=== PATIENT | female | born 1970 | race Caucasian/White ===

== ENCOUNTER → 2016-11-22 | Outpatient (CLI) | payer BC ==
--- NOTE | 2016-11-22 20:26 | US ---
EXAMINATION TYPE: US pelvic complete DATE OF EXAM: 11/22/2016 4:31 PM COMPARISON: NONE CLINICAL HISTORY: 46-year-old female Pelvic Mass R19.00. Partial hysterectomy 2008, pelvic mass seen on recent MRI in [place] Date of LMP: unknown TECHNIQUE: Transvaginal (TV) and Transabdominal (TA) FINDINGS: Uterus: Surgically absent. The vaginal cuff appears uniform and smooth at 1.6 cm thick. Right Ovary: unable to visualize common obscured by overlying bowel gas. Left Ovary: 4.7 x 2.2 x 2.3 cm with 2 cystic areas measuring 2.4 cm and 1.8 cm. These appear to be r elatively simple cysts. Small amount of free fluid in the left adnexa. IMPRESSION: 1. Status post hysterectomy. 2. Right ovary could not be visualized. 3. Left ovary contains 2 simple appearing cysts. These can be reassessed in 6-8 weeks. Subsequent fol low-up can then be determined. 4. Small amount of free fluid in the left adnexa.
== END ==
LOC: RADUSWWP 15:54
PROVIDERS: ATTEND Family Medicine
DX: N83.202 Unspecified ovarian cyst, left side (principal); Z90.710 Acquired absence of both cervix and uterus
CPT/HCPCS: 76830; 76856

== ENCOUNTER → 2017-01-05 | Outpatient (CLI) | payer BC ==
--- NOTE | 2017-01-05 09:33 | US ---
EXAMINATION TYPE: US transvaginal DATE OF EXAM: 01/05/2017 9:19 AM COMPARISON: See PACS CLINICAL HISTORY: N83.201 Ovarian Cyst lt side. TECHNIQUE: Transvaginal (TV) Date of LMP: history of hysterectomy EXAM MEASUREMENTS: Uterus: Surgically absent cm Endometrial Stripe: Surgically absent cm Right Ovary: obscured by overlying bowel gas cm Left Ovary: 3.0 x 1.7 x 1.7cm cm FINDINGS: 1. Uterus: surgically absent 2. Endometrium: Surgically absent 3. Right Ovary: Obscured by overlying bowel gas 4. Left Ovary: 2 cysts noted one irregular shaped with probable septation measuring 1.9 x 1.8 x 1.5c m, exophytic cyst vs ff measuring 0.9 x 0.5 x 0.6cm 5. Bilateral adnexa: wnl 6. Posterior cul-de-sac: wnl IMPRESSION: 1. Uterus is surgically absent. Right ovary is not seen and there are 2 cystic structures involving t he left ovary measuring 1.9 and 0.9 cm. Predominantly simple. Follow-up in 6-8 weeks could be obtained for resolution.
== END | disposition home or self-care (01) ==
LOC: RADUSWWP 08:55
PROVIDERS: ATTEND Family Medicine
DX: N83.201 Unspecified ovarian cyst, right side (principal); Z90.710 Acquired absence of both cervix and uterus
CPT/HCPCS: 76830

== ENCOUNTER → 2017-03-07 | Outpatient (CLI) | payer BC ==
[2017-03-07 13:25] LABS: Appearance,Urine Clear (Clear); Bilirubin,Urine Negative (Negative); Glucose,Urine (UA) Negative (Negative); Ketones,Urine Negative (Negative); Leukocyte Esterase,Urine Negative (Negative); Nitrite,Urine Negative (Negative); Protein,Urine Negative (Negative); Specific Gravity,Urine 1.018 (1.001-1.035); UA Billing (MACRO vs. MICRO) CHEM; Urobilinogen,Urine <2.0 mg/dL (<2.0)
[2017-03-07 13:27] LABS: Basophils # (A) 0.1 k/uL (0-0.2); Basophils % (A) 1 %; CH 30.8; Eosinophils # (A) 0.3 k/uL (0-0.7); Eosinophils % (A) 4 %; HCT 43.9 % (34.0-46.0); HDW 2.41; HGB 14.3 gm/dL (11.4-16.0); Luc # (Auto) 0.17; Luc % (Auto) 3; Lymphocytes # (A) 2.2 k/uL (1.0-4.8); Lymphocytes % (A) 37 %; MCH 30.5 pg (25.0-35.0); MCHC 32.5 g/dL (31.0-37.0); MCV 93.8 fL (80.0-100.0); Mean Platelet Volume 6.9; Monocytes # (A) 0.3 k/uL (0-1.0); Monocytes % (A) 5 %; Neutrophils # (A) 3.1 k/uL (1.3-7.7); Neutrophils % (A) 51 %; RBC 4.68 m/uL (3.80-5.40); RDW 12.5 % (11.5-15.5); WBC 6.1 k/uL (3.8-10.6); WBC (Perox) 6.17
[2017-03-07 13:47] LABS: Anion Gap 10 mmol/L; Blood Urea Nitrogen 12 mg/dL (7-17); Carbon Dioxide 25 mmol/L (22-30); Chloride 106 mmol/L (98-107); Non-African American GFR(MDRD) >60 (>60 ml/min/1.73 sqM); Potassium 4.7 mmol/L (3.5-5.1); Sodium 141 mmol/L (137-145)
[2017-03-07 13:53] LABS: INR 1.1 (<1.1); Partial Thromboplastin Time 24.7 sec (22.0-30.0); Prothrombin Time 10.7 sec (9.0-12.0)
[2017-03-10 07:51] LABS: Anabasine Urine <2.0 ng/mL (<2.0)
== END | disposition home or self-care (01) ==
LOC: LABWHC1 12:41
PROVIDERS: ATTEND Specialist
DX: Z01.812 Encounter for preprocedural laboratory examination (principal)
CPT/HCPCS: 36415; 80051; 80323; 81003; 82565; 84520; 85025; 85610; 85730; 87070; 87086

== ENCOUNTER 2017-03-28 13:10 | Emergency (ER) | payer BC ==
[2017-03-28 13:23] VITALS: RESP 18
--- NOTE | 2017-03-28 15:07 | ED ---
Lower Extremity Injury HPI - General Chief Complaint: Extremity Injury, Lower Stated Complaint: left leg swelling Time Seen by Provider: 03/28/17 13:44 Source: patient, family, RN notes reviewed Mode of arrival: wheelchair Limitations: no limitations - History of Present Illness Initial Comments: Patient is a 47-year-old female presents to the emergency room for evaluation of left leg pain. Patient states she had spinal surgery by Dr. Collier at [facility] on Tuesday. Patient states when she was sent home she was advised to walk around as much as she could and was given exercises do with her feet and legs. Patient states night she began developing pain in her left ankle. Patient states she's noticed swelling in her foot and her left leg is having increasing pain radiating up into her upper leg. Patient states today she is now experiencing swelling in her right foot but denies pain yet. Patient denies history of DVTs or PEs. Patient denies taking any blood thinners. Patient denies any specific trauma or injury to her left leg. - Related Data Home Medications Medication Instructions Recorded Confirmed Albuterol Inhaler [Ventolin Hfa 1 puff INHALATION RT-BID PRN 02/26/14 03/28/17 Inhaler] DULoxetine HCL [Cymbalta] 60 mg PO DAILY 01/18/15 03/28/17 Vitamin B Complex 1 tab PO DAILY 01/18/15 03/28/17 Multivitamins, Thera [Theragran] 1 tab PO DAILY 04/02/15 03/28/17 Diclofenac Sodium [Voltaren] 75 mg PO BID 06/04/16 03/28/17 Gabapentin [Neurontin] 300 mg PO TID 06/04/16 03/28/17 Verapamil HCl [Verapamil ER] 120 mg PO DAILY 06/04/16 03/28/17 metFORMIN HCL [Glucophage] 500 mg PO AC-BRKFST 06/04/16 03/28/17 diphenhydrAMINE [Benadryl] 25 mg PO DAILY PRN 06/18/16 03/28/17 Diazepam [Valium] 10 mg PO HS PRN 03/28/17 03/28/17 HYDROcodone/APAP 7.5-325MG [Leighton 1 tab PO Q4H PRN 03/28/17 03/28/17 7.5-325] Methocarbamol [Robaxin] 750 mg PO Q12H 03/28/17 03/28/17 Allergies Allergy/AdvReac Type Severity Reaction Status Date / Time apple [Apple] Allergy Rash/Hives Verified 03/28/17 15:11 aspirin Allergy Rash/Hives Verified 03/28/17 15:11 Beef Containing Products Allergy Rash/Hives Verified 03/28/17 15:11 cinnamon [Cinnamon] Allergy Rash/Hives Verified 03/28/17 15:11 cocoa [[place]] Allergy Rash/Hives Verified 03/28/17 15:11 dill oil Allergy Rash/Hives Verified 03/28/17 15:11 egg Allergy Rash/Hives Verified 03/28/17 15:11 frovatriptan succinate Allergy Nausea & Verified 03/28/17 15:11 [From Frova] Vomiting plus throat swelling grapefruit [Grapefruit] Allergy Rash/Hives Verified 03/28/17 15:11 peas Allergy Rash/Hives Verified 03/28/17 15:11 Poultry [[place]] Allergy Rash/Hives Verified 03/28/17 15:11 soy Allergy Rash/Hives Verified 03/28/17 15:11 spinach Allergy Rash/Hives Verified 03/28/17 15:11 yeast, dried [yeast] Allergy Rash/Hives Verified 03/28/17 15:11 orange AdvReac Rash/Hives Verified 03/28/17 15:11 salmon Allergy Rash/Hives Uncoded 03/28/17 13:23 solumedrol IV only Allergy Rash/Hives Uncoded 03/28/17 13:23 Sinus medication AdvReac Nausea & Uncoded 03/28/17 13:23 Vomiting Review of Systems ROS Statement: Those systems with pertinent positive or pertinent negative responses have been documented in the HPI. ROS Other: All systems not noted in ROS Statement are negative. Past Medical History Past Medical History: Diabetes Mellitus, Eye Disorder, Hyperlipidemia, Musculoskeletal Disorder, Neurologic Disorder Additional Past Medical History / Comment(s): LT Glaucoma. Irregular heart beat. Raynauds. STOMACH Ulcers. 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 History of Any Multi-Drug Resistant Organisms: None Reported Past Surgical History: Ablation, Appendectomy, Back Surgery, Section, Cholecystectomy, Hysterectomy, Orthopedic Surgery Additional Past Surgical History / Comment(s): right/left knee, rfa to C2-5, laparoscopies to drain ovarian sx, bilat feet sx, rt trigger thumb sx, colonoscopy. RT KNEE SCOPE 06/09/16. Past Anesthesia/Blood Transfusion Reactions: Motion Sickness Past Psychological History: Anxiety Smoking Status: Former smoker Past Alcohol Use History: None Reported Additional Past Alcohol Use History / Comment(s): smokes 1/2 ppd, off and on since age 13 Past Drug Use History: None Reported - Past Family History Mother Family Medical History: Deep Vein Thrombosis (DVT) Father Family Medical History: Cancer General Exam - General Exam Comments Initial Comments: Laying on exam bed, no distress. Limitations: no limitations General appearance: alert, in no apparent distress Head exam: Present: atraumatic, normocephalic, normal inspection Eye exam: Present: normal appearance ENT exam: Present: normal exam Neck exam: Present: normal inspection Respiratory exam: Present: normal lung sounds bilaterally. Absent: respiratory distress Cardiovascular Exam: Present: regular rate, normal rhythm, normal heart sounds Left Lower Leg exam: Present: tenderness (Palpating over calf area) Ankle exam: Present: tenderness, swelling Foot/Toe exam: Present: tenderness, swelling Neurovascular tendon exam: Present: no vascular compromise. Absent: pulse deficit (2+ dorsal pedal and posterior tibial pulses), abnormal cap refill ( Capillary refill less than 2 second) Right Lower Leg exam: Present: normal inspection Ankle exam: Present: normal inspection Foot/Toe exam: Present: swelling. Absent: tenderness Neurovascular tendon exam: Present: no vascular compromise. Absent: pulse deficit (2+ dorsal pedal and posterior tibial pulses), abnormal cap refill ( Capillary refill less than 2 seconds) Back exam: Present: normal inspection Neurological exam: Present: alert, oriented X3, CN II-XII intact Psychiatric exam: Present: normal affect, normal mood Skin exam: Present: warm, dry, intact, normal color. Absent: rash Course Vital Signs 03/28/17 03/28/17 13:18 16:39 Temperature 98.4 F 98 F Pulse Rate 79 72 Respiratory 18 18 Rate Blood Pressure 117/60 107/68 O2 Sat by Pulse 99 95 Oximetry Medical Decision Making - Medical Decision Making Patient is a 47-year-old female presents to the emergency room for evaluation of left leg pain and bilateral leg swelling. Bilateral venous Doppler ultrasound negative for DVT's. Advised patient to continue elevating above heart follow-up with either primary care provider surgeon within the next 24-48 hours. Advised patient to return for any worsening symptoms. Patient states she understands everything that was discussed with her. Case discussed with Dr. Marshall. - Radiology Data Radiology results: report reviewed, image reviewed Disposition Clinical Impression: Bilateral leg edema Disposition: HOME SELF-CARE Condition: Good Instructions: Leg Edema (ED) Additional Instructions: Keep legs elevated. Continue taking pain medications as needed. Please follow up with primary care provider or surgeon in 24-48 hours. If any new symptom arises or symptoms worsen, return to ER as soon as possible. Referrals: Ezekiel Reina MD [Primary Care Provider] - 1-2 days Time of Disposition: 16:31
--- NOTE | 2017-03-28 16:21 | US ---
EXAMINATION TYPE: US venous doppler duplex LE DATE OF EXAM: 03/28/2017 3:53 PM COMPARISON: NONE CLINICAL HISTORY: Pain. SIDE PERFORMED: Bilateral TECHNIQUE: The lower extremity deep venous system is examined utilizing real time linear array sonog gisselle with graded compression, doppler sonography and color-flow sonography. VESSELS IMAGED: External Iliac Vein (EIV) Common Femoral Vein Deep Femoral Vein Greater Saphenous Vein * Femoral Vein Popliteal Vein Small Saphenous Vein * Proximal Calf Veins (* superficial vessels) Leg pain post op 6 days. Right Leg: Negative for DVT Left Leg: Negative for DVT No popliteal fossa lesion is seen. IMPRESSION: THIS EXAMINATION IS NEGATIVE FOR DVT IN BOTH LEGS.
[2017-03-28 16:40] VITALS: BP 107/68; PULSE 72; TEMP 98
== END 2017-03-28 16:40 | disposition home or self-care (01) ==
LOC: EC 13:10
DX: R60.0 Localized edema (principal); E11.9 Type 2 diabetes mellitus without complications; F41.9 Anxiety disorder, unspecified; Z87.891 Personal history of nicotine dependence; Z79.84 Long term (current) use of oral hypoglycemic drugs; Z79.899 Other long term (current) drug therapy; Z91.018 Allergy to other foods; Z88.6 Allergy status to analgesic agent; Z91.012 Allergy to eggs; Z88.8 Allergy status to other drugs, medicaments and biological substances
CPT/HCPCS: 93970; 99283

== ENCOUNTER → 2017-04-18 | Outpatient (CLI) | payer BC ==
--- NOTE | 2017-04-18 10:22 | US ---
EXAMINATION TYPE: US abdomen complete DATE OF EXAM: 04/18/2017 COMPARISON: 04/18/2012 CLINICAL HISTORY: LE Swelling SP RACHEL, M54.17. EXAM MEASUREMENTS: Liver Length: 14.1 cm CBD: 0.41 cm Spleen: 10 cm Right Kidney: 9.3 X 4.0 X 4.9 cm Left Kidney: 9.9 X 4.7 X 5.1 cm Pancreas: Tail obscured by overlying bowel gas Liver: HYPERECHOIC AREA VISUALIZED MEASURING 1.6 X 2.1 X 1.5 CM Gallbladder: Surgically absent: CBD: wnl Spleen: wnl Right Kidney: No hydronephrosis or masses seen Left Kidney: No hydronephrosis or masses seen Upper IVC: wnl Abd Aorta: wnl The liver demonstrates stable hyperechoic focus. The intrahepatic portion of the IVC and proximal abd ominal aorta are within normal limits. The gallbladder surgically absent. Common bile duct is unremar kable. The visualized portions of the pancreas are homogenous. The spleen is unremarkable. Kidneys are symmetric and free of hydronephrosis. No renal lesions are seen. IMPRESSION: 1. Stable hyperechoic lesion of the liver which may reflect a hemangioma
== END | disposition home or self-care (01) ==
LOC: RADUSWWP 09:01
PROVIDERS: ATTEND Specialist
DX: K76.89 Other specified diseases of liver (principal); Z98.1 Arthrodesis status; Z88.6 Allergy status to analgesic agent; Z88.8 Allergy status to other drugs, medicaments and biological substances; Z91.018 Allergy to other foods; Z91.010 Allergy to peanuts; Z91.02 Food additives allergy status
CPT/HCPCS: 76700

== ENCOUNTER → 2017-09-19 | Outpatient (CLI) | payer BC ==
[2017-09-19 15:27] LABS: Blood Urea Nitrogen 13 mg/dL (7-17); Non-African American GFR(MDRD) >60 (>60 ml/min/1.73 sqM)
--- NOTE | 2017-09-19 17:41 | CT ---
EXAMINATION TYPE: CT abdomen pelvis w con DATE OF EXAM: 09/19/2017 COMPARISON: 12/20/2016 INDICATION: Bowel obstruction. DLP: 1560 mGycm, Automated exposure control for dose reduction was used. CONTRAST: 100 mL of Omnipaque 300. Study performed with Oral Contrast TECHNIQUE: Axial images were obtained from above the diaphragm to the pubic rami in the axial plane a t 5 mm thick sections. Reconstructed images are reviewed on the computer in the coronal plane. FINDINGS: Limited CT sections are obtained the lung bases. The lung bases are clear. CT ABDOMEN: Liver: Normal Spleen: Normal Pancreas: Normal Adrenal glands: The adrenal glands are normal. Gallbladder: Surgically absent Kidneys: No masses are evident. No hydronephrosis is present. No cysts are present. Delayed images were obtained through the kidneys, which remain unremarkable. Aorta: Vascular calcification is within the aorta. Inferior vena cava: Normal. CT PELVIS: Loops of bowel within the abdomen and pelvis are normal. There are loops of bowel which are incom pletely distended or lack oral contrast limiting their evaluation. Oral contrast extends to the stoma ch proximal small bowel loops to the distal ileum. Dilated loops to suggest obstruction or not identi fied. Significant fluid-filled loops of bowel are not evident to suggest ileus. Rule ileum appears un remarkable with fluid Appendix: Not visualized Urinary bladder: Normal. Genitourinary structures: Uterus is absent. Adnexal regions are clear. Osseous structures: No suspicious lytic or sclerotic lesions. Fixation disc spaces are within the lum bar spine. IMPRESSIONS: 1. No obstruction identified although contrast does not extend into the colon during the time allott ed for this examination. No suspicious dilated loops of bowel are fluid-filled loops of bowel are edelmira dent.
== END | disposition home or self-care (01) ==
LOC: RADCTMAIN 13:46
PROVIDERS: ATTEND Surgery Plastic and Reconstructive Surgery
DX: K56.609 Unspecified intestinal obstruction, unspecified as to partial versus complete obstruction (principal)
CPT/HCPCS: 82565; 84520; 74177; Q9967

== ENCOUNTER 2017-11-14 11:42 | Inpatient (IN) | payer BC ==
[2017-11-09 12:43] VITALS: BMI 35.9
--- NOTE | 2017-11-13 13:38 | HP ---
HISTORY AND PHYSICAL Surgery 11/14/2017. Radha Triana is a 47-year-old patient seen with symptomatic right knee osteoarthritis. Treatment options discussed. She elected to proceed right total knee arthroplasty. Consent was obtained. Medical clearance provider by Dr. Reina. PAST MEDICAL HISTORY: Asthma, hyf-kauzira-mdeemkmud diabetes, hypertension, gastroesophageal reflux disease. PAST SURGICAL HISTORY: Bilateral knee arthroscopy, cholecystectomy, cardiac catheterization, hand surgery. DAILY MEDICATIONS: Albuterol, Benadryl, Cymbalta, Glucophage, Verapamil, gabapentin. ALLERGIES: ASPIRIN, SOLU-MEDROL, SINUS MEDICATIONS. SOCIAL HISTORY: The patient smokes 3/4 pack cigarettes daily. PHYSICAL EXAMINATION: Evaluation of the right knee: Range of motion is -3 to 110 degrees. Tenderness along the medial joint line. Mild intra-articular effusion. Crepitus along the medial and patellofemoral compartments with range of motion. Ligaments stable. Hip rotation without pain. Distal neurovascular exam intact. RADIOGRAPHS: Radiographs of the right knee revealed moderate medial and moderate to severe patellofemoral compartment osteoarthritis. IMPRESSION: 1. Right knee osteoarthritis. 2. Asthma. 3. Hsi-dcxwvyi-siwlxdmdp diabetes. 4. Hypertension. 5. Gastroesophageal reflux disease. 6. Tobacco use. PLAN: Right total knee arthroplasty. MMODL / IJN: [id number] /
[~2017-11-14 11:42] MED LIST: DEXAMETHASONE SOD PHOSPHATE 10 MG/ML 1 ML VIAL IV ONE; LACTATED RINGERS 1,000 ML IV SCH; MELOXICAM 7.5 MG TAB PO ONE; MIDAZOLAM 2 MG/2 ML VIAL IV PRN; MORPHINE SULFATE 4 MG/ML SYRINGE IV PRN; ONDANSETRON 4 MG/2 ML VIAL IVP ONE; SCOPOLAMINE 1.5MG/72HR PATCH TRANSDERM ONE; TRANEXAMIC ACID 1,000 MG in SODIUM CHLORIDE 0.9% 50 ML IVPB ONE; ceFAZolin IN SWFI 2 GM/20 ML SYRINGE IVP ONE
[2017-11-14 14:55] LABS: Glucose,Whole Blood 94 mg/dL (75-99)
[2017-11-14] MEDS ORDERED: LACTATED RINGERS 1,000 ML IV ONE ×4 (14:55→18:14)
[2017-11-14] MEDS ORDERED: LIDOCAINE 1% 20 ML VIAL (10MG/ML) FOR IV START INTRADERMA ONE (14:55)
[2017-11-14] MEDS: fentaNYL (PF) 50 MCG/ML 2 ML AMP IVP ONE ×2 (15:28→15:34)
[2017-11-14] MEDS ORDERED: ROPIVACAINE 1,100 MG, SODIUM CHLORIDE 0.9% 330 ML MISCELLANE PRN ×2 (15:43)
[2017-11-14] MEDS ORDERED: NALOXONE 0.4 MG/ML 1 ML VIAL IV PRN ×2 (15:43→18:05)
[2017-11-14] MEDS ORDERED: ROPIVACAINE 246.25 MG, EPINEPHrine 0.5 MG, KETOROLAC 30 MG, cloNIDine HCL/PF 80 MCG, WA... MISCELLANE ONE ×5 (15:45)
--- NOTE | 2017-11-14 15:45 | P.ONQ ---
Anesthesiology Proc Note - PNB - Peripheral Nerve Block Performed Right Adductor Canal Infusion Procedure Start Time: 15:25 Procedure Stop Time: 15:35 Indication: Requested by physician Specifically requested for management of pain by DrJanette: David Ojeda Sedation Type: Sedate with meaningful contact maintained Preparation: Sterile Dressing Position: Supine Catheter: Indwelling Needle Types: On-Q Needle Size: 100mm (4") Needle Gauge: 20 Technique: Ultrasound Injectate: 0.5% Ropivacaine (see comment for volume)
[2017-11-14] MEDS ORDERED: fentaNYL (PF) 50 MCG/ML 2 ML AMP ONE (16:03)
[2017-11-14] MEDS ORDERED: MIDAZOLAM 2 MG/2 ML VIAL ONE (16:03)
[2017-11-14] MEDS ORDERED: PROPOFOL 10 MG/ML 20 ML VIAL IV ONE (16:03)
[2017-11-14] MEDS ORDERED: SODIUM CHLORIDE 0.9% 100 ML BAG ONE (16:03)
[2017-11-14] MEDS ORDERED: ePHEDrine 50 MG/ML 1 ML AMP ONE (16:03)
[2017-11-14] MEDS ORDERED: TRANEXAMIC ACID 1,000 MG/10 ML VIAL ONE (16:03)
[2017-11-14] MEDS ORDERED: ceFAZolin 3,000 MG in SODIUM CHLORIDE 0.9% IRRIGATIO 3,000 ML IRRIGATION ONE (17:29)
--- NOTE | 2017-11-14 18:04 | P.OP ---
Date of Procedure: 11/14/17 Preoperative Diagnosis: Right knee osteoarthritis Postoperative Diagnosis: Right knee osteoarthritis Procedure(s) Performed: Right total knee arthroplasty Implants: 1. Marli persona size 7 cruciate retaining narrow cemented femur 2. Marli persona size D cemented tibia 3. Marli persona 10 mm medial congruent polyethylene tibial insert 4. Marli persona 32 mm all polyethylene cemented patella Anesthesia: regional (Adductor canal catheter), local, spinal Surgeon: David Ojeda Banana Expert #1: Akshat Avitia Estimated Blood Loss (ml): 50 Pathology: other (bone) Condition: stable Disposition: PACU Indications for Procedure: 47-year-old patient seen with symptomatic right knee osteoarthritis. After having treatment options discussed, she elected to proceed with total knee arthroplasty. Operative Findings: see description of procedure Description of Procedure: Patient was taken to the operative suite after having an adductor canal catheter placed by the department of anesthesia. Patient underwent a spinal anesthetic by the department of anesthesia. Patient was given preoperative IV intake antibiotics and TXA. A well-padded tourniquet was placed about the right lower extremity. The lower extremity was then prepped and draped in the normal sterile orthopedic fashion. The extremity was elevated, a tourniquet was insufflated to 350. A standard anterior incision was made sharply through skin. Dissection was taken down through the subcutaneous soft tissues down to the extensor mechanism. A medial arthrotomy was performed, patella was everted and knee was flexed. There was advanced osteoarthritis noted. A proximal tibial cutting guide was positioned. Proximal tibial cut was made. A distal intramedullary femoral cutting guide was positioned, distal femoral cut made. We placed the appropriate sizing guide and selected the appropriate size. A distal 4-in-1 femoral cutting block was positioned, distal femoral cuts were made. We now placed a trial femoral component into position, along with an appropriate size tibial tray and insert. We now took the knee through range of motion and had full extension good flexion and good overall soft tissue balance noted. The patella was everted and a flush cut made with patellar quad tendon. We templated the patella, appropriate drill holes were made. An appropriate trial patella was positioned, knee was taken through full range of motion with the patella tracking very nicely. The trial patella was removed. Drill holes were made through the femoral component. All trial components were removed after marking off the appropriate rotation of the tibia. Retractors were now positioned along the proximal tibia. An appropriate keel punch was made with the appropriate size tibial guide. At this point appropriate size implants were chosen and opened. The joint was irrigated copiously with pulse lavage mechanical irrigation. The posterior capsule was infiltrated analgesic. We mixed antibiotic methylmethacrylate. Once the methyl methacrylate was ready, the tibial component was cemented into place removing any excess methylmethacrylate. The femoral component was cemented into place removing the removing any excess methylmethacrylate. We then inserted the appropriate size polyethylene tibial insert. We made sure that it was locked into position. We took the knee into full extension, and then back in a flexion making sure we had removed any excess methylmethacrylate. The patellar component was then cemented down and secured with clamp. Excess methylmethacrylate removed. We kept the knee in full extension, patellar clamp in position until methylmethacrylate had hardened. Once it had hardened the patellar clamp was removed. The knee was taken through full range of motion. The patella tracked nicely. There was good soft tissue balancing. The tourniquet was now released. Additional hemostasis was achieved via electrocautery. The second gram of TXA was given. The wound was irrigated with pulse lavage mechanical irrigation. The extensor mechanism was repaired with Vicryl. We checked the repair with range of motion and it was stable. The subcutaneous soft tissues were repaired with Vicryl in layers. The skin was approximated with pernio/ Dermabond. Sterile dressings were applied followed by loose web roll and Merlin bandage. The patient was transferred to a bed, and taken to recovery in stable and satisfactory condition. Eliu CALDERON assisted with the procedure.
[2017-11-14] MEDS ORDERED: hydrOXYzine PAMOATE 25 MG CAP PO PRN (18:05)
[2017-11-14] MEDS ORDERED: HYDROcodone/APAP 7.5-325MG 1 EACH TAB PO PRN (18:05)
[2017-11-14] MEDS ORDERED: HYDROmorphone 0.5 MG/0.5 ML SYRINGE IVP PRN ×3 (18:05)
[2017-11-14] MEDS ORDERED: ONDANSETRON 4 MG/2 ML VIAL IVP PRN (18:05)
[2017-11-14 18:52] LABS: Glucose,Whole Blood 112 mg/dL (75-99)
--- NOTE | 2017-11-14 19:50 | XR ---
PROCEDURE: XR knee limited RT - 2V DATE AND TIME: 11/14/2017 6:29 PM REFERRING PHYSICIAN: David Ojeda DO CLINICAL INDICATION: PHH, Evaluation for Postop abnormality and alignment TECHNIQUE: AP and crosstable lateral views were obtained. FINDINGS: The patient is status post TKR, with the components and skeletal structures appearing to be in anatomic position and alignment. Postprocedural soft tissue changes are noted. No unexpected radi opaque foreign bodies. IMPRESSION: Postoperative examination.
[2017-11-14] MEDS ORDERED: ALBUTEROL NEBULIZED 2.5 MG/3 ML INHALATION PRN (20:03)
[2017-11-14] MEDS ORDERED: SENNOSIDES-DOCUSATE SODIUM 1 EACH TAB PO SCH (21:00)
[2017-11-14 21:06] LABS: Glucose,Whole Blood 248 mg/dL (75-99)
[2017-11-14] MEDS: FAMOTIDINE 20 MG TAB PO SCH (21:22)
[2017-11-14] MEDS: GABAPENTIN 300 MG CAP PO SCH (21:23)
[2017-11-14] MEDS: traMADol 50 MG TAB PO SCH (21:23)
[2017-11-14] MEDS: INSULIN ASPART 100 UNIT/ML 1 ML 10 ML VIAL SQ SCH (21:23)
[2017-11-14] MEDS ORDERED: diphenhydrAMINE 25 MG CAP PO PRN (22:46)
[2017-11-14] MEDS: HYDROcodone/APAP 7.5-325MG 1 EACH TAB PO PRN (23:56)
[2017-11-14] MEDS: ceFAZolin IN SWFI 2 GM/20 ML SYRINGE IVP SCH (23:57)
[2017-11-15] MEDS: LACTATED RINGERS 1,000 ML IV SCH ×3 (03:50→12:32)
[2017-11-15] MEDS: HYDROcodone/APAP 7.5-325MG 1 EACH TAB PO PRN ×2 (06:06→12:31)
--- NOTE | 2017-11-15 06:25 | P.PN ---
Progress Note - Text Progress Note Date: 11/15/17 . Postoperative day # 1 status post total knee arthroplasty, under spinal anesthesia, and adductor canal catheter placed for postoperative analgesia, currently at ropivacaine 0.2% 8 mL per hour and continuous infusion, catheter site local. There is no erythema, and there is no tenderness, visual analogue scale is 1-4 /10, patient using oral pain medication for breakthrough pain. Assessment and plan= Acute postoperative pain, adductor canal catheter for pain control, pain is well controlled we'll continue the same management.
[2017-11-15 07:25] LABS: Basophils % (A) 0 %; Eosinophils % (A) 0 %; HCT 35.4 % (34.0-46.0); HGB 11.8 gm/dL (11.4-16.0); Lymphocytes # (A) 1.6 k/uL (1.0-4.8); Lymphocytes % (A) 10 %; MCH 30.7 pg (25.0-35.0); MCHC 33.2 g/dL (31.0-37.0); MCV 92.5 fL (80.0-100.0); Monocytes # (A) 0.9 k/uL (0-1.0); Monocytes % (A) 6 %; Neutrophils # (A) 12.8 k/uL (1.3-7.7); Neutrophils % (A) 83 %; Platelet Count 275 k/uL (150-450); RBC 3.83 m/uL (3.80-5.40); RDW 12.2 % (11.5-15.5); WBC 15.4 k/uL (3.8-10.6)
[2017-11-15] MEDS ORDERED: metFORMIN 500 MG TAB PO SCH (07:30)
[2017-11-15 07:49] LABS: Anion Gap 6 mmol/L; Blood Urea Nitrogen 14 mg/dL (7-17); Calcium 8.8 mg/dL (8.4-10.2); Carbon Dioxide 25 mmol/L (22-30); Chloride 107 mmol/L (98-107); Glucose 115 mg/dL (74-99); Potassium 4.7 mmol/L (3.5-5.1); Sodium 138 mmol/L (137-145)
[2017-11-15] MEDS: GABAPENTIN 300 MG CAP PO SCH (08:33)
[2017-11-15] MEDS: traMADol 50 MG TAB PO SCH ×2 (08:33→12:32)
[2017-11-15] MEDS: FAMOTIDINE 20 MG TAB PO SCH (08:33)
[2017-11-15] MEDS: INSULIN ASPART 100 UNIT/ML 1 ML 10 ML VIAL SQ SCH ×2 (08:34→12:29)
[2017-11-15] MEDS ORDERED: DULoxetine HCL 60 MG CAPSULE.DR PO SCH (09:00)
[2017-11-15] MEDS ORDERED: ENOXAPARIN 30 MG/0.3 ML SYRINGE SQ SCH (09:00)
[2017-11-15] MEDS ORDERED: MELOXICAM 7.5 MG TAB PO SCH (09:00)
[2017-11-15] MEDS ORDERED: VERAPAMIL SR 120 MG TABLET.ER PO SCH (09:00)
[2017-11-15] MEDS ORDERED: FAMOTIDINE 20 MG TAB PO SCH (09:00)
[2017-11-15] MEDS ORDERED: MULTIVITAMINS, THERA 1 EACH TAB PO SCH (09:00)
[2017-11-15] MEDS: ceFAZolin IN SWFI 2 GM/20 ML SYRINGE IVP SCH (09:21)
--- NOTE | 2017-11-15 10:07 | CONS ---
CONSULTATION REASON FOR CONSULTATION: Advice regarding diabetes mellitus, hypertension, hyperlipidemia, and other medical issues requested by Orthopedic surgery. HISTORY OF PRESENT ILLNESS: This 47-year-old woman with a past medical history of diabetes, hyperlipidemia, DJD, history of left eye glaucoma, history of ablation, being followed by Dr. Reina in the outpatient setting underwent right total knee arthroplasty by Dr. Ojeda. There is no history of fever, rigors. No history of headache, loss of consciousness of seizures. No chest pain, palpitation at this time. Blood sugars found to be 112, 248. PAST MEDICAL HISTORY: History of diabetes, hypertension, hyperlipidemia, DJD, history of left eye glaucoma, history of ablation, appendectomy. MEDICATIONS: Prior to admission include home medications are: 1. Glucophage 500 mg p.o. b.i.d. 2. Benadryl 25 mg daily p.r.n. 3. Vitamin B1 complex. 4. Verapamil ER 120 mg q.a.m. 5. Multivitamins 1 p.o. daily. 6. Neurontin 300 mg t.i.d. 7. Famotidine 20 mg p.o. b.i.d. 8. Voltaren 70 mg b.i.d. 9. Cymbalta 60 mg p.r.n. 10.Vitamin C 500 mg. 11.Ventolin HFA 1 to 2 puffs b.i.d. p.r.n. ALLERGIES: ARE MULTIPLE ALLERGIES APPLE, ASPIRIN, BEEF, CINNAMON, COCOA, EGGS, PEAS, POULTRY, SPINACH, YEASTS, ORANGE AND SALMON, SOLU-MEDROL IV AND SINUS MEDICATION. FAMILY HISTORY: History of DVT, bladder problems in the family. SOCIAL HISTORY: History of smoking, no history of alcohol. REVIEW OF SYSTEMS: ENT: No diminished vision. No diminished hearing. CARDIOVASCULAR: No angina or palpitations. RESPIRATORY: As mentioned. GI no nausea or vomiting. no dysuria or retention. Central nervous system: No numbness, weakness. Allergy/Immunology: No asthma or hayfever. Musculoskeletal as mentioned earlier. HEMATOLOGY/ONCOLOGY: No history of anemia. Endocrine: Diabetes. Constitutional: As mentioned earlier. Dermatology: Negative. Rheumatology: Negative. Psychiatric : As mentioned earlier. PHYSICAL EXAM: The patient is alert and oriented times three. Pulse is 86, blood pressure 109/ 53, respiration 16, temperature 97.8, pulse ox 97% on room air. HEENT: Conjunctivae normal. Neck: No jugular venous distention. Cardiovascular: S1, S2 muffled. Respiratory: Breath sounds diminished in the bases. No rhonchi and no crackles. ABDOMEN: Soft, nontender. No mass palpable. Legs no edema and no swelling. NERVOUS SYSTEM: Higher functions as mentioned earlier. Moves all four limbs. No focal deficits. Lymphatics: No lymph nodes palpable in the neck, axillae or groin. Skin no ulcers, rashes or bleeding. LAB STUDIES: At this time shows: Accu-Cheks 112, 248. ASSESSMENT: 1. Status post right total knee arthroplasty. 2. Diabetes type 2. 3. Hyperlipidemia. 4. Degenerative joint disease. 5. Left glaucoma. 6. Appendectomy. 7. Back surgery. 8. History of anxiety. 9. History of nicotine dependence. RECOMMENDATIONS AND DISCUSSION: In this 47-year-old woman who presented with multiple complex medical issues, we will monitor the patient closely, continue the current medications, management and symptomatic treatment. Otherwise at this time, I recommend continue with Accu- Cheks a.c. and q.h.s., consistent carb diet and we will closely follow. Incentive spirometry and I would also recommend repeat labs. Also DVT prophylaxis. We will follow the patient closely. Thank you Dr. Ojeda, for letting us participate in the care of this patient. The patient will be asked to follow with Dr. Reina closely after discharge. MMODL / IJN: [id number] / [id number]
[2017-11-15] MEDS ORDERED: ASPIRIN 325 MG TAB PO SCH (11:00)
[2017-11-15 12:23] LABS: Glucose,Whole Blood 93 mg/dL (75-99)
--- NOTE | 2017-11-15 13:13 | P.DS ---
Providers Date of admission: 11/14/17 14:22 Expected date of discharge: 11/15/17 Attending physician: David Ojeda Consults: 11/14/17 18:05 Consult Physician Routine Consulting Provider: Ezekiel Reina Consult Reason/Comments: Medical management Do you want consulting provider notified?: Yes 11/14/17 18:45 Consult Physician Routine Consulting Provider: Arnulfo Rudd Consult Reason/Comments: medical management Do you want consulting provider notified?: Yes Primary care physician: Ezekiel Reina Hospital Course: Date of admission: 11/14/2017 Date of discharge: 11/15/2017 Admission diagnosis: Status post right total knee arthroplasty Discharge diagnosis: Same Attending physician: Dr. Ojeda Surgical procedures: Right total knee arthroplasty Brief history: Patient is a 47-year-old female with a history of progressive primary right knee osteoarthritis. At this point patient has failed conservative treatment measures and has opted to proceed with a elective right total knee arthroplasty Hospital course: Details of patient's surgery can be found in operative report. Patient tolerated the procedure well and was subsequently transported to orthopedic floor. Patient's orthopeidc and medical care was provided daily. Patient had daily laboratory tests performed for evaluation of overall blood counts. Patient had daily physical therapy to include strengthening range of motion as well as education with walker ambulation. Patient had daily CPM usage as part of their physical therapy program. Patient was treated with Lovenox for their postoperative DVT prophylaxis during their inpatient stay. Patient was noted to have a relatively uneventful postoperative course. Patient reported satisfactory pain control with oral pain medications by postoperative day. Patient showed satisfactory progress with physical therapy. Patient moved steadily through the program and had no difficulty meeting the goals by postoperative day 1. Given patient's otherwise satisfactory course and having met physical therapy goals, plan is to discharge patient home on postoperative day 1. Discharge condition/disposition: Patient will be discharged home in stable condition. Discharge medications: Instructions are given on resumption of patient's normal daily medications per primary care recommendation, in addition patient will be prescribed [place] 7.5 mg/325 mg, Colace 100 mg, aspirin 325 mg. Discharge instructions: 1. Wound care and infection precautions, keep incision dry and covered while showering, no lotions, creams, moisturizers. No soaking, tubs, pools, hottubs. Do not scrub over the incision. 2. Weight-bear as tolerated with walker / cane until follow-up. 3. Ice and elevate when necessary. Do not exceed 20 minutes per hour with ice pack. 4. Utilize compression sleeve until seen at first follow up appointment. 5. Visiting nursing care. 6. Home physical therapy including home CPM. 7. Pain meds and anticoagulants per prescription. 8. Pain medication has potential to cause constipation. Increase oral fluid and fiber intake. Contact primary care provider if you have not had a bowel movement within 48 hours after discharge 9. No anti-inflammatory medication until discussed at first post operative visit, this including Motrin, Aleve, Mobic, Diclofenac. 10. Follow up in office at 2 weeks postop with Eliu Avitia PA-C 11. Follow up with your primary care doctor 7-10 days after discharge. 12. Contact [facility] with any questions, . Procedures: Right total knee arthroplasty Patient Condition at Discharge: Good Plan - Discharge Summary Discharge Rx Participant: Yes New Discharge Prescriptions: New Aspirin 325 mg PO BID #60 tab Docusate [Colace] 100 mg PO DAILY #30 capsule HYDROcodone/APAP 7.5-325MG [[place] 7.5] 1 - 2 each PO Q6HR PRN #60 tab PRN Reason: Pain No Action Albuterol Inhaler [Ventolin Hfa Inhaler] 1 puff INHALATION RT-BID PRN PRN Reason: Shortness Of Breath DULoxetine HCL [Cymbalta] 60 mg PO QAM Vitamin B Complex 1 tab PO DAILY Multivitamins, Thera [Multivitamin (formulary)] 1 tab PO DAILY Gabapentin [Neurontin] 300 mg PO TID Diclofenac Sodium [Voltaren] 75 mg PO BID metFORMIN HCL [Glucophage] 500 mg PO BID Verapamil HCl [Verapamil ER] 120 mg PO QAM diphenhydrAMINE [Benadryl] 25 mg PO DAILY PRN PRN Reason: Allergy Symptoms Famotidine 20 mg PO BID Ascorbic Acid [Vitamin C] 500 mg PO DAILY Discharge Medication List Albuterol Inhaler [Ventolin Hfa Inhaler] 1 puff INHALATION RT-BID PRN 02/26/14 [ History] DULoxetine HCL [Cymbalta] 60 mg PO QAM 01/18/15 [History] Vitamin B Complex 1 tab PO DAILY 01/18/15 [History] Multivitamins, Thera [Multivitamin (formulary)] 1 tab PO DAILY 04/02/15 [History ] Diclofenac Sodium [Voltaren] 75 mg PO BID 06/04/16 [History] Gabapentin [Neurontin] 300 mg PO TID 06/04/16 [History] Verapamil HCl [Verapamil ER] 120 mg PO QAM 06/04/16 [History] metFORMIN HCL [Glucophage] 500 mg PO BID 06/04/16 [History] diphenhydrAMINE [Benadryl] 25 mg PO DAILY PRN 06/18/16 [History] Ascorbic Acid [Vitamin C] 500 mg PO DAILY 09/21/17 [History] Famotidine 20 mg PO BID 09/21/17 [History] Aspirin 325 mg PO BID #60 tab 11/15/17 [Rx] Docusate [Colace] 100 mg PO DAILY #30 capsule 11/15/17 [Rx] HYDROcodone/APAP 7.5-325MG [[place] 7.5] 1 - 2 each PO Q6HR PRN #60 tab 11/15/17 [ Rx] Follow up Appointment(s)/Referral(s): [facility], [NON-STAFF] - Akshat Avitia PAC [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 Wound care and infection precautions, keep incision dry and covered while showering, no lotions, creams, moisturizers. No soaking, pools, hot tubs. Do not scrub over incision. 2. Weight-bear as tolerated with walker / cane until follow-up. 3. Ice and elevate when necessary. Do not exceed 20 minutes per hour with ice pack. 4. Utilize compression sleeve until seen at first follow up appointment. 5. Visiting nursing care. 6. Home physical therapy including home CPM. 7. Pain meds and anticoagulants per prescription. 8. Pain medication has potential to cause constipation. Increase oral fluid and fiber intake. Contact primary care provider if you have not had a bowel movement within 48 hours after discharge. 9. No anti-inflammatory medication until discussed at first post operative visit, this including Motrin, Aleve, Mobic, Diclofenac,. 10. Follow up in office at 2 weeks postop with Eliu Avitia PA-C 11. Follow up with your primary care doctor 7-10 days after discharge. 12. Contact [facility] with any questions, . Discharge Disposition: HOME WITH HOME HEALTH SERVICES
--- NOTE | 2017-11-15 13:16 | P.PN ---
Subjective Progress Note Date: 11/15/17 Principal diagnosis: status post right total knee arthroplasty patient seen today resting in her hospital bed, she appears comfortable. Her pain is well-controlled at this time. She's ambulated well with physical therapy. She denies any headaches, lightheadedness, chest pain or shortness of breath. Objective - Vital Signs Vital signs: Vital Signs Temp 98.3 F 11/15/17 07:00 Pulse 64 11/15/17 07:00 Resp 14 11/15/17 07:00 BP 91/50 11/15/17 07:00 Pulse Ox 93 L 11/15/17 07:00 Intake & Output 11/14/17 11/15/17 11/15/17 18:59 06:59 18:59 Intake Total 2000 1800 Output Total 50 600 Balance 1950 1200 Intake: IV 2000 100 Intake, IV Titration 1200 Amount Lactated Ringers 1,000 ml 1200 @ 100 mls/hr IV .Q10H SANDI Rx#:[id number] Oral 500 Output: Urine 600 Estimated Blood Loss 50 Other: # Voids 1 1 - Exam right lower extremity: Incision is clean, dry, and intact. The prineo tape is in good condition. There is minimal soft tissue swelling and ecchymosis surrounding the medial and lateral aspects of the incision. Calf is soft, no tenderness with palpation. Plantar flexion, dorsiflexion, EHL, FHL are intact. Sensory exam to light touch throughout the extremity is intact, dorsal pedis pulses 2+. - Labs CBC & Chem 7: 11/15/17 06:47 11/15/17 06:47 Labs: Abnormal Lab Results - Last 24 Hours (Table) 11/14/17 11/14/17 11/15/17 Range/Units 18:49 21:04 06:47 WBC 15.4 H (3.8-10.6) k/uL Neutrophils # 12.8 H (1.3-7.7) k/uL Glucose (74-99) mg/dL POC Glucose (mg/dL) 112 H 248 H (75-99) mg/dL 11/15/17 Range/Units 06:47 WBC (3.8-10.6) k/uL Neutrophils # (1.3-7.7) k/uL Glucose 115 H (74-99) mg/dL POC Glucose (mg/dL) (75-99) mg/dL Assessment and Plan Plan: assessment: Postoperative day #1 status post right total knee arthroplasty Plan: Pain control, we'll discharge home on oral medication Aspirin 325 mg twice a day for DVT prophylaxis Home therapy and nursing after discharge Wound care was discussed Medical recommendations Plan for discharge home today Time with Patient: Less than 30
[2017-11-15 14:51] VITALS: BP 109/57; PULSE 69; RESP 16; TEMP 98.4
--- NOTE | 2017-11-15 16:58 | PN ---
PROGRESS NOTE DATE OF SERVICE: 11/15/2017 This 41-year-old woman who was admitted after right total knee arthroplasty is improving significantly. No chest pain. No palpitations. No fever. EXAM: Alert and oriented times three. Pulse 69, blood pressure 109/50, respiration 16, temperature 98.4, pulse ox 94% on room air. HEENT: Conjunctivae normal. Neck: No jugular venous distention. Cardiovascular: S1, S2. Respiratory: Breath sounds diminished in the bases. No rhonchi and no crackles. Abdomen is soft, nontender. Legs status post arthroplasty. Nervous system: No focal deficits. LABS: WBC 15.4. ASSESSMENT: 1. Status post right total knee arthroplasty. 2. Increased WBC possibly reactive. 3. Diabetes type 2. 4. Hyperlipidemia. 5. Degenerative joint disease. 6. History of left glaucoma. 7. Appendectomy. 8. History of back surgery. RECOMMENDATIONS AND DISCUSSION: I recommend to continue current medications, management and symptomatic treatment. I recommend UA with micro and continue to monitor. Further recommendations to follow. Otherwise resume the home medications. MMODL / IJN: [id number] /
[2017-11-15 17:44] LABS: Hemoglobin A1C 5.4 % (4.0-6.0)
== END 2017-11-15 15:35 | disposition home health service (06) | DRG 470 ==
LOC: 2ORMAIN 14:22 → 3SUR 18:18
PROVIDERS: ADMIT Orthopaedic Surgery; ATTEND Orthopaedic Surgery
PROC: 0SRC0J9 Replacement of Right Knee Joint with Synthetic Substitute, Cemented, Open Approach (ICD-10-PCS; principal; 2017-11-14 16:05)
DX: M17.11 Unilateral primary osteoarthritis, right knee (principal); E11.9 Type 2 diabetes mellitus without complications; E78.5 Hyperlipidemia, unspecified; I10 Essential (primary) hypertension; J45.909 Unspecified asthma, uncomplicated; K21.9 Gastro-esophageal reflux disease without esophagitis; F41.9 Anxiety disorder, unspecified; G89.18 Other acute postprocedural pain; F17.210 Nicotine dependence, cigarettes, uncomplicated; H40.9 Unspecified glaucoma; Z90.89 Acquired absence of other organs; Z88.8 Allergy status to other drugs, medicaments and biological substances; Z79.84 Long term (current) use of oral hypoglycemic drugs; Z79.899 Other long term (current) drug therapy; Z90.49 Acquired absence of other specified parts of digestive tract; Z91.030 Bee allergy status; Z91.012 Allergy to eggs; Z91.013 Allergy to seafood; Z91.018 Allergy to other foods; Z83.2 Family history of diseases of the blood and blood-forming organs and certain disorders involving the immune mechanism
CPT/HCPCS: 80048; 83036; 85025; 88300

== ENCOUNTER → 2018-01-05 | Outpatient (CLI) | payer BC ==
--- NOTE | 2018-01-05 20:56 | US ---
EXAMINATION TYPE: US venous doppler duplex LE RT DATE OF EXAM: 01/05/2018 6:49 PM COMPARISON: NONE CLINICAL HISTORY: R79.1 ABN COAGULATION PROFILE. Elevated D dimer and right leg swelling. SIDE PERFORMED: Right TECHNIQUE: The lower extremity deep venous system is examined utilizing real time linear array sonog gisselle with graded compression, doppler sonography and color-flow sonography. VESSELS IMAGED: External Iliac Vein (EIV) Common Femoral Vein Deep Femoral Vein Greater Saphenous Vein * Femoral Vein Popliteal Vein Small Saphenous Vein * Proximal Calf Veins (* superficial vessels) Right Leg: Negative for DVT No evidence of DVT right leg. IMPRESSION: Negative exam. No evidence of deep venous thrombosis in the right leg.
== END | disposition home or self-care (01) ==
LOC: RADUSMAIN 18:45
PROVIDERS: ATTEND Family Medicine
DX: R79.1 Abnormal coagulation profile (principal)

== ENCOUNTER 2018-01-19 10:34 | Emergency (ER) | payer BC ==
[2018-01-19 10:56] VITALS: RESP 18
[2018-01-19] MEDS ORDERED: SODIUM CHLORIDE 0.9% 1,000 ML IV ONE (12:26)
[2018-01-19] MEDS ORDERED: SODIUM CHLORIDE 0.9% 1,000 ML IV SCH ×2 (12:30)
[2018-01-19 12:54] LABS: Basophils % (A) 0 %; Eosinophils # (A) 0.2 k/uL (0-0.7); Eosinophils % (A) 2 %; HCT 42.9 % (34.0-46.0); HGB 14.3 gm/dL (11.4-16.0); Lymphocytes # (A) 2.1 k/uL (1.0-4.8); Lymphocytes % (A) 22 %; MCH 29.8 pg (25.0-35.0); MCHC 33.3 g/dL (31.0-37.0); MCV 89.3 fL (80.0-100.0); Mean Platelet Volume 7.1; Monocytes # (A) 0.6 k/uL (0-1.0); Monocytes % (A) 6 %; Neutrophils # (A) 6.6 k/uL (1.3-7.7); Neutrophils % (A) 69 %; Platelet Count 341 k/uL (150-450); RDW 13.5 % (11.5-15.5); WBC 9.6 k/uL (3.8-10.6)
[2018-01-19 13:11] LABS: ALT 13 U/L (9-52); AST 18 U/L (14-36); Albumin 4.1 g/dL (3.5-5.0); Alkaline Phosphatase 73 U/L (38-126); Anion Gap 12 mmol/L; Blood Urea Nitrogen 12 mg/dL (7-17); C Reactive Protein 6.9 mg/L (<10.0); Calcium 9.6 mg/dL (8.4-10.2); Carbon Dioxide 27 mmol/L (22-30); Chloride 104 mmol/L (98-107); Glucose 92 mg/dL (74-99); Potassium 4.6 mmol/L (3.5-5.1); Sodium 143 mmol/L (137-145); Total Bilirubin 0.3 mg/dL (0.2-1.3); Total Protein 6.9 g/dL (6.3-8.2)
--- NOTE | 2018-01-19 13:51 | US ---
EXAMINATION TYPE: US venous doppler duplex LE RT DATE OF EXAM: 01/19/2018 1:34 PM COMPARISON: Ultrasound from 2 weeks ago. CLINICAL HISTORY: Pain. SIDE PERFORMED: right TECHNIQUE: The lower extremity deep venous system is examined utilizing real time linear array sonog gisselle with graded compression, doppler sonography and color-flow sonography. VESSELS IMAGED: External Iliac Vein (EIV) Common Femoral Vein Deep Femoral Vein Greater Saphenous Vein * Femoral Vein Popliteal Vein Small Saphenous Vein * Proximal Calf Veins (* superficial vessels) Right Leg: Negative for DVT Grayscale, color doppler, spectral doppler imaging performed of the deep veins of the right lower ext remity. There is normal flow, compressibility, vascular waveforms. IMPRESSION: No ultrasound evidence for acute DVT in the right lower extremity.
--- NOTE | 2018-01-19 14:17 | ED ---
General Adult HPI - General Chief complaint: Extremity Problem,Nontraumatic Stated complaint: Swelling in right leg Time Seen by Provider: 01/19/18 12:16 Source: patient, RN notes reviewed, old records reviewed Mode of arrival: ambulatory Limitations: no limitations - History of Present Illness Initial comments: 39-year-old female presents emergency Department with right leg swelling. She had a surgery done total knee replacement by Dr. Carlita Srinivasan on . Patient states that she has normal range of motion. She reports no numbness or tingling feelings. She states that the pain is now extending from the lower leg all the way up to the hip. Patient also complains of feeling cold over the lateral aspect of her foot. 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 - Related Data Home Medications Medication Instructions Recorded Confirmed Albuterol Inhaler [Ventolin Hfa 1 puff INHALATION RT-BID PRN 02/26/14 01/19/18 Inhaler] Vitamin B Complex 1 tab PO DAILY 01/18/15 01/19/18 Multivitamins, Thera [Multivitamin 1 tab PO DAILY 04/02/15 01/19/18 (formulary)] Diclofenac Sodium [Voltaren] 75 mg PO BID 06/04/16 01/19/18 Gabapentin [Neurontin] 300 mg PO TID 06/04/16 01/19/18 Verapamil HCl [Verapamil ER] 120 mg PO QAM 06/04/16 01/19/18 metFORMIN HCL [Glucophage] 500 mg PO BID 06/04/16 01/19/18 diphenhydrAMINE [Benadryl] 25 mg PO DAILY PRN 06/18/16 01/19/18 Ascorbic Acid [Vitamin C] 500 mg PO DAILY 09/21/17 01/19/18 Famotidine 20 mg PO BID 09/21/17 01/19/18 DULoxetine HCL [Cymbalta] 90 mg PO DAILY 01/19/18 01/19/18 Allergies Allergy/AdvReac Type Severity Reaction Status Date / Time apple [Apple] Allergy Rash/Hives Verified 01/19/18 11:43 aspirin Allergy Rash/Hives Verified 01/19/18 11:43 Beef Containing Products Allergy Rash/Hives Verified 01/19/18 11:43 cinnamon [Cinnamon] Allergy Rash/Hives Verified 01/19/18 11:43 cocoa [Chelsea] Allergy Rash/Hives Verified 01/19/18 11:43 dill oil Allergy Rash/Hives Verified 01/19/18 11:43 egg Allergy Rash/Hives Verified 01/19/18 11:43 frovatriptan succinate Allergy Nausea & Verified 01/19/18 11:43 [From Frova] Vomiting plus throat swelling grapefruit [Grapefruit] Allergy Rash/Hives Verified 01/19/18 11:43 peas Allergy Rash/Hives Verified 01/19/18 11:43 Poultry [Summit] Allergy Rash/Hives Verified 01/19/18 11:43 soy Allergy Rash/Hives Verified 01/19/18 11:43 spinach Allergy Rash/Hives Verified 01/19/18 11:43 yeast, dried [yeast] Allergy Rash/Hives Verified 01/19/18 11:43 orange AdvReac Rash/Hives Verified 01/19/18 11:43 salmon Allergy Rash/Hives Uncoded 01/19/18 10:56 solumedrol IV only Allergy Rash/Hives Uncoded 01/19/18 10:56 Sinus medication AdvReac Nausea & Uncoded 01/19/18 10:56 Vomiting Review of Systems ROS Statement: Those systems with pertinent positive or pertinent negative responses have been documented in the HPI. ROS Other: All systems not noted in ROS Statement are negative. Past Medical History Past Medical History: Diabetes Mellitus, Eye Disorder, Hyperlipidemia, Musculoskeletal Disorder, Neurologic Disorder, Osteoarthritis (OA) Additional Past Medical History / Comment(s): LT Glaucoma. Irregular heart beat. Raynauds. STOMACH Ulcers. 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 History of Any Multi-Drug Resistant Organisms: None Reported Past Surgical History: Ablation, Appendectomy, Back Surgery, Section, Cholecystectomy, Hysterectomy, Orthopedic Surgery Additional Past Surgical History / Comment(s): right/left knee, rfa to C2-5, laparoscopies to drain ovarian sx, bilat feet sx, rt trigger thumb sx, colonoscopy. RT KNEE SCOPE 06/09/16., LAPAROSCOPY 09/23/17 Past Anesthesia/Blood Transfusion Reactions: Motion Sickness Past Psychological History: Anxiety Smoking Status: Current every day smoker Past Alcohol Use History: None Reported Past Drug Use History: None Reported - Past Family History Mother Family Medical History: Deep Vein Thrombosis (DVT) Father Family Medical History: Cancer Additional Family Medical History / Comment(s): Bladder General Exam - General Exam Comments Initial Comments: Well-appearing 39-year-old female. No distress. Limitations: no limitations General appearance: alert, in no apparent distress Head exam: Present: atraumatic, normocephalic, normal inspection Eye exam: Present: normal appearance, PERRL, EOMI. Absent: scleral icterus, conjunctival injection, periorbital swelling ENT exam: Present: normal exam, mucous membranes moist Neck exam: Present: normal inspection. Absent: tenderness, meningismus, lymphadenopathy Respiratory exam: Present: normal lung sounds bilaterally. Absent: respiratory distress, wheezes, rales, rhonchi, stridor Cardiovascular Exam: Present: regular rate, normal rhythm, normal heart sounds. Absent: systolic murmur, diastolic murmur, rubs, gallop, clicks GI/Abdominal exam: Present: soft, normal bowel sounds. Absent: distended, tenderness, guarding, rebound, rigid Extremities exam: Present: normal inspection, full ROM, normal capillary refill. Absent: tenderness, pedal edema, joint swelling, calf tenderness Right Hip exam: Present: swelling ( is diffuse swelling over the entire leg radiating up towards the hip.) Upper Leg exam: Present: normal inspection, full ROM Knee exam: Present: full ROM, swelling (Patient has some swelling over the medial aspect of the knee.). Absent: normal inspection (Well-appearing incision site over the right knee.) Foot/Toe exam: Present: normal inspection, full ROM Neurovascular tendon exam: Present: extremity cold to touch (over lateral toes 3 -5 ). Absent: no vascular compromise Gait: observed and normal Back exam: Present: normal inspection Neurological exam: Present: alert, oriented X3, CN II-XII intact Psychiatric exam: Present: normal affect, normal mood Skin exam: Present: warm, dry, intact, normal color. Absent: rash Course Vital Signs 01/19/18 01/19/18 01/19/18 10:50 12:48 14:32 Temperature 98.4 F Pulse Rate 79 75 61 Respiratory 18 18 18 Rate Blood Pressure 126/62 98/57 103/53 O2 Sat by Pulse 99 97 97 Oximetry 01/19/18 17:05 Temperature 97.6 F Pulse Rate 72 Respiratory 18 Rate Blood Pressure 111/59 O2 Sat by Pulse 97 Oximetry Medical Decision Making - Medical Decision Making This patient is 39-year-old female presents emergency Department with worsening swelling and pain in the right leg. She has a total knee replacement on 2017. She states that since then she's noticed progressive swelling. Severed been to the point where it swelling only up to her hip. Patient underwent ultrasound today which was negative for DVT. No signs of infection with her blood work. Normal CRP.. Normal white blood cell count. Patient does have some coldness noted to the lateral aspect of her foot. She has normal dorsalis pedis pulse and normal posterior tibial pulse. She reports this is chronic annoys related Raynauds. Discussed with Dr. Jackson, whom also examined the patient. Suggested CT angio abdomen and pelvis with run off. On the right metal hardware artifact limits visualization of portion of the popliteal artery. Peroneal artery comes to a diminutive at the ankle. Otherwise two vessel runoff loaded into the foot. There's three vessel runoff noted and to the left foot. This can relate the the coldness of the toes in this foot. She does have normal capillary refill. AT this time disucssed I do not have a specific reason for the swelling and could be related to poor lymphatic since the surgery. Discussed she should follow up with vascular surgery related to her toes being cool, as well as lymphatic abnormalites. Discussed follow up with surgeon and return parameters discussed. - Lab Data Result diagrams: 01/19/18 12:37 01/19/18 12:37 Lab Results 01/19/18 01/19/18 01/19/18 Range/Units 12:37 12:37 12:37 WBC 9.6 (3.8-10.6) k/uL RBC 4.80 (3.80-5.40) m/uL Hgb 14.3 (11.4-16.0) gm/dL Hct 42.9 (34.0-46.0) % MCV 89.3 (80.0-100.0) fL MCH 29.8 (25.0-35.0) pg MCHC 33.3 (31.0-37.0) g/dL RDW 13.5 (11.5-15.5) % Plt Count 341 (150-450) k/uL Neutrophils % 69 % Lymphocytes % 22 % Monocytes % 6 % Eosinophils % 2 % Basophils % 0 % Neutrophils # 6.6 (1.3-7.7) k/uL Lymphocytes # 2.1 (1.0-4.8) k/uL Monocytes # 0.6 (0-1.0) k/uL Eosinophils # 0.2 (0-0.7) k/uL Basophils # 0.0 (0-0.2) k/uL Sodium 143 (137-145) mmol/L Potassium 4.6 (3.5-5.1) mmol/L Chloride 104 (98-107) mmol/L Carbon Dioxide 27 (22-30) mmol/L Anion Gap 12 mmol/L BUN 12 (7-17) mg/dL Creatinine 0.60 (0.52-1.04) mg/dL Est GFR (CKD-EPI)AfAm >90 (>60 ml/min/1.73 sqM) Est GFR (CKD-EPI)NonAf >90 (>60 ml/min/1.73 sqM) Glucose 92 (74-99) mg/dL Plasma Lactic Acid Alberto 1.3 (0.7-2.0) mmol/L Calcium 9.6 (8.4-10.2) mg/dL Total Bilirubin 0.3 (0.2-1.3) mg/dL AST 18 (14-36) U/L ALT 13 (9-52) U/L Alkaline Phosphatase 73 (38-126) U/L C-Reactive Protein 6.9 (<10.0) mg/L Total Protein 6.9 (6.3-8.2) g/dL Albumin 4.1 (3.5-5.0) g/dL - Radiology Data Radiology results: report reviewed US of right leg is negative for DVT. On the right metal hardware artifact limits visualization of portion of the popliteal artery. Turn your artery comes to a diminutive at the ankle. Otherwise two vessel runoff loaded into the foot. There's three vessel runoff noted and to the left foot. Circumferential wall sickening at the splenic flexure of the colon and likely relates to underdistention in the absence of any clinical symptoms of colitis. Disposition Clinical Impression: Right leg swelling, Abnormal computed tomography of lower extremity Disposition: HOME SELF-CARE Condition: Good Instructions: Leg Edema (ED) Additional Instructions: So wear Merlin wraps and compression stockings elbow swelling. Keep the leg elevated. Follow-up with her surgeon and primary care provider. Also recommended follow-up with vascular specialist regards the abnormal CT runoff finding. Return to the emergency department if any alarming signs or symptoms occur. Referrals: Ezekiel Reina MD [Primary Care Provider] - 1-2 days Time of Disposition: 16:51
[2018-01-19] MEDS ORDERED: DIAZEPAM 5 MG TAB PO STA (14:18)
[2018-01-19] MEDS ORDERED: HYDROcodone/APAP 10-325MG 1 EACH TAB PO ONE (14:18)
[2018-01-19] MEDS ORDERED: RX INFO: IV CONTRAST WAS GIVEN 1 EACH MISC MISCELLANE PRN (14:57)
--- NOTE | 2018-01-19 16:02 | CT ---
EXAMINATION TYPE: CT angio abd aorta wo/w con DATE OF EXAM: 01/19/2018 COMPARISON: 09/19/2017 HISTORY: 47-year-old female Swelling to right leg. Right knee replacement in October. TECHNIQUE: Contiguous axial scanning of the abdomen and pelvis with bilateral lower extremity runoff performed without and with IV Contrast, patient injected with 125 mL of Omnipaque 350. Coronal/sagitt al MIP reconstructions performed. 3-D reconstructions generated on a dedicated independent workstatio n. CT DLP: 1728.8 mGycm Automated exposure control for dose reduction was used. FINDINGS: Heart is normal size without pericardial effusion. Mild dependent atelectasis. No pleural effusion. Arterial phase imaging of the liver, adrenal glands, right kidney, spleen, pancreas show no gross abn ormality. Tiny subcentimeter hypodense density along the medial upper pole cortex of the left kidney too small for accurate CT characterization, was present back in 09/19/2017 suggestive of a tiny cyst. There are some surgical changes along the infraumbilical anterior midline. No dilated small bowel, free fluid, or free air. Mild circumferential wall thickening along the splenic flexure probably relates to underdistention in the absence of clinical symptoms of colitis. No mesenteric or retroperitoneal lymphadenopathy. Both ovaries are visualized. There is a 2.5 cm dominant follicle or functional cyst involving the rig ht ovary. Uterus surgically absent. Bladder is urine distended. No abnormal fluid collection in the p chuy or pelvic lymphadenopathy seen. Bones: L4-S1 interbody fusion changes. Right total knee arthroplasty shows no evident complication. N o osseous destructive process. Vasculature: Celiac axis shows conventional branching anatomy. SMA and castro renal arteries as well as the CHARAN are patent and no evidence for aneurysm. The iliac arteries are patent. Minimal eccentric plaque within the right common femoral artery. Super ficial femoral artery is patent. Some limitation in assessment of portions of the popliteal artery. T he visualized portions are patent and normal caliber. On both sides, the tibial peroneal trunks and anterior tibial arteries are patent. On the right, the peroneal artery becomes diminutive at the level of the ankle. Two-vessel runoff int o the foot. On the left, there is three-vessel runoff into the foot. IMPRESSION: 1. ON THE RIGHT, METAL HARDWARE ARTIFACT LIMITS VISUALIZATION OF A PORTION OF THE POPLITEAL ARTERY. T HE PERONEAL ARTERY BECOMES DIMINUTIVE AT THE ANKLE. OTHERWISE, TWO-VESSEL RUNOFF INTO THE FOOT. 2. THREE-VESSEL RUNOFF ON THE LEFT. 3. MILD CIRCUMFERENTIAL WALL THICKENING AT THE SPLENIC FLEXURE OF THE COLON LIKELY RELATES TO UNDERDI STENTION IN THE ABSENCE OF ANY CLINICAL SYMPTOMS OF COLITIS.
[2018-01-19 17:06] VITALS: BP 111/59; PULSE 72; TEMP 97.6
== END 2018-01-19 17:07 | disposition home or self-care (01) ==
LOC: EC 10:34
DX: M79.89 Other specified soft tissue disorders (principal); R93.7 Abnormal findings on diagnostic imaging of other parts of musculoskeletal system; M79.604 Pain in right leg; E11.9 Type 2 diabetes mellitus without complications; M19.90 Unspecified osteoarthritis, unspecified site; F41.9 Anxiety disorder, unspecified; F17.200 Nicotine dependence, unspecified, uncomplicated; Z96.651 Presence of right artificial knee joint; Z79.1 Long term (current) use of non-steroidal anti-inflammatories (NSAID); Z79.84 Long term (current) use of oral hypoglycemic drugs; Z79.899 Other long term (current) drug therapy; Z91.018 Allergy to other foods; Z88.6 Allergy status to analgesic agent; Z88.8 Allergy status to other drugs, medicaments and biological substances; Z91.012 Allergy to eggs
CPT/HCPCS: 36415; 75635; 80053; 83605; 85025; 86140; 87040; 96360; 99284

== ENCOUNTER 2018-03-23 11:06 | Emergency (ER) | payer BC ==
--- NOTE | 2018-03-23 11:35 | ED ---
General Adult HPI - General Chief complaint: Chest Pain Stated complaint: CHEST PAIN Time Seen by Provider: 03/23/18 11:18 Source: patient, RN notes reviewed, old records reviewed Mode of arrival: wheelchair Limitations: no limitations - History of Present Illness Initial comments: 48-year-old female history of hypertension, diabetes and an irregular heartbeat presenting for evaluation of chest pain. Patient states she's had some dyspnea associated with her pain. Her pain began at approximately 4 AM. It has been constant since that time. She describes it as substernal pressure. She does have a pressure sensation in her mid back as well. Denies stabbing or tearing pain. She has some associated nausea and lightheadedness associated with this. She has had 2 mild heart attacks according to the patient. She is a current smoker. - Related Data Home Medications Medication Instructions Recorded Confirmed Albuterol Inhaler [Ventolin Hfa 1 puff INHALATION RT-BID PRN 02/26/14 03/23/18 Inhaler] Multivitamins, Thera [Multivitamin 1 tab PO DAILY 04/02/15 03/23/18 (formulary)] Diclofenac Sodium [Voltaren] 75 mg PO DAILY 06/04/16 03/23/18 Gabapentin [Neurontin] 300 mg PO TID 06/04/16 03/23/18 Verapamil HCl [Verapamil ER] 120 mg PO QAM 06/04/16 03/23/18 metFORMIN HCL [Glucophage] 500 mg PO BID 06/04/16 03/23/18 diphenhydrAMINE [Benadryl] 25 mg PO DAILY PRN 06/18/16 03/23/18 Ascorbic Acid [Vitamin C] 500 mg PO DAILY 09/21/17 03/23/18 Famotidine 20 mg PO BID 09/21/17 03/23/18 DULoxetine HCL [Cymbalta] 90 mg PO DAILY 01/19/18 03/23/18 Allergies Allergy/AdvReac Type Severity Reaction Status Date / Time apple [Apple] Allergy Rash/Hives Verified 03/23/18 11:57 aspirin Allergy Rash/Hives Verified 03/23/18 11:57 Beef Containing Products Allergy Rash/Hives Verified 03/23/18 11:57 cinnamon [Cinnamon] Allergy Rash/Hives Verified 03/23/18 11:57 cocoa [[place]] Allergy Rash/Hives Verified 03/23/18 11:57 dill oil Allergy Rash/Hives Verified 03/23/18 11:57 egg Allergy Rash/Hives Verified 03/23/18 11:57 frovatriptan succinate Allergy Nausea & Verified 03/23/18 11:57 [From Frova] Vomiting plus throat swelling grapefruit [Grapefruit] Allergy Rash/Hives Verified 03/23/18 11:57 peas Allergy Rash/Hives Verified 03/23/18 11:57 Poultry [[place]] Allergy Rash/Hives Verified 03/23/18 11:57 soy Allergy Rash/Hives Verified 03/23/18 11:57 spinach Allergy Rash/Hives Verified 03/23/18 11:57 yeast, dried [yeast] Allergy Rash/Hives Verified 03/23/18 11:57 orange AdvReac Rash/Hives Verified 03/23/18 11:57 salmon Allergy Rash/Hives Uncoded 03/23/18 11:14 solumedrol IV only Allergy Rash/Hives Uncoded 03/23/18 11:14 Sinus medication AdvReac Nausea & Uncoded 03/23/18 11:14 Vomiting Review of Systems ROS Statement: Those systems with pertinent positive or pertinent negative responses have been documented in the HPI. ROS Other: All systems not noted in ROS Statement are negative. Past Medical History Past Medical History: Diabetes Mellitus, Eye Disorder, Hyperlipidemia, Musculoskeletal Disorder, Neurologic Disorder, Osteoarthritis (OA) Additional Past Medical History / Comment(s): LT Glaucoma. Irregular heart beat. Raynauds. STOMACH Ulcers. 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 History of Any Multi-Drug Resistant Organisms: None Reported Past Surgical History: Ablation, Appendectomy, Back Surgery, Section, Cholecystectomy, Hysterectomy, Orthopedic Surgery Additional Past Surgical History / Comment(s): right/left knee, rfa to C2-5, laparoscopies to drain ovarian sx, bilat feet sx, rt trigger thumb sx, colonoscopy. RT KNEE SCOPE 06/09/16., LAPAROSCOPY 09/23/17 Past Anesthesia/Blood Transfusion Reactions: Motion Sickness Past Psychological History: Anxiety Smoking Status: Current every day smoker Past Alcohol Use History: None Reported Past Drug Use History: None Reported - Past Family History Mother Family Medical History: Deep Vein Thrombosis (DVT) Father Family Medical History: Cancer Additional Family Medical History / Comment(s): Bladder General Exam Limitations: no limitations General appearance: alert, in no apparent distress Head exam: Present: atraumatic, normocephalic Eye exam: Present: normal appearance, PERRL ENT exam: Present: normal exam Neck exam: Present: normal inspection. Absent: tenderness, meningismus Respiratory exam: Present: normal lung sounds bilaterally. Absent: respiratory distress, wheezes, rales Cardiovascular Exam: Present: regular rate, normal rhythm, systolic murmur GI/Abdominal exam: Present: soft. Absent: distended, tenderness Extremities exam: Present: full ROM, pedal edema, other (Bilateral radial pulses 2+) Back exam: Present: normal inspection, full ROM Neurological exam: Present: alert, oriented X3, CN II-XII intact. Absent: motor sensory deficit Psychiatric exam: Present: normal affect, normal mood Skin exam: Present: warm, dry, intact. Absent: cyanosis, diaphoretic Course Vital Signs 03/23/18 11:13 Temperature 98.3 F Pulse Rate 89 Respiratory 18 Rate Blood Pressure 146/77 O2 Sat by Pulse 97 Oximetry EKG Findings - EKG Comments: EKG Findings:: EKG: Sinus rhythm and occasional PVC, rate 87, TX interval 152, castration 80, QTc [address] segment elevation or depression. T waves are upright. Medical Decision Making - Medical Decision Making 48-year-old female presenting for evaluation of chest pain and palpitations. EKG shows sinus rhythm, CBC unremarkable, CMP is within normal limits per troponin is negative. D-dimer is positive at 1.57. CT angiography is obtained is negative for PE or acute vascular pathology. Chest x-ray is negative for focal pneumonia or pneumothorax. On reevaluation, patient is feeling better. Her symptoms have been present for 8 hours prior to arrival. This does make her troponin more reliable. However I would like to observe the patient for serial cardiac enzymes. She declines and would prefer to return with worsening or changing symptoms. 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 - Lab Data Result diagrams: 03/23/18 11:25 03/23/18 11:25 Lab Results 03/23/18 03/23/18 03/23/18 Range/Units 11:25 11:25 11:25 WBC 6.0 (3.8-10.6) k/uL RBC 4.81 (3.80-5.40) m/uL Hgb 14.7 (11.4-16.0) gm/dL Hct 43.1 (34.0-46.0) % MCV 89.7 (80.0-100.0) fL MCH 30.5 (25.0-35.0) pg MCHC 34.1 (31.0-37.0) g/dL RDW 14.0 (11.5-15.5) % Plt Count 297 (150-450) k/uL Neutrophils % 56 % Lymphocytes % 35 % Monocytes % 5 % Eosinophils % 2 % Basophils % 1 % Neutrophils # 3.3 (1.3-7.7) k/uL Lymphocytes # 2.1 (1.0-4.8) k/uL Monocytes # 0.3 (0-1.0) k/uL Eosinophils # 0.1 (0-0.7) k/uL Basophils # 0.0 (0-0.2) k/uL PT (9.0-12.0) sec INR (<1.2) APTT (22.0-30.0) sec D-Dimer (<0.60) mg/L FEU Sodium 140 (137-145) mmol/L Potassium 4.5 (3.5-5.1) mmol/L Chloride 104 (98-107) mmol/L Carbon Dioxide 24 (22-30) mmol/L Anion Gap 12 mmol/L BUN 10 (7-17) mg/dL Creatinine 0.61 (0.52-1.04) mg/dL Est GFR (CKD-EPI)AfAm >90 (>60 ml/min/1.73 sqM) Est GFR (CKD-EPI)NonAf >90 (>60 ml/min/1.73 sqM) Glucose 97 (74-99) mg/dL Calcium 9.3 (8.4-10.2) mg/dL Magnesium 1.7 (1.6-2.3) mg/dL Total Bilirubin 0.3 (0.2-1.3) mg/dL AST 24 (14-36) U/L ALT 22 (9-52) U/L Alkaline Phosphatase 69 (38-126) U/L Total Creatine Kinase 71 (30-135) U/L CK-MB (CK-2) 1.1 (0.0-2.4) ng/mL CK-MB (CK-2) Rel Index 1.5 Troponin I <0.012 (0.000-0.034) ng/mL NT-Pro-B Natriuret Pep pg/mL Total Protein 6.4 (6.3-8.2) g/dL Albumin 4.1 (3.5-5.0) g/dL 03/23/18 03/23/18 Range/Units 11:25 11:25 WBC (3.8-10.6) k/uL RBC (3.80-5.40) m/uL Hgb (11.4-16.0) gm/dL Hct (34.0-46.0) % MCV (80.0-100.0) fL MCH (25.0-35.0) pg MCHC (31.0-37.0) g/dL RDW (11.5-15.5) % Plt Count (150-450) k/uL Neutrophils % % Lymphocytes % % Monocytes % % Eosinophils % % Basophils % % Neutrophils # (1.3-7.7) k/uL Lymphocytes # (1.0-4.8) k/uL Monocytes # (0-1.0) k/uL Eosinophils # (0-0.7) k/uL Basophils # (0-0.2) k/uL PT 9.8 (9.0-12.0) sec INR 1.0 (<1.2) APTT 24.1 (22.0-30.0) sec D-Dimer 1.57 H (<0.60) mg/L FEU Sodium (137-145) mmol/L Potassium (3.5-5.1) mmol/L Chloride (98-107) mmol/L Carbon Dioxide (22-30) mmol/L Anion Gap mmol/L BUN (7-17) mg/dL Creatinine (0.52-1.04) mg/dL Est GFR (CKD-EPI)AfAm (>60 ml/min/1.73 sqM) Est GFR (CKD-EPI)NonAf (>60 ml/min/1.73 sqM) Glucose (74-99) mg/dL Calcium (8.4-10.2) mg/dL Magnesium (1.6-2.3) mg/dL Total Bilirubin (0.2-1.3) mg/dL AST (14-36) U/L ALT (9-52) U/L Alkaline Phosphatase (38-126) U/L Total Creatine Kinase (30-135) U/L CK-MB (CK-2) (0.0-2.4) ng/mL CK-MB (CK-2) Rel Index Troponin I (0.000-0.034) ng/mL NT-Pro-B Natriuret Pep 24 pg/mL Total Protein (6.3-8.2) g/dL Albumin (3.5-5.0) g/dL Disposition Clinical Impression: Chest pain Disposition: HOME SELF-CARE Condition: Fair Instructions: Chest Pain (ED) Is patient prescribed a controlled substance at d/c from ED?: No Referrals: Ezekiel Reina MD [Primary Care Provider] - 1-2 days Time of Disposition: 13:58
[2018-03-23 11:50] LABS: Basophils % (A) 1 %; Eosinophils # (A) 0.1 k/uL (0-0.7); Eosinophils % (A) 2 %; HCT 43.1 % (34.0-46.0); HGB 14.7 gm/dL (11.4-16.0); Lymphocytes # (A) 2.1 k/uL (1.0-4.8); Lymphocytes % (A) 35 %; MCH 30.5 pg (25.0-35.0); MCHC 34.1 g/dL (31.0-37.0); MCV 89.7 fL (80.0-100.0); Mean Platelet Volume 6.4; Monocytes # (A) 0.3 k/uL (0-1.0); Monocytes % (A) 5 %; Neutrophils # (A) 3.3 k/uL (1.3-7.7); Neutrophils % (A) 56 %; Platelet Count 297 k/uL (150-450); RBC 4.81 m/uL (3.80-5.40)
--- NOTE | 2018-03-23 11:52 | XR ---
EXAMINATION TYPE: XR chest 2V DATE OF EXAM: 03/23/2018 COMPARISON: 04/02/2015 INDICATION: Chest pain TECHNIQUE: Frontal and lateral views of the chest are obtained. FINDINGS: The heart size is normal. The pulmonary vasculature is normal. The lungs are clear. IMPRESSION: 1. No acute pulmonary process.
[2018-03-23 11:59] LABS: ALT 22 U/L (9-52); AST 24 U/L (14-36); Albumin 4.1 g/dL (3.5-5.0); Alkaline Phosphatase 69 U/L (38-126); Anion Gap 12 mmol/L; Blood Urea Nitrogen 10 mg/dL (7-17); Calcium 9.3 mg/dL (8.4-10.2); Carbon Dioxide 24 mmol/L (22-30); Chloride 104 mmol/L (98-107); Glucose 97 mg/dL (74-99); Magnesium 1.7 mg/dL (1.6-2.3); Potassium 4.5 mmol/L (3.5-5.1); Sodium 140 mmol/L (137-145); Total Bilirubin 0.3 mg/dL (0.2-1.3); Total Protein 6.4 g/dL (6.3-8.2)
[2018-03-23 12:09] LABS: Creatine Kinase 71 U/L (30-135)
[2018-03-23 12:22] LABS: Creatine Kinase MB 1.1 ng/mL (0.0-2.4); Troponin I <0.012 ng/mL (0.000-0.034)
[2018-03-23 12:23] LABS: Partial Thromboplastin Time 24.1 sec (22.0-30.0); Prothrombin Time 9.8 sec (9.0-12.0)
[2018-03-23 12:39] LABS: D-Dimer 1.57 mg/L FEU (<0.60)
[2018-03-23] MEDS ORDERED: RX INFO: IV CONTRAST WAS GIVEN 1 EACH MISC MISCELLANE PRN (12:40)
--- NOTE | 2018-03-23 13:26 | CT ---
CT CHEST FOR PULMONARY EMBOLISM. EXAMINATION TYPE: CT angio chest DATE OF EXAM: 03/23/2018 INDICATION: Right sided chest pain with shortness of breath. Post op knee replacement 2-[address] DLP: 471.5 mGycm, Automated exposure control for dose reduction was used. CONTRAST: Patient injected with 100 mL of Isovue 370. COMPARISON: NONE TECHNIQUE: CT of the chest is performed on a spiral scan at 2 mm thick sections. Study is performed with intravenous contrast timed for evaluation for pulmonary embolism. This will limit additional po rtions of the evaluation. 3-D MIP images reconstructed by the technologist are reviewed on the compu ter in the coronal and sagittal planes. FINDINGS: No persistent filling defects are evident to suggest an acute pulmonary embolism. No mediastinal or hilar adenopathy enlarged by CT criteria is evident. The ascending aorta diameter at the level of the main pulmonary artery is 3.5 cm. The main pulmonary artery diameter at the bifur cation is 2.4 cm. Lung windows are clear. Limited CT section through the upper abdomen are unremarkable. IMPRESSIONS: 1. No acute pulmonary embolism.
[2018-03-23 14:22] VITALS: BP 109/67; PULSE 67; RESP 16; TEMP 97.9
== END 2018-03-23 14:25 | disposition home or self-care (01) ==
LOC: EC 11:06
DX: R07.2 Precordial pain (principal); R11.0 Nausea; R42 Dizziness and giddiness; I10 Essential (primary) hypertension; E11.40 Type 2 diabetes mellitus with diabetic neuropathy, unspecified; E78.5 Hyperlipidemia, unspecified; M19.90 Unspecified osteoarthritis, unspecified site; F41.9 Anxiety disorder, unspecified; F17.200 Nicotine dependence, unspecified, uncomplicated; Z79.1 Long term (current) use of non-steroidal anti-inflammatories (NSAID); Z79.84 Long term (current) use of oral hypoglycemic drugs; Z79.899 Other long term (current) drug therapy; Z91.018 Allergy to other foods; Z88.6 Allergy status to analgesic agent; Z91.012 Allergy to eggs; Z88.8 Allergy status to other drugs, medicaments and biological substances; Z91.048 Other nonmedicinal substance allergy status; Z53.29 Procedure and treatment not carried out because of patient's decision for other reasons
CPT/HCPCS: 36415; 71046; 71275; 80053; 82550; 82553; 83735; 83880; 84484; 85025; 85379; 85610; 85730; 93005; 99285

== ENCOUNTER 2018-07-30 07:40 | Inpatient (IN) | payer BC ==
[2018-07-30] MEDS ORDERED: ONDANSETRON 4 MG/2 ML VIAL IVP STA (08:06)
[2018-07-30] MEDS ORDERED: MORPHINE SULFATE 4 MG/ML SYRINGE IV STA (08:06)
[2018-07-30] MEDS ORDERED: SODIUM CHLORIDE 0.9% 1,000 ML IV STA (08:06)
[2018-07-30 08:30] LABS: Basophils # (A) 0.1 k/uL (0-0.2); Basophils % (A) 0 %; Eosinophils # (A) 0.1 k/uL (0-0.7); Eosinophils % (A) 1 %; HCT 40.6 % (34.0-46.0); HGB 13.8 gm/dL (11.4-16.0); Lymphocytes # (A) 3.5 k/uL (1.0-4.8); Lymphocytes % (A) 31 %; MCH 30.8 pg (25.0-35.0); MCV 90.8 fL (80.0-100.0); Mean Platelet Volume 6.6; Monocytes # (A) 0.7 k/uL (0-1.0); Monocytes % (A) 6 %; Neutrophils # (A) 6.7 k/uL (1.3-7.7); Neutrophils % (A) 60 %; Platelet Count 350 k/uL (150-450); RBC 4.47 m/uL (3.80-5.40); RDW 13.1 % (11.5-15.5); WBC 11.1 k/uL (3.8-10.6)
[2018-07-30 08:35] LABS: Appearance,Urine Clear (Clear); Bilirubin,Urine Negative (Negative); Blood,Urine Negative (Negative); Color,Urine Light Yellow; Glucose,Urine (UA) Negative (Negative); Ketones,Urine Negative (Negative); Leukocyte Esterase,Urine Negative (Negative); Nitrite,Urine Negative (Negative); PH, Urine 6.5 (5.0-8.0); Protein,Urine Negative (Negative); Specific Gravity,Urine 1.004 (1.001-1.035); Urobilinogen,Urine <2.0 mg/dL (<2.0)
[2018-07-30 08:47] LABS: ALT 17 U/L (9-52); AST 18 U/L (14-36); Albumin 4.1 g/dL (3.5-5.0); Alkaline Phosphatase 72 U/L (38-126); Amylase 43 U/L (30-110); Anion Gap 7 mmol/L; Blood Urea Nitrogen 16 mg/dL (7-17); Calcium 9.6 mg/dL (8.4-10.2); Carbon Dioxide 29 mmol/L (22-30); Chloride 104 mmol/L (98-107); Glucose 85 mg/dL (74-99); Lipase 70 U/L (23-300); Potassium 4.4 mmol/L (3.5-5.1); Sodium 140 mmol/L (137-145); Total Bilirubin 0.4 mg/dL (0.2-1.3); Total Protein 7.1 g/dL (6.3-8.2)
--- NOTE | 2018-07-30 08:49 | ED ---
General Adult HPI - General Source: patient, RN notes reviewed Mode of arrival: ambulatory Limitations: no limitations <Marino Perdomo - Last Filed: 07/30/18 10:11> <Nick Jesus - Last Filed: 07/30/18 10:43> - General Chief complaint: Abdominal Pain Stated complaint: Abd.pain Time Seen by Provider: 07/30/18 07:58 - History of Present Illness Initial comments: Patient's a 48-year-old female who presents emergency room today with a chief complaint of increased right-sided abdominal pain. Patient states that she has a history of adhesions. She states that she has been following up with her surgeon. She states she is supposed to have surgery next month to remove scar tissue and adhesions. She states she's been steadily having increased pain on the right side of the abdomen over the last few months. She states it's been getting worse last few weeks. She states she's having a difficult time with passing gas and bowel movements. She states she did have small bowel movement earlier today. She denies any other complaints or symptoms. Patient denies any recent fever, chills, shortness of breath, chest pain, back pain, numbness or tingling, dysuria or hematuria, headaches or visual changes, or any other complaints. (Marino Perdomo) - Related Data Home Medications Medication Instructions Recorded Confirmed Albuterol Inhaler [Ventolin Hfa 1 puff INHALATION RT-BID PRN 02/26/14 07/30/18 Inhaler] Multivitamins, Thera [Multivitamin 1 tab PO DAILY 04/02/15 07/30/18 (formulary)] Diclofenac Sodium [Voltaren] 75 mg PO DAILY 06/04/16 07/30/18 Gabapentin [Neurontin] 900 mg PO TID 06/04/16 07/30/18 Verapamil HCl [Verapamil ER] 120 mg PO QAM 06/04/16 07/30/18 metFORMIN HCL [Glucophage] 500 mg PO BID 06/04/16 07/30/18 diphenhydrAMINE [Benadryl] 25 mg PO DAILY PRN 06/18/16 07/30/18 Ascorbic Acid [Vitamin C] 500 mg PO DAILY 09/21/17 07/30/18 Famotidine 20 mg PO BID 09/21/17 07/30/18 DULoxetine HCL [Cymbalta] 60 mg PO DAILY 01/19/18 07/30/18 Vitamin B Complex 1 cap PO Q42H 07/30/18 07/30/18 predniSONE See Taper PO DAILY 07/30/18 07/30/18 Allergies Allergy/AdvReac Type Severity Reaction Status Date / Time apple [Apple] Allergy Rash/Hives Verified 07/30/18 10:34 aspirin Allergy Rash/Hives Verified 07/30/18 10:34 Beef Containing Products Allergy Rash/Hives Verified 07/30/18 10:34 cinnamon [Cinnamon] Allergy Rash/Hives Verified 07/30/18 10:34 cocoa [[place]] Allergy Rash/Hives Verified 07/30/18 10:34 dill oil Allergy Rash/Hives Verified 07/30/18 10:34 egg Allergy Rash/Hives Verified 07/30/18 10:34 frovatriptan succinate Allergy Nausea & Verified 07/30/18 10:34 [From Frova] Vomiting plus throat swelling grapefruit [Grapefruit] Allergy Rash/Hives Verified 07/30/18 10:34 peas Allergy Rash/Hives Verified 07/30/18 10:34 Poultry [[place]] Allergy Rash/Hives Verified 07/30/18 10:34 soy Allergy Rash/Hives Verified 07/30/18 10:34 spinach Allergy Rash/Hives Verified 07/30/18 10:34 yeast, dried [yeast] Allergy Rash/Hives Verified 07/30/18 10:34 orange AdvReac Rash/Hives Verified 07/30/18 10:34 salmon Allergy Rash/Hives Uncoded 03/23/18 11:14 solumedrol IV only Allergy Rash/Hives Uncoded 03/23/18 11:14 Sinus medication AdvReac Nausea & Uncoded 03/23/18 11:14 Vomiting Review of Systems ROS Other: All systems not noted in ROS Statement are negative. <Marino Perdomo - Last Filed: 07/30/18 10:11> ROS Other: All systems not noted in ROS Statement are negative. <Nick Jesus - Last Filed: 07/30/18 10:43> ROS Statement: Those systems with pertinent positive or pertinent negative responses have been documented in the HPI. Past Medical History Past Medical History: Diabetes Mellitus, Eye Disorder, Hyperlipidemia, Musculoskeletal Disorder, Neurologic Disorder, Osteoarthritis (OA) Additional Past Medical History / Comment(s): LT Glaucoma. Irregular heart beat. Raynauds. STOMACH Ulcers. 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 History of Any Multi-Drug Resistant Organisms: None Reported Past Surgical History: Ablation, Appendectomy, Back Surgery, Section, Cholecystectomy, Hysterectomy, Orthopedic Surgery Additional Past Surgical History / Comment(s): right/left knee, rfa to C2-5, laparoscopies to drain ovarian sx, bilat feet sx, rt trigger thumb sx, colonoscopy. RT KNEE SCOPE 06/09/16., LAPAROSCOPY 09/23/17 Past Anesthesia/Blood Transfusion Reactions: Motion Sickness Past Psychological History: Anxiety Smoking Status: Current every day smoker Past Alcohol Use History: None Reported Past Drug Use History: None Reported - Past Family History Mother Family Medical History: Deep Vein Thrombosis (DVT) Father Family Medical History: Cancer Additional Family Medical History / Comment(s): Bladder <Marino Perdomo - Last Filed: 07/30/18 10:11> General Exam Limitations: no limitations <Marino Perdomo - Last Filed: 07/30/18 10:11> <Nick Jesus - Last Filed: 07/30/18 10:43> - General Exam Comments Initial Comments: General: The patient is awake and alert, in no distress, and does not appear acutely ill. Eye: Extra-ocular movements are intact. No nystagmus. There is normal conjunctiva bilaterally. No signs of icterus. Ears, nose, mouth and throat: There are moist mucous membranes and no oral lesions. Neck: The neck is supple, there is no tenderness or JVD. Cardiovascular: There is a regular rate and rhythm. No murmur, rub or gallop is appreciated. Respiratory: Lungs are clear to auscultation, respirations are non-labored, breath sounds are equal. No wheezes, stridor, rales, or rhonchi. Gastrointestinal: Abdomen soft on palpation. Patient does have tenderness right lower quadrant. No rebound, guarding or CVA tenderness. Musculoskeletal: Normal ROM, no tenderness. Sensation intact. Strength 5/5. Pulses equal bilaterally 2+. Neurological: A&O x 3. CN II-XII intact, There are no obvious motor or sensory deficits. Coordination appears grossly intact. Speech is normal. Skin: Skin is warm and dry and no rashes or lesions are noted. Psychiatric: Cooperative, appropriate mood & affect, normal judgment. (Marino Perdomo) Course <Marino Perdomo - Last Filed: 07/30/18 10:11> <Nick Jesus - Last Filed: 07/30/18 10:43> Vital Signs 07/30/18 07/30/18 07:46 09:47 Temperature 97.7 F 97.1 F L Pulse Rate 69 55 L Respiratory 18 16 Rate Blood Pressure 127/83 118/62 O2 Sat by Pulse 100 100 Oximetry - Reevaluation(s) Reevaluation #1: 07/30/18 10:42 PA supervision I personally saw and examined the patient. I have reviewed and agree with the PA findings including all diagnostic interpretations and treatment plans is written less otherwise stated. I did discuss the case with Dr. Tolbert. (Nick Jesus) Medical Decision Making - Lab Data Result diagrams: 07/30/18 08:15 07/30/18 08:15 <Marino Perdomo - Last Filed: 07/30/18 10:11> - Lab Data Result diagrams: 07/30/18 08:15 07/30/18 08:15 <Nick Jesus - Last Filed: 07/30/18 10:43> - Medical Decision Making Patient reexamined at this time and is resting complaint. She does admit to some improvement after pain medication given here in the emergency room. States still expresses some discomfort to the right side of the abdomen. Patient has a history of adhesions. Was scheduled for surgery in August for removal. Patient states symptoms seem to be increasing. Patient's CT the abdomen and pelvis does show evidence for ileus. Patient does admit that showed difficult time with any bowel movements or passing gas today. Patient labs been reviewed and showed 11,000 white count. Patient will be admitted to the hospital with consult to surgery. (Marino Perdomo) - Lab Data Lab Results 07/30/18 07/30/18 07/30/18 Range/Units 08:15 08:15 08:15 WBC 11.1 H (3.8-10.6) k/uL RBC 4.47 (3.80-5.40) m/uL Hgb 13.8 (11.4-16.0) gm/dL Hct 40.6 (34.0-46.0) % MCV 90.8 (80.0-100.0) fL MCH 30.8 (25.0-35.0) pg MCHC 34.0 (31.0-37.0) g/dL RDW 13.1 (11.5-15.5) % Plt Count 350 (150-450) k/uL Neutrophils % 60 % Lymphocytes % 31 % Monocytes % 6 % Eosinophils % 1 % Basophils % 0 % Neutrophils # 6.7 (1.3-7.7) k/uL Lymphocytes # 3.5 (1.0-4.8) k/uL Monocytes # 0.7 (0-1.0) k/uL Eosinophils # 0.1 (0-0.7) k/uL Basophils # 0.1 (0-0.2) k/uL Sodium 140 (137-145) mmol/L Potassium 4.4 (3.5-5.1) mmol/L Chloride 104 (98-107) mmol/L Carbon Dioxide 29 (22-30) mmol/L Anion Gap 7 mmol/L BUN 16 (7-17) mg/dL Creatinine 0.63 (0.52-1.04) mg/dL Est GFR (CKD-EPI)AfAm >90 (>60 ml/min/1.73 sqM) Est GFR (CKD-EPI)NonAf >90 (>60 ml/min/1.73 sqM) Glucose 85 (74-99) mg/dL Calcium 9.6 (8.4-10.2) mg/dL Total Bilirubin 0.4 (0.2-1.3) mg/dL AST 18 (14-36) U/L ALT 17 (9-52) U/L Alkaline Phosphatase 72 (38-126) U/L Total Protein 7.1 (6.3-8.2) g/dL Albumin 4.1 (3.5-5.0) g/dL Amylase 43 (30-110) U/L Lipase 70 (23-300) U/L Urine Color Urine Appearance (Clear) Urine pH (5.0-8.0) Ur Specific [place] (1.001-1.035) Urine Protein (Negative) Urine Glucose (UA) (Negative) Urine Ketones (Negative) Urine Blood (Negative) Urine Nitrite (Negative) Urine Bilirubin (Negative) Urine Urobilinogen (<2.0) mg/dL Ur Leukocyte Esterase (Negative) Urine HCG, Qual Not Detected (Not Detectd) 07/30/18 Range/Units 08:15 WBC (3.8-10.6) k/uL RBC (3.80-5.40) m/uL Hgb (11.4-16.0) gm/dL Hct (34.0-46.0) % MCV (80.0-100.0) fL MCH (25.0-35.0) pg MCHC (31.0-37.0) g/dL RDW (11.5-15.5) % Plt Count (150-450) k/uL Neutrophils % % Lymphocytes % % Monocytes % % Eosinophils % % Basophils % % Neutrophils # (1.3-7.7) k/uL Lymphocytes # (1.0-4.8) k/uL Monocytes # (0-1.0) k/uL Eosinophils # (0-0.7) k/uL Basophils # (0-0.2) k/uL Sodium (137-145) mmol/L Potassium (3.5-5.1) mmol/L Chloride (98-107) mmol/L Carbon Dioxide (22-30) mmol/L Anion Gap mmol/L BUN (7-17) mg/dL Creatinine (0.52-1.04) mg/dL Est GFR (CKD-EPI)AfAm (>60 ml/min/1.73 sqM) Est GFR (CKD-EPI)NonAf (>60 ml/min/1.73 sqM) Glucose (74-99) mg/dL Calcium (8.4-10.2) mg/dL Total Bilirubin (0.2-1.3) mg/dL AST (14-36) U/L ALT (9-52) U/L Alkaline Phosphatase (38-126) U/L Total Protein (6.3-8.2) g/dL Albumin (3.5-5.0) g/dL Amylase (30-110) U/L Lipase (23-300) U/L Urine Color Light Yellow Urine Appearance Clear (Clear) Urine pH 6.5 (5.0-8.0) Ur Specific [place] 1.004 (1.001-1.035) Urine Protein Negative (Negative) Urine Glucose (UA) Negative (Negative) Urine Ketones Negative (Negative) Urine Blood Negative (Negative) Urine Nitrite Negative (Negative) Urine Bilirubin Negative (Negative) Urine Urobilinogen <2.0 (<2.0) mg/dL Ur Leukocyte Esterase Negative (Negative) Urine HCG, Qual (Not Detectd) Disposition Is patient prescribed a controlled substance at d/c from ED?: No Time of Disposition: 10:16 <Marino Perdomo - Last Filed: 07/30/18 10:11> <Nick Jesus - Last Filed: 07/30/18 10:43> Clinical Impression: [place] Disposition: ADMITTED IP TO THIS HOSP Condition: Stable
--- NOTE | 2018-07-30 09:47 | CT ---
EXAMINATION TYPE: CT abdomen pelvis w con DATE OF EXAM: 07/30/2018 REFERENCE: Previous study dated 01/19/2018. HISTORY: Pain HISTORY: low pelvic pain REFERENCE: NONE CT DLP: 1675.7 mGy Automated exposure control for dose reduction was used. TECHNIQUE: Helical acquisition through the abdomen and pelvis was obtained following the oral ingesti on of without Oral Contrast and following intravenous administration of 100 mL of Isovue 300. The roberta a was reformatted in axial, coronal and sagittal projections. FINDINGS: Visualized portions of the lungs are clear. There is no pleural or pericardial fluid. The heart is not enlarged. Within the abdomen, the liver is prominent measuring 20 cm. The gallbladder is been removed. The sple en is unremarkable. There is a tiny sliding hiatal hernia. Both adrenal glands appear normal. There is no evidence of nephrolithiasis or hydronephrosis. The kidneys appear morphologically normal. The pancreas is unremarkable. There is no significant retroperitoneal, iliac or inguinal adenopathy. The bladder appears normal. The uterus and ovaries are not visualized. There is no significant diverticular change. I do not see evidence of diverticulitis. The appendix is not visualized. There is a minimally prominent fluid-filled loops of small bowel in the left lower quadrant. There is no evidence of bowel obstruction. There is no evidence of free air or free fluid. There is been an anterior fusion at L4-5 and L5-S1 with spacing material placement. No bony destructi ve lesion is seen. IMPRESSION: 1. HEPATOMEGALY. 2. SMALL HIATAL HERNIA. 3. MILDLY DILATED LOOPS OF SMALL BOWEL IN THE REGION OF THE DISTAL JEJUNUM IN THE LEFT LOWER QUADRANT MAY REFLECT LOCALIZED ILEUS OR ENTERITIS. PLEASE CORRELATE CLINICALLY. 4. POSTSURGICAL CHANGE.
[2018-07-30] MEDS ORDERED: NALOXONE 0.4 MG/ML 1 ML VIAL IV PRN (10:09)
[2018-07-30] MEDS ORDERED: SODIUM CHLORIDE 0.9% 1,000 ML IV ONE (10:09)
[2018-07-30] MEDS: MORPHINE SULFATE 4 MG/ML SYRINGE IV PRN (10:46)
[2018-07-30 11:10] VITALS: BMI 36.1
[2018-07-30 12:04] LABS: Glucose,Whole Blood 79 mg/dL (75-99)
--- NOTE | 2018-07-30 13:53 | P.GSCN ---
History of Present Illness Consult date: 07/30/18 History of present illness: CHIEF COMPLAINT: Abdominal pain HISTORY OF PRESENT ILLNESS: The patient is a 48-year-old female with known history of chronic abdominal pain. She has history of multiple abdominal peritoneal adhesions. Last lysis of adhesions was performed 1 year ago. She reports difficulty in passing flatus and having a bowel movement is painful. She is passing flatus however. Secondary to the severity of her abdominal pain , she presented to the emergency room for further evaluation and management. CT of the abdomen and pelvis has been negative for bowel obstruction. As a result of her acute on chronic pain, she was admitted. PAST MEDICAL HISTORY: See list. PAST SURGICAL HISTORY: See list. MEDICATIONS: See list. ALLERGIES: See list. SOCIAL HISTORY: No illicit drug use FAMILY HISTORY: No reports of Crohn's disease or inflammatory bowel disease REVIEW OF ORGAN SYSTEMS: CONSTITUTIONAL: No fevers or chills HEENT: No troubles with vision or hearing. No reports of dysphagia. ENDOCRINE: No reports of thyroid disorders. Has diabetes. CARDIOVASCULAR: No heart attack. No chest pain. Has hypertensive heart disease RESPIRATORY: No shortness of breath or pneumonia. GASTROINTESTINAL: No reports of recent blood in stools. Past history of scar tissue in the abdomen. NEURO: No reports of stroke or seizure disorders. PSYCH: Has depression. No suicidal ideation. Has history of chronic pain. HEMATOLOGIC: No easy bruising or bleeding LYMPHATIC: The patient denies any lumps and bumps around the neck. GENITOURINARY: Denies any blood in urine or increased urinary frequency. MUSCULOSKELETAL: Has back pain, stiffness or joint arthritis. SKIN: No skin cancer or rash. PHYSICAL EXAM: VITAL SIGNS: GENERAL: Well-developed in no acute distress. HEENT: No sclera icterus. Extraocular movements grossly intact. Moist buccal mucosa. Head is atraumatic, normocephalic. Hears conversational speech. No nasal drainage. NECK: Supple without lymphadenopathy. CHEST: Non-labored respirations and equal bilateral excursions. CARDIOVASCULAR: Regular rate with regular rhythm. Palpable 2+ radial pulses. ABDOMEN: Soft. No peritonitis. Minimal diffuse tenderness MUSCULOSKELETAL: No clubbing, cyanosis or edema. NEUROLOGIC: No focal or lateralizing signs. Cranial nerves II through XII grossly intact. PSYCH: Appropriate affect. Alert and oriented to person, place and time. SKIN: Well perfused. Good skin turgor. LABS: Reviewed ASSESSMENT: 1. Acute on chronic abdominal pain 2. Personal history of peritoneal lesion PLAN: 1. No surgical intervention at this time as no acute bowel obstruction identified on computed tomography scan. 2. Antiemetics for nausea 3. May start liquid diet Thank you for this kind consultation. Past Medical History Past Medical History: Diabetes Mellitus, Eye Disorder, Hyperlipidemia, Musculoskeletal Disorder, Neurologic Disorder, Osteoarthritis (OA) Additional Past Medical History / Comment(s): LT Glaucoma. Irregular heart beat. Raynauds. STOMACH Ulcers. 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 History of Any Multi-Drug Resistant Organisms: None Reported Past Surgical History: Ablation, Appendectomy, Back Surgery, Section, Cholecystectomy, Hysterectomy, Orthopedic Surgery Additional Past Surgical History / Comment(s): right/left knee, rfa to C2-5, laparoscopies to drain ovarian sx, bilat feet sx, rt trigger thumb sx, colonoscopy. RT KNEE SCOPE 06/09/16., LAPAROSCOPY 09/23/17 Past Anesthesia/Blood Transfusion Reactions: Motion Sickness Past Psychological History: Anxiety Smoking Status: Current some day smoker Past Alcohol Use History: None Reported Additional Past Alcohol Use History / Comment(s): smokes 1/2 ppd, off and on since age 13 Past Drug Use History: None Reported - Past Family History Mother Family Medical History: Deep Vein Thrombosis (DVT) Father Family Medical History: Cancer Additional Family Medical History / Comment(s): Bladder Medications and Allergies Home Medications Medication Instructions Recorded Confirmed Type Albuterol Inhaler [Ventolin Hfa 1 puff INHALATION RT-BID PRN 02/26/14 07/30/18 History Inhaler] Multivitamins, Thera [Multivitamin 1 tab PO DAILY 04/02/15 07/30/18 History (formulary)] Diclofenac Sodium [Voltaren] 75 mg PO DAILY 06/04/16 07/30/18 History Gabapentin [Neurontin] 900 mg PO TID 06/04/16 07/30/18 History Verapamil HCl [Verapamil ER] 120 mg PO QAM 06/04/16 07/30/18 History metFORMIN HCL [Glucophage] 500 mg PO BID 06/04/16 07/30/18 History diphenhydrAMINE [Benadryl] 25 mg PO DAILY PRN 06/18/16 07/30/18 History Ascorbic Acid [Vitamin C] 500 mg PO DAILY 09/21/17 07/30/18 History Famotidine 20 mg PO BID 09/21/17 07/30/18 History DULoxetine HCL [Cymbalta] 60 mg PO DAILY 01/19/18 07/30/18 History Vitamin B Complex 1 cap PO Q42H 07/30/18 07/30/18 History predniSONE See Taper PO DAILY 07/30/18 07/30/18 History Allergies Allergy/AdvReac Type Severity Reaction Status Date / Time apple [Apple] Allergy Rash/Hives Verified 07/30/18 10:34 aspirin Allergy Rash/Hives Verified 07/30/18 10:34 Beef Containing Products Allergy Rash/Hives Verified 07/30/18 10:34 cinnamon [Cinnamon] Allergy Rash/Hives Verified 07/30/18 10:34 cocoa [[place]] Allergy Rash/Hives Verified 07/30/18 10:34 dill oil Allergy Rash/Hives Verified 07/30/18 10:34 egg Allergy Rash/Hives Verified 07/30/18 10:34 frovatriptan succinate Allergy Nausea & Verified 07/30/18 10:34 [From Frova] Vomiting plus throat swelling grapefruit [Grapefruit] Allergy Rash/Hives Verified 07/30/18 10:34 peas Allergy Rash/Hives Verified 07/30/18 10:34 Poultry [[place]] Allergy Rash/Hives Verified 07/30/18 10:34 soy Allergy Rash/Hives Verified 07/30/18 10:34 spinach Allergy Rash/Hives Verified 07/30/18 10:34 yeast, dried [yeast] Allergy Rash/Hives Verified 07/30/18 10:34 orange AdvReac Rash/Hives Verified 07/30/18 10:34 salmon Allergy Rash/Hives Uncoded 03/23/18 11:14 solumedrol IV only Allergy Rash/Hives Uncoded 03/23/18 11:14 Sinus medication AdvReac Nausea & Uncoded 03/23/18 11:14 Vomiting Surgical - Exam Vital Signs Temp Pulse Resp BP Pulse Ox 97.7 F 69 18 127/83 100 07/30/18 07:46 07/30/18 07:46 07/30/18 07:46 07/30/18 07:46 07/30/18 07:46 Results - Labs 07/30/18 08:15 07/30/18 08:15 Abnormal Lab Results - Last 24 Hours (Table) 07/30/18 Range/Units 08:15 WBC 11.1 H (3.8-10.6) k/uL Diabetes panel 07/30/18 Range/Units 08:15 Sodium 140 (137-145) mmol/L Potassium 4.4 (3.5-5.1) mmol/L Chloride 104 (98-107) mmol/L Carbon Dioxide 29 (22-30) mmol/L BUN 16 (7-17) mg/dL Creatinine 0.63 (0.52-1.04) mg/dL Glucose 85 (74-99) mg/dL Calcium 9.6 (8.4-10.2) mg/dL AST 18 (14-36) U/L ALT 17 (9-52) U/L Alkaline Phosphatase 72 (38-126) U/L Total Protein 7.1 (6.3-8.2) g/dL Albumin 4.1 (3.5-5.0) g/dL Calcium panel 07/30/18 Range/Units 08:15 Calcium 9.6 (8.4-10.2) mg/dL Albumin 4.1 (3.5-5.0) g/dL Pituitary panel 07/30/18 Range/Units 08:15 Sodium 140 (137-145) mmol/L Potassium 4.4 (3.5-5.1) mmol/L Chloride 104 (98-107) mmol/L Carbon Dioxide 29 (22-30) mmol/L BUN 16 (7-17) mg/dL Creatinine 0.63 (0.52-1.04) mg/dL Glucose 85 (74-99) mg/dL Calcium 9.6 (8.4-10.2) mg/dL Adrenal panel 07/30/18 Range/Units 08:15 Sodium 140 (137-145) mmol/L Potassium 4.4 (3.5-5.1) mmol/L Chloride 104 (98-107) mmol/L Carbon Dioxide 29 (22-30) mmol/L BUN 16 (7-17) mg/dL Creatinine 0.63 (0.52-1.04) mg/dL Glucose 85 (74-99) mg/dL Calcium 9.6 (8.4-10.2) mg/dL Total Bilirubin 0.4 (0.2-1.3) mg/dL AST 18 (14-36) U/L ALT 17 (9-52) U/L Alkaline Phosphatase 72 (38-126) U/L Total Protein 7.1 (6.3-8.2) g/dL Albumin 4.1 (3.5-5.0) g/dL - Imaging CT scan - abdomen: report reviewed, image reviewed CT scan - pelvis: report reviewed, image reviewed (No evidence of bowel obstruction identified.) Assessment and Plan (1) Chronic abdominal pain Current Visit: Yes Status: Acute Code(s): R10.9 - UNSPECIFIED ABDOMINAL PAIN ; G89.29 - OTHER CHRONIC PAIN SNOMED Code(s): 541257440 (2) Abdominal pain, chronic, generalized Current Visit: Yes Status: Acute Code(s): R10.84 - GENERALIZED ABDOMINAL PAIN; G89.29 - OTHER CHRONIC PAIN SNOMED Code(s): 592076185 (3) Peritoneal adhesions without obstruction Current Visit: Yes Status: Acute Code(s): K66.0 - PERITONEAL ADHESIONS ( POSTPROCEDURAL) (POSTINFECTION) SNOMED Code(s): 89662453 (4) Morbid obesity due to excess calories Current Visit: Yes Status: Acute Code(s): E66.01 - MORBID (SEVERE) OBESITY DUE TO EXCESS CALORIES SNOMED Code(s): 315170269 (5) Depressive disorder Current Visit: Yes Status: Acute Code(s): F32.9 - MAJOR DEPRESSIVE DISORDER , SINGLE EPISODE, UNSPECIFIED SNOMED Code(s): 59704510 (6) Diabetes type 2, controlled Current Visit: Yes Status: Acute Code(s): E11.9 - TYPE 2 DIABETES MELLITUS WITHOUT COMPLICATIONS SNOMED Code(s): 67187560
[2018-07-30] MEDS ORDERED: ALBUTEROL NEBULIZED 2.5 MG/3 ML INHALATION PRN (14:11)
[2018-07-30] MEDS ORDERED: diphenhydrAMINE 25 MG CAP PO PRN (14:11)
[2018-07-30] MEDS ORDERED: NON-FORMULARY DRUG (Vitamin B Complex [Vitamin B Complex] 1 CAP) PO SCH (14:15)
[2018-07-30] MEDS: DULoxetine HCL 60 MG CAPSULE.DR PO SCH (14:36)
[2018-07-30] MEDS: ASCORBIC ACID 500 MG TAB PO SCH (14:36)
[2018-07-30] MEDS: GABAPENTIN 300 MG CAP PO SCH ×2 (15:07→20:57)
[2018-07-30] MEDS: ETODOLAC 400 MG TAB PO SCH (15:07)
[2018-07-30] MEDS: VERAPAMIL SR 120 MG TABLET.ER PO SCH (15:09)
[2018-07-30] MEDS: predniSONE 10 MG TAB PO SCH (15:09)
[2018-07-30 16:57] LABS: Glucose,Whole Blood 106 mg/dL (75-99)
[2018-07-30] MEDS: FAMOTIDINE 20 MG TAB PO SCH (20:57)
[2018-07-30] MEDS: metFORMIN 500 MG TAB PO SCH (20:57)
--- NOTE | 2018-07-31 00:22 | HP ---
HISTORY AND PHYSICAL DATE OF SERVICE: 07/30/2018. PRESENTING: Abdominal pain. HISTORY OF PRESENTING COMPLAINT: This is a very pleasant 48-year-old patient of Dr. Reina, being followed by Dr. Guerra from General surgery. The patient, about 1-1/2 years ago, underwent lysis of adhesions but all could not be removed. There were some wraps on the colon. Over a period of time the patient has been having more and more lower abdominal pain. Sometimes for days she does not have a bowel movement. She was told to come in if symptoms got worse, for possible surgical intervention. At this time again the patient is having more and more lower abdominal pain. Nausea. No fever or chills. CT scan done in the ER did not show any obstruction. Admitted for the same. PAST MEDICAL HISTORY: Patient's chronic stable medical conditions include diabetes, hyperlipidemia, osteoarthritis, Raynaud, peripheral neuropathy, varicose veins. No fever and no chills. REVIEW OF SYSTEMS: CONSTITUTIONAL: None. HEENT: None. RESPIRATORY: None. GASTROINTESTINAL: As above. GENITOURINARY: None. MUSCULOSKELETAL: Arthritic pain in joints. DERMATOLOGICAL, HEMATOLOGIC, LYMPHATIC: None. PSYCHIATRY: None. NEUROLOGIC: None. PAST MEDICAL HISTORY: Diabetes, hyperlipidemia, osteoarthritis, Raynaud, peptic ulcer disease in the remote past, varicose veins, peripheral neuropathy. PAST SURGICAL HISTORY: Ablation, appendectomy, back surgery, , cholecystectomy, hysterectomy, RFA C2- C5, laparoscopic surgery to drain ovarian cyst, bilateral feet surgery, right trigger thumb, right knee scope. PSYCH HISTORY: Anxiety. SOCIAL HISTORY: Smokes about half a pack a day for 36 years. . The patient takes care of her niece who is emotionally disturbed. FAMILY HISTORY: DVT, bladder cancer. HOME MEDICATIONS: 1. Prednisone taper. 2. Glucophage 500 mg p.o. b.i.d. 3. Benadryl 25 mg daily p.r.n. 4. Vitamin B complex 1 capsule p.o. every 42 hours. 5. Verapamil ER 120 mg a day. 6. Multivitamin 1 tablet p.o. daily. 7. Neurontin 900 mg p.o. t.i.d. 8. Pepcid 20 mg b.i.d. 9. Voltaren 75 mg p.o. daily. 10.Cymbalta 60 mg p.o. daily. 11.Vitamin C 500 mg p.o. daily. 12.Ventolin HFA 1 puff b.i.d. p.r.n. ALLERGIES: Long list including APPLE, ASPIRIN, BEEF-CONTAINING PRODUCTS, CINNAMON, COCOA, , EGG, GRAPEFRUIT, PEAS, TURKEY, SOY, SPINACH, YEAST, ORANGE, SALMON, IV IV SOLU-MEDROL. PHYSICAL EXAMINATION: Vital signs on presentation, temperature 97.7, pulse 69, respiratory rate 18, blood pressure 127/83, pulse ox 100 percent on room air. GENERAL APPEARANCE: Well built. BMI 36.1. Sitting up, somewhat uncomfortable. EYES: Pupils equal. Conjunctivae normal. HEENT: External nose and ears normal. Oral cavity normal. NECK: JVD not raised. Mass not palpable. Respiratory effort normal. LUNGS: Clear. CARDIOVASCULAR: 1st and 2nd heart sounds normal. No edema. ABDOMEN: Right lower abdomen tenderness. No guarding, rigidity. Liver and spleen not palpable. LYMPHATICS: No lymph node palpable. PSYCHIATRY: Alert and oriented x3. Mood and affect slightly anxious-appearing. NEUROLOGICAL: Pupils equal. Cranial nerves grossly intact. Power and sensation grossly intact. INVESTIGATIONS: White count 7.1, hemoglobin 13.8, potassium 4.4. BUN and creatinine normal. UA negative. CT scan of the abdomen and pelvis show a prominent liver, mildly dilated loops of small bowel. ASSESSMENT: 1. Acute on chronic abdominal pain in the patient who has had previous diagnosis of adhesions. Surgery about 1-1/2 years with worsening symptoms with bowel movements, rather variable duration. The patient does state when she has a bowel movement she has pain in the lower abdomen. No obstruction at this present time. 2. Diabetes mellitus type 2, on oral hypoglycemic. 3. Hyperlipidemia. 4. Primary osteoarthritis. 5. Peripheral neuropathy. 6. Obesity; BMI 36.1. 7. Chronic nicotine dependence. Patient is a cigarette smoker. PLAN: Dr. Guerra was consulted who saw the patient. No obstructive obstruction. Patient has been started on a liquid diet. Home medications resumed. Accu-Cheks will be followed. The patient was advised against smoking. Will be given a nicotine patch. Care was discussed the patient at bedside. Further plans as per Dr. Guerra. MMODL / IJN: [id number] /
[2018-07-31 06:58] LABS: Glucose,Whole Blood 82 mg/dL (75-99)
[2018-07-31] MEDS: ONDANSETRON 4 MG/2 ML VIAL IVP PRN (08:19)
[2018-07-31 08:56] LABS: Basophils % (A) 1 %; Eosinophils # (A) 0.2 k/uL (0-0.7); Eosinophils % (A) 2 %; HCT 39.3 % (34.0-46.0); HGB 12.8 gm/dL (11.4-16.0); Lymphocytes # (A) 3.7 k/uL (1.0-4.8); Lymphocytes % (A) 46 %; MCH 29.8 pg (25.0-35.0); MCHC 32.5 g/dL (31.0-37.0); MCV 91.6 fL (80.0-100.0); Mean Platelet Volume 6.7; Monocytes # (A) 0.5 k/uL (0-1.0); Monocytes % (A) 6 %; Neutrophils # (A) 3.6 k/uL (1.3-7.7); Neutrophils % (A) 44 %; Platelet Count 313 k/uL (150-450); RBC 4.29 m/uL (3.80-5.40); RDW 13.3 % (11.5-15.5); WBC 8.1 k/uL (3.8-10.6)
[2018-07-31 09:11] LABS: ALT 19 U/L (9-52); AST 17 U/L (14-36); Albumin 3.6 g/dL (3.5-5.0); Alkaline Phosphatase 61 U/L (38-126); Anion Gap 8 mmol/L; Blood Urea Nitrogen 11 mg/dL (7-17); Carbon Dioxide 30 mmol/L (22-30); Chloride 104 mmol/L (98-107); Glucose 80 mg/dL (74-99); Potassium 4.4 mmol/L (3.5-5.1); Sodium 142 mmol/L (137-145); Total Bilirubin 0.4 mg/dL (0.2-1.3); Total Protein 6.1 g/dL (6.3-8.2)
[2018-07-31] MEDS: NICOTINE 14MG/24HR PATCH TRANSDERM SCH (09:15)
[2018-07-31] MEDS: metFORMIN 500 MG TAB PO SCH ×2 (09:16→19:24)
[2018-07-31] MEDS: DULoxetine HCL 60 MG CAPSULE.DR PO SCH (09:16)
[2018-07-31] MEDS: GABAPENTIN 300 MG CAP PO SCH ×3 (09:16→19:24)
[2018-07-31] MEDS: ASCORBIC ACID 500 MG TAB PO SCH (09:16)
[2018-07-31] MEDS: predniSONE 10 MG TAB PO SCH (09:17)
[2018-07-31] MEDS: VERAPAMIL SR 120 MG TABLET.ER PO SCH (09:17)
[2018-07-31] MEDS: ETODOLAC 400 MG TAB PO SCH (09:17)
[2018-07-31] MEDS: MULTIVITAMINS, THERA 1 EACH TAB PO SCH (09:17)
[2018-07-31] MEDS: FAMOTIDINE 20 MG TAB PO SCH ×2 (09:17→19:24)
[2018-07-31] MEDS: MORPHINE SULFATE 4 MG/ML SYRINGE IV PRN ×3 (10:33→19:26)
--- NOTE | 2018-07-31 11:16 | P.PN ---
Subjective Progress Note Date: 07/31/18 48-year-old female seen this morning at the bedside. Patient states continues to have intolerable pain left lower abdomen. No bowel movement. Patient states is passing gas. Patient states the pain is getting worse not better patient has a history of chronic abdominal pain. Has had multiple abdominal perineal adhesions peritoneal adhesions last surgery to address lysis was 1 year prior patient states she is scheduled to follow-up in September this year for the abdominal pain. CAT scan of the abdomen pelvis report indicates no evidence of a bowel obstruction. Patient has used a heating pad ambulated in the [place] there's been no relief to the left lower abdominal pain when questioning White count 8.4 this morning electrolytes within normal limits AST and ALT not elevated Objective - Vital Signs Vital signs: Vital Signs Temp 98.5 F 07/31/18 08:25 Pulse 54 L 07/31/18 08:25 Resp 16 07/31/18 08:25 BP 112/72 07/31/18 08:25 Pulse Ox 96 07/31/18 08:25 Intake & Output 07/30/18 07/31/18 07/31/18 18:59 06:59 18:59 Intake Total 1600 625 Balance 1600 625 Weight 92.533 kg Intake: Intake, IV Titration 1600 Amount Sodium Chloride 0.9% 1, 1600 000 ml @ 100 mls/hr IV . Q10H ONE Rx#:[id number] Oral 625 Other: Voiding Method Indwelling Catheter # Voids 1 3 - Exam Physical exam 48-year-old female resting in bed continues to report having left lower quadrant pain radiates across Lungs clear adequate air movement Heart S1-S2 audible regular Abdomen soft reports diffuse tenderness across the abdominal wall. Patient states passing gas with increased pain to the left lower abdomen no bowel movement no nausea no vomiting no appetite Extremity no edema - Labs CBC & Chem 7: 07/31/18 07:49 07/31/18 07:49 Labs: Abnormal Lab Results - Last 24 Hours (Table) 07/30/18 07/31/18 Range/Units 16:52 07:49 POC Glucose (mg/dL) 106 H (75-99) mg/dL Total Protein 6.1 L (6.3-8.2) g/dL Assessment and Plan Assessment: Impression Present on admission mild tenderness abdominal pain History of a lysis of adhesions Acute on chronic abdominal pain CAT scan abdomen and pelvis obtained on this admission negative for evidence of a bowel obstruction Abdominal pain chronic generalized Peritoneal adhesions without obstruction Morbid obesity due to excess calories BMI 36 Depressive disorder Type 2 diabetes Plan No evidence of an acute surgical abdomen at this time Pain control Encourage ambulation DVT and GI prophylaxis will follow with you The above impression and plan of care have been discussed and directed by signing physician. Arlen Fay nurse practitioner acting as scribe for signing physician.
[2018-07-31 12:15] LABS: Glucose,Whole Blood 97 mg/dL (75-99)
[2018-07-31 17:30] LABS: Glucose,Whole Blood 94 mg/dL (75-99)
[2018-07-31 20:08] LABS: Glucose,Whole Blood 109 mg/dL (75-99)
--- NOTE | 2018-07-31 21:17 | PN ---
PROGRESS NOTE DATE OF SERVICE: 07/31/18 PRESENTING COMPLAINT: Abdominal pain. INTERVAL HISTORY: This patient admitted following abdominal pain, known to have adhesions for which she has had surgery by Dr. Guerra. The patient has been on a full liquid diet. Passed some flatus has been up in the hallway. No nausea, vomiting. Still having lower abdominal pain, pending further decision by Dr. Guerra. REVIEW OF SYSTEMS: Done for constitutional, cardiovascular, GI, pulmonary; relevant findings as above. CURRENT MEDICATIONS: Reviewed. EXAMINATION: Afebrile, pulse 62, respiration 16, blood pressure 112/72, pulse ox 96% on room air. GENERAL APPEARANCE: Lying in bed, awake. EYES: Pupils equal. Conjunctivae normal. HEENT: External appearance of nose and ears normal. Oral cavity normal. NECK: JVD not raised. Mass not palpable. RESPIRATORY: Effort normal. Lungs are clear. CARDIOVASCULAR: First and second sounds, no edema. ABDOMEN: Lower abdominal tenderness. No guarding or rigidity. Liver and spleen not palpable. PSYCHIATRY: Alert and oriented x3. Mood and affect slightly anxious. INVESTIGATIONS: White count normal. BUN and creatinine are normal. ASSESSMENT: 1. Acute on chronic abdominal pain in a patient with prior diagnosis of adhesions with some worsening of the symptoms. No obstruction on the CT scan. Awaiting further input from Dr. Guerra. 2. Diabetes mellitus type 2 on oral hypoglycemic. 3. Hyperlipidemia. 4. Primary osteoarthritis. 5. Peripheral neuropathy. 6. Obesity; BMI 36.1. 7. Chronic nicotine dependence. Patient is a cigarette smoker. PLAN: At this point, we will add some Bentyl and see if that helps with any spasms and go from there. MMODL / IJN: [id number] /
[2018-08-01] MEDS: DICYCLOMINE 20 MG TAB PO SCH ×5 (01:12→20:27)
[2018-08-01] MEDS: MORPHINE SULFATE 4 MG/ML SYRINGE IV PRN ×5 (03:19→21:15)
[2018-08-01 06:59] LABS: Glucose,Whole Blood 86 mg/dL (75-99)
[2018-08-01] MEDS: NICOTINE 14MG/24HR PATCH TRANSDERM SCH (07:41)
[2018-08-01] MEDS: ONDANSETRON 4 MG/2 ML VIAL IVP PRN (08:17)
[2018-08-01] MEDS: ASCORBIC ACID 500 MG TAB PO SCH (08:19)
[2018-08-01] MEDS: DULoxetine HCL 60 MG CAPSULE.DR PO SCH (08:19)
[2018-08-01] MEDS: ETODOLAC 400 MG TAB PO SCH (08:19)
[2018-08-01] MEDS: metFORMIN 500 MG TAB PO SCH ×2 (08:20→20:27)
[2018-08-01] MEDS: GABAPENTIN 300 MG CAP PO SCH ×3 (08:20→20:27)
[2018-08-01] MEDS: FAMOTIDINE 20 MG TAB PO SCH ×2 (08:20→20:27)
[2018-08-01] MEDS: VERAPAMIL SR 120 MG TABLET.ER PO SCH (08:21)
[2018-08-01] MEDS: MULTIVITAMINS, THERA 1 EACH TAB PO SCH (08:21)
[2018-08-01] MEDS: predniSONE 10 MG TAB PO SCH (08:21)
[2018-08-01 11:58] LABS: Glucose,Whole Blood 94 mg/dL (75-99)
--- NOTE | 2018-08-01 13:18 | P.PN ---
Subjective Progress Note Date: 08/01/18 48-year-old female seen this morning on rounds. Continues to report having right lower quadrant abdominal pain. Patient states is belching but is not passing gas rectally and has not had a bowel movement reports a nausea sensation with no emesis. Currently no labs pending CAT scan of the abdomen pelvis report indicated no evidence of a bowel obstruction. Patient has had multiple abdominal peritoneal adhesions. Last surgery to address the adhesions was a year ago. Patient states she scheduled for surgery in September this year for the adhesions states she doesn't know if she can tolerate the pain she is experiencing the right lower quadrant abdomen is soft nondistended with bowel tones present Objective - Vital Signs Vital signs: Vital Signs Temp 98.0 F 08/01/18 07:37 Pulse 54 L 08/01/18 07:37 Resp 14 08/01/18 07:37 BP 102/67 08/01/18 07:37 Pulse Ox 97 08/01/18 07:37 Intake & Output 07/31/18 08/01/18 08/01/18 18:59 06:59 18:59 Intake Total 2061 222 Balance 2061 222 Intake: Intake, IV Titration 525 Amount Sodium Chloride 0.9% 1, 525 000 ml @ 100 mls/hr IV . Q10H ONE Rx#:[id number] Oral 1537 222 Other: Voiding Method Toilet Toilet # Voids 1 2 - Exam Physical exam 48-year-old female resting in bed continues to report having right lower quadrant pain radiates across Lungs clear adequate air movement Heart S1-S2 audible regular Abdomen soft reports right lower quadrant pain diffuse tenderness across the abdominal wall. Patient states passing gas with increased pain to the right lower abdomen no bowel movement no nausea no vomiting no appetite Extremity no edema - Labs CBC & Chem 7: 07/31/18 07:49 07/31/18 07:49 Labs: Abnormal Lab Results - Last 24 Hours (Table) 07/31/18 Range/Units 20:04 POC Glucose (mg/dL) 109 H (75-99) mg/dL Assessment and Plan Assessment: Impression Present on admission mild tenderness abdominal pain History of a lysis of adhesions Acute on chronic abdominal pain CAT scan abdomen and pelvis obtained on this admission negative for evidence of a bowel obstruction Abdominal pain chronic generalized Peritoneal adhesions without obstruction Morbid obesity due to excess calories BMI 36 Depressive disorder Type 2 diabetes Plan Scheduled for an upper GI with small bowel follow-through follow up on results No evidence of an acute surgical abdomen at this time Pain control Encourage ambulation DVT and GI prophylaxis will follow with you Full liquid diet The above impression and plan of care have been discussed and directed by signing physician. Arlen Fay nurse practitioner acting as scribe for signing physician.
[2018-08-01 17:17] LABS: Glucose,Whole Blood 114 mg/dL (75-99)
--- NOTE | 2018-08-01 23:50 | PN ---
PROGRESS NOTE DATE OF SERVICE: 08/01/2018. PRESENT COMPLAINT: Abdominal pain. INTERVAL HISTORY: This patient presented with lower abdominal pain noted to have adhesions for which Dr. Guerra is following the patient. The patient remains on a liquid diet. Dr. Guerra decided to do an EGD tomorrow. The patient's lower abdominal pain persists and has passed some more flatus. Up and about. REVIEW OF SYSTEMS: Done for constitutional, cardiovascular, GI, pulmonary, relevant findings as above. CURRENT MEDICATIONS: Reviewed that include Bentyl. PHYSICAL EXAMINATION: VITAL SIGNS: Temperature 97.9, pulse 57, respirations 18, blood pressure 116/73, pulse ox 95% on room air. GENERAL APPEARANCE: Lying in bed, more comfortable. EYES: Pupils are equal. Conjunctivae normal. HEENT: External appearance of nose and ears normal. Oral cavity normal. NECK: JVD not raised. Mass not palpable. RESPIRATORY: Effort, lungs are clear. CARDIOVASCULAR: 1st and 2nd sounds normal. No edema. ABDOMEN: Soft. Lower abdominal tenderness. No guarding or rigidity. Liver and spleen not palpable. PSYCHIATRY: Alert and oriented x3. Mood and affect normal. INVESTIGATIONS: Accu-Cheks are noted. ASSESSMENT: 1. Acute on chronic abdominal pain in a patient who has prior of adhesions with some worsening of symptoms. No obstructive features on the CT scan. The patient possibly has an element of irritable bowel syndrome. 2. Possible irritable bowel syndrome. The patient has some response to Bentyl. 3. Diabetes mellitus type 2 on oral hypoglycemics. 4. Hyperlipidemia. 5. Primary osteoarthritis. 6. Peripheral neuropathy. 7. Obesity; BMI 36.1. 8. Chronic nicotine dependence, patient is a cigarette smoker. PLAN: Dr. Guerra is going to proceed with an EGD. In the meantime, continue with current medication and treatment plan. The patient's pain well could be functional example from IBS. MMODL / IJN: [id number] /
[2018-08-02] MEDS: MORPHINE SULFATE 4 MG/ML SYRINGE IV PRN ×5 (01:48→20:26)
[2018-08-02] MEDS: NICOTINE 14MG/24HR PATCH TRANSDERM SCH (07:30)
--- NOTE | 2018-08-02 10:49 | P.PN ---
Progress Note - Text Progress Note Date: 08/01/18 Patient was seen and evaluated. She complains primarily of right groin to right lower quadrant abdominal pain different in character and nature from her previous chronic abdominal pain. She reports moderate constipation. Recommend proceeding with an upper GI to elucidate history of bowel obstruction. Additionally, we'll proceed with laxatives including enemas after upper GI completed. Surgical intervention on hold.
[2018-08-02] MEDS: ASCORBIC ACID 500 MG TAB PO SCH ×2 (10:55→11:13)
[2018-08-02] MEDS: ETODOLAC 400 MG TAB PO SCH (11:14)
[2018-08-02] MEDS: DICYCLOMINE 20 MG TAB PO SCH ×3 (11:14→20:16)
[2018-08-02] MEDS: GABAPENTIN 300 MG CAP PO SCH ×3 (11:14→21:06)
[2018-08-02] MEDS: DULoxetine HCL 60 MG CAPSULE.DR PO SCH (11:14)
[2018-08-02] MEDS: FAMOTIDINE 20 MG TAB PO SCH ×2 (11:14→20:22)
[2018-08-02] MEDS: metFORMIN 500 MG TAB PO SCH ×2 (11:15→20:22)
[2018-08-02] MEDS: predniSONE 10 MG TAB PO SCH (11:15)
[2018-08-02] MEDS: VERAPAMIL SR 120 MG TABLET.ER PO SCH (11:15)
[2018-08-02 11:34] LABS: Glucose,Whole Blood 74 mg/dL (75-99)
[2018-08-02] MEDS: MULTIVITAMINS, THERA 1 EACH TAB PO SCH (13:05)
--- NOTE | 2018-08-02 15:18 | FL ---
EXAMINATION TYPE: FL UGI air w small bowel DATE OF EXAM: 08/02/2018 COMPARISON: Abdomen CT abdomen pelvis 07/30/2018 HISTORY: Left lower quadrant pain, constipation TECHNIQUE: A double contrast UGI study is performed with small bowel follow through. FINDINGS: Top Ironer image of the abdomen shows no gross abnormality. The esophagus shows normal motility and emptying into the stomach. No evidence of hiatal hernia or s tricture noted. The stomach shows normal distensibility, peristalsis, and mucosal folds. No evidence of any mass or ulcer disease. No significant esophageal reflux was seen during real time performance of this study. The duodenal bulb and sweep are unremarkable. The small bowel study shows delayed transit to the colon. Large amount of retained fecal debris prese nt within the colon. There is normal mucosal fold pattern throughout the small bowel. Some flocculat ion of the contrast column was noted. There is no evidence of any stricture or filling defect noted. The terminal ileum is not well seen. IMPRESSION: No evident bowel obstruction. There is delayed transit, retained fecal debris compatible with fecal stasis. Unremarkable upper GI.
[2018-08-02] MEDS: ONDANSETRON 4 MG/2 ML VIAL IVP PRN (15:42)
[2018-08-02 17:10] LABS: Glucose,Whole Blood 170 mg/dL (75-99)
[2018-08-02 19:59] LABS: Glucose,Whole Blood 121 mg/dL (75-99)
--- NOTE | 2018-08-02 21:06 | P.PN ---
Progress Note - Text Progress Note Date: 08/02/18 The patient reevaluated this evening. Results of upper GI with small bowel follow-through reviewed with the patient demonstrating no obstruction with the exception of slow fecal transit. The patient reports not having any bowel movement. She reports primarily right suprapubic discomfort. Since admission, her abdominal pain has moderately improved. In fact, she is tolerating regular diet. Recommend enemas and the patient is agreeable. Treatment for irritable bowels syndrome also described. Likely discharge tomorrow. Outpatient follow-up in the office advised.
[2018-08-02] MEDS: MAGNESIUM HYDROXIDE 2,400 MG/10 ML CUP PO SCH (21:14)
[2018-08-02] MEDS: LACTULOSE 20 GM/30 ML CUP PO SCH (21:15)
--- NOTE | 2018-08-02 22:07 | PN ---
PROGRESS NOTE DATE OF SERVICE: 08/02/2018 PRESENTING COMPLAINT: Abdominal pain. INTERVAL HISTORY: This patient presented with lower abdominal pain; known to have adhesions, for which she had surgery over a year ago. Remains on a liquid diet. The patient did have an upper GI and small-bowel follow-through. It was unremarkable. It showed fecal stasis. The patient has been passing some flatus. Up and about. Awaiting further input from Dr. Guerra. REVIEW OF SYSTEMS: Done for constitutional, cardiovascular, GI, pulmonary; relevant findings as above. CURRENT MEDICATIONS: Reviewed. PHYSICAL EXAMINATION: Temperature 97.8, pulse 61, respiration 14, blood pressure 109/65, pulse ox 95% on room air. GENERAL APPEARANCE: Lying in bed. Awake. EYES: Pupils equal. Conjunctivae normal. HEENT: External appearance of nose and ears normal. Oral cavity normal. NECK: JVD not raised. Mass not palpable. RESPIRATORY: Effort normal. Lungs are clear. CARDIOVASCULAR: First and second sounds normal. No edema. ABDOMEN: Soft. Some lower abdominal tenderness. No guarding or rigidity. PSYCHIATRY: Alert and oriented x3. Mood and affect normal. INVESTIGATIONS: Accu-Cheks are noted. ASSESSMENT: 1. Acute on chronic abdominal pain with prior history of adhesiolysis. No obstructive features on the CT scan except for fecal stasis. 2. Possible irritable bowel syndrome component. 3. Diabetes mellitus, type 2, on oral hypoglycemic. 4. Hyperlipidemia. 5. Primary osteoarthritis. 6. Peripheral neuropathy. 7. Obesity; body mass index 36.1. 8. Chronic nicotine dependence. Patient is a cigarette smoker. PLAN: At this point will hold off the Bentyl until further evaluation by Dr. Guerra. She was contemplating surgery for this patient. We will let her decide with the patient further plan. I did talk to the patient and her . MMODL / IJN: [id number] /
[2018-08-03] MEDS: MORPHINE SULFATE 4 MG/ML SYRINGE IV PRN ×2 (01:02→08:46)
[2018-08-03 06:59] LABS: Glucose,Whole Blood 102 mg/dL (75-99)
[2018-08-03 08:12] VITALS: BP 94/55; PULSE 65; RESP 14; TEMP 98.2
[2018-08-03] MEDS: ETODOLAC 400 MG TAB PO SCH (08:45)
[2018-08-03] MEDS: ASCORBIC ACID 500 MG TAB PO SCH (08:45)
[2018-08-03] MEDS: DULoxetine HCL 60 MG CAPSULE.DR PO SCH (08:45)
[2018-08-03] MEDS: FAMOTIDINE 20 MG TAB PO SCH (08:46)
[2018-08-03] MEDS: predniSONE 10 MG TAB PO SCH (08:46)
[2018-08-03] MEDS: metFORMIN 500 MG TAB PO SCH (08:46)
[2018-08-03] MEDS: GABAPENTIN 300 MG CAP PO SCH ×2 (08:46→15:28)
[2018-08-03] MEDS: VERAPAMIL SR 120 MG TABLET.ER PO SCH (08:46)
[2018-08-03] MEDS: LACTULOSE 20 GM/30 ML CUP PO SCH (08:47)
[2018-08-03] MEDS: MAGNESIUM HYDROXIDE 2,400 MG/10 ML CUP PO SCH (08:47)
[2018-08-03] MEDS: NICOTINE 14MG/24HR PATCH TRANSDERM SCH (08:51)
[2018-08-03] MEDS ORDERED: ACETAMINOPHEN TAB 325 MG TAB PO PRN (11:10)
[2018-08-03] MEDS ORDERED: DOCUSATE 100 MG CAP PO SCH (11:15)
[2018-08-03] MEDS: MULTIVITAMINS, THERA 1 EACH TAB PO SCH (11:38)
[2018-08-03 11:49] LABS: Glucose,Whole Blood 115 mg/dL (75-99)
--- NOTE | 2018-08-03 13:40 | P.PN ---
<Arlen Fay - Last Filed: 08/03/18 13:35> Subjective Progress Note Date: 08/03/18 48-year-old female seen this morning at the bedside states abdominal pain has improved "is feeling better. Patient points to the right inguinal area as to reference point states had several bowel movements last night Objective - Vital Signs Vital signs: Vital Signs Temp 98.2 F 08/03/18 07:55 Pulse 65 08/03/18 07:55 Resp 14 08/03/18 07:55 BP 94/55 08/03/18 07:55 Pulse Ox 97 08/03/18 07:55 Intake & Output 08/02/18 08/03/18 08/03/18 18:59 06:59 18:59 Intake Total 1000 480 400 Balance 1000 480 400 Intake: Oral 1000 480 400 Other: Voiding Method Toilet Toilet # Voids 1 # Bowel Movements 5 - Exam Physical exam 48-year-old female resting in bed states that several bowel movements last night feeling better there is a improvement in the abdominal pain on the right side Lungs clear adequate air movement Heart S1-S2 audible regular Abdomen soft reports right lower quadrant abdominal pain improved pain points to the lower abdominal quadrant no nausea no vomiting tolerating diet Extremity no edema - Labs CBC & Chem 7: 07/31/18 07:49 07/31/18 07:49 Labs: Abnormal Lab Results - Last 24 Hours (Table) 08/02/18 08/02/18 08/03/18 Range/Units 17:06 19:57 06:58 POC Glucose (mg/dL) 170 H 121 H 102 H (75-99) mg/dL 08/03/18 Range/Units 11:47 POC Glucose (mg/dL) 115 H (75-99) mg/dL Assessment and Plan Assessment: Impression Present on admission mild tenderness abdominal pain History of a lysis of adhesions Acute on chronic abdominal pain CAT scan abdomen and pelvis obtained on this admission negative for evidence of a bowel obstruction Abdominal pain chronic generalized Peritoneal adhesions without obstruction Morbid obesity due to excess calories BMI 36 Depressive disorder Type 2 diabetes Irritable bowel syndrome Plan From a surgical perspective patient is felt to be appropriate to be discharged home outpatient follow-up in the office advised her to the timing to the attending No evidence of an acute surgical abdomen at this time DVT and GI prophylaxis The above impression and plan of care have been discussed and directed by signing physician. Arlen Fay nurse practitioner acting as scribe for signing physician. <Hailey Guerra N - Last Filed: 08/03/18 15:34> Objective - Vital Signs Vital signs: Vital Signs Temp 98.2 F 08/03/18 07:55 Pulse 65 08/03/18 07:55 Resp 14 08/03/18 07:55 BP 94/55 08/03/18 07:55 Pulse Ox 97 08/03/18 07:55 Intake & Output 08/02/18 08/03/18 08/03/18 18:59 06:59 18:59 Intake Total 1000 480 700 Balance 1000 480 700 Intake: Oral 1000 480 700 Other: Voiding Method Toilet Toilet # Voids 1 2 # Bowel Movements 5 - Labs CBC & Chem 7: 07/31/18 07:49 07/31/18 07:49 Labs: Abnormal Lab Results - Last 24 Hours (Table) 08/02/18 08/02/18 08/03/18 Range/Units 17:06 19:57 06:58 POC Glucose (mg/dL) 170 H 121 H 102 H (75-99) mg/dL 08/03/18 Range/Units 11:47 POC Glucose (mg/dL) 115 H (75-99) mg/dL Assessment and Plan (1) Chronic abdominal pain Current Visit: Yes Status: Acute Code(s): R10.9 - UNSPECIFIED ABDOMINAL PAIN ; G89.29 - OTHER CHRONIC PAIN SNOMED Code(s): 412351465 (2) Abdominal pain, chronic, generalized Current Visit: Yes Status: Acute Code(s): R10.84 - GENERALIZED ABDOMINAL PAIN; G89.29 - OTHER CHRONIC PAIN SNOMED Code(s): 303361366 (3) Peritoneal adhesions without obstruction Current Visit: Yes Status: Acute Code(s): K66.0 - PERITONEAL ADHESIONS ( POSTPROCEDURAL) (POSTINFECTION) SNOMED Code(s): 58921850 (4) Morbid obesity due to excess calories Current Visit: Yes Status: Acute Code(s): E66.01 - MORBID (SEVERE) OBESITY DUE TO EXCESS CALORIES SNOMED Code(s): 184601871 (5) Depressive disorder Current Visit: Yes Status: Acute Code(s): F32.9 - MAJOR DEPRESSIVE DISORDER , SINGLE EPISODE, UNSPECIFIED SNOMED Code(s): 42379113 (6) Diabetes type 2, controlled Current Visit: Yes Status: Acute Code(s): E11.9 - TYPE 2 DIABETES MELLITUS WITHOUT COMPLICATIONS SNOMED Code(s): 77082381
== END 2018-08-03 15:57 | disposition home or self-care (01) | DRG 394 ==
LOC: EC 07:40 → 3SUR 10:10
PROVIDERS: ADMIT Hospitalist; ATTEND Hospitalist
DX: K66.0 Peritoneal adhesions (postprocedural) (postinfection) (principal); K56.7 Ileus, unspecified; R10.9 Unspecified abdominal pain; E11.42 Type 2 diabetes mellitus with diabetic polyneuropathy; E66.01 Morbid (severe) obesity due to excess calories; E78.5 Hyperlipidemia, unspecified; Z71.6 Tobacco abuse counseling; F17.210 Nicotine dependence, cigarettes, uncomplicated; F32.9 Major depressive disorder, single episode, unspecified; G89.29 Other chronic pain; H40.9 Unspecified glaucoma; I73.00 Raynaud's syndrome without gangrene; K58.9 Irritable bowel syndrome, unspecified; M19.91 Primary osteoarthritis, unspecified site; Z68.36 Body mass index [BMI] 36.0-36.9, adult; Z79.84 Long term (current) use of oral hypoglycemic drugs; Z79.899 Other long term (current) drug therapy; Z80.52 Family history of malignant neoplasm of bladder; Z87.11 Personal history of peptic ulcer disease; Z90.710 Acquired absence of both cervix and uterus; Z88.6 Allergy status to analgesic agent; Z91.012 Allergy to eggs; Z88.8 Allergy status to other drugs, medicaments and biological substances; Z91.018 Allergy to other foods; F41.9 Anxiety disorder, unspecified; I83.90 Asymptomatic varicose veins of unspecified lower extremity; M19.90 Unspecified osteoarthritis, unspecified site
CPT/HCPCS: 36415; 74177; 74249; 80053; 81003; 81025; 82150; 83690; 85025; 96361; 96374; 96375; 96376; 99285

== ENCOUNTER 2018-08-13 10:07 | Emergency (ER) | payer BC ==
[2018-08-13] MEDS ORDERED: MORPHINE SULFATE 2 MG/ML SYRINGE IVP STA (10:23)
[2018-08-13] MEDS ORDERED: SODIUM CHLORIDE 0.9% 1,000 ML IV STA (10:23)
[2018-08-13] MEDS ORDERED: METOCLOPRAMIDE 5 MG/ML 2 ML VIAL IVP STA (10:23)
[2018-08-13] MEDS ORDERED: diphenhydrAMINE 50 MG/ML 1 ML VIAL IVP STA (10:23)
[2018-08-13] MEDS ORDERED: FAMOTIDINE 20 MG/2 ML VIAL IV STA (10:25)
--- NOTE | 2018-08-13 10:27 | ED ---
Abdominal Pain HPI - General Chief Complaint: Abdominal Pain Stated Complaint: Abd Pain Time Seen by Provider: 08/13/18 10:16 Source: patient, RN notes reviewed Mode of arrival: ambulatory Limitations: no limitations - History of Present Illness Initial Comments: This is a pleasant 48-year-old female who presents emergency department complaining of abdominal pain which has been going on for several weeks. Patient was seen here 2 weeks ago admitted to the hospital. Patient states that she has scar tissue in her abdomen and is scheduled to have surgery. Patient states that Dr. Arshad will do the surgery in September. However she states the pain is worsening. She is getting cramping, sharp, and bloating type pains. Patient is status post cholecystectomy and appendectomy. Patient' s also had C-sections and previous surgery for adhesions. Patient states her stool has been dark. Patient's also had nausea. No known fever. No shortness of breath or chest pain. No problems with urination or bowel movements. Patient states that she feels a bubbling sensation down toward her vagina. No vaginal discharge. Patient denies any skin rashes or lesions. Patient saw her regular physician since being discharged from the hospital was put on Flagyl and ciprofloxacin. She was also started on Levsin. She has been on those antibiotics for 5 days. It seems as if he is treating her for diverticulitis. She did have a computed tomography scan at her previous visit. Patient denies chest pain or shortness breath. No fever or chills. No vomiting. No back pain. No skin rashes or lesions. No changes in vision or hearing. No headache. MD Complaint: abdominal pain - Related Data Home Medications Medication Instructions Recorded Confirmed Albuterol Inhaler [Ventolin Hfa 1 puff INHALATION RT-BID PRN 02/26/14 08/13/18 Inhaler] Multivitamins, Thera [Multivitamin 1 tab PO DAILY 04/02/15 08/13/18 (formulary)] Diclofenac Sodium [Voltaren] 75 mg PO DAILY 06/04/16 08/13/18 Gabapentin [Neurontin] 900 mg PO TID 06/04/16 08/13/18 Verapamil HCl [Verapamil ER] 120 mg PO QAM 06/04/16 08/13/18 metFORMIN HCL [Glucophage] 500 mg PO BID 06/04/16 08/13/18 Ascorbic Acid [Vitamin C] 500 mg PO DAILY 09/21/17 08/13/18 Famotidine 20 mg PO BID 09/21/17 08/13/18 DULoxetine HCL [Cymbalta] 90 mg PO DAILY 01/19/18 08/13/18 Previous Rx's Medication Instructions Recorded Dicyclomine [Bentyl] 10 mg PO TID #60 capsule 08/03/18 Psyllium Husk [Metamucil] 0.4 gm PO BID #60 capsule 08/03/18 Metoclopramide [Reglan] 10 mg PO Q6HR PRN #24 tab 08/13/18 Allergies Allergy/AdvReac Type Severity Reaction Status Date / Time apple [Apple] Allergy Rash/Hives Verified 08/13/18 10:14 aspirin Allergy Rash/Hives Verified 08/13/18 10:14 Beef Containing Products Allergy Rash/Hives Verified 08/13/18 10:14 cinnamon [Cinnamon] Allergy Rash/Hives Verified 08/13/18 10:14 cocoa [[place]] Allergy Rash/Hives Verified 08/13/18 10:14 dill oil Allergy Rash/Hives Verified 08/13/18 10:14 egg Allergy Rash/Hives Verified 08/13/18 10:14 frovatriptan succinate Allergy Nausea & Verified 08/13/18 10:14 [From Frova] Vomiting plus throat swelling grapefruit [Grapefruit] Allergy Rash/Hives Verified 08/13/18 10:14 peas Allergy Rash/Hives Verified 08/13/18 10:14 Poultry [[place]] Allergy Rash/Hives Verified 08/13/18 10:14 soy Allergy Rash/Hives Verified 08/13/18 10:14 spinach Allergy Rash/Hives Verified 08/13/18 10:14 yeast, dried [yeast] Allergy Rash/Hives Verified 08/13/18 10:14 orange AdvReac Rash/Hives Verified 08/13/18 10:14 salmon Allergy Rash/Hives Uncoded 08/13/18 10:14 solumedrol IV only Allergy Rash/Hives Uncoded 08/13/18 10:14 Sinus medication AdvReac Nausea & Uncoded 08/13/18 10:14 Vomiting Review of Systems ROS Statement: Those systems with pertinent positive or pertinent negative responses have been documented in the HPI. ROS Other: All systems not noted in ROS Statement are negative. Past Medical History Past Medical History: Diabetes Mellitus, Eye Disorder, Hyperlipidemia, Musculoskeletal Disorder, Neurologic Disorder, Osteoarthritis (OA) Additional Past Medical History / Comment(s): LT Glaucoma. Irregular heart beat. Raynauds. STOMACH Ulcers. 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 History of Any Multi-Drug Resistant Organisms: None Reported Past Surgical History: Ablation, Appendectomy, Back Surgery, Section, Cholecystectomy, Hysterectomy, Orthopedic Surgery Additional Past Surgical History / Comment(s): right/left knee, rfa to C2-5, laparoscopies to drain ovarian sx, bilat feet sx, rt trigger thumb sx, colonoscopy. RT KNEE SCOPE 06/09/16., LAPAROSCOPY 09/23/17 Past Anesthesia/Blood Transfusion Reactions: Motion Sickness Past Psychological History: Anxiety Smoking Status: Current every day smoker Past Alcohol Use History: None Reported Past Drug Use History: None Reported - Past Family History Mother Family Medical History: Deep Vein Thrombosis (DVT) Father Family Medical History: Cancer Additional Family Medical History / Comment(s): Bladder General Exam - General Exam Comments Initial Comments: This is a well-developed, well-nourished 48-year-old female in minimal distress secondary to abdominal pain. Patient appears to be adequately hydrated. Capillary refill less than 2 seconds. Peripheral perfusion is adequate. Limitations: no limitations General appearance: alert, in no apparent distress Head exam: Present: atraumatic, normocephalic, normal inspection Eye exam: Present: normal appearance, EOMI. Absent: scleral icterus, conjunctival injection, periorbital swelling ENT exam: Present: normal exam, normal oropharynx, mucous membranes moist, normal external ear exam Neck exam: Present: normal inspection. Absent: tenderness, meningismus, lymphadenopathy Respiratory exam: Present: normal lung sounds bilaterally. Absent: respiratory distress, wheezes, rales, rhonchi, stridor Cardiovascular Exam: Present: regular rate, normal rhythm, normal heart sounds. Absent: systolic murmur, diastolic murmur, rubs, gallop, clicks GI/Abdominal exam: Present: soft, tenderness (Patient has generalized tenderness to palpation. There are no focal areas. No hepatosplenomegaly. No distention.), hyperactive bowel sounds, other (Postsurgical scarring noted.). Absent: distended, guarding, rebound, rigid Extremities exam: Present: normal inspection, full ROM, normal capillary refill. Absent: tenderness, pedal edema, joint swelling, calf tenderness Back exam: Present: normal inspection Neurological exam: Present: alert, oriented X3, CN II-XII intact Psychiatric exam: Present: normal affect, normal mood Skin exam: Present: warm, dry, intact, normal color. Absent: rash Course Vital Signs 08/13/18 08/13/18 08/13/18 10:11 10:35 11:00 Temperature 97.3 F L Pulse Rate 90 Respiratory 18 Rate Blood Pressure 114/74 104/65 O2 Sat by Pulse 99 98 Oximetry 08/13/18 08/13/18 08/13/18 11:30 12:00 13:12 Temperature 98.5 F Pulse Rate 63 Respiratory 20 Rate Blood Pressure 99/59 97/58 100/42 O2 Sat by Pulse 99 Oximetry Medical Decision Making - Medical Decision Making Laboratory data was reviewed. Patient's white count was 10,700. Patient's complete abdominal x-ray to include one view chest reveals no acute pathology as read by radiology. I did review the films myself. Case was reviewed with Dr. Jesus. Patient was much improved after medication. Repeat abdominal examination was essentially benign. Return and follow-up parameters discussed. Treatment plan discussed with the patient. She can continue her current medications. - Lab Data Result diagrams: 08/13/18 10:31 08/13/18 10:31 Lab Results 08/13/18 08/13/18 08/13/18 Range/Units 10:31 10:31 10:31 WBC 10.7 H (3.8-10.6) k/uL RBC 4.58 (3.80-5.40) m/uL Hgb 13.9 (11.4-16.0) gm/dL Hct 43.0 (34.0-46.0) % MCV 94.0 (80.0-100.0) fL MCH 30.3 (25.0-35.0) pg MCHC 32.2 (31.0-37.0) g/dL RDW 13.3 (11.5-15.5) % Plt Count 289 (150-450) k/uL Neutrophils % 64 % Lymphocytes % 27 % Monocytes % 6 % Eosinophils % 2 % Basophils % 0 % Neutrophils # 6.8 (1.3-7.7) k/uL Lymphocytes # 2.9 (1.0-4.8) k/uL Monocytes # 0.6 (0-1.0) k/uL Eosinophils # 0.2 (0-0.7) k/uL Basophils # 0.0 (0-0.2) k/uL Sodium 139 (137-145) mmol/L Potassium 3.9 (3.5-5.1) mmol/L Chloride 109 H (98-107) mmol/L Carbon Dioxide 23 (22-30) mmol/L Anion Gap 7 mmol/L BUN 16 (7-17) mg/dL Creatinine 0.64 (0.52-1.04) mg/dL Est GFR (CKD-EPI)AfAm >90 (>60 ml/min/1.73 sqM) Est GFR (CKD-EPI)NonAf >90 (>60 ml/min/1.73 sqM) Glucose 110 H (74-99) mg/dL Plasma Lactic Acid Alberto 1.3 (0.7-2.0) mmol/L Calcium 9.5 (8.4-10.2) mg/dL Total Bilirubin 0.4 (0.2-1.3) mg/dL AST 16 (14-36) U/L ALT 16 (9-52) U/L Alkaline Phosphatase 53 (38-126) U/L Total Protein 6.5 (6.3-8.2) g/dL Albumin 3.8 (3.5-5.0) g/dL Lipase 120 (23-300) U/L Urine Color Urine Appearance (Clear) Urine pH (5.0-8.0) Ur Specific [place] (1.001-1.035) Urine Protein (Negative) Urine Glucose (UA) (Negative) Urine Ketones (Negative) Urine Blood (Negative) Urine Nitrite (Negative) Urine Bilirubin (Negative) Urine Urobilinogen (<2.0) mg/dL Ur Leukocyte Esterase (Negative) Stool Occult Blood (Negative) 08/13/18 08/13/18 Range/Units 11:30 13:09 WBC (3.8-10.6) k/uL RBC (3.80-5.40) m/uL Hgb (11.4-16.0) gm/dL Hct (34.0-46.0) % MCV (80.0-100.0) fL MCH (25.0-35.0) pg MCHC (31.0-37.0) g/dL RDW (11.5-15.5) % Plt Count (150-450) k/uL Neutrophils % % Lymphocytes % % Monocytes % % Eosinophils % % Basophils % % Neutrophils # (1.3-7.7) k/uL Lymphocytes # (1.0-4.8) k/uL Monocytes # (0-1.0) k/uL Eosinophils # (0-0.7) k/uL Basophils # (0-0.2) k/uL Sodium (137-145) mmol/L Potassium (3.5-5.1) mmol/L Chloride (98-107) mmol/L Carbon Dioxide (22-30) mmol/L Anion Gap mmol/L BUN (7-17) mg/dL Creatinine (0.52-1.04) mg/dL Est GFR (CKD-EPI)AfAm (>60 ml/min/1.73 sqM) Est GFR (CKD-EPI)NonAf (>60 ml/min/1.73 sqM) Glucose (74-99) mg/dL Plasma Lactic Acid Alberto (0.7-2.0) mmol/L Calcium (8.4-10.2) mg/dL Total Bilirubin (0.2-1.3) mg/dL AST (14-36) U/L ALT (9-52) U/L Alkaline Phosphatase (38-126) U/L Total Protein (6.3-8.2) g/dL Albumin (3.5-5.0) g/dL Lipase (23-300) U/L Urine Color Yellow Urine Appearance Clear (Clear) Urine pH 5.5 (5.0-8.0) Ur Specific [place] 1.009 (1.001-1.035) Urine Protein Negative (Negative) Urine Glucose (UA) Negative (Negative) Urine Ketones Negative (Negative) Urine Blood Negative (Negative) Urine Nitrite Negative (Negative) Urine Bilirubin Negative (Negative) Urine Urobilinogen <2.0 (<2.0) mg/dL Ur Leukocyte Esterase Negative (Negative) Stool Occult Blood Negative (Negative) Disposition Clinical Impression: Abdominal pain, Chronic abdominal pain Disposition: HOME SELF-CARE Condition: Stable Instructions: Abdominal Pain (ED), How to Stop Smoking (ED) Additional Instructions: Follow-up with Dr. Guerra as planned. Return to the ER immediately if any problems or difficulties arise. Continue your current medications at home. Take [id number] Benadryl with the Reglan every 6 hours. Use 25 mg. Clear liquid diet for the next 24 hours. Return to the ER immediately if any problems or difficulties arise. Or if the symptoms worsen. Prescriptions: Metoclopramide [Reglan] 10 mg PO Q6HR PRN #24 tab PRN Reason: Nausea Is patient prescribed a controlled substance at d/c from ED?: No Referrals: Ezekiel Reina MD [Primary Care Provider] - 1-2 days
[2018-08-13 10:45] LABS: Basophils % (A) 0 %; Eosinophils # (A) 0.2 k/uL (0-0.7); Eosinophils % (A) 2 %; HGB 13.9 gm/dL (11.4-16.0); Lymphocytes # (A) 2.9 k/uL (1.0-4.8); Lymphocytes % (A) 27 %; MCH 30.3 pg (25.0-35.0); MCHC 32.2 g/dL (31.0-37.0); Mean Platelet Volume 6.8; Monocytes # (A) 0.6 k/uL (0-1.0); Monocytes % (A) 6 %; Neutrophils # (A) 6.8 k/uL (1.3-7.7); Neutrophils % (A) 64 %; Platelet Count 289 k/uL (150-450); RBC 4.58 m/uL (3.80-5.40); RDW 13.3 % (11.5-15.5); WBC 10.7 k/uL (3.8-10.6)
[2018-08-13 11:01] LABS: ALT 16 U/L (9-52); AST 16 U/L (14-36); Albumin 3.8 g/dL (3.5-5.0); Alkaline Phosphatase 53 U/L (38-126); Anion Gap 7 mmol/L; Blood Urea Nitrogen 16 mg/dL (7-17); Calcium 9.5 mg/dL (8.4-10.2); Carbon Dioxide 23 mmol/L (22-30); Chloride 109 mmol/L (98-107); Glucose 110 mg/dL (74-99); Lipase 120 U/L (23-300); Potassium 3.9 mmol/L (3.5-5.1); Sodium 139 mmol/L (137-145); Total Bilirubin 0.4 mg/dL (0.2-1.3); Total Protein 6.5 g/dL (6.3-8.2)
[2018-08-13 11:56] LABS: Appearance,Urine Clear (Clear); Bilirubin,Urine Negative (Negative); Blood,Urine Negative (Negative); Color,Urine Yellow; Glucose,Urine (UA) Negative (Negative); Ketones,Urine Negative (Negative); Leukocyte Esterase,Urine Negative (Negative); Nitrite,Urine Negative (Negative); PH, Urine 5.5 (5.0-8.0); Protein,Urine Negative (Negative); Specific Gravity,Urine 1.009 (1.001-1.035); Urobilinogen,Urine <2.0 mg/dL (<2.0)
--- NOTE | 2018-08-13 12:30 | XR ---
EXAMINATION TYPE: XR abdomen acute w cxr , 4 VIEWS DATE OF EXAM ORDERED: 08/13/2018 HISTORY: abdominal pain. COMPARISON: None. FINDINGS: Lungs are clear. Pleural spaces are clear. The heart is not enlarged. Within the abdomen, the gallbladder is been removed. The abdominal gas pattern is within normal limit s. There is no evidence of obstruction or free air. There are vascular clips in overlying the sacrum. IMPRESSION: NO ACUTE THORACIC OR ABDOMINAL ABNORMALITY.
[2018-08-13 14:14] VITALS: BP 98/58; PULSE 66; RESP 16; TEMP 98.7
== END 2018-08-13 14:13 | disposition home or self-care (01) ==
LOC: EC 10:07
DX: G89.29 Other chronic pain (principal); R10.9 Unspecified abdominal pain; E11.9 Type 2 diabetes mellitus without complications; F41.9 Anxiety disorder, unspecified; F17.200 Nicotine dependence, unspecified, uncomplicated; Z79.84 Long term (current) use of oral hypoglycemic drugs; Z79.899 Other long term (current) drug therapy; Z88.6 Allergy status to analgesic agent; Z91.010 Allergy to peanuts; Z91.012 Allergy to eggs; Z91.018 Allergy to other foods; M19.90 Unspecified osteoarthritis, unspecified site; Z90.49 Acquired absence of other specified parts of digestive tract; Z90.89 Acquired absence of other organs; Z91.013 Allergy to seafood; Z88.8 Allergy status to other drugs, medicaments and biological substances; Z90.710 Acquired absence of both cervix and uterus
CPT/HCPCS: 36415; 80053; 83605; 83690; 85025; 82272; 81003; 74022; 99284; 96374; 96375 ×3; 96361; J1200; J2765; J2270

== ENCOUNTER 2018-10-06 08:08 | Day surgery (SDC) | payer BC ==
[2018-10-04 12:46] VITALS: BMI 36.1
--- NOTE | 2018-10-05 19:32 | P.GSHP ---
History of Present Illness H&P Date: 10/06/18 CHIEF COMPLAINT: History of intra-abdominal adhesions HISTORY OF PRESENT ILLNESS: The patient is a 48-year-old female who presents with history of intra-abdominal adhesions from multiple prior surgeries including increasing abdominal pain. She now presents for diagnostic laparoscopy including lysis of adhesions. PAST MEDICAL HISTORY: Please see list. PAST SURGICAL HISTORY: Please see list. MEDICATIONS: Please see list. ALLERGIES: Please see list. SOCIAL HISTORY: No illicit drug use FAMILY HISTORY: No reports of Crohn disease or ulcerative colitis. REVIEW OF ORGAN SYSTEMS: CONSTITUTIONAL: No reports of fevers or chills. GI: Denies any blood in stools or constipation. PHYSICAL EXAM: VITAL SIGNS: Stable GENERAL: Well-developed pleasant and in no acute distress. HEENT: No scleral icterus. Extraocular movements grossly intact. Moist buccal mucosa. NECK: Supple without lymphadenopathy. CHEST: Unlabored respirations. Equal bilateral excursions. CARDIOVASCULAR: Regular rate and rhythm. Distal 2+ pulses. ABDOMEN: Soft, diffuse abdominal tenderness. No peritonitis. MUSCULOSKELETAL: No clubbing, cyanosis, or edema. ASSESSMENT: 1. Diffuse abdominal pain. 2. History of multiple abdominal surgeries. 3. Intra-abdominal adhesions. PLAN: 1. Robotic lysis of adhesions were described in detail including risk of injury to the intestine, need for further surgery, and open technique. 2. DVT prophylaxis. 3. Antibiotic prophylaxis. Past Medical History Past Medical History: Diabetes Mellitus, Eye Disorder, Musculoskeletal Disorder , Neurologic Disorder, Osteoarthritis (OA) Additional Past Medical History / Comment(s): NATHALIA Glaucoma. Irregular heart beat. Raynauds. STOMACH Ulcers. IBS. VARICOSE VEINS, EDEMA NATHALIA LEGS W/ PAIN, NEUROPATHY IN FEET History of Any Multi-Drug Resistant Organisms: None Reported Past Surgical History: Appendectomy, Back Surgery, Section, Cholecystectomy, Heart Catheterization, Hysterectomy, Joint Replacement, Orthopedic Surgery Additional Past Surgical History / Comment(s): RADIO FREQUENCY ABLATION to C3-5 , laparoscopies to drain ovarian cyst, bilat feet sx, rt trigger thumb sx, colonoscopy. RT KNEE SCOPE 06/09/16, LAPAROSCOPY 09/23/17 LYSIS OF ADHESIONS, rt knee replacement 10/2016, fusion L4-5 S-1 Past Anesthesia/Blood Transfusion Reactions: Motion Sickness, Postoperative Nausea & Vomiting (PONV) Smoking Status: Current every day smoker - Past Family History Mother Family Medical History: Deep Vein Thrombosis (DVT) Father Family Medical History: Cancer Additional Family Medical History / Comment(s): Bladder Medications and Allergies Home Medications Medication Instructions Recorded Confirmed Type Albuterol Inhaler [Ventolin Hfa 1 puff INHALATION RT-BID PRN 02/26/14 10/04/18 History Inhaler] Multivitamins, Thera [Multivitamin 1 tab PO DAILY 04/02/15 10/04/18 History (formulary)] Diclofenac Sodium [Voltaren] 75 mg PO BID 06/04/16 10/04/18 History Gabapentin [Neurontin] 900 mg PO TID 06/04/16 10/04/18 History Verapamil HCl [Verapamil ER] 120 mg PO QAM 06/04/16 10/04/18 History metFORMIN HCL [Glucophage] 500 mg PO BID 06/04/16 10/04/18 History Ascorbic Acid [Vitamin C] 500 mg PO DAILY 09/21/17 10/04/18 History Famotidine 20 mg PO BID 09/21/17 10/04/18 History DULoxetine HCL [Cymbalta] 90 mg PO DAILY 01/19/18 10/04/18 History Amitriptyline HCl 10 mg PO HS 10/04/18 10/04/18 History Ascorbic Acid [Vitamin C] 500 mg PO DAILY 10/04/18 10/04/18 History Hyoscyamine Sulfate [Levsin] 0.125 mg PO DAILY PRN 10/04/18 10/04/18 History Multivitamins, Thera [Multivitamin 1 tab PO DAILY 10/04/18 10/04/18 History (formulary)] diphenhydrAMINE [Benadryl] 25 mg PO TID PRN 10/04/18 10/04/18 History Allergies Allergy/AdvReac Type Severity Reaction Status Date / Time apple [Apple] Allergy Rash/Hives Verified 10/04/18 12:35 aspirin Allergy Rash/Hives Verified 10/04/18 12:35 Beef Containing Products Allergy Rash/Hives Verified 10/04/18 12:35 cinnamon [Cinnamon] Allergy Rash/Hives Verified 10/04/18 12:35 cocoa [[place]] Allergy Rash/Hives Verified 10/04/18 12:35 dill oil Allergy Rash/Hives Verified 10/04/18 12:35 egg Allergy Rash/Hives Verified 10/04/18 12:35 frovatriptan succinate Allergy Nausea & Verified 10/04/18 12:35 [From Frova] Vomiting plus throat swelling grapefruit [Grapefruit] Allergy Rash/Hives Verified 10/04/18 12:35 peas Allergy Rash/Hives Verified 10/04/18 12:35 Poultry [[place]] Allergy Rash/Hives Verified 10/04/18 12:35 soy Allergy Rash/Hives Verified 10/04/18 12:35 spinach Allergy Rash/Hives Verified 10/04/18 12:35 yeast, dried [yeast] Allergy Rash/Hives Verified 10/04/18 12:35 orange AdvReac Rash/Hives Verified 10/04/18 12:35 salmon Allergy Rash/Hives Uncoded 10/04/18 12:35 solumedrol IV only Allergy Rash/Hives Uncoded 10/04/18 12:35 Sinus medication AdvReac Nausea & Uncoded 10/04/18 12:35 Vomiting
[~2018-10-06 08:08] MED LIST changes: +ACETAMINOPHEN IV (For NPO) 1,000 MG in EMPTY BAG 1 BAG IVPB ONE; +HEPARIN SODIUM,PORCINE 5,000 UNIT/ML 1 ML VIAL SQ ONE; +LIDOCAINE 1% 20 ML VIAL (10MG/ML) FOR IV START INTRADERMA PRN; -MELOXICAM 7.5 MG TAB PO ONE; -MORPHINE SULFATE 4 MG/ML SYRINGE IV PRN; +Pre Op ABX Message 1 EACH MISC MISCELLANE ONE; -SCOPOLAMINE 1.5MG/72HR PATCH TRANSDERM ONE; -TRANEXAMIC ACID 1,000 MG in SODIUM CHLORIDE 0.9% 50 ML IVPB ONE; +fentaNYL (PF) 50 MCG/ML 2 ML AMP IV PRN
[2018-10-06 08:27] VITALS: RESP 16
[2018-10-06] MEDS ORDERED: SCOPOLAMINE 1.5MG/72HR PATCH TRANSDERM ONE (08:58)
[2018-10-06 09:03] LABS: Glucose,Whole Blood 88 mg/dL (75-99)
[2018-10-06] MEDS ORDERED: NEOSTIGMINE 1 MG/ML 10 ML VIAL ONE (09:44)
[2018-10-06] MEDS ORDERED: fentaNYL (PF) 50 MCG/ML 2 ML AMP ONE (09:44)
[2018-10-06] MEDS ORDERED: PROPOFOL 10 MG/ML 20 ML VIAL IV ONE (09:44)
[2018-10-06] MEDS ORDERED: ROCURONIUM BROMIDE 10 MG/ML 10 ML VIAL IV ONE (09:44)
[2018-10-06] MEDS ORDERED: MIDAZOLAM 2 MG/2 ML VIAL ONE (09:44)
[2018-10-06] MEDS ORDERED: GLYCOPYRROLATE 0.2 MG/ML 2 ML VIAL ONE (09:44)
[2018-10-06] MEDS ORDERED: LIDOCAINE 1% INJ 10MG/ML (20 ML MDV) ONE (09:44)
[2018-10-06] MEDS ORDERED: SUCCINYLCHOLINE CHLORIDE VIAL 200 MG/10 ML VIAL IV ONE (09:44)
[2018-10-06] MEDS ORDERED: BUPIVACAIN-EPI 0.25%-1:200,000 30 ML VIAL SQ ONE (10:00)
[2018-10-06] MEDS ORDERED: LACTATED RINGERS 1,000 ML IV ONE (10:55)
--- NOTE | 2018-10-06 11:54 | P.OP ---
Date of Procedure: 10/06/18 Description of Procedure: SURGEON: HAILEY GUERRA MD PREOPERATIVE DIAGNOSES: 1. History of multiple previous abdominal surgeries 2. Chronic abdominal pain 3. Peritoneal adhesions 4. Previous history of endometriosis 5. Raynaud's phenomenon 6. Lower extremity neuropathy 7. Diabetes type 2, [id number] 8. Generalized anxiety disorder POSTOPERATIVE DIAGNOSES: 1. History of multiple previous abdominal surgeries 2. Chronic abdominal pain 3. Peritoneal adhesions 4. Previous history of endometriosis 5. Raynaud's phenomenon 6. Lower extremity neuropathy 7. Diabetes type 2, [id number] 8. Generalized anxiety disorder 9. Recurrent incisional incarcerated ventral hernia, lower midline 3 cm OPERATION: 1. Robotic-assisted da Daren Xi laparoscopic extensive lysis of adhesions over 60 minutes, 2. Robotic-assisted da Daren Xi laparoscopic repair of recurrent incarcerated incisional hernia 3 cm lower midline without mesh COMPLICATIONS: None. Anesthesia: GETA, local Estimated Blood Loss (ml): 5 Pathology: none sent Condition: stable Operative Findings: 1. Severe peritoneal adhesions greater omentum to anterior abdominal wall including small intestine extending from xiphoid to lower midline and pubis. 2. Incarcerated recurrent incisional hernia lower midline 3 cm recurrent now repaired 3. Severe peritoneal lesion secondary to intra-abdominal mesh identified. 4. Console time 74 minutes INDICATIONS: The patient is a 48-year-old female who presents with chronic lower abdominal pain and personal history of severe intra-abdominal peritoneal adhesions. Surgical intervention with lysis of adhesions was described given her history of severe adhesions. Informed consent was obtained. Robotic assisted laparoscopic approach was described. Benefits and risks of the procedure including but not limited to bleeding, infection, injury to the small bowel was described. Informed consent was obtained. DESCRIPTION OF PROCEDURE: Patient was brought to the operating room, placed in supine position. After general induction, the abdomen had been prepped and draped in standard sterile fashion. The robotic da Daren XI system was primed. After a timeout protocol was performed, the patient had been prepped and draped in standard sterile fashion. The robot was docked along the left lateral abdomen. The patient was repositioned in reverse Trendelenburg position of 6-degrees elevation of the left side. A 5 mm 0 degrees laparoscopic trocar entry was performed along the left upper quadrant. The abdomen was insufflated to 15 mmHg pressure which she tolerated well. Diagnostic laparoscopy demonstrated severe intra-abdominal adhesions limiting view along the abdomen. Severe adhesions involved the greater omentum to the anterior abdominal wall from the pelvis to the midline, epigastrium and bilateral lower quadrants. The small bowel was unremarkable without evidence of dilation or suggestion of obstruction. No injury to the bowel, viscera or mesentery was identified. Interloop adhesions were identified with adhesions. Next, three 8 mm robotic ports were placed along the left lateral abdomen after exchanging the fibrillar port at the left upper quadrant. Please note that the ports were placed at least 8 cm away from the target anatomy. Instruments were interchanged using only 3 ports for a grasper, vessel sealer, and scissors with cautery. Instruments were interchanged by the medical records assistant including Bovie cautery scissors. I had sat at the console. Extensive lysis of adhesions over 60 minutes was performed to remove the omental adhesions including interloop adhesions. Carefully the adhesions were taken down without injury to the small bowel. Severe adhesions along the lower abdomen was confirmed as also the patient's location of her pain. Careful inspection of the abdominal wall confirmed a recurrent lower midline hernia, 3- cm, with incarceration of omentum including severe adhesions to intra-abdominal mesh. To complete extensive lysis of adhesions, additional two 8-mm robo ports were placed along the epigastrium in a transverse plane. The robot was then re- docked for attention to the lower pelvis. Adhesions were cleared off the lower pelvis including clearing of the bladder. Again no enterotomies occurred. Extensive lysis of adhesion occurred using vessel sealer including minimal electro-Bovie cautery with scissors. To address the recurrent incarcerated incisional hernia 3 cm, #1 Stratafix was used to oversew the defect using a fascial imbrication 3. Mesh repair was avoided secondary to her severe adhesive reaction to foreign body. The robot was undocked. All pneumoperitoneum and instruments were evacuated from the abdominal cavity. The incisions were reapproximated using 4-0 Monocryl in an interrupted subcuticular fashion. Please note along the trocar sites, local anesthetic was placed as a field block prior to insertion of all instruments. Liquid glue was applied to the skin. At the end of the procedure needle, sponge, and instrument count had been verified correct by the surgical corsetier. The patient was transferred to postanesthesia care unit in stable condition. Intraoperative images including findings were described to the patients family. Plan - Discharge Summary New Discharge Prescriptions: New HYDROcodone/APAP 7.5-325MG [[place] 7.5-325] 1 tab PO Q4H PRN 3 Days #18 tab PRN Reason: Pain No Action Albuterol Inhaler [Ventolin Hfa Inhaler] 1 puff INHALATION RT-BID PRN PRN Reason: Shortness Of Breath Multivitamins, Thera [Multivitamin (formulary)] 1 tab PO DAILY Gabapentin [Neurontin] 900 mg PO TID Diclofenac Sodium [Voltaren] 75 mg PO BID metFORMIN HCL [Glucophage] 500 mg PO BID Verapamil HCl [Verapamil ER] 120 mg PO QAM Famotidine 20 mg PO BID Ascorbic Acid [Vitamin C] 500 mg PO DAILY DULoxetine HCL [Cymbalta] 90 mg PO DAILY diphenhydrAMINE [Benadryl] 25 mg PO TID PRN PRN Reason: ALLERGIES Multivitamins, Thera [Multivitamin (formulary)] 1 tab PO DAILY Ascorbic Acid [Vitamin C] 500 mg PO DAILY Amitriptyline HCl 10 mg PO HS Hyoscyamine Sulfate [Levsin] 0.125 mg PO DAILY PRN PRN Reason: STOMACH SPASMS Discharge Medication List Albuterol Inhaler [Ventolin Hfa Inhaler] 1 puff INHALATION RT-BID PRN 02/26/14 [ History] Multivitamins, Thera [Multivitamin (formulary)] 1 tab PO DAILY 04/02/15 [History ] Diclofenac Sodium [Voltaren] 75 mg PO BID 06/04/16 [History] Gabapentin [Neurontin] 900 mg PO TID 06/04/16 [History] Verapamil HCl [Verapamil ER] 120 mg PO QAM 06/04/16 [History] metFORMIN HCL [Glucophage] 500 mg PO BID 06/04/16 [History] Ascorbic Acid [Vitamin C] 500 mg PO DAILY 09/21/17 [History] Famotidine 20 mg PO BID 09/21/17 [History] DULoxetine HCL [Cymbalta] 90 mg PO DAILY 01/19/18 [History] Amitriptyline HCl 10 mg PO HS 10/04/18 [History] Ascorbic Acid [Vitamin C] 500 mg PO DAILY 10/04/18 [History] Hyoscyamine Sulfate [Levsin] 0.125 mg PO DAILY PRN 10/04/18 [History] Multivitamins, Thera [Multivitamin (formulary)] 1 tab PO DAILY 10/04/18 [History ] diphenhydrAMINE [Benadryl] 25 mg PO TID PRN 10/04/18 [History] HYDROcodone/APAP 7.5-325MG [[place] 7.5-325] 1 tab PO Q4H PRN 3 Days #18 tab 10/06 [Rx] Follow up Appointment(s)/Referral(s): Hailey Guerra MD [STAFF PHYSICIAN] - 10/10/18 Patient Instructions/Handouts: Lysis of Abdominal Adhesions (IP), Abdominal Binder (DC), Full Liquid Diet (DC) Activity/Diet/Wound Care/Special Instructions: No lifting over 5 pounds one week. May shower. No bath tub soaks. Wear abdominal binder for comfort. Discharge Disposition: HOME SELF-CARE
[2018-10-06 12:17] VITALS: TEMP 96.9
[2018-10-06] MEDS: HYDROmorphone 1 MG/ML 1 ML SYRINGE IVP PRN ×3 (12:30→13:00)
[2018-10-06] MEDS ORDERED: HYDROmorphone 1 MG/ML 1 ML SYRINGE IVP ONE (12:39)
--- NOTE | 2018-10-06 13:26 | P.ONQ ---
Anesthesiology Proc Note - PNB - Peripheral Nerve Block Performed Bilateral Rectus Abdominis Single Time Out Performed: Yes Procedure Start Time: 13:16 Procedure Stop Time: 13:20 Indication: Acute Post-Operative Pain, Analgesia, Dx/Pain Location Sedation Type: Awake Preparation: Sterile Prep Position: Supine Needle Types: Other (see comment) Needle Size: 100mm (4") ([place]) Needle Gauge: 21 Technique: Ultrasound Injectate: 0.5% Ropivacaine (see comment for volume) (30 ml plus lidocain 1% with epi 1/200 k 10 ml) Adjunct: Epinephrine (see comment for dilution ratio) (1/200 k) Blood Aspirated: No Pain Paresthesia on Injection Noted: No Resistance on Injection: Normal Events: Uneventful and Well Tolerated
[2018-10-06 14:01] VITALS: BP 124/74; PULSE 95
== END 2018-10-06 14:21 | disposition home or self-care (01) ==
LOC: OR 08:08 → EDSTATUS 15:45
PROVIDERS: ATTEND Surgery Plastic and Reconstructive Surgery
DX: K66.0 Peritoneal adhesions (postprocedural) (postinfection) (principal); K43.0 Incisional hernia with obstruction, without gangrene; G89.29 Other chronic pain; I73.00 Raynaud's syndrome without gangrene; E11.40 Type 2 diabetes mellitus with diabetic neuropathy, unspecified; F41.1 Generalized anxiety disorder; M19.90 Unspecified osteoarthritis, unspecified site; H40.9 Unspecified glaucoma; K58.9 Irritable bowel syndrome, unspecified; I83.90 Asymptomatic varicose veins of unspecified lower extremity; R60.9 Edema, unspecified; I49.9 Cardiac arrhythmia, unspecified; F17.200 Nicotine dependence, unspecified, uncomplicated; Z79.84 Long term (current) use of oral hypoglycemic drugs; Z79.899 Other long term (current) drug therapy; Z88.6 Allergy status to analgesic agent; Z88.2 Allergy status to sulfonamides; Z88.8 Allergy status to other drugs, medicaments and biological substances; Z91.012 Allergy to eggs; Z91.013 Allergy to seafood; Z91.018 Allergy to other foods; Z96.651 Presence of right artificial knee joint; Z98.1 Arthrodesis status; Z90.49 Acquired absence of other specified parts of digestive tract; Z90.710 Acquired absence of both cervix and uterus; Z87.898 Personal history of other specified conditions; Z87.11 Personal history of peptic ulcer disease; Z86.718 Personal history of other venous thrombosis and embolism
CPT/HCPCS: 49657; 64488; J2250; J0330; J1644; J1100; J2710; J2405; J2001; J3010; J1170; J0131; J2704; J0690; 64450

== ENCOUNTER → 2018-10-18 | Outpatient (CLI) | payer BC ==
--- NOTE | 2018-10-19 14:45 | MM ---
Reason for exam: screening (asymptomatic). Last mammogram was performed 6 years and 6 months ago. Physical Findings: A clinical breast exam by your physician is recommended on an annual basis and results should be correlated with mammographic findings. MG 3D Screening Mammo W/Cad Bilateral CC and MLO view(s) were taken. Prior study comparison: April 03, 2012, bilateral digital screening mammo w/CAD. The breast tissue is heterogeneously dense. This may lower the sensitivity of mammography. There is no discrete abnormality. No significant changes when compared with prior studies. ASSESSMENT: Negative, BI-RAD 1 RECOMMENDATION: Routine screening mammogram of both breasts in 1 year.
== END | disposition home or self-care (01) ==
LOC: RADMAMWWP 12:27
PROVIDERS: ATTEND Family Medicine
DX: Z12.31 Encounter for screening mammogram for malignant neoplasm of breast (principal)
CPT/HCPCS: 77063; 77067

== ENCOUNTER 2018-12-24 10:37 | Observation (INO) | payer BC ==
[2018-12-24] MEDS ORDERED: NITROGLYCERIN OINT 1 INCH/GM PACKET TOPICAL STA (10:59)
--- NOTE | 2018-12-24 11:05 | ED ---
General Adult HPI - General Chief complaint: Chest Pain Stated complaint: CHEST CONGESTION, COUGHING Time Seen by Provider: 12/24/18 10:40 Source: patient, RN notes reviewed Mode of arrival: ambulatory Limitations: no limitations - History of Present Illness Initial comments: This is a 48-year-old female who presents emergency Department complaining of being diagnosed with pneumonia 2 weeks ago. Patient states her symptoms continued to get worse per patient states she's had right-sided chest pain ever since she started having symptoms of pneumonia 2 weeks ago. Patient states this morning she woke up with some central chest pain that was not associated with movement cough or deep breathing. Patient states this is a new symptom for her. Patient states she only recently started coughing. Patient states she is on antibiotics and steroids at this time. Patient states she has not coughed up any sputum. Patient states her primary medical care doctor did not do an x-ray. Patient denies any radiation of the chest.. Patient denies any fever. Patient denies abdominal pain patient has nausea vomiting diarrhea. Patient denies any palpitations. Patient denies headache patient denies numbness weakness. Patient denies any lightheadedness dizziness or near syncopal episode. - Related Data Home Medications Medication Instructions Recorded Confirmed Albuterol Inhaler [Ventolin Hfa 1 puff INHALATION RT-BID PRN 02/26/14 12/24/18 Inhaler] Diclofenac Sodium [Voltaren] 75 mg PO BID 06/04/16 12/24/18 Gabapentin [Neurontin] 900 mg PO TID 06/04/16 12/24/18 Verapamil HCl [Verapamil ER] 120 mg PO QAM 06/04/16 12/24/18 metFORMIN HCL [Glucophage] 500 mg PO BID 06/04/16 12/24/18 Ascorbic Acid [Vitamin C] 500 mg PO DAILY 09/21/17 12/24/18 Famotidine 20 mg PO BID 09/21/17 12/24/18 DULoxetine HCL [Cymbalta] 90 mg PO DAILY 01/19/18 12/24/18 Amitriptyline HCl 10 mg PO HS 10/04/18 12/24/18 Hyoscyamine Sulfate [Levsin] 0.125 mg PO DAILY PRN 10/04/18 12/24/18 Multivitamins, Thera [Multivitamin 1 tab PO DAILY 10/04/18 12/24/18 (formulary)] diphenhydrAMINE [Benadryl] 25 mg PO TID PRN 10/04/18 12/24/18 Acetaminophen Tab [Tylenol] 500 mg PO Q8H 12/24/18 12/24/18 Furosemide [Lasix] 20 mg PO DAILY 12/24/18 12/24/18 Levofloxacin [Levaquin] 500 mg PO DAILY 12/24/18 12/24/18 Potassium Chloride ER [K-Dur 10] 10 meq PO DAILY 12/24/18 12/24/18 Testosterone Cypionate 25 mg PO Q14D 12/24/18 12/24/18 [Depo-Testosterone] methylPREDNISolone Dose Pack See Taper PO DIRECTED 12/24/18 12/24/18 [Medrol Dose Pack] Allergies Allergy/AdvReac Type Severity Reaction Status Date / Time apple [Apple] Allergy Rash/Hives Verified 12/24/18 11:54 aspirin Allergy Rash/Hives Verified 12/24/18 11:54 Beef Containing Products Allergy Rash/Hives Verified 12/24/18 11:54 cinnamon [Cinnamon] Allergy Rash/Hives Verified 12/24/18 11:54 cocoa [[place]] Allergy Rash/Hives Verified 12/24/18 11:54 dill oil Allergy Rash/Hives Verified 12/24/18 11:54 egg Allergy Rash/Hives Verified 12/24/18 11:54 frovatriptan succinate Allergy Nausea & Verified 12/24/18 11:54 [From Frova] Vomiting plus throat swelling grapefruit [Grapefruit] Allergy Rash/Hives Verified 12/24/18 11:54 peas Allergy Rash/Hives Verified 12/24/18 11:54 Poultry [[place]] Allergy Rash/Hives Verified 12/24/18 11:54 soy Allergy Rash/Hives Verified 12/24/18 11:54 spinach Allergy Rash/Hives Verified 12/24/18 11:54 yeast, dried [yeast] Allergy Rash/Hives Verified 12/24/18 11:54 orange AdvReac Rash/Hives Verified 12/24/18 11:54 DECONGESTANTS Allergy Rash/Hives Uncoded 10/06/18 08:38 salmon Allergy Rash/Hives Uncoded 10/06/18 08:37 solumedrol IV only Allergy Rash/Hives Uncoded 10/06/18 08:37 Review of Systems ROS Statement: Those systems with pertinent positive or pertinent negative responses have been documented in the HPI. ROS Other: All systems not noted in ROS Statement are negative. Past Medical History Past Medical History: Diabetes Mellitus, Eye Disorder, Musculoskeletal Disorder , Neurologic Disorder, Osteoarthritis (OA), Pneumonia Additional Past Medical History / Comment(s): NATHALIA Glaucoma. Irregular heart beat. Raynauds. STOMACH Ulcers. IBS. VARICOSE VEINS, EDEMA NATHALIA LEGS W/ PAIN, NEUROPATHY IN FEET History of Any Multi-Drug Resistant Organisms: None Reported Past Surgical History: Appendectomy, Back Surgery, Section, Cholecystectomy, Heart Catheterization, Hysterectomy, Joint Replacement, Orthopedic Surgery Additional Past Surgical History / Comment(s): RADIO FREQUENCY ABLATION to C3-5 , laparoscopies to drain ovarian cyst, bilat feet sx, rt trigger thumb sx, colonoscopy. RT KNEE SCOPE 06/09/16, LAPAROSCOPY 09/23/17 LYSIS OF ADHESIONS, rt knee replacement 10/2016, fusion L4-5 S-1 Past Anesthesia/Blood Transfusion Reactions: Motion Sickness, Postoperative Nausea & Vomiting (PONV) Past Psychological History: Anxiety Smoking Status: Current every day smoker Past Alcohol Use History: None Reported Past Drug Use History: None Reported - Past Family History Mother Family Medical History: Deep Vein Thrombosis (DVT) Father Family Medical History: Cancer Additional Family Medical History / Comment(s): Bladder General Exam - General Exam Comments Initial Comments: GENERAL: Patient is well-developed and well-nourished. Patient is nontoxic and well- hydrated and is in mild distress. ENT: Neck is soft and supple. No significant lymphadenopathy is noted. Oropharynx is clear. Moist mucous membranes. Neck has full range of motion without eliciting any pain. EYES: The sclera were anicteric and conjunctiva were pink and moist. Extraocular movements were intact and pupils were equal round and reactive to light. Eyelids were unremarkable. PULMONARY: Unlabored respirations. Good breath sounds bilaterally. No audible rales rhonchi or wheezing was noted. CARDIOVASCULAR: There is a regular rate and rhythm without any murmurs gallops or rubs. ABDOMEN: Soft and nontender with normal bowel sounds. No palpable organomegaly was noted. There is no palpable pulsatile mass. SKIN: Skin is clear with no lesions or rashes and otherwise unremarkable. NEUROLOGIC: Patient is alert and oriented x3. Cranial nerves II through XII are grossly intact. Motor and sensory are also intact. Normal speech, volume and content. Symmetrical smile. MUSCULOSKELETAL: Normal extremities with adequate strength and full range of motion. No lower extremity swelling or edema. No calf tenderness. LYMPHATICS: No significant lymphadenopathy is noted PSYCHIATRIC: Normal psychiatric evaluation. Limitations: no limitations Course Vital Signs 12/24/18 10:41 Temperature 98.1 F Pulse Rate 90 Respiratory 18 Rate Blood Pressure 122/80 O2 Sat by Pulse 97 Oximetry Medical Decision Making - Medical Decision Making EKG shows normal sinus rhythm at 77 bpm MS interval is on a 48 QRSs 80 QT interval 368 QTC is 416. Patient's EKG shows no ST segment elevation or depression. Chest x-ray shows no acute normalities. Patient's pain was improved after the nitro and aspirin however it had not gone away. Spoke with Dr. potter she agreed to admit the patient admitted the patient I started the patient on heparin and wrote admitting orders. I consulted cardiology I continued heparin and aspirin and Nitropaste on the floor - Lab Data Result diagrams: 12/24/18 11:42 12/24/18 11:42 Lab Results 12/24/18 12/24/18 12/24/18 Range/Units 11:42 11:42 11:42 WBC 15.4 H (3.8-10.6) k/uL RBC 5.15 (3.80-5.40) m/uL Hgb 15.1 (11.4-16.0) gm/dL Hct 47.0 H (34.0-46.0) % MCV 91.1 (80.0-100.0) fL MCH 29.2 (25.0-35.0) pg MCHC 32.1 (31.0-37.0) g/dL RDW 13.8 (11.5-15.5) % Plt Count 364 (150-450) k/uL Neutrophils % 75 % Lymphocytes % 17 % Monocytes % 6 % Eosinophils % 0 % Basophils % 0 % Neutrophils # 11.5 H (1.3-7.7) k/uL Lymphocytes # 2.7 (1.0-4.8) k/uL Monocytes # 1.0 (0-1.0) k/uL Eosinophils # 0.1 (0-0.7) k/uL Basophils # 0.0 (0-0.2) k/uL PT 10.4 (9.0-12.0) sec INR 1.0 (<1.2) APTT 24.1 (22.0-30.0) sec D-Dimer 0.41 (<0.60) mg/L FEU Sodium 139 (137-145) mmol/L Potassium 4.3 (3.5-5.1) mmol/L Chloride 102 (98-107) mmol/L Carbon Dioxide 28 (22-30) mmol/L Anion Gap 9 mmol/L BUN 18 H (7-17) mg/dL Creatinine 0.59 (0.52-1.04) mg/dL Est GFR (CKD-EPI)AfAm >90 (>60 ml/min/1.73 sqM) Est GFR (CKD-EPI)NonAf >90 (>60 ml/min/1.73 sqM) Glucose 105 H (74-99) mg/dL Plasma Lactic Acid Alberto (0.7-2.0) mmol/L Calcium 9.6 (8.4-10.2) mg/dL Magnesium 1.9 (1.6-2.3) mg/dL Total Bilirubin 0.4 (0.2-1.3) mg/dL AST 18 (14-36) U/L ALT 24 (9-52) U/L Alkaline Phosphatase 83 (38-126) U/L Troponin I (0.000-0.034) ng/mL NT-Pro-B Natriuret Pep pg/mL Total Protein 7.2 (6.3-8.2) g/dL Albumin 4.3 (3.5-5.0) g/dL 12/24/18 12/24/18 12/24/18 Range/Units 11:42 11:42 11:42 WBC (3.8-10.6) k/uL RBC (3.80-5.40) m/uL Hgb (11.4-16.0) gm/dL Hct (34.0-46.0) % MCV (80.0-100.0) fL MCH (25.0-35.0) pg MCHC (31.0-37.0) g/dL RDW (11.5-15.5) % Plt Count (150-450) k/uL Neutrophils % % Lymphocytes % % Monocytes % % Eosinophils % % Basophils % % Neutrophils # (1.3-7.7) k/uL Lymphocytes # (1.0-4.8) k/uL Monocytes # (0-1.0) k/uL Eosinophils # (0-0.7) k/uL Basophils # (0-0.2) k/uL PT (9.0-12.0) sec INR (<1.2) APTT (22.0-30.0) sec D-Dimer (<0.60) mg/L FEU Sodium (137-145) mmol/L Potassium (3.5-5.1) mmol/L Chloride (98-107) mmol/L Carbon Dioxide (22-30) mmol/L Anion Gap mmol/L BUN (7-17) mg/dL Creatinine (0.52-1.04) mg/dL Est GFR (CKD-EPI)AfAm (>60 ml/min/1.73 sqM) Est GFR (CKD-EPI)NonAf (>60 ml/min/1.73 sqM) Glucose (74-99) mg/dL Plasma Lactic Acid Alberto 1.4 (0.7-2.0) mmol/L Calcium (8.4-10.2) mg/dL Magnesium (1.6-2.3) mg/dL Total Bilirubin (0.2-1.3) mg/dL AST (14-36) U/L ALT (9-52) U/L Alkaline Phosphatase (38-126) U/L Troponin I <0.012 (0.000-0.034) ng/mL NT-Pro-B Natriuret Pep 27 pg/mL Total Protein (6.3-8.2) g/dL Albumin (3.5-5.0) g/dL Critical Care Time Critical Care Time: Yes Total Critical Care Time: 35 Disposition Clinical Impression: Unstable angina pectoris Disposition: ADMITTED IP TO THIS HOSP Referrals: Ezekiel Reina MD [Primary Care Provider] - 1-2 days Time of Disposition: 13:20
[2018-12-24 12:17] LABS: Basophils % (A) 0 %; Eosinophils # (A) 0.1 k/uL (0-0.7); Eosinophils % (A) 0 %; HGB 15.1 gm/dL (11.4-16.0); Lymphocytes # (A) 2.7 k/uL (1.0-4.8); Lymphocytes % (A) 17 %; MCH 29.2 pg (25.0-35.0); MCHC 32.1 g/dL (31.0-37.0); MCV 91.1 fL (80.0-100.0); Mean Platelet Volume 6.2; Monocytes % (A) 6 %; Neutrophils # (A) 11.5 k/uL (1.3-7.7); Neutrophils % (A) 75 %; Platelet Count 364 k/uL (150-450); RBC 5.15 m/uL (3.80-5.40); RDW 13.8 % (11.5-15.5); WBC 15.4 k/uL (3.8-10.6)
[2018-12-24 12:26] LABS: ALT 24 U/L (9-52); AST 18 U/L (14-36); Albumin 4.3 g/dL (3.5-5.0); Alkaline Phosphatase 83 U/L (38-126); Anion Gap 9 mmol/L; Blood Urea Nitrogen 18 mg/dL (7-17); Calcium 9.6 mg/dL (8.4-10.2); Carbon Dioxide 28 mmol/L (22-30); Chloride 102 mmol/L (98-107); Glucose 105 mg/dL (74-99); Magnesium 1.9 mg/dL (1.6-2.3); Potassium 4.3 mmol/L (3.5-5.1); Sodium 139 mmol/L (137-145); Total Bilirubin 0.4 mg/dL (0.2-1.3); Total Protein 7.2 g/dL (6.3-8.2)
[2018-12-24 12:34] LABS: D-Dimer 0.41 mg/L FEU (<0.60); Partial Thromboplastin Time 24.1 sec (22.0-30.0); Prothrombin Time 10.4 sec (9.0-12.0)
--- NOTE | 2018-12-24 12:46 | XR ---
EXAMINATION TYPE: XR chest 2V DATE OF EXAM: 12/24/2018 COMPARISON: 03/23/2018 HISTORY: 48-year-old female with chest pain TECHNIQUE: PA and lateral views FINDINGS: The cardiomediastinal silhouette, aorta, and pulmonary vasculature are within normal limits. Mild int erstitial prominence is unchanged. Otherwise, lungs and pleural spaces are clear. IMPRESSION: Chronic changes without acute cardiopulmonary process.
[2018-12-24] MEDS ORDERED: HEPARIN SODIUM,PORCINE 5,000 UNIT/ML 1 ML VIAL IV ONE (13:19)
[2018-12-24] MEDS ORDERED: NITROGLYCERIN SL TABS 0.4 MG TAB SUBLINGUAL PRN (13:21)
[2018-12-24] MEDS ORDERED: HEPARIN SOD,PORK IN 0.45% NACL 25,000 UNIT in 0.45% NACL 1 250ML.BAG IV SCH (13:30)
[2018-12-24] MEDS ORDERED: KETOROLAC 30 MG/ML 1 ML VIAL IVP STA (14:19)
[2018-12-24] MEDS ORDERED: ALBUTEROL NEBULIZED 2.5 MG/3 ML INHALATION PRN (15:33)
[2018-12-24] MEDS ORDERED: diphenhydrAMINE 25 MG CAP PO PRN (15:33)
[2018-12-24] MEDS ORDERED: HYOSCYAMINE SULFATE 0.125 MG TAB PO PRN (15:33)
[2018-12-24 16:38] LABS: Glucose,Whole Blood 189 mg/dL (75-99)
[2018-12-24] MEDS: ACETAMINOPHEN TAB 500 MG TAB PO SCH (16:46)
[2018-12-24] MEDS: metFORMIN 500 MG TAB PO SCH (16:49)
[2018-12-24] MEDS: GABAPENTIN 300 MG CAP PO SCH ×2 (16:49→21:23)
[2018-12-24] MEDS ORDERED: NITROGLYCERIN OINT 1 INCH/GM PACKET TOPICAL SCH (18:00)
[2018-12-24 20:45] LABS: Glucose,Whole Blood 132 mg/dL (75-99)
[2018-12-24] MEDS ORDERED: methylPREDNISolone SOD SUCCI 40 MG/ML 1 ML VIAL IV SCH (20:56)
[2018-12-24] MEDS: BUDESONIDE 1 MG/2 ML NEBU INHALATION SCH (21:03)
[2018-12-24] MEDS: IPRATROPIUM-ALBUTEROL 3 ML NEB INHALATION SCH (21:04)
[2018-12-24] MEDS: ETODOLAC 400 MG TAB PO SCH (21:23)
[2018-12-24] MEDS: AMITRIPTYLINE HCL 10 MG TAB PO SCH (21:23)
[2018-12-24] MEDS: FAMOTIDINE 20 MG TAB PO SCH (21:23)
[2018-12-24] MEDS: predniSONE 20 MG TAB PO SCH (21:34)
--- NOTE | 2018-12-24 21:52 | HP ---
HISTORY AND PHYSICAL DATE OF ADMISSION: December 24, 2018. DATE OF SERVICE: December 24, 2018. PRESENTING COMPLAINT: Fever, hand swelling. HISTORY OF PRESENTING COMPLAINT: This is a 48-year-old patient who follows with Dr. Reina. Chronic stable medical conditions include hypertension, diabetes, hyperlipidemia, osteoarthritis, diabetic peripheral neuropathy. The patient had gone to Dr. Reina's office. Had gone there with complaining of swelling in the hands and the feet and slight cough. She was treated for bronchitis with steroids and antibiotics. The symptoms did not improve. The patient continued to have a slight cough, low-grade fever. Denies any urine symptoms. The patient has had a slight headache, swelling in the feet. Appetite has been plus/minus. This has been going on for about 2 weeks, hence decided to come in. There is no photophobia. No neck stiffness. No insect bites. Joints mainly bothering out of the small joints of the hands and feet. REVIEW OF SYSTEMS: CONSTITUTIONAL: Tired. HEENT as above. RESPIRATORY as above. CARDIOVASCULAR: Some sharp chest pain. GASTROINTESTINAL: None. GENITOURINARY: None. MUSCULOSKELETAL: As above. DERMATOLOGICAL, HEMATOLOGIC, LYMPHATIC: None. PSYCHIATRY: None. NEUROLOGICAL: No focal symptoms. PAST MEDICAL HISTORY: Of diabetes, hypertension, hyperlipidemia, osteoarthritis, diabetic peripheral neuropathy. Past medical history of bilateral glaucoma, Raynaud's, stomach ulcers and irritable bowel syndrome. PAST SURGICAL HISTORY: Appendectomy, back surgery, , cholecystectomy, radiofrequency ablation to C3, C5. Laparoscopy to drain ovarian cyst, bilateral feet surgery, right knee replacement, fusion L4-L5, S1. PSYCH HISTORY: Anxiety. SOCIAL HISTORY: The patient is smoking a pack half a day, half a pack a day for close to 30 years. No alcohol. . FAMILY HISTORY: DVT, bladder cancer. HOME MEDICATIONS: 1. Medrol Dosepak. 2. Glucophage 500 mg b.i.d. 3. Benadryl 25 mg t.i.d. p.r.n. 4. Verapamil ER 120 mg p.o. daily. 5. Depo testosterone 25 mg p.o. every 14 days. 6. Potassium 10 mEq a day. 7. Multivitamin 1 tablet p.o. daily. 8. Levaquin 500 mg p.o. daily. 9. Levsin 0.125 mg p.o. daily p.r.n. 10.Neurontin 900 mg p.o. t.i.d. 11.Lasix 20 mg p.o. daily. 12.Pepcid 20 mg b.i.d. 13.Voltaren 75 mg b.i.d. 14.Cymbalta 90 mg p.o. daily. 15.Vitamin C 500 mg p.o. daily. 16.Amitriptyline 10 mg q.h.s. 17.Ventolin HFA 1 puff b.i.d. p.r.n. 18.Tylenol 500 mg q.8. ALLERGIES: INCLUDE APPLE, ASPIRIN, BEEF CONTAINING PRODUCTS, CINNAMON, COCOA, EGG, GRAPEFRUIT, PEAS, TURKEY, SOY, SPINACH, YEAST, ORANGE, DECONGESTANTS, SALMON. PHYSICAL EXAMINATION: VITAL SIGNS: Temperature 98.1, pulse 90, respiration 18, blood pressure 122/80, pulse ox 97% on room air. GENERAL APPEARANCE: Well built, BMI 36.7. Lying in bed, tired-appearing. EYES: Pupils equal. Conjunctivae normal. HEENT: External appearance of nose and ears normal. Oral cavity normal. NECK: JVD not raised. Mass not palpable. RESPIRATORY: Effort normal. LUNGS: Diminished breath sounds. Expiratory wheezing. CARDIOVASCULAR: 1st and 2nd sounds normal. No edema. ABDOMEN: Soft, nontender. Liver and spleen not palpable. LYMPHATIC: No lymph nodes palpable in the neck and axilla. PSYCHIATRY: Alert and oriented x3. Mood and affect is normal. NEUROLOGICAL: Pupils are equal. Cranial nerves grossly intact. Power and sensation grossly intact. MUSCULOSKELETAL: Some swelling of the joints, small joints of the hand including the PIP and DIP and the metacarpophalangeal joints with minimal tenderness. LYMPHATICS: No lymph nodes palpable in the neck and axilla. PSYCHIATRY: Alert and oriented times three. Mood and affect normal. NEUROLOGICAL: Pupils equal. Cranial nerves grossly intact. Power and sensation grossly intact. INVESTIGATIONS: White count 15.4, hemoglobin 15.1. Potassium 4.3. Accu-Cheks are noted. Troponin times two are negative. EKG tracing personally reviewed by me shows normal sinus rhythm. Chest x-ray film personally reviewed by me shows lung nunez to be clear. ASSESSMENT: 1. This is a patient who presents with a 2-week history of swelling of the hands and feet, some tenderness, bronchitis-like symptoms, low-grade fever. Slight cough, slight cephalgia. No meningeal symptoms, decreased appetite, tired, run down. The patient could be well be running a viral syndrome leading to oligo polyarthritis. The patient does not have a septic picture. 2. Diabetes mellitus type 2 on oral hypoglycemics. 3. Hyperlipidemia. 4. Primary osteoarthritis. 5. Chronic obstructive pulmonary disease in a current smoker. 6. Diabetic peripheral neuropathy. 7. Chronic nicotine dependence, patient is a cigarette smoker. 8. Obesity; BMI 36.7. PLAN: At this point, we will send off for the ESR, CRP. We will check a UA. We will also get a rheumatology consultation from Dr. Rowland. We will put the patient on oral steroids, add bronchodilator, inhaled steroids. Other home medications resumed. Care was discussed with the patient. Questions were answered. Smoking cessation counseling was done. More than 3 minutes was spent on this aspect of the case. We will give the patient a nicotine patch. Copy to Dr. Reina. JESICA / IDA: [id number] /
[2018-12-25] MEDS: ACETAMINOPHEN TAB 500 MG TAB PO SCH ×3 (01:31→16:05)
[2018-12-25] MEDS: NICOTINE 14MG/24HR PATCH TRANSDERM SCH ×2 (01:31→10:03)
[2018-12-25 06:37] LABS: Glucose,Whole Blood 114 mg/dL (75-99)
[2018-12-25 07:24] LABS: Cholesterol 250 mg/dL (<200); HDL Cholesterol 46 mg/dL (40-60); LDL Cholesterol,Calculated 151 mg/dL (0-99); Triglycerides 267 mg/dL (<150)
[2018-12-25 07:30] LABS: Appearance,Urine Clear (Clear); Bilirubin,Urine 1+ (Negative); Blood,Urine Negative (Negative); Color,Urine Yellow; Glucose,Urine (UA) Negative (Negative); Ketones,Urine Trace (Negative); Leukocyte Esterase,Urine Negative (Negative); Mucus,Urine Moderate /hpf; Nitrite,Urine Negative (Negative); PH, Urine 6.5 (5.0-8.0); Protein,Urine 1+ (Negative); RBC,Urine 3 /hpf (0-5); Specific Gravity,Urine 1.033 (1.001-1.035); Squamous Epithelial Cell,Urine 2 /hpf (0-4); WBC,Urine 1 /hpf (0-5)
[2018-12-25] MEDS: BUDESONIDE 1 MG/2 ML NEBU INHALATION SCH ×2 (07:52→19:46)
[2018-12-25] MEDS: IPRATROPIUM-ALBUTEROL 3 ML NEB INHALATION SCH ×4 (07:52→19:46)
[2018-12-25] MEDS ORDERED: ASPIRIN 325 MG TAB PO SCH (09:00)
[2018-12-25] MEDS ORDERED: FUROSEMIDE 20 MG TAB PO SCH (09:00)
[2018-12-25] MEDS: INSULIN ASPART (NovoLOG) 100 UNIT/ML VIAL SQ SCH ×4 (10:02→21:32)
[2018-12-25] MEDS: POTASSIUM CHLORIDE ER 10 MEQ TAB.ER.PRT PO SCH (10:04)
[2018-12-25] MEDS: predniSONE 20 MG TAB PO SCH (10:04)
[2018-12-25] MEDS: ENOXAPARIN 40 MG/0.4 ML SYRINGE SQ SCH (10:04)
[2018-12-25] MEDS: GABAPENTIN 300 MG CAP PO SCH ×3 (10:04→21:22)
[2018-12-25] MEDS: MULTIVITAMINS, THERA 1 EACH TAB PO SCH (10:05)
[2018-12-25] MEDS: LEVOFLOXACIN 500 MG TAB PO SCH (10:05)
[2018-12-25] MEDS: DULoxetine HCL 30 MG CAPSULE.DR PO SCH (10:06)
[2018-12-25] MEDS: metFORMIN 500 MG TAB PO SCH ×2 (10:06→17:31)
[2018-12-25] MEDS: ASCORBIC ACID 500 MG TAB PO SCH (10:06)
[2018-12-25] MEDS: VERAPAMIL SR 120 MG TABLET.ER PO SCH (10:06)
[2018-12-25] MEDS: FAMOTIDINE 20 MG TAB PO SCH ×2 (10:07→21:24)
[2018-12-25] MEDS: ETODOLAC 400 MG TAB PO SCH ×2 (10:07→21:22)
[2018-12-25 11:51] LABS: Glucose,Whole Blood 160 mg/dL (75-99)
--- NOTE | 2018-12-25 11:59 | P.CRDCN ---
History of Present Illness Consult date: 12/25/18 Chief complaint: Chest pain History of present illness: This is a 48-year-old female presents to emergency department with complaints of right sided chest pain and mid-sternal chest pain. Patient states she had a recent pneumonia diagnosis 2 weeks ago with right-sided chest pain at PCP office. Patient states she woke up this a.m. with mid-sternal chest pain not associated with cough or deep breathing. Denies radiation of chest pain. Pt states she has new productive cough as well. Patient is a current smoker - four cigarettes per day, trying to quit. Recent outpatient treatment with antibiotics and steroids at PCP. She states she has had some swelling in her upper and lower extremities which is resolving. Patient states she has been running a fever at home, has had severe fatigue, has not been eating or drinking much at home. Did not receive the flu shot this season. No outpatient chest x-ray. Denies abdominal pain nausea, vomiting, diarrhea. Denies dizziness or syncope. Patient has history of hypertension, diabetes, hyperlipidemia, neuropathy, osteoarthritis, current tobacco use - 4 cigarettes per day, trying to quit. Vital signs stable. 93% on room air. Currently a-febrile EKG shows sinus rhythm, rate of 70 beats per minute Troponins negative x 2. Chest x-ray showed WNL. Most recent echo dated 2015 indicates EF 60%, WNL LV size and function. Mild concentric LV hypertrophy. Cardiac catheterization 2011, WNL coronary arteries, WNL LV size and function. CBC - Elevated WBC at 15.1. Total cholesterol 250, LDL 151, HDL 46, triglycerides 267. BMP - BUN mildly elevated, 18. D-dimer negative. Plan: Repeat echocardiogram due to mild systolic ejection murmur. Continue all other medication/medical regime. Heart healthy diet ordered. Pending echo results pt is stable from a cardiology standpoint. Will follow-up on an outpatient basis in 2-3 weeks. Review of Systems At the time of my exam: CONSTITUTIONAL: [Complains of fever. Denies chills.] EYES: Denies blurred vision. [Denies vision changes. Denies eye pain.] EARS, NOSE, MOUTH & THROAT: [Denies headache. Denies sore throat. Denies ear pain.] CARDIOVASCULAR: [Complains of RIGHT sided chest pain, no current mid-sternal chest pain. Denies shortness of breath. Denies orthopnea. Denies PND. Denies palpitations.] RESPIRATORY: [Complains of cough.] GASTROINTESTINAL: [Denies abdominal pain. Denies diarrhea. Denies constipation. Denies nausea. Denies vomiting.] MUSCULOSKELETAL: [Complains myalgias/ache all over body.] INTEGUMENTARY: [Denies pruitis. Denies rash.] NEUROLOGIC: [Denies numbness. Denies tingling. Denies weakness.] PSYCHIATRIC: [Denies anxiety. Denies depression.] ENDOCRINE: [Complains of fatigue. Denies weight change. Denies polydipsia. Denies polyurina.] GENITOURINARY:[ Denies burning, hematuria or urgency with micturation.] HEMATOLOGIC: [Denies history of anemia. Denies bleeding.] Past Medical History Past Medical History: Diabetes Mellitus, Eye Disorder, Musculoskeletal Disorder , Neurologic Disorder, Osteoarthritis (OA), Pneumonia Additional Past Medical History / Comment(s): NATHALIA Glaucoma. Irregular heart beat. Raynauds. STOMACH Ulcers. IBS. VARICOSE VEINS, EDEMA NATHALIA LEGS W/ PAIN, NEUROPATHY IN FEET History of Any Multi-Drug Resistant Organisms: None Reported Past Surgical History: Appendectomy, Back Surgery, Section, Cholecystectomy, Heart Catheterization, Hysterectomy, Joint Replacement, Orthopedic Surgery Additional Past Surgical History / Comment(s): RADIO FREQUENCY ABLATION to C3-5 , laparoscopies to drain ovarian cyst, bilat feet sx, rt trigger thumb sx, colonoscopy. RT KNEE SCOPE 06/09/16, LAPAROSCOPY 09/23/17 LYSIS OF ADHESIONS, rt knee replacement 10/2016, fusion L4-5 S-1 Past Anesthesia/Blood Transfusion Reactions: Motion Sickness, Postoperative Nausea & Vomiting (PONV) Past Psychological History: Anxiety Smoking Status: Current every day smoker Past Alcohol Use History: None Reported Additional Past Alcohol Use History / Comment(s): smokes 1/2 ppd, off and on since age 13 Past Drug Use History: None Reported - Past Family History Mother Family Medical History: Deep Vein Thrombosis (DVT) Father Family Medical History: Cancer Additional Family Medical History / Comment(s): Bladder Medications and Allergies Home Medications Medication Instructions Recorded Confirmed Type Albuterol Inhaler [Ventolin Hfa 1 puff INHALATION RT-BID PRN 02/26/14 12/24/18 History Inhaler] Diclofenac Sodium [Voltaren] 75 mg PO BID 06/04/16 12/24/18 History Gabapentin [Neurontin] 900 mg PO TID 06/04/16 12/24/18 History Verapamil HCl [Verapamil ER] 120 mg PO QAM 06/04/16 12/24/18 History metFORMIN HCL [Glucophage] 500 mg PO BID 06/04/16 12/24/18 History Ascorbic Acid [Vitamin C] 500 mg PO DAILY 09/21/17 12/24/18 History Famotidine 20 mg PO BID 09/21/17 12/24/18 History DULoxetine HCL [Cymbalta] 90 mg PO DAILY 01/19/18 12/24/18 History Amitriptyline HCl 10 mg PO HS 10/04/18 12/24/18 History Hyoscyamine Sulfate [Levsin] 0.125 mg PO DAILY PRN 10/04/18 12/24/18 History Multivitamins, Thera [Multivitamin 1 tab PO DAILY 10/04/18 12/24/18 History (formulary)] diphenhydrAMINE [Benadryl] 25 mg PO TID PRN 10/04/18 12/24/18 History Acetaminophen Tab [Tylenol] 500 mg PO Q8H 12/24/18 12/24/18 History Furosemide [Lasix] 20 mg PO DAILY 12/24/18 12/24/18 History Levofloxacin [Levaquin] 500 mg PO DAILY 12/24/18 12/24/18 History Potassium Chloride ER [K-Dur 10] 10 meq PO DAILY 12/24/18 12/24/18 History Testosterone Cypionate 25 mg PO Q14D 12/24/18 12/24/18 History [Depo-Testosterone] methylPREDNISolone Dose Pack See Taper PO DIRECTED 12/24/18 12/24/18 History [Medrol Dose Pack] Allergies Allergy/AdvReac Type Severity Reaction Status Date / Time apple [Apple] Allergy Rash/Hives Verified 12/24/18 11:54 aspirin Allergy Rash/Hives Verified 12/24/18 11:54 Beef Containing Products Allergy Rash/Hives Verified 12/24/18 11:54 cinnamon [Cinnamon] Allergy Rash/Hives Verified 12/24/18 11:54 cocoa [[place]] Allergy Rash/Hives Verified 12/24/18 11:54 dill oil Allergy Rash/Hives Verified 12/24/18 11:54 egg Allergy Rash/Hives Verified 12/24/18 11:54 frovatriptan succinate Allergy Nausea & Verified 12/24/18 11:54 [From Frova] Vomiting plus throat swelling grapefruit [Grapefruit] Allergy Rash/Hives Verified 12/24/18 11:54 peas Allergy Rash/Hives Verified 12/24/18 11:54 Poultry [[place]] Allergy Rash/Hives Verified 12/24/18 11:54 soy Allergy Rash/Hives Verified 12/24/18 11:54 spinach Allergy Rash/Hives Verified 12/24/18 11:54 yeast, dried [yeast] Allergy Rash/Hives Verified 12/24/18 11:54 orange AdvReac Rash/Hives Verified 12/24/18 11:54 DECONGESTANTS Allergy Rash/Hives Uncoded 10/06/18 08:38 salmon Allergy Rash/Hives Uncoded 10/06/18 08:37 solumedrol IV only Allergy Rash/Hives Uncoded 10/06/18 08:37 Physical Exam Vitals: Vital Signs Temp Pulse Pulse Pulse Resp BP BP 12/25/18 08:10 68 12/25/18 08:00 62 18 12/25/18 07:53 68 12/25/18 07:15 98.2 F 62 18 108/96 12/25/18 03:51 64 18 12/25/18 03:14 98.1 F 64 18 107/55 12/25/18 00:00 97.7 F 61 18 94/56 12/24/18 21:10 82 16 12/24/18 21:04 88 16 12/24/18 20:00 81 16 12/24/18 19:50 97.8 F 81 18 97/58 12/24/18 17:48 12/24/18 14:57 98.3 F 60 16 107/67 12/24/18 14:55 98.1 F 75 18 101/61 12/24/18 14:52 75 18 101/61 12/24/18 14:46 67 18 12/24/18 13:49 61 18 109/70 12/24/18 10:41 98.1 F 90 18 122/80 Pulse Ox 12/25/18 08:10 12/25/18 08:00 12/25/18 07:53 96 12/25/18 07:15 96 12/25/18 03:51 12/25/18 03:14 98 12/25/18 00:00 95 12/24/18 21:10 12/24/18 21:04 12/24/18 20:00 12/24/18 19:50 95 12/24/18 17:48 96 12/24/18 14:57 97 12/24/18 14:55 97 12/24/18 14:52 97 12/24/18 14:46 12/24/18 13:49 98 12/24/18 10:41 97 Intake and Output 12/24/18 12/25/18 12/25/18 22:59 06:59 14:59 Other: Voiding Method Toilet Toilet Toilet # Voids 2 1 GENERAL: This is a [48]-year-old [female] in no apparent distress at the time of my examination. HEENT: Head is atraumatic, normocephalic. Pupils are equal, round. Sclerae anicteric. Conjunctivae are clear. Mucous membranes of the mouth are moist. Neck is supple. There is no jugular venous distention. No carotid bruit is heard. LUNGS: Diminished to auscultation, no wheezes, rales or rhonchi. No chest wall tenderness is noted on palpation or with deep breathing. HEART: Regular rate and rhythm without murmurs, rubs or gallops. S1 and S2 heard. ABDOMEN: Soft, nontender. Bowel sounds are heard. No organomegaly noted. EXTREMITIES: No evidence of peripheral edema and no calf tenderness noted. VASCULAR: Radial and dorsalis pedis pulses palpated, no evidence of clubbing. Systolic murmur I/ heard at the base. NEUROLOGIC: Patient is awake, alert and oriented x3. Results 12/24/18 11:42 12/24/18 11:42 Cardiac Enzymes 12/24/18 12/24/18 12/24/18 Range/Units 11:42 11:42 18:38 AST 18 (14-36) U/L Troponin I <0.012 <0.012 (0.000-0.034) ng/mL 12/24/18 Range/Units 23:55 AST (14-36) U/L Troponin I <0.012 (0.000-0.034) ng/mL Coagulation 12/24/18 12/24/18 Range/Units 11:42 18:50 PT 10.4 (9.0-12.0) sec APTT 24.1 37.5 H (22.0-30.0) sec Lipids 12/24/18 Range/Units 11:42 Triglycerides 267 H (<150) mg/dL Cholesterol 250 H (<200) mg/dL HDL Cholesterol 46 (40-60) mg/dL CBC 12/24/18 Range/Units 11:42 WBC 15.4 H (3.8-10.6) k/uL RBC 5.15 (3.80-5.40) m/uL Hgb 15.1 (11.4-16.0) gm/dL Hct 47.0 H (34.0-46.0) % Plt Count 364 (150-450) k/uL Comprehensive Metabolic Panel 12/24/18 Range/Units 11:42 Sodium 139 (137-145) mmol/L Potassium 4.3 (3.5-5.1) mmol/L Chloride 102 (98-107) mmol/L Carbon Dioxide 28 (22-30) mmol/L BUN 18 H (7-17) mg/dL Creatinine 0.59 (0.52-1.04) mg/dL Glucose 105 H (74-99) mg/dL Calcium 9.6 (8.4-10.2) mg/dL AST 18 (14-36) U/L ALT 24 (9-52) U/L Alkaline Phosphatase 83 (38-126) U/L Total Protein 7.2 (6.3-8.2) g/dL Albumin 4.3 (3.5-5.0) g/dL Current Medications Generic Name Dose Route Start Last Admin Trade Name Freq PRN Reason Stop Dose Admin Acetaminophen 500 mg 12/24/18 16:00 12/25/18 01:31 Tylenol Tab PO Not Given Q8H SANDI Albuterol Sulfate 2.5 mg 12/24/18 15:33 Ventolin Nebulized INHALATION RT-BID PRN Shortness Of Breath Albuterol/Ipratropium 3 ml 12/24/18 20:53 12/25/18 07:52 Duoneb 0.5 Mg-3 Mg/3 Ml Soln INHALATION 3 ml RT-QID SANDI Administration Amitriptyline HCl 10 mg 12/24/18 21:00 12/24/18 21:23 Elavil PO 10 mg HS [facility] Administration Ascorbic Acid 500 mg 12/25/18 09:00 Vitamin C PO DAILY [facility] Aspirin 325 mg 12/25/18 09:00 Aspirin PO DAILY [facility] Budesonide 1 mg 12/24/18 20:53 12/25/18 07:52 Pulmicort INHALATION 1 mg RT-BID [facility] Administration Diphenhydramine HCl 25 mg 12/24/18 15:33 Benadryl PO TID PRN ALLERGIES Duloxetine HCl 90 mg 12/25/18 09:00 Cymbalta PO DAILY [facility] Enoxaparin Sodium 40 mg 12/25/18 09:00 Lovenox SQ DAILY [facility] Etodolac 400 mg 12/24/18 21:00 12/24/18 21:23 Lodine PO 400 mg BID [facility] Administration Famotidine 20 mg 12/24/18 21:00 12/24/18 21:23 Pepcid PO 20 mg BID [facility] Administration Furosemide 20 mg 12/25/18 09:00 Lasix PO DAILY [facility] Gabapentin 900 mg 12/24/18 16:00 12/24/18 21:23 Neurontin PO 900 mg TID [facility] Administration Hyoscyamine 0.125 mg 12/24/18 15:33 Levsin PO DAILY PRN STOMACH SPASMS Insulin Aspart 0 unit 12/25/18 07:30 Novolog SQ ACHS [facility] Protocol Levofloxacin 500 mg 12/25/18 09:00 Levaquin PO DAILY [facility] Metformin HCl 500 mg 12/24/18 17:30 12/24/18 16:49 Glucophage PO 500 mg BID-W/MEALS [facility] Administration Multivitamins 1 each 12/25/18 12:00 Theragran PO DAILY@1200 [facility] Nicotine 1 patch 12/24/18 21:00 12/25/18 01:31 Habitrol 14mg/24hr Patch TRANSDERM Not Given DAILY [facility] Nitroglycerin 0.4 mg 12/24/18 13:21 Nitrostat SUBLINGUAL Q5M PRN Chest Pain Potassium Chloride 10 meq 12/25/18 09:00 K-Dur 10 PO DAILY [facility] Prednisone 60 mg 12/24/18 21:15 12/24/18 21:34 PO 60 mg DAILY [facility] Administration Verapamil HCl 120 mg 12/25/18 09:00 Isoptin Sr PO QAM SANDI Intake and Output 12/24/18 12/25/18 12/25/18 22:59 06:59 14:59 Other: Voiding Method Toilet Toilet Toilet # Voids 2 1 12/24/18 11:42 12/24/18 11:42 - EKG Interpretation EKG: sinus rhythm (, HR 60's.) Assessment and Plan (1) Chest pain Current Visit: Yes Status: Acute Code(s): R07.9 - CHEST PAIN, UNSPECIFIED SNOMED Code(s): 14724745 (2) Diabetes type 2, controlled Current Visit: No Status: Acute Code(s): E11.9 - TYPE 2 DIABETES MELLITUS WITHOUT COMPLICATIONS SNOMED Code(s): 49793826 (3) Systolic ejection murmur Current Visit: Yes Status: Acute Code(s): R01.1 - CARDIAC MURMUR, UNSPECIFIED SNOMED Code(s): 28878996 (4) Mixed hyperlipidemia Current Visit: Yes Status: Acute Code(s): E78.2 - MIXED HYPERLIPIDEMIA SNOMED Code(s): 717507695 Plan: Plan: Repeat echocardiography due to mild systolic ejection murmur. Continue all other medication/medical regime. Heart healthy diet. Pending echo results pt is stable from a cardiology standpoint. Will follow-up on an outpatient basis in 2-3 weeks.
--- NOTE | 2018-12-25 14:18 | ECHOF ---
Referral Reason:Systolic Ejection Murmur MEASUREMENTS -------- HEIGHT: 162.6 cm WEIGHT: 93.9 kg BP: 108/96 IVSd: 1.2 cm (0.6 - 1.1) LVIDd: 3.8 cm (3.9 - 5.3) LVPWd: 1.5 cm (0.6 - 1.1) IVSs: 1.4 cm LVIDs: 3.1 cm LVPWs: 1.7 cm LA Diam: 4.5 cm (2.7 - 3.8) LAESV Index (A-L): 34.14 ml/m Ao Diam: 2.8 cm (2.0 - 3.7) AV Cusp: 1.9 cm (1.5 - 2.6) LA Diam: 3.6 cm (2.7 - 3.8) MV EXCURSION: 15.965 mm (> 18.000) MV EF SLOPE: 121 mm/s (70 - 150) EPSS: 0.4 cm MV E Srinivas: 0.59 m/s MV DecT: 309 ms MV A Srinivas: 0.89 m/s MV E/A Ratio: 0.67 RAP: 5.00 mmHg RVSP: 14.83 mmHg FINDINGS -------- Sinus rhythm. This was a technically adequate study. The left ventricular size is normal. There is mild concentric left ventricular hypertrophy. Overa ll left ventricular systolic function is normal with, an EF between 55 - 60 %. The right ventricle is normal in size. The left atrial size is normal. The right atrial size is normal. There is mild aortic valve sclerosis. There is no evidence of aortic regurgitation. The mitral valve is normal. Mild mitral regurgitation is present. Mild tricuspid regurgitation present. There is no evidence of pulmonary hypertension. The right v entricular systolic pressure, as measured by Doppler, is 14.83mmHg. Trace/mild (physiologic) pulmonic regurgitation. The aortic root size is normal. There is no pericardial effusion. CONCLUSIONS -------- 1. Sinus rhythm. 2. This was a technically adequate study. 3. The left ventricular size is normal. 4. There is mild concentric left ventricular hypertrophy. 5. Overall left ventricular systolic function is normal with, an EF between 55 - 60 %. 6. The left atrial size is normal. 7. There is mild aortic valve sclerosis. 8. Mild mitral regurgitation is present. 9. Mild tricuspid regurgitation present. 10. There is no evidence of pulmonary hypertension. 11. Trace/mild (physiologic) pulmonic regurgitation. 12. The aortic root size is normal. 13. There is no pericardial effusion. ANALYTICAL DATA SCIENTIST: La Nena Simpson RDCS
[2018-12-25] MEDS ORDERED: NAPROXEN 250 MG TAB PO PRN (15:02)
--- NOTE | 2018-12-25 15:05 | P.CONS ---
History of Present Illness - Reason for Consult Consult date: 12/25/18 Fever of unknown origin - History of Present Illness This is a 48-year-old female gives history that about one month ago she started having swelling to her joints especially to her feet and hands but also involved her wrist, elbows shoulders and back. She states the swelling in her hands were so bad that she had to stop wearing her rings she was having trouble picking up things and was dropping items. She also had shortness of breath. She saw her primary care doctor and was put on prednisone and doxycycline for treatment of pneumonia. She thought her joints were feeling some improvement with this but she continued to have cough when she laid on her right side and she was having chest pain on the right lower lateral area as well as left of the sternal area. She went back to her doctor on and was then placed on Lasix again on a Medrol Dosepak and Levaquin 500 mg for 7 days. She states from night Tuesday and Tuesday all she did with sleep and felt exhausted all day she had decreased appetite along with nausea without vomiting and no diarrhea. She complains of headache and lightheadedness. She thought her urine was dark but denies any dysuria or increased frequency. She came into [facility] emergency center for evaluation and was found to be afebrile with white count of 15.4, creatinine 0.59. Troponins have been negative on 3 draws. [place] screen negative , C-reactive protein 10, d-dimer normal. Triglycerides cholesterol and LDL were all high. Urinalysis was clear, bilirubin 1+, mucus moderate. Nitrate and leukoesterase negative. Chest x-ray showed chronic changes without acute cardiopulmonary process. Echocardiogram reveals EF of 55-60% with mild concentric left ventricular hypertrophy, mild mitral regurgitation, mild tricuspid regurgitation, no mention of vegetation. The patient was seen by cardiology and plan was for echocardiogram to follow up on outpatient basis. Review of Systems All systems: negative Constitutional: Reports anorexia, Reports chills, Reports fatigue, Reports fever , Reports lethargy, Reports malaise, Reports poor appetite, Reports sweats, Reports weakness Eyes: denies blurred vision, denies pain Ears, nose, mouth and throat: Reports headache, Reports vertigo, Denies dysphagia, Denies nasal congestion, Denies nasal discharge, Denies sore throat Cardiovascular: Reports chest pain, Reports dyspnea on exertion, Reports edema, Reports leg edema, Denies shortness of breath Respiratory: Reports cough, Reports dyspnea, Reports respiratory infections, Denies cough with sputum, Denies excessive sputum, Denies hemoptysis, Denies home oxygen, Denies wheezing Gastrointestinal: Reports loss of appetite, Reports nausea, Denies abdominal pain, Denies diarrhea, Denies vomiting Genitourinary: Denies dysuria, Denies hematuria, Denies urgency, Denies urinary frequency Musculoskeletal: Reports limitation of motion, Reports muscle weakness, Denies myalgias Integumentary: Denies pruritus, Denies rash, Denies wounds Neurological: Denies aphasia, Denies change in mentation, Denies confusion, Denies gait dysfunction, Denies head injury, Denies numbness, Denies seizures, Denies weakness Psychiatric: Denies anxiety, Denies depression Endocrine: Denies fatigue, Denies weight change Past Medical History Past Medical History: Diabetes Mellitus, Eye Disorder, Musculoskeletal Disorder , Neurologic Disorder, Osteoarthritis (OA), Pneumonia Additional Past Medical History / Comment(s): NATHALIA Glaucoma. Irregular heart beat. Raynauds. STOMACH Ulcers. IBS. VARICOSE VEINS, EDEMA NATHALIA LEGS W/ PAIN, NEUROPATHY IN FEET History of Any Multi-Drug Resistant Organisms: None Reported Past Surgical History: Appendectomy, Back Surgery, Section, Cholecystectomy, Heart Catheterization, Hysterectomy, Joint Replacement, Orthopedic Surgery Additional Past Surgical History / Comment(s): RADIO FREQUENCY ABLATION to C3-5 , laparoscopies to drain ovarian cyst, bilat feet sx, rt trigger thumb sx, colonoscopy. RT KNEE SCOPE 06/09/16, LAPAROSCOPY 09/23/17 LYSIS OF ADHESIONS, rt knee replacement 10/2016, fusion L4-5 S-1 Past Anesthesia/Blood Transfusion Reactions: Motion Sickness, Postoperative Nausea & Vomiting (PONV) Past Psychological History: Anxiety Smoking Status: Current every day smoker Past Alcohol Use History: None Reported Additional Past Alcohol Use History / Comment(s): smokes 1/2 ppd, off and on since age 13. Patient denies any marijuana, street drug use or alcohol use. She denies any recent travel. 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 She does have birds, fish and a dog in the home. Past Drug Use History: None Reported - Past Family History Mother Family Medical History: Deep Vein Thrombosis (DVT) Father Family Medical History: Cancer Additional Family Medical History / Comment(s): Bladder Medications and Allergies Home Medications Medication Instructions Recorded Confirmed Type Albuterol Inhaler [Ventolin Hfa 1 puff INHALATION RT-BID PRN 02/26/14 12/24/18 History Inhaler] Diclofenac Sodium [Voltaren] 75 mg PO BID 06/04/16 12/24/18 History Gabapentin [Neurontin] 900 mg PO TID 06/04/16 12/24/18 History Verapamil HCl [Verapamil ER] 120 mg PO QAM 06/04/16 12/24/18 History metFORMIN HCL [Glucophage] 500 mg PO BID 06/04/16 12/24/18 History Ascorbic Acid [Vitamin C] 500 mg PO DAILY 09/21/17 12/24/18 History Famotidine 20 mg PO BID 09/21/17 12/24/18 History DULoxetine HCL [Cymbalta] 90 mg PO DAILY 01/19/18 12/24/18 History Amitriptyline HCl 10 mg PO HS 10/04/18 12/24/18 History Hyoscyamine Sulfate [Levsin] 0.125 mg PO DAILY PRN 10/04/18 12/24/18 History Multivitamins, Thera [Multivitamin 1 tab PO DAILY 10/04/18 12/24/18 History (formulary)] diphenhydrAMINE [Benadryl] 25 mg PO TID PRN 10/04/18 12/24/18 History Acetaminophen Tab [Tylenol] 500 mg PO Q8H 12/24/18 12/24/18 History Furosemide [Lasix] 20 mg PO DAILY 12/24/18 12/24/18 History Levofloxacin [Levaquin] 500 mg PO DAILY 12/24/18 12/24/18 History Potassium Chloride ER [K-Dur 10] 10 meq PO DAILY 12/24/18 12/24/18 History Testosterone Cypionate 25 mg PO Q14D 12/24/18 12/24/18 History [Depo-Testosterone] methylPREDNISolone Dose Pack See Taper PO DIRECTED 12/24/18 12/24/18 History [Medrol Dose Pack] Allergies Allergy/AdvReac Type Severity Reaction Status Date / Time apple [Apple] Allergy Rash/Hives Verified 12/24/18 11:54 aspirin Allergy Rash/Hives Verified 12/24/18 11:54 Beef Containing Products Allergy Rash/Hives Verified 12/24/18 11:54 cinnamon [Cinnamon] Allergy Rash/Hives Verified 12/24/18 11:54 cocoa [[place]] Allergy Rash/Hives Verified 12/24/18 11:54 dill oil Allergy Rash/Hives Verified 12/24/18 11:54 egg Allergy Rash/Hives Verified 12/24/18 11:54 frovatriptan succinate Allergy Nausea & Verified 12/24/18 11:54 [From Frova] Vomiting plus throat swelling grapefruit [Grapefruit] Allergy Rash/Hives Verified 12/24/18 11:54 peas Allergy Rash/Hives Verified 12/24/18 11:54 Poultry [[place]] Allergy Rash/Hives Verified 12/24/18 11:54 soy Allergy Rash/Hives Verified 12/24/18 11:54 spinach Allergy Rash/Hives Verified 12/24/18 11:54 yeast, dried [yeast] Allergy Rash/Hives Verified 12/24/18 11:54 orange AdvReac Rash/Hives Verified 12/24/18 11:54 DECONGESTANTS Allergy Rash/Hives Uncoded 10/06/18 08:38 salmon Allergy Rash/Hives Uncoded 10/06/18 08:37 solumedrol IV only Allergy Rash/Hives Uncoded 10/06/18 08:37 Physical Exam Vitals: Vital Signs Temp Pulse Pulse Pulse Resp BP BP 12/25/18 12:00 98.2 F 74 18 129/87 12/25/18 08:10 68 12/25/18 08:00 62 18 12/25/18 07:53 68 12/25/18 07:15 98.2 F 62 18 108/96 12/25/18 03:51 64 18 12/25/18 03:14 98.1 F 64 18 107/55 12/25/18 00:00 97.7 F 61 18 94/56 12/24/18 21:10 82 16 12/24/18 21:04 88 16 12/24/18 20:00 81 16 12/24/18 19:50 97.8 F 81 18 97/58 12/24/18 17:48 12/24/18 14:57 98.3 F 60 16 107/67 12/24/18 14:55 98.1 F 75 18 101/61 12/24/18 14:52 75 18 101/61 12/24/18 14:46 67 18 Pulse Ox 12/25/18 12:00 97 12/25/18 08:10 12/25/18 08:00 12/25/18 07:53 96 12/25/18 07:15 96 12/25/18 03:51 12/25/18 03:14 98 12/25/18 00:00 95 12/24/18 21:10 12/24/18 21:04 12/24/18 20:00 12/24/18 19:50 95 12/24/18 17:48 96 12/24/18 14:57 97 12/24/18 14:55 97 12/24/18 14:52 97 12/24/18 14:46 Intake and Output 12/24/18 12/25/18 12/25/18 22:59 06:59 14:59 Intake Total 436 Balance 436 Intake: Oral 436 Other: Voiding Method Toilet Toilet Toilet # Voids 2 1 3 Gen: This is an obese 48-year-old female. Patient is resting in bed and appears to be comfortable. No acute respiratory distress is noted. HEENT: Head is atraumatic, normocephalic. Pupils equal, round. Sclerae is anicteric. Conjunctiva pink. Mucous members of the mouth are moist. Patient has had extensive dental work. NECK: Supple. No JVD. No lymphadenopathy. No thyromegaly. LUNGS: Clear to auscultation. No wheezes or rhonchi. No intercostal retractions. HEART: Regular rate and rhythm. Systolic murmur. ABDOMEN: Soft. Bowel sounds are present. No masses. No tenderness. EXTREMITIES: Trace bilateral pedal edema. Dorsalis pedis +2 bilaterally. Edema to bilateral hands with tenderness over joints. No rashes noted. NEUROLOGICAL: Patient is awake, alert and oriented x3. Cranial nerves 2 through 12 are grossly intact. Results Results: Laboratory Results WBC 15.4 k/uL (3.8-10.6) H 12/24/18 11:42 RBC 5.15 m/uL (3.80-5.40) 12/24/18 11:42 Hgb 15.1 gm/dL (11.4-16.0) 12/24/18 11:42 Hct 47.0 % (34.0-46.0) H 12/24/18 11:42 MCV 91.1 fL (80.0-100.0) 12/24/18 11:42 MCH 29.2 pg (25.0-35.0) 12/24/18 11:42 MCHC 32.1 g/dL (31.0-37.0) 12/24/18 11:42 RDW 13.8 % (11.5-15.5) 12/24/18 11:42 Plt Count 364 k/uL (150-450) 12/24/18 11:42 Neutrophils % 75 % 12/24/18 11:42 Lymphocytes % 17 % 12/24/18 11:42 Monocytes % 6 % 12/24/18 11:42 Eosinophils % 0 % 12/24/18 11:42 Basophils % 0 % 12/24/18 11:42 Neutrophils # 11.5 k/uL (1.3-7.7) H 12/24/18 11:42 Lymphocytes # 2.7 k/uL (1.0-4.8) 12/24/18 11:42 Monocytes # 1.0 k/uL (0-1.0) 12/24/18 11:42 Eosinophils # 0.1 k/uL (0-0.7) 12/24/18 11:42 Basophils # 0.0 k/uL (0-0.2) 12/24/18 11:42 PT 10.4 sec (9.0-12.0) 12/24/18 11:42 INR 1.0 (<1.2) 12/24/18 11:42 APTT 37.5 sec (22.0-30.0) H 12/24/18 18:50 D-Dimer 0.41 mg/L FEU (<0.60) 12/24/18 11:42 Sodium 139 mmol/L (137-145) 12/24/18 11:42 Potassium 4.3 mmol/L (3.5-5.1) 12/24/18 11:42 Chloride 102 mmol/L (98-107) 12/24/18 11:42 Carbon Dioxide 28 mmol/L (22-30) 12/24/18 11:42 Anion Gap 9 mmol/L 12/24/18 11:42 BUN 18 mg/dL (7-17) H 12/24/18 11:42 Creatinine 0.59 mg/dL (0.52-1.04) 12/24/18 11:42 Est GFR (CKD-EPI)AfAm >90 (>60 ml/min/1.73 sqM) 12/24/18 11:42 Est GFR (CKD-EPI)NonAf >90 (>60 ml/min/1.73 sqM) 12/24/18 11:42 Glucose 105 mg/dL (74-99) H 12/24/18 11:42 POC Glucose (mg/dL) 160 mg/dL (75-99) H 12/25/18 11:48 POC Glu Nurses' Aide ID Guadalupe Rios 12/25/18 11:48 Plasma Lactic Acid Alberto 1.4 mmol/L (0.7-2.0) 12/24/18 11:42 Calcium 9.6 mg/dL (8.4-10.2) 12/24/18 11:42 Magnesium 1.9 mg/dL (1.6-2.3) 12/24/18 11:42 Total Bilirubin 0.4 mg/dL (0.2-1.3) 12/24/18 11:42 AST 18 U/L (14-36) 12/24/18 11:42 ALT 24 U/L (9-52) 12/24/18 11:42 Alkaline Phosphatase 83 U/L (38-126) 12/24/18 11:42 Troponin I <0.012 ng/mL (0.000-0.034) 12/24/18 23:55 C-Reactive Protein 10.0 mg/L (<10.0) H 12/24/18 11:42 NT-Pro-B Natriuret Pep 27 pg/mL 12/24/18 11:42 Total Protein 7.2 g/dL (6.3-8.2) 12/24/18 11:42 Albumin 4.3 g/dL (3.5-5.0) 12/24/18 11:42 Triglycerides 267 mg/dL (<150) H 12/24/18 11:42 Cholesterol 250 mg/dL (<200) H 12/24/18 11:42 LDL Cholesterol, Calc 151 mg/dL (0-99) H 12/24/18 11:42 HDL Cholesterol 46 mg/dL (40-60) 12/24/18 11:42 Urine Color Yellow 12/25/18 06:29 Urine Appearance Clear (Clear) 12/25/18 06:29 Urine pH 6.5 (5.0-8.0) 12/25/18 06:29 Ur Specific [place] 1.033 (1.001-1.035) 12/25/18 06:29 Urine Protein 1+ (Negative) H 12/25/18 06:29 Urine Glucose (UA) Negative (Negative) 12/25/18 06:29 Urine Ketones Trace (Negative) H 12/25/18 06:29 Urine Blood Negative (Negative) 12/25/18 06:29 Urine Nitrite Negative (Negative) 12/25/18 06:29 Urine Bilirubin 1+ (Negative) H 12/25/18 06:29 Urine Urobilinogen 3.0 mg/dL (<2.0) 12/25/18 06:29 Ur Leukocyte Esterase Negative (Negative) 12/25/18 06:29 Urine RBC 3 /hpf (0-5) 12/25/18 06:29 Urine WBC 1 /hpf (0-5) 12/25/18 06:29 Ur Squamous Epith Cells 2 /hpf (0-4) 12/25/18 06:29 Urine Mucus Moderate /hpf (None) H 12/25/18 06:29 [place] Screen NEGATIVE (NEGATIVE) 12/24/18 11:42 CBC & Chem 7: 12/24/18 11:42 12/24/18 11:42 Labs: Abnormal Lab Results - Last 24 Hours (Table) 12/24/18 12/24/18 12/24/18 Range/Units 11:42 11:42 16:37 APTT (22.0-30.0) sec POC Glucose (mg/dL) 189 H (75-99) mg/dL C-Reactive Protein 10.0 H (<10.0) mg/L Triglycerides 267 H (<150) mg/dL Cholesterol 250 H (<200) mg/dL LDL Cholesterol, Calc 151 H (0-99) mg/dL Urine Protein (Negative) Urine Ketones (Negative) Urine Bilirubin (Negative) Urine Mucus (None) /hpf 12/24/18 12/24/18 12/25/18 Range/Units 18:50 20:43 06:29 APTT 37.5 H (22.0-30.0) sec POC Glucose (mg/dL) 132 H (75-99) mg/dL C-Reactive Protein (<10.0) mg/L Triglycerides (<150) mg/dL Cholesterol (<200) mg/dL LDL Cholesterol, Calc (0-99) mg/dL Urine Protein 1+ H (Negative) Urine Ketones Trace H (Negative) Urine Bilirubin 1+ H (Negative) Urine Mucus Moderate H (None) /hpf 12/25/18 12/25/18 Range/Units 06:35 11:48 APTT (22.0-30.0) sec POC Glucose (mg/dL) 114 H 160 H (75-99) mg/dL C-Reactive Protein (<10.0) mg/L Triglycerides (<150) mg/dL Cholesterol (<200) mg/dL LDL Cholesterol, Calc (0-99) mg/dL Urine Protein (Negative) Urine Ketones (Negative) Urine Bilirubin (Negative) Urine Mucus (None) /hpf Microbiology - Last 24 Hours (Table) 12/24/18 11:42 Blood Culture - Preliminary Blood No Growth after 24 hours Assessment and Plan Plan: This is a 48-year-old female patient presents to the hospital with multiple complaints including chest pain seen by cardiology and cleared for discharge. Patient also has concerns for fever, nausea, lack of appetite, headache lightheadedness, joint pains and swelling. She is currently on her second course of Medrol Dosepak and antibiotics currently on Levaquin. CRP and [place] were normal. Acute hepatitis panel and sed rate ordered. Blood culture is showing no growth after 24 hours. Repeat blood culture was obtained today. She has been continued on oral Levaquin. Continue supportive care. Further recommendations as patient progresses. The above dictated assessment and findings were discussed with Dr. Fletcher. The impression and plan of care have been directed as dictated. Anastasia Schultz nurse practitioner acting as scribe for Dr. Fletcher.
[2018-12-25 15:35] LABS: C Reactive Protein 8.7 mg/L (<10.0); Uric Acid 4.1 mg/dL (3.7-7.4)
[2018-12-25 16:48] LABS: Glucose,Whole Blood 130 mg/dL (75-99)
--- NOTE | 2018-12-25 19:35 | P.CON ---
Consult Note - . Consult date: 12/25/18 Assessment/Plan:: This is a 48-year-old female gives history that about one month ago she started having swelling to her joints especially to her feet and hands but also involved her wrist, elbows shoulders and back. She states the swelling in her hands were so bad that she had to stop wearing her rings she was having trouble picking up things and was dropping items. She also had shortness of breath. She saw her primary care doctor and was put on prednisone and doxycycline for treatment of pneumonia. She thought her joints were feeling some improvement with this but she continued to have cough when she laid on her right side and she was having chest pain on the right lower lateral area as well as left of the sternal area. She went back to her doctor on and was then placed on Lasix again on a Medrol Dosepak and Levaquin 500 mg for 7 days. She states from night Tuesday and Tuesday all she did with sleep and felt exhausted all day she had decreased appetite along with nausea without vomiting and no diarrhea. She complains of headache and lightheadedness. She thought her urine was dark but denies any dysuria or increased frequency. She came into [facility] emergency center for evaluation and was found to be afebrile with white count of 15.4, creatinine 0.59. Troponins have been negative on 3 draws. [place] screen negative , C-reactive protein 10, d-dimer normal. Triglycerides cholesterol and LDL were all high. Urinalysis was clear, bilirubin 1+, mucus moderate. Nitrate and leukoesterase negative. Chest x-ray showed chronic changes without acute cardiopulmonary process. Echocardiogram reveals EF of 55-60% with mild concentric left ventricular hypertrophy, mild mitral regurgitation, mild tricuspid regurgitation, no mention of vegetation. The patient was seen by cardiology and plan was for echocardiogram to follow up on outpatient basis.Please see the counselors dictated by nurse practitioner Mrs. Anastasia Schultz. 48 year old woman with many medical troubles including severe arthritis with a right total knee arthroplasty and prior fusion of her spine because of the arthritis. As noted she complains that she feels like she's had fever but there are no documented fevers since presenting to the ER. As noted she complains of fatigue is a major part of her illness. She has severe joint pains but with the 2 courses of steroid therapy and symmetric microbials she definitely surgical better. Now feels worse severe joint aches in lower extremity edema that has responded to current steroid therapy. There is concern that she had pneumonia in the outpatient setting by current x-ray shows chronic changes without acute pneumonic infiltration. Concern for an underlying inflammatory condition causing her severe discomforts. The sed rate is requested to help further screen for underlying autoimmune disease as well as vasculitis. Given her age she should be checked for hepatitis C his potential for underlying infectious etiology of fatigue and joint complaints. Cultures are in process seems less likely that this underlying bacterial infectious etiology at this time. The chest pain admission has improved. She would follow with stain remover as an outpatient. I agree with evaluation, assessment and plan as dictated by nurse practitioner Mrs. Anastasia Schultz.
[2018-12-25] MEDS ORDERED: FORMOTEROL FUMARATE 20 MCG/2 ML NEBU INHALATION ONE (19:45)
[2018-12-25 19:50] LABS: Rheumatoid Factor 7 IU/mL (0-15)
[2018-12-25 20:32] LABS: Glucose,Whole Blood 171 mg/dL (75-99)
[2018-12-25 20:41] LABS: Hepatitis A Antibody IgM Non-Reactive (Non-Reactive); Hepatitis B Core IgM Non-Reactive (Non-Reactive)
[2018-12-25] MEDS: AMITRIPTYLINE HCL 10 MG TAB PO SCH (21:22)
[2018-12-25] MEDS: traMADol 50 MG TAB PO SCH (21:23)
--- NOTE | 2018-12-25 22:04 | XR ---
EXAMINATION TYPE: XR hand complete bilateral DATE OF EXAM: 12/25/2018 CLINICAL HISTORY: Bilateral hand pain and swelling left greater than right TECHNIQUE: Frontal, lateral and oblique images of the bilateral and are obtained. COMPARISON: Right hand x-ray January 18, 2015 FINDINGS: There is no acute fracture/dislocation evident in either hand. Mild degenerative change ab out the bilateral phalanges with narrowing involving PIP and DIP joints and mild spurring is present bilaterally. There is sparing of the MCP joints bilaterally noted The overlying soft tissue shows mi ld diffuse soft tissue swelling, left slightly greater than right particularly through the phalanges. IMPRESSION: As above.
[2018-12-25 22:14] LABS: Cyclic Citrullinated Pep IgG NEGATIVE (NEGATIVE)
--- NOTE | 2018-12-25 23:31 | PN ---
PROGRESS NOTE DATE OF SERVICE: 12/25/2018 PRESENTING COMPLAINT: Pain in both hands. INTERVAL HISTORY: This patient presents with pain in both the hands. Did complain of some low-grade fever at home; none documented here. Rheumatology was consulted. Patient was put on NSAIDs, has been on NSAIDs complaining of more hand pain. Patient's ESR and CRP both came back negative. No further fever. Hepatitis screen also has been negative. Patient is tolerating her meals. REVIEW OF SYSTEMS: Done for constitutional, cardiovascular, GI, pulmonary, musculoskeletal; relevant findings as above. CURRENT MEDICATIONS: Reviewed. They include Cymbalta, L[place]ine, Neurontin, prednisone. PHYSICAL EXAMINATION: VITAL SIGNS: Temperature 98.2, pulse 74, respiration 18, blood pressure 129/89, pulse ox 97% on room air. GENERAL APPEARANCE: Lying in bed, awake. EYES: Pupils equal. Conjunctivae normal. NECK: JVD not raised. Mass not palpable. RESPIRATORY: Effort normal. LUNGS: Slightly decreased breath sounds. Mild wheezing. CARDIOVASCULAR: First and second sounds normal. No edema. ABDOMEN: Soft, non-tender. Liver and spleen not palpable. PSYCHIATRY: Alert and oriented x3. Mood and affect tired-appearing. INVESTIGATIONS: Antinuclear antibody negative. Troponin negative. ESR 9. C-reactive protein 8.7. Hepatitis screen negative. Rheumatoid factor 7. ASSESSMENT: 1. Patient who presented with 2 weeks' history of swelling of the hands, some tenderness, bronchitis-like symptoms, low-grade fever; no fever documented here. Other inflammatory parameters including ESR, CRP, are pretty much negative. May be having oligo polyarthritis from a viral syndrome. 2. Diabetes mellitus, type 2, on oral hypoglycemic. 3. Hyperlipidemia. 4. Primary osteoarthritis. 5. Chronic obstructive pulmonary disease in a current smoker. 6. Diabetic peripheral neuropathy. 7. Chronic nicotine dependence. Patient is a cigarette smoker. 8. Obesity; body mass index 36.7. PLAN: Continue current medication and treatment plan. Await input from Rheumatology. Patient will be watched overnight. Consultations as per ID and Cardiology. Will check patient's thyroid status. Patient's 2D echo has come back unremarkable. MMODL / IJN: [id number] /
[2018-12-26] MEDS: traMADol 50 MG TAB PO SCH ×2 (01:03→08:22)
[2018-12-26] MEDS: ACETAMINOPHEN TAB 500 MG TAB PO SCH ×2 (03:02→08:24)
[2018-12-26 05:36] LABS: T4, Free (Free Thyroxine) 1.04 ng/dL (0.78-2.19)
[2018-12-26 06:33] LABS: Glucose,Whole Blood 96 mg/dL (75-99)
[2018-12-26 07:29] VITALS: BP 106/70; RESP 18; TEMP 98.3
[2018-12-26] MEDS: IPRATROPIUM-ALBUTEROL 3 ML NEB INHALATION SCH ×2 (07:37→11:46)
[2018-12-26] MEDS: BUDESONIDE 1 MG/2 ML NEBU INHALATION SCH (07:37)
[2018-12-26] MEDS: INSULIN ASPART (NovoLOG) 100 UNIT/ML VIAL SQ SCH ×2 (08:14→12:13)
[2018-12-26] MEDS: ENOXAPARIN 40 MG/0.4 ML SYRINGE SQ SCH (08:22)
[2018-12-26] MEDS: NICOTINE 14MG/24HR PATCH TRANSDERM SCH (08:22)
[2018-12-26] MEDS: GABAPENTIN 300 MG CAP PO SCH (08:22)
[2018-12-26] MEDS: predniSONE 20 MG TAB PO SCH (08:22)
[2018-12-26] MEDS: metFORMIN 500 MG TAB PO SCH (08:22)
[2018-12-26] MEDS: MULTIVITAMINS, THERA 1 EACH TAB PO SCH (08:22)
[2018-12-26] MEDS: POTASSIUM CHLORIDE ER 10 MEQ TAB.ER.PRT PO SCH (08:23)
[2018-12-26] MEDS: FAMOTIDINE 20 MG TAB PO SCH (08:23)
[2018-12-26] MEDS: ETODOLAC 400 MG TAB PO SCH (08:24)
[2018-12-26] MEDS: VERAPAMIL SR 120 MG TABLET.ER PO SCH (08:24)
[2018-12-26] MEDS: ASCORBIC ACID 500 MG TAB PO SCH (08:25)
[2018-12-26] MEDS: DULoxetine HCL 30 MG CAPSULE.DR PO SCH (08:25)
[2018-12-26] MEDS: LEVOFLOXACIN 500 MG TAB PO SCH (08:25)
--- NOTE | 2018-12-26 09:17 | P.CONS ---
History of Present Illness - Reason for Consult Consult date: 12/25/18 Hand pain and swelling Requesting physician: Hua Tolbert - Chief Complaint Hand pain and swelling - History of Present Illness Patient is seen today as an inpatient consult. Patient is a 48-year-old female. Patient's primary care doctor is Dr. Reina. Patient presented to the emergency room on Tuesday for weakness and worsening fatigue. Patient states that about 2 weeks ago she went to primary care office for pain and swelling in the hands and was also evaluated and treated for pneumonia, treated with doxycycline and prednisone at that time. Patient went back on as she felt worse and was treated with Medrol dosepak, lasix for swelling, and Levaquin. Patient states that this did help with her symptoms swelling in the hands however patient had worsening fatigue over the weekend and presented to the ER on Tuesday with fatigue and weakness. Patient also had films of angina on presentation the ER and has been evaluated for that through cardiology and has been deemed stable pending echocardiogram. Patient states that she's had hand swelling and pain for a few weeks now which is progressively gotten worse. Patient states that she's had episodes of swelling in her feet that were painful however this issue in her hands is new. Patient has found it difficult to wear her rings above the swelling is bristly worse did not respond to typical gywe-bea-yupzxce treatment. Patient also has tried heat and ice which have not helped either. Patient states that her feet and ankles do commonly swell possibly related to dependent edema as a do usually improve with elevation however she has not had this issue in her hands before at this severity. Patient states that she does have neuropathy in her feet for which she takes gabapentin. Patient is diabetic. Patient denies any tool checker stiffness or night pain. Patient was previously seen at our office in 2014 and was found to have +1433 serum protein however that was found to be nonspecific finding patient's symptoms were related radiculopathy at that time. Patient denies any history of psoriasis. Patient had a lumbar fusion about 1-1/[address] Collier in [place] after having a fall a few years back. Patient also had had a right knee replacement one year ago with Dr. Ojeda. Review of Systems Musculoskeletal: Reports as per HPI Musculoskeletal: bilateral: foot pain, foot swelling, hand pain, hand swelling Past Medical History Past Medical History: Diabetes Mellitus, Eye Disorder, Musculoskeletal Disorder , Neurologic Disorder, Osteoarthritis (OA), Pneumonia Additional Past Medical History / Comment(s): NATHALIA Glaucoma. Irregular heart beat. Raynauds. STOMACH Ulcers. IBS. VARICOSE VEINS, EDEMA NATHALIA LEGS W/ PAIN, NEUROPATHY IN FEET History of Any Multi-Drug Resistant Organisms: None Reported Past Surgical History: Appendectomy, Back Surgery, Section, Cholecystectomy, Heart Catheterization, Hysterectomy, Joint Replacement, Orthopedic Surgery Additional Past Surgical History / Comment(s): RADIO FREQUENCY ABLATION to C3-5 , laparoscopies to drain ovarian cyst, bilat feet sx, rt trigger thumb sx, colonoscopy. RT KNEE SCOPE 06/09/16, LAPAROSCOPY 09/23/17 LYSIS OF ADHESIONS, rt knee replacement 10/2016, fusion L4-5 S-1 Past Anesthesia/Blood Transfusion Reactions: Motion Sickness, Postoperative Nausea & Vomiting (PONV) Past Psychological History: Anxiety Smoking Status: Current every day smoker Past Alcohol Use History: None Reported Additional Past Alcohol Use History / Comment(s): smokes 1/2 ppd, off and on since age 13. Patient denies any marijuana, street drug use or alcohol use. She denies any recent travel. 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 She does have birds, fish and a dog in the home. Past Drug Use History: None Reported - Past Family History Mother Family Medical History: Deep Vein Thrombosis (DVT) Father Family Medical History: Cancer Additional Family Medical History / Comment(s): Bladder Medications and Allergies Home Medications Medication Instructions Recorded Confirmed Type Albuterol Inhaler [Ventolin Hfa 1 puff INHALATION RT-BID PRN 02/26/14 12/24/18 History Inhaler] Diclofenac Sodium [Voltaren] 75 mg PO BID 06/04/16 12/24/18 History Gabapentin [Neurontin] 900 mg PO TID 06/04/16 12/24/18 History Verapamil HCl [Verapamil ER] 120 mg PO QAM 06/04/16 12/24/18 History metFORMIN HCL [Glucophage] 500 mg PO BID 06/04/16 12/24/18 History Ascorbic Acid [Vitamin C] 500 mg PO DAILY 09/21/17 12/24/18 History Famotidine 20 mg PO BID 09/21/17 12/24/18 History DULoxetine HCL [Cymbalta] 90 mg PO DAILY 01/19/18 12/24/18 History Amitriptyline HCl 10 mg PO HS 10/04/18 12/24/18 History Hyoscyamine Sulfate [Levsin] 0.125 mg PO DAILY PRN 10/04/18 12/24/18 History Multivitamins, Thera [Multivitamin 1 tab PO DAILY 10/04/18 12/24/18 History (formulary)] diphenhydrAMINE [Benadryl] 25 mg PO TID PRN 10/04/18 12/24/18 History Acetaminophen Tab [Tylenol] 500 mg PO Q8H 12/24/18 12/24/18 History Furosemide [Lasix] 20 mg PO DAILY 12/24/18 12/24/18 History Levofloxacin [Levaquin] 500 mg PO DAILY 12/24/18 12/24/18 History Potassium Chloride ER [K-Dur 10] 10 meq PO DAILY 12/24/18 12/24/18 History Testosterone Cypionate 25 mg PO Q14D 12/24/18 12/24/18 History [Depo-Testosterone] methylPREDNISolone Dose Pack See Taper PO DIRECTED 12/24/18 12/24/18 History [Medrol Dose Pack] Allergies Allergy/AdvReac Type Severity Reaction Status Date / Time apple [Apple] Allergy Rash/Hives Verified 12/24/18 11:54 aspirin Allergy Rash/Hives Verified 12/24/18 11:54 Beef Containing Products Allergy Rash/Hives Verified 12/24/18 11:54 cinnamon [Cinnamon] Allergy Rash/Hives Verified 12/24/18 11:54 cocoa [[place]] Allergy Rash/Hives Verified 12/24/18 11:54 dill oil Allergy Rash/Hives Verified 12/24/18 11:54 egg Allergy Rash/Hives Verified 12/24/18 11:54 frovatriptan succinate Allergy Nausea & Verified 12/24/18 11:54 [From Frova] Vomiting plus throat swelling grapefruit [Grapefruit] Allergy Rash/Hives Verified 12/24/18 11:54 peas Allergy Rash/Hives Verified 12/24/18 11:54 Poultry [[place]] Allergy Rash/Hives Verified 12/24/18 11:54 soy Allergy Rash/Hives Verified 12/24/18 11:54 spinach Allergy Rash/Hives Verified 12/24/18 11:54 yeast, dried [yeast] Allergy Rash/Hives Verified 12/24/18 11:54 orange AdvReac Rash/Hives Verified 12/24/18 11:54 DECONGESTANTS Allergy Rash/Hives Uncoded 10/06/18 08:38 salmon Allergy Rash/Hives Uncoded 10/06/18 08:37 solumedrol IV only Allergy Rash/Hives Uncoded 10/06/18 08:37 Physical Exam Vitals: Vital Signs Temp Pulse Pulse Resp BP BP Pulse Ox 12/26/18 08:00 65 18 12/26/18 07:56 68 12/26/18 07:37 68 12/26/18 07:10 98.3 F 65 18 106/70 95 12/26/18 03:34 16 12/26/18 00:00 98.2 F 74 16 113/54 95 12/25/18 20:00 97.9 F 78 16 129/74 96 12/25/18 16:00 77 18 12/25/18 15:44 98.4 F 77 18 126/70 97 12/25/18 12:00 98.2 F 74 18 129/87 97 Intake and Output 12/25/18 12/26/18 12/26/18 22:59 06:59 14:59 Intake Total 240 Balance 240 Intake: Oral 240 Other: Voiding Method Toilet Toilet Toilet # Voids 2 2 On physical exam there is moderate swelling of bilateral hands and mild swelling of the wrists with good range of motion. On physical exam patient does exhibit bilateral moderate swelling of the hands and mild swelling of the wrists. Patient has good range of motion of joints. Cardiac exam revealed mild systolic ejection murmur. Lungs CTA. Abdomen, soft nontender. Paitent is eating a snack and in general feels better since receiving prednisone this morning in terms of joint pain. Results CBC & Chem 7: 12/24/18 11:42 12/24/18 11:42 Labs: Abnormal Lab Results - Last 24 Hours (Table) 12/25/18 12/25/18 12/25/18 Range/Units 11:48 14:57 14:57 POC Glucose (mg/dL) 160 H (75-99) mg/dL Creatine Kinase 24 L (30-135) U/L TSH 0.229 L (0.465-4.680) mIU/L 12/25/18 12/25/18 Range/Units 16:45 20:29 POC Glucose (mg/dL) 130 H 171 H (75-99) mg/dL Creatine Kinase (30-135) U/L TSH (0.465-4.680) mIU/L Microbiology - Last 24 Hours (Table) 12/24/18 11:42 Blood Culture - Preliminary Blood No Growth after 24 hours Assessment and Plan Assessment: Review of labs patient's white blood cell count is 15.4, hemoglobin 15.1, hematocrit 47.0. CMP revealed creatinine 0.59, elevated glucose 105, CRP mildly elevated 10, [place] negative. UA revealed 1+ proteinuria trace ketones. ESR 9, patient is on prednisone. Hepatitis panel normal. Rheumatoid factor negative, CCP negative. CXR revealed chronic changes with no evidence of acute cardiopulmonary process. Echocardiogram revealed mild left ventricular hypertrophy with normal ejection fraction between 55-60% mild aortic valve sclerosis, mild mitral regurgitation, mild tricuspid regurgitation Discussed with patient that she previously had 1433 serum protein positive which is fairly nonspecific however swelling may be related to undifferentiated inflammatory arthritis or cervical radiculopathy or carpal tunnel syndrome or combination thereof. Patient should be continued on prednisone 60 mg as she has noticed improvement of symptoms and may be discharged with taper of prednisone, however patient is diabetic. Patient may benefit from diagnostic ultrasound of the hands done as outpatient. If other serologies are positive or patient has any concerns patient may follow-up with us at our office as outpatient. (1) Hand pain Current Visit: Yes Status: Acute Priority: High Code(s): M79.643 - PAIN IN UNSPECIFIED HAND SNOMED Code(s): 09553936 (2) Bilateral hand swelling Current Visit: Yes Status: Acute Priority: High Code(s): M79.89 - OTHER SPECIFIED SOFT TISSUE DISORDERS SNOMED Code(s): 860204367 (3) Systolic ejection murmur Current Visit: Yes Status: Chronic Code(s): R01.1 - CARDIAC MURMUR, UNSPECIFIED SNOMED Code(s): 13701844 (4) Unstable angina pectoris Current Visit: Yes Status: Resolved Code(s): I20.0 - UNSTABLE ANGINA SNOMED Code(s): 4065260 (5) Diabetes type 2, controlled Current Visit: No Status: Chronic Code(s): E11.9 - TYPE 2 DIABETES MELLITUS WITHOUT COMPLICATIONS SNOMED Code(s): 31381330 Time with Patient: Greater than 30
[2018-12-26 10:40] LABS: HLA B27 NEGATIVE
[2018-12-26 11:58] LABS: Glucose,Whole Blood 96 mg/dL (75-99)
[2018-12-26 12:05] VITALS: PULSE 65
[2018-12-26 12:09] LABS: Angiotensin-1 Converting Enz. 28 U/L (8-52)
--- NOTE | 2018-12-26 15:54 | P.PN ---
Subjective Progress Note Date: 12/26/18 This is a 48-year-old female gives history that about one month ago she started having swelling to her joints especially to her feet and hands but also involved her wrist, elbows shoulders and back. She states the swelling in her hands were so bad that she had to stop wearing her rings she was having trouble picking up things and was dropping items. She also had shortness of breath. She saw her primary care doctor and was put on prednisone and doxycycline for treatment of pneumonia. She thought her joints were feeling some improvement with this but she continued to have cough when she laid on her right side and she was having chest pain on the right lower lateral area as well as left of the sternal area. She went back to her doctor on and was then placed on Lasix again on a Medrol Dosepak and Levaquin 500 mg for 7 days. She states from night Tuesday and Tuesday all she did with sleep and felt exhausted all day she had decreased appetite along with nausea without vomiting and no diarrhea. She complains of headache and lightheadedness. She thought her urine was dark but denies any dysuria or increased frequency. She came into [facility] emergency center for evaluation and was found to be afebrile with white count of 15.4, creatinine 0.59. Troponins have been negative on 3 draws. [place] screen negative , C-reactive protein 10, d-dimer normal. Triglycerides cholesterol and LDL were all high. Urinalysis was clear, bilirubin 1+, mucus moderate. Nitrate and leukoesterase negative. Chest x-ray showed chronic changes without acute cardiopulmonary process. Echocardiogram reveals EF of 55-60% with mild concentric left ventricular hypertrophy, mild mitral regurgitation, mild tricuspid regurgitation, no mention of vegetation. The patient was seen by cardiology and plan was for echocardiogram to follow up on outpatient basis. Patient has now been seen by rheumatology and will likely be going home soon on a burst of steroids with follow-up in the rheumatology clinic. Infection workup has been negative so far. Patient [place] still complains of the significant amount of pain and swelling to her hands. Objective - Vital Signs Vital signs: Vital Signs Temp 98.3 F 12/26/18 07:10 Pulse 65 12/26/18 12:00 Resp 18 12/26/18 12:00 BP 106/70 12/26/18 07:10 Pulse Ox 95 12/26/18 07:10 Intake & Output 12/25/18 12/26/18 12/26/18 18:59 06:59 18:59 Intake Total 436 840 Balance 436 840 Intake: Oral 436 840 Other: Voiding Method Toilet Toilet Toilet # Voids 3 2 3 - Exam Gen: This is an obese 48-year-old female. Patient is resting in bed and appears to be comfortable. No acute respiratory distress is noted. HEENT: Head is atraumatic, normocephalic. Pupils equal, round. Sclerae is anicteric. Conjunctiva pink. Mucous members of the mouth are moist. Patient has had extensive dental work. NECK: Supple. No JVD. No lymphadenopathy. No thyromegaly. LUNGS: Clear to auscultation. No wheezes or rhonchi. No intercostal retractions. HEART: Regular rate and rhythm. Systolic murmur. ABDOMEN: Soft. Bowel sounds are present. No masses. No tenderness. EXTREMITIES: Trace bilateral pedal edema. Dorsalis pedis +2 bilaterally. Edema to bilateral hands with tenderness over joints. No rashes noted. Distinct tenderness to the digits is noted over all the joints. NEUROLOGICAL: Patient is awake, alert and oriented x3. - Labs CBC & Chem 7: 12/24/18 11:42 12/24/18 11:42 Labs: Abnormal Lab Results - Last 24 Hours (Table) 12/25/18 12/25/18 12/25/18 Range/Units 14:57 16:45 20:29 POC Glucose (mg/dL) 130 H 171 H (75-99) mg/dL TSH 0.229 L (0.465-4.680) mIU/L Microbiology - Last 24 Hours (Table) 12/24/18 11:42 Blood Culture - Preliminary Blood No Growth after 48 hours Laboratory Results WBC 15.4 k/uL (3.8-10.6) H 12/24/18 11:42 RBC 5.15 m/uL (3.80-5.40) 12/24/18 11:42 Hgb 15.1 gm/dL (11.4-16.0) 12/24/18 11:42 Hct 47.0 % (34.0-46.0) H 12/24/18 11:42 MCV 91.1 fL (80.0-100.0) 12/24/18 11:42 MCH 29.2 pg (25.0-35.0) 12/24/18 11:42 MCHC 32.1 g/dL (31.0-37.0) 12/24/18 11:42 RDW 13.8 % (11.5-15.5) 12/24/18 11:42 Plt Count 364 k/uL (150-450) 12/24/18 11:42 Neutrophils % 75 % 12/24/18 11:42 Lymphocytes % 17 % 12/24/18 11:42 Monocytes % 6 % 12/24/18 11:42 Eosinophils % 0 % 12/24/18 11:42 Basophils % 0 % 12/24/18 11:42 Neutrophils # 11.5 k/uL (1.3-7.7) H 12/24/18 11:42 Lymphocytes # 2.7 k/uL (1.0-4.8) 12/24/18 11:42 Monocytes # 1.0 k/uL (0-1.0) 12/24/18 11:42 Eosinophils # 0.1 k/uL (0-0.7) 12/24/18 11:42 Basophils # 0.0 k/uL (0-0.2) 12/24/18 11:42 ESR 9 mm/hr (0-20) 12/25/18 14:54 PT 10.4 sec (9.0-12.0) 12/24/18 11:42 INR 1.0 (<1.2) 12/24/18 11:42 APTT 37.5 sec (22.0-30.0) H 12/24/18 18:50 D-Dimer 0.41 mg/L FEU (<0.60) 12/24/18 11:42 Sodium 139 mmol/L (137-145) 12/24/18 11:42 Potassium 4.3 mmol/L (3.5-5.1) 12/24/18 11:42 Chloride 102 mmol/L (98-107) 12/24/18 11:42 Carbon Dioxide 28 mmol/L (22-30) 12/24/18 11:42 Anion Gap 9 mmol/L 12/24/18 11:42 BUN 18 mg/dL (7-17) H 12/24/18 11:42 Creatinine 0.59 mg/dL (0.52-1.04) 12/24/18 11:42 Est GFR (CKD-EPI)AfAm >90 (>60 ml/min/1.73 sqM) 12/24/18 11:42 Est GFR (CKD-EPI)NonAf >90 (>60 ml/min/1.73 sqM) 12/24/18 11:42 Glucose 105 mg/dL (74-99) H 12/24/18 11:42 POC Glucose (mg/dL) 96 mg/dL (75-99) 12/26/18 11:56 POC Glu [employer] Sales Manager ID Guadalupe Rios 12/26/18 11:56 Plasma Lactic Acid Alberto 1.4 mmol/L (0.7-2.0) 12/24/18 11:42 Uric Acid 4.1 mg/dL (3.7-7.4) 12/25/18 14:57 Calcium 9.6 mg/dL (8.4-10.2) 12/24/18 11:42 Magnesium 1.9 mg/dL (1.6-2.3) 12/24/18 11:42 Total Bilirubin 0.4 mg/dL (0.2-1.3) 12/24/18 11:42 AST 18 U/L (14-36) 12/24/18 11:42 ALT 24 U/L (9-52) 12/24/18 11:42 Alkaline Phosphatase 83 U/L (38-126) 12/24/18 11:42 Creatine Kinase 24 U/L (30-135) L 12/25/18 14:57 Troponin I <0.012 ng/mL (0.000-0.034) 12/24/18 23:55 C-Reactive Protein 8.7 mg/L (<10.0) 12/25/18 14:57 NT-Pro-B Natriuret Pep 27 pg/mL 12/24/18 11:42 Total Protein 7.2 g/dL (6.3-8.2) 12/24/18 11:42 Albumin 4.3 g/dL (3.5-5.0) 12/24/18 11:42 Triglycerides 267 mg/dL (<150) H 12/24/18 11:42 Cholesterol 250 mg/dL (<200) H 12/24/18 11:42 LDL Cholesterol, Calc 151 mg/dL (0-99) H 12/24/18 11:42 HDL Cholesterol 46 mg/dL (40-60) 12/24/18 11:42 Angiotensin Convert Enz 28 U/L (8-52) 12/25/18 14:59 TSH 0.229 mIU/L (0.465-4.680) L 12/25/18 14:57 Free T4 1.04 ng/dL (0.78-2.19) 12/25/18 14:57 Urine Color Yellow 12/25/18 06:29 Urine Appearance Clear (Clear) 12/25/18 06:29 Urine pH 6.5 (5.0-8.0) 12/25/18 06:29 Ur Specific [place] 1.033 (1.001-1.035) 12/25/18 06:29 Urine Protein 1+ (Negative) H 12/25/18 06:29 Urine Glucose (UA) Negative (Negative) 12/25/18 06:29 Urine Ketones Trace (Negative) H 12/25/18 06:29 Urine Blood Negative (Negative) 12/25/18 06:29 Urine Nitrite Negative (Negative) 12/25/18 06:29 Urine Bilirubin 1+ (Negative) H 12/25/18 06:29 Urine Urobilinogen 3.0 mg/dL (<2.0) 12/25/18 06:29 Ur Leukocyte Esterase Negative (Negative) 12/25/18 06:29 Urine RBC 3 /hpf (0-5) 12/25/18 06:29 Urine WBC 1 /hpf (0-5) 12/25/18 06:29 Ur Squamous Epith Cells 2 /hpf (0-4) 12/25/18 06:29 Urine Mucus Moderate /hpf (None) H 12/25/18 06:29 Rheumatoid Factor 7 IU/mL (0-15) 12/25/18 14:57 Cycl Citrul Peptide IgG 0.7 U/mL 12/25/18 14:57 Cyclic Citrull Peptide NEGATIVE (NEGATIVE) 12/25/18 14:57 [place] Screen NEGATIVE (NEGATIVE) 12/24/18 11:42 HLA-B27 NEGATIVE 12/25/18 14:59 HLA-B27 Comment SEEBELOW 12/25/18 14:59 Hepatitis A IgM Ab Non-Reactive (Non-Reactive) 12/25/18 14:55 Hep Bs Antigen Non-Reactive (Non-Reactive) 12/25/18 14:55 Hep B Core IgM Ab Non-Reactive (Non-Reactive) 12/25/18 14:55 Hep C IgG Ab Non-Reactive (Non-Reactive) 12/25/18 14:55 Microbiology 12/24/18 11:42 Blood Blood Culture - Preliminary No Growth after 48 hours Assessment and Plan (1) Bilateral hand swelling Narrative/Plan: 48 year old woman with many medical troubles including severe arthritis with a right total knee arthroplasty and prior fusion of her spine because of the arthritis. As noted she complains that she feels like she's had fever but there are no documented fevers since presenting to the ER. As noted she complains of fatigue is a major part of her illness. She has severe joint pains but with the 2 courses of steroid therapy and symmetric microbials she definitely surgical better. Now feels worse severe joint aches in lower extremity edema that has responded to current steroid therapy. There is concern that she had pneumonia in the outpatient setting by current x-ray shows chronic changes without acute pneumonic infiltration. Concern for an underlying inflammatory condition causing her severe discomforts. The sed rate is requested to help further screen for underlying autoimmune disease as well as vasculitis. Given her age she should be checked for hepatitis C his potential for underlying infectious etiology of fatigue and joint complaints. Cultures are in process seems less likely that this underlying bacterial infectious etiology at this time. 12/25/2018 cultures are negative at this time. Not likely to be an acute bacterial process. Chest x-ray without pneumonia. Does have history of smoking and may have had some exacerbation of COPD that is now improved. She's been treated with several courses of outpatient antibiotic therapy including a quinolone which may have resulted in some of the tenderness to her joints and tendons. However she's been seen by rheumatology and I'm in agreement that an underlying autoimmune process is of great concern. Workup is in process. An infectious etiology for underlying autoimmune disease causing vasculitis is unlikely and her hepatitis C is negative. She'll follow-up with rheumatology in the outpatient setting. She has no need for antibiotic therapy at discharge. Status: Acute Priority: High Code(s): M79.89 - OTHER SPECIFIED SOFT TISSUE DISORDERS SNOMED Code(s): 422399110
--- NOTE | 2018-12-28 07:45 | DS ---
DISCHARGE SUMMARY DATE OF ADMISSION: 12/24/2018 DATE OF DISCHARGE: 12/26/2018 FINAL DIAGNOSES: 1. Acute oligo polyarthritis, probably from viral syndrome. 2. Diabetes mellitus type 2 on oral hypoglycemic. 3. Hyperlipidemia. 4. Primary osteoarthritis. 5. Chronic obstructive pulmonary disease in a current smoker. 6. Diabetic peripheral neuropathy. 7. Chronic nicotine dependence, patient is a cigarette smoker. 8. Obesity; body mass index 36.7. HOSPITAL COURSE: This patient presented with what she describes as low-grade fever at home. Pain and swelling om both the hands. The patient is put on steroids and NSAIDs. The patient's hepatitis screen was negative. Rheumatoid factor was negative. Cyclic citrull peptide IgG was unremarkable. Uric acid was 4.1. ESR was only 9. Troponin was negative. The patient did have some nonspecific chest pain. LDL did come back at 151. [place] screen was negative. The patient was also told to follow with Dr. Ojeda to check for carpal tunnel. CONSULTATIONS: Dr. Rowland from Rheumatology; Dr. Fletcher from Infectious Disease; Dr. Shanks from Cardiology. The patient's 2-D echocardiogram, EF of 55% to 60%. DISCHARGE MEDICATIONS: 1. Ventolin HFA 1 puff b.i.d. p.r.n. 2. Voltaren 75 mg b.i.d. 3. Neurontin 900 mg t.i.d. 4. Verapamil ER 120 mg p.o. daily. 5. Glucophage 5 mg p.o. b.i.d. 6. Vitamin C 500 mg p.o. daily. 7. Pepcid 20 mg b.i.d. 8. Cymbalta 90 mg p.o. daily. 9. Amitriptyline 10 mg q.h.s. 10.Levsin 0.125 mg p.o. daily p.r.n. 11.Multivitamin 1 tablet p.o. daily. 12.Tylenol 500 mg q.8. 13.Potassium 10 mEq p.o. daily. 14.Depo-Testosterone 25 mg q.14 days. 15.Atrovent HFA 2 puffs q.i.d. 16.Nicotine patch 14. 17.Prednisone taper. It was suggested to drop patient's Neurontin as an outpatient. Follow up with Dr. Rowland in 1 week. Follow up with Dr. Ojeda in 1 week. Follow up with Dr. Reina in 1 week. MMODL / IJN: [id number] /
== END 2018-12-26 14:40 | disposition home or self-care (01) ==
LOC: EC 10:37 → 1SOBS 13:21
PROVIDERS: ADMIT Hospitalist; ATTEND Hospitalist
DX: R07.9 Chest pain, unspecified (principal); M13.0 Polyarthritis, unspecified; I11.9 Hypertensive heart disease without heart failure; E78.2 Mixed hyperlipidemia; E11.42 Type 2 diabetes mellitus with diabetic polyneuropathy; K58.9 Irritable bowel syndrome, unspecified; I73.00 Raynaud's syndrome without gangrene; H40.9 Unspecified glaucoma; R51 Headache; F41.9 Anxiety disorder, unspecified; F17.210 Nicotine dependence, cigarettes, uncomplicated; Z68.36 Body mass index [BMI] 36.0-36.9, adult; E66.9 Obesity, unspecified; I49.9 Cardiac arrhythmia, unspecified; I83.90 Asymptomatic varicose veins of unspecified lower extremity; J44.9 Chronic obstructive pulmonary disease, unspecified; Z79.2 Long term (current) use of antibiotics; Z79.84 Long term (current) use of oral hypoglycemic drugs; Z79.1 Long term (current) use of non-steroidal anti-inflammatories (NSAID); Z79.899 Other long term (current) drug therapy; Z88.6 Allergy status to analgesic agent; Z91.012 Allergy to eggs; Z88.8 Allergy status to other drugs, medicaments and biological substances; Z91.018 Allergy to other foods; Z87.11 Personal history of peptic ulcer disease; Z87.01 Personal history of pneumonia (recurrent); Z90.49 Acquired absence of other specified parts of digestive tract; Z90.710 Acquired absence of both cervix and uterus; Z96.651 Presence of right artificial knee joint; Z98.1 Arthrodesis status; Z80.52 Family history of malignant neoplasm of bladder; Z83.2 Family history of diseases of the blood and blood-forming organs and certain disorders involving the immune mechanism
CPT/HCPCS: 96372 ×2; 96376; 96365; 96375; 99291; 36415; 94640 ×4; 93005; 93306; 85379; 86812; 84439; 83880; 80061; 80053; 80074; 85652; 84443; 82550; 82164; 83605; 83735; 84550; 84484; 85025; 85610; 85730; 86140 ×2; 86431; 81001; 87040 ×2; 86038; 86200; 73130; 71046; G0378 ×3; S4990 ×2; J1644 ×2; J1650 ×2; J1885; J7512 ×3

== ENCOUNTER 2018-12-31 11:22 | Observation (INO) | payer BC ==
[2018-12-31] MEDS ORDERED: NITROGLYCERIN OINT 1 INCH/GM PACKET TOPICAL STA (11:35)
[2018-12-31] MEDS ORDERED: ASPIRIN 81 MG PO STA (11:35)
--- NOTE | 2018-12-31 11:51 | ED ---
General Adult HPI - General Chief complaint: Chest Pain Stated complaint: chest pressure Time Seen by Provider: 12/31/18 11:25 Source: family, RN notes reviewed Mode of arrival: wheelchair Limitations: no limitations - History of Present Illness Initial comments: This is a 48-year-old female who presents emergency Department complaining of chest heaviness. Patient states it started yesterday morning well-hydrated and got continuously worse until today. Patient states her legs are very weak and complains of pain in her hands as well. Patient states she's also very lightheaded when she stands. Patient states she was diagnosed with pneumonia about 2-3 weeks ago she finished a course of antibiotics but she was here last week for similar symptoms of chest pain which subsided by the time she was discharged. Patient states she was told they thought it was some autoimmune disorder. Patient is a smoker and continues to smoke. Patient states this heaviness in her chest does not radiate anywhere she denies being short of breath. But she does state sitting up or standing up makes her dizzy. Patient denies any swelling to legs or calf tenderness. - Related Data Home Medications Medication Instructions Recorded Confirmed Albuterol Inhaler [Ventolin Hfa 1 puff INHALATION RT-BID PRN 02/26/14 12/31/18 Inhaler] Diclofenac Sodium [Voltaren] 75 mg PO DAILY 06/04/16 12/31/18 Gabapentin [Neurontin] 900 mg PO TID 06/04/16 12/31/18 Verapamil HCl [Verapamil ER] 120 mg PO QAM 06/04/16 12/31/18 metFORMIN HCL [Glucophage] 500 mg PO BID 06/04/16 12/31/18 Ascorbic Acid [Vitamin C] 500 mg PO DAILY 09/21/17 12/31/18 Famotidine 20 mg PO BID 09/21/17 12/31/18 DULoxetine HCL [Cymbalta] 90 mg PO DAILY 01/19/18 12/31/18 Amitriptyline HCl 10 mg PO HS 10/04/18 12/31/18 Hyoscyamine Sulfate [Levsin] 0.125 mg PO DAILY PRN 10/04/18 12/31/18 Multivitamins, Thera [Multivitamin 1 tab PO DAILY 10/04/18 12/31/18 (formulary)] diphenhydrAMINE [Benadryl] 25 mg PO DAILY PRN 12/31/18 12/31/18 predniSONE See Taper PO DAILY 12/31/18 12/31/18 Allergies Allergy/AdvReac Type Severity Reaction Status Date / Time apple [Apple] Allergy Rash/Hives Verified 12/31/18 11:26 aspirin Allergy Rash/Hives Verified 12/31/18 11:26 Beef Containing Products Allergy Rash/Hives Verified 12/31/18 11:26 cinnamon [Cinnamon] Allergy Rash/Hives Verified 12/31/18 11:26 cocoa [[place]] Allergy Rash/Hives Verified 12/31/18 11:26 dill oil Allergy Rash/Hives Verified 12/31/18 11:26 egg Allergy Rash/Hives Verified 12/31/18 11:26 frovatriptan succinate Allergy Nausea & Verified 12/31/18 11:26 [From Frova] Vomiting plus throat swelling grapefruit [Grapefruit] Allergy Rash/Hives Verified 12/31/18 11:26 peas Allergy Rash/Hives Verified 12/31/18 11:26 Poultry [[place]] Allergy Rash/Hives Verified 12/31/18 11:26 soy Allergy Rash/Hives Verified 12/31/18 11:26 spinach Allergy Rash/Hives Verified 12/31/18 11:26 yeast, dried [yeast] Allergy Rash/Hives Verified 12/31/18 11:26 orange AdvReac Rash/Hives Verified 12/31/18 11:26 DECONGESTANTS Allergy Rash/Hives Uncoded 12/31/18 11:26 salmon Allergy Rash/Hives Uncoded 12/31/18 11:26 solumedrol IV only Allergy Rash/Hives Uncoded 12/31/18 11:26 Review of Systems ROS Statement: Those systems with pertinent positive or pertinent negative responses have been documented in the HPI. ROS Other: All systems not noted in ROS Statement are negative. Past Medical History Past Medical History: Diabetes Mellitus, Eye Disorder, Musculoskeletal Disorder, Neurologic Disorder, Osteoarthritis (OA), Pneumonia Additional Past Medical History / Comment(s): NATHALIA Glaucoma. Irregular heart beat. Raynauds. STOMACH Ulcers. IBS. VARICOSE VEINS, EDEMA NATHALIA LEGS W/ PAIN, NEUROPATHY IN FEET History of Any Multi-Drug Resistant Organisms: None Reported Past Surgical History: Appendectomy, Back Surgery, Section, Cholecystectomy, Heart Catheterization, Hysterectomy, Joint Replacement, Orthop edic Surgery Additional Past Surgical History / Comment(s): RADIO FREQUENCY ABLATION to C3-5, laparoscopies to drain ovarian cyst, bilat feet sx, rt trigger thumb sx, colonoscopy. RT KNEE SCOPE 06/09/16, LAPAROSCOPY 09/23/17 LYSIS OF ADHESIONS, rt knee replacement 10/2016, fusion L4-5 S-1 Past Anesthesia/Blood Transfusion Reactions: Motion Sickness, Postoperative Nausea & Vomiting (PONV) Past Psychological History: Anxiety Smoking Status: Current every day smoker Past Alcohol Use History: None Reported Past Drug Use History: None Reported - Past Family History Mother Family Medical History: Deep Vein Thrombosis (DVT) Father Family Medical History: Cancer Additional Family Medical History / Comment(s): Bladder General Exam - General Exam Comments Initial Comments: GENERAL: Patient is well-developed and well-nourished. Patient is nontoxic and well- hydrated and is in mild distress. ENT: Neck is soft and supple. No significant lymphadenopathy is noted. Oropharynx is clear. Moist mucous membranes. Neck has full range of motion without eliciting any pain. EYES: The sclera were anicteric and conjunctiva were pink and moist. Extraocular movements were intact and pupils were equal round and reactive to light. Eyelids were unremarkable. PULMONARY: Unlabored respirations. Good breath sounds bilaterally. No audible rales rhonchi or wheezing was noted. CARDIOVASCULAR: There is a regular rate and rhythm without any murmurs gallops or rubs. ABDOMEN: Soft and nontender with normal bowel sounds. No palpable organomegaly was noted. There is no palpable pulsatile mass. SKIN: Skin is clear with no lesions or rashes and otherwise unremarkable. NEUROLOGIC: Patient is alert and oriented x3. Cranial nerves II through XII are grossly intact. Motor and sensory are also intact. Normal speech, volume and content. Symmetrical smile. MUSCULOSKELETAL: Normal extremities with adequate strength and full range of motion. No lower extremity swelling or edema. No calf tenderness. LYMPHATICS: No significant lymphadenopathy is noted PSYCHIATRIC: Normal psychiatric evaluation. Limitations: no limitations Course Vital Signs 12/31/18 11:24 Temperature 98.7 F Pulse Rate 93 Respiratory 20 Rate Blood Pressure 114/71 O2 Sat by Pulse 97 Oximetry Medical Decision Making - Medical Decision Making I discussed smoking cessation for greater than 3 minutes. The risks of smoking were discussed with the patient including but not limited to risks of cancer, stroke, coronary artery disease and COPD. Also discussed with the patient were multiple methods of quitting smoking. Lastly we discussed the financial costs of smoking. EKG shows normal sinus rhythm at 86 bpm AK interval 144 QRS is 76 QT interval 342 QTC is 49. Patient's EKG shows no ST segment elevation or depression or T wave abnormalities are noted. Patient's chest x-ray shows no acute abnormality. Patient was still complaining of hand pain bilaterally since she's had 2 of morphine. Patient also is having success earlier with steroids I gave her dose. I spoke with Dr. Tolbert and Dr. Tolbert agreed to admit the patient admitted the patient I consult cardiology. I started patient on heparin. I continue the heparin and Nitropaste on the floor. - Lab Data Result diagrams: 12/31/18 12:00 12/31/18 12:00 Lab Results 12/31/18 12/31/18 12/31/18 Range/Units 12:00 12:00 12:00 WBC (3.8-10.6) k/uL RBC (3.80-5.40) m/uL Hgb (11.4-16.0) gm/dL Hct (34.0-46.0) % MCV (80.0-100.0) fL MCH (25.0-35.0) pg MCHC (31.0-37.0) g/dL RDW (11.5-15.5) % Plt Count (150-450) k/uL Neutrophils % % Lymphocytes % % Monocytes % % Eosinophils % % Basophils % % Neutrophils # (1.3-7.7) k/uL Lymphocytes # (1.0-4.8) k/uL Monocytes # (0-1.0) k/uL Eosinophils # (0-0.7) k/uL Basophils # (0-0.2) k/uL PT 9.7 (9.0-12.0) sec INR 0.9 (<1.2) APTT 22.9 (22.0-30.0) sec Sodium 136 L (137-145) mmol/L Potassium 4.6 (3.5-5.1) mmol/L Chloride 104 (98-107) mmol/L Carbon Dioxide 24 (22-30) mmol/L Anion Gap 8 mmol/L BUN 20 H (7-17) mg/dL Creatinine 0.56 (0.52-1.04) mg/dL Est GFR (CKD-EPI)AfAm >90 (>60 ml/min/1.73 sqM) Est GFR (CKD-EPI)NonAf >90 (>60 ml/min/1.73 sqM) Glucose 129 H (74-99) mg/dL Calcium 9.0 (8.4-10.2) mg/dL Magnesium 1.8 (1.6-2.3) mg/dL Total Bilirubin 0.4 (0.2-1.3) mg/dL AST 18 (14-36) U/L ALT 21 (9-52) U/L Alkaline Phosphatase 72 (38-126) U/L Troponin I <0.012 (0.000-0.034) ng/mL Total Protein 6.4 (6.3-8.2) g/dL Albumin 3.7 (3.5-5.0) g/dL 12/31/18 Range/Units 12:00 WBC 11.7 H (3.8-10.6) k/uL RBC 4.76 (3.80-5.40) m/uL Hgb 13.8 (11.4-16.0) gm/dL Hct 44.2 (34.0-46.0) % MCV 92.9 (80.0-100.0) fL MCH 29.1 (25.0-35.0) pg MCHC 31.3 (31.0-37.0) g/dL RDW 14.1 (11.5-15.5) % Plt Count 280 (150-450) k/uL Neutrophils % 84 % Lymphocytes % 11 % Monocytes % 3 % Eosinophils % 1 % Basophils % 0 % Neutrophils # 9.9 H (1.3-7.7) k/uL Lymphocytes # 1.3 (1.0-4.8) k/uL Monocytes # 0.4 (0-1.0) k/uL Eosinophils # 0.1 (0-0.7) k/uL Basophils # 0.0 (0-0.2) k/uL PT (9.0-12.0) sec INR (<1.2) APTT (22.0-30.0) sec Sodium (137-145) mmol/L Potassium (3.5-5.1) mmol/L Chloride (98-107) mmol/L Carbon Dioxide (22-30) mmol/L Anion Gap mmol/L BUN (7-17) mg/dL Creatinine (0.52-1.04) mg/dL Est GFR (CKD-EPI)AfAm (>60 ml/min/1.73 sqM) Est GFR (CKD-EPI)NonAf (>60 ml/min/1.73 sqM) Glucose (74-99) mg/dL Calcium (8.4-10.2) mg/dL Magnesium (1.6-2.3) mg/dL Total Bilirubin (0.2-1.3) mg/dL AST (14-36) U/L ALT (9-52) U/L Alkaline Phosphatase (38-126) U/L Troponin I (0.000-0.034) ng/mL Total Protein (6.3-8.2) g/dL Albumin (3.5-5.0) g/dL Critical Care Time Critical Care Time: Yes Total Critical Care Time: 35 Disposition Clinical Impression: Unstable angina pectoris Disposition: ADMITTED IP TO THIS HOSP Referrals: Ezekiel Reina MD [Primary Care Provider] - 1-2 days Time of Disposition: 13:36
[2018-12-31 12:29] LABS: INR 0.9 (<1.2); Partial Thromboplastin Time 22.9 sec (22.0-30.0); Prothrombin Time 9.7 sec (9.0-12.0)
--- NOTE | 2018-12-31 12:31 | XR ---
EXAMINATION TYPE: XR chest 2V DATE OF EXAM: 12/31/2018 COMPARISON: Prior chest 12/24/2017 HISTORY: Chest pain TECHNIQUE: Frontal and lateral views of the chest are obtained. FINDINGS: There is no focal air space opacity, pleural effusion, or pneumothorax seen. The cardiac silhouette size is within normal limits. The osseous structures are intact. There are cardiac leads present. IMPRESSION: No acute cardiopulmonary process.
[2018-12-31 12:38] LABS: ALT 21 U/L (9-52); AST 18 U/L (14-36); Albumin 3.7 g/dL (3.5-5.0); Alkaline Phosphatase 72 U/L (38-126); Anion Gap 8 mmol/L; Blood Urea Nitrogen 20 mg/dL (7-17); Carbon Dioxide 24 mmol/L (22-30); Chloride 104 mmol/L (98-107); Glucose 129 mg/dL (74-99); Magnesium 1.8 mg/dL (1.6-2.3); Potassium 4.6 mmol/L (3.5-5.1); Sodium 136 mmol/L (137-145); Total Bilirubin 0.4 mg/dL (0.2-1.3); Total Protein 6.4 g/dL (6.3-8.2)
[2018-12-31 12:41] LABS: Basophils % (A) 0 %; Eosinophils # (A) 0.1 k/uL (0-0.7); Eosinophils % (A) 1 %; HCT 44.2 % (34.0-46.0); HGB 13.8 gm/dL (11.4-16.0); Lymphocytes # (A) 1.3 k/uL (1.0-4.8); Lymphocytes % (A) 11 %; MCH 29.1 pg (25.0-35.0); MCHC 31.3 g/dL (31.0-37.0); MCV 92.9 fL (80.0-100.0); Mean Platelet Volume 6.1; Monocytes # (A) 0.4 k/uL (0-1.0); Monocytes % (A) 3 %; Neutrophils # (A) 9.9 k/uL (1.3-7.7); Neutrophils % (A) 84 %; Platelet Count 280 k/uL (150-450); RBC 4.76 m/uL (3.80-5.40); RDW 14.1 % (11.5-15.5); WBC 11.7 k/uL (3.8-10.6)
[2018-12-31] MEDS ORDERED: methylPREDNISolone SOD SUCCI 125 MG/2 ML VIAL IV STA (13:20)
[2018-12-31] MEDS ORDERED: MORPHINE SULFATE 2 MG/ML SYRINGE IVP STA (13:21)
[2018-12-31] MEDS ORDERED: NITROGLYCERIN SL TABS 0.4 MG TAB SUBLINGUAL PRN (13:36)
[2018-12-31] MEDS ORDERED: HEPARIN SODIUM,PORCINE 5,000 UNIT/ML 1 ML VIAL IV ONE (13:39)
[2018-12-31] MEDS ORDERED: HEPARIN SOD,PORK IN 0.45% NACL 25,000 UNIT in 0.45% NACL 1 250ML.BAG IV SCH (13:45)
[2018-12-31] MEDS: NITROGLYCERIN OINT 1 INCH/GM PACKET TOPICAL SCH (16:40)
[2018-12-31 16:47] LABS: Glucose,Whole Blood 175 mg/dL (75-99)
[2018-12-31] MEDS ORDERED: ALBUTEROL NEBULIZED 2.5 MG/3 ML INHALATION PRN (17:14)
[2018-12-31] MEDS ORDERED: diphenhydrAMINE 25 MG CAP PO PRN (17:14)
[2018-12-31 20:32] LABS: Glucose,Whole Blood 160 mg/dL (75-99)
[2018-12-31] MEDS: INSULIN ASPART (NovoLOG) 100 UNIT/ML VIAL SQ SCH (20:33)
[2018-12-31] MEDS: GABAPENTIN 300 MG CAP PO SCH (20:33)
[2018-12-31] MEDS: FAMOTIDINE 20 MG TAB PO SCH (20:33)
[2018-12-31] MEDS ORDERED: AMITRIPTYLINE HCL 10 MG TAB PO SCH (21:00)
[2018-12-31 23:16] VITALS: RESP 16
[2019-01-01] MEDS: NITROGLYCERIN OINT 1 INCH/GM PACKET TOPICAL SCH (00:51)
[2019-01-01 04:00] LABS: Cholesterol 232 mg/dL (<200); HDL Cholesterol 64 mg/dL (40-60); LDL Cholesterol,Calculated 137 mg/dL (0-99); Triglycerides 154 mg/dL (<150)
[2019-01-01 06:44] LABS: Glucose,Whole Blood 100 mg/dL (75-99)
[2019-01-01] MEDS ORDERED: ATROPINE SULFATE 0.1 MG/ML 10ML SYRINGE ONE (07:16)
[2019-01-01] MEDS ORDERED: DOBUTamine DRIP for NUC MED 500 MG in DEXTROSE/WATER 1 250ML.BAG IV ONE (08:05)
[2019-01-01] MEDS ORDERED: predniSONE 20 MG TAB PO SCH (09:00)
--- NOTE | 2019-01-01 10:18 | P.CRDCN ---
History of Present Illness History of present illness: This is a pleasant 48-year-old female past medical history significant for diabetes mellitus, dyslipidemia and chronic nicotine dependence. She follows in the office with Dr. Shanks. We have been asked to see her in consultation for symptoms of chest discomfort. She was here for the same last week. She states the pain starts in her fingers as an achy sensation. Then it moves up her hand and arm and then into the chest. It feels like someone is squeezing her torso tightly and results in a pressure in the mid-sternal region. She denies shortness of breath, dizziness, palpitations, nausea or diaphoresis. The symptoms are intermittent with no specific aggravating or alleviating factors. They occur typically at rest. She has undergone a cardiac catheterization in 2011 which revealed normal coronary arteries. Echocardiogram obtained last week reveals preserved LV systolic function with EF 55-60%, mild aortic valve sclerosis, mild MR and mild TR. EKG reveals sinus mechanism with no acute ST or T wave abnormalities noted. Chest x-ray is negative for an acute cardiopulmonary process. Laboratory data reviewed, WBC 11.7, cardiac enzymes negative 3, LDL 137. Current cardiac medications include verapamil 120 mg daily. At the time of my exam: CONSTITUTIONAL: Denies fever. Denies chills. EYES: Denies blurred vision. Denies vision changes. Denies eye pain. EARS, NOSE, MOUTH & THROAT: Denies headache. Denies sore throat. Denies ear pain. CARDIOVASCULAR: Denies chest pain. Denies shortness of breath. Denies orthopnea. Denies PND. Denies palpitations. RESPIRATORY: Denies cough. GASTROINTESTINAL: Denies abdominal pain. Denies diarrhea. Denies constipation. Denies nausea. Denies vomiting. MUSCULOSKELETAL: Complains of generalized aches and joint swelling. INTEGUMENTARY: Denies pruitis. Denies rash. NEUROLOGIC: Denies numbness. Denies tingling. Denies weakness. PSYCHIATRIC: Denies anxiety. Denies depression. ENDOCRINE: Denies fatigue. Denies weight change. Denies polydipsia. Denies polyurina. GENITOURINARY: Denies burning, hematuria or urgency with micturation. HEMATOLOGIC: Denies history of anemia. Denies bleeding. Blood pressure 101/61 heart rate 68 afebrile maintaining oxygen saturation GENERAL: This is a 48-year-old female in no apparent distress at the time of my examination. HEENT: Head is atraumatic, normocephalic. Pupils are equal, round. Sclerae anicteric. Conjunctivae are clear. Mucous membranes of the mouth are moist. Neck is supple. There is no jugular venous distention. No carotid bruit is heard. LUNGS: Clear to auscultation no wheezes, rales or rhonchi. No chest wall tenderness is noted on palpation or with deep breathing. HEART: Regular rate and rhythm with faint systolic ejection murmur at the base, no rubs or gallops. S1 and S2 heard. ABDOMEN: Soft, nontender. Bowel sounds are heard. No organomegaly noted. EXTREMITIES: No evidence of peripheral edema and no calf tenderness noted. VASCULAR: Radial and dorsalis pedis pulses palpated, no evidence of clubbing. NEUROLOGIC: Patient is awake, alert and oriented x3. ASSESSMENT Chest pain, atypical. An acute coronary event has been ruled out. Diabetes mellitus Dyslipidemia Chronic nicotine dependence PLAN An acute coronary event has been ruled out. Recent echocardiogram obtained and is normal. Perform dobutamine stress echocardiogram to assess her stress induced cardiac ischemia. If stress test is normal she is stable from a cardiac perspective. Smoking cessation recommended. Thank you kindly for this consultation. Nurse Practitioner note has been reviewed, I agree with a documented findings and plan of care. Patient was seen and examined. Past Medical History Past Medical History: Diabetes Mellitus, Eye Disorder, Musculoskeletal Disorder, Neurologic Disorder, Osteoarthritis (OA), Pneumonia Additional Past Medical History / Comment(s): NATHALIA Glaucoma. Irregular heart beat. Raynauds. STOMACH Ulcers. IBS. VARICOSE VEINS, EDEMA NATHALIA LEGS W/ PAIN, NEUROPATHY IN FEET History of Any Multi-Drug Resistant Organisms: None Reported Past Surgical History: Appendectomy, Back Surgery, Section, Cholecystectomy, Heart Catheterization, Hysterectomy, Joint Replacement, Orthopedic Surgery Additional Past Surgical History / Comment(s): RADIO FREQUENCY ABLATION to C3-5, laparoscopies to drain ovarian cyst, bilat feet sx, rt trigger thumb sx, colonoscopy. RT KNEE SCOPE 06/09/16, LAPAROSCOPY 09/23/17 LYSIS OF ADHESIONS, rt knee replacement 10/2016, fusion L4-5 S-1 Past Anesthesia/Blood Transfusion Reactions: Motion Sickness, Postoperative Nausea & Vomiting (PONV) Past Psychological History: Anxiety Smoking Status: Current every day smoker Past Alcohol Use History: None Reported Additional Past Alcohol Use History / Comment(s): smokes 1/2 ppd, off and on since age 13. Patient denies any marijuana, street drug use or alcohol use. She denies any recent travel. 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 She does have birds, fish and a dog in the home. Past Drug Use History: None Reported - Past Family History Mother Family Medical History: Deep Vein Thrombosis (DVT) Father Family Medical History: Cancer Additional Family Medical History / Comment(s): Bladder Medications and Allergies Home Medications Medication Instructions Recorded Confirmed Type Albuterol Inhaler [Ventolin Hfa 1 puff INHALATION RT-BID PRN 02/26/14 12/31/18 History Inhaler] Diclofenac Sodium [Voltaren] 75 mg PO DAILY 06/04/16 12/31/18 History Gabapentin [Neurontin] 900 mg PO TID 06/04/16 12/31/18 History Verapamil HCl [Verapamil ER] 120 mg PO QAM 06/04/16 12/31/18 History metFORMIN HCL [Glucophage] 500 mg PO BID 06/04/16 12/31/18 History Ascorbic Acid [Vitamin C] 500 mg PO DAILY 09/21/17 12/31/18 History Famotidine 20 mg PO BID 09/21/17 12/31/18 History DULoxetine HCL [Cymbalta] 90 mg PO DAILY 01/19/18 12/31/18 History Amitriptyline HCl 10 mg PO HS 10/04/18 12/31/18 History Hyoscyamine Sulfate [Levsin] 0.125 mg PO DAILY PRN 10/04/18 12/31/18 History Multivitamins, Thera [Multivitamin 1 tab PO DAILY 10/04/18 12/31/18 History (formulary)] diphenhydrAMINE [Benadryl] 25 mg PO DAILY PRN 12/31/18 12/31/18 History predniSONE See Taper PO DAILY 12/31/18 12/31/18 History Allergies Allergy/AdvReac Type Severity Reaction Status Date / Time apple [Apple] Allergy Rash/Hives Verified 12/31/18 11:26 aspirin Allergy Rash/Hives Verified 12/31/18 11:26 Beef Containing Products Allergy Rash/Hives Verified 12/31/18 11:26 cinnamon [Cinnamon] Allergy Rash/Hives Verified 12/31/18 11:26 cocoa [[place]] Allergy Rash/Hives Verified 12/31/18 11:26 dill oil Allergy Rash/Hives Verified 12/31/18 11:26 egg Allergy Rash/Hives Verified 12/31/18 11:26 frovatriptan succinate Allergy Nausea & Verified 12/31/18 11:26 [From Frova] Vomiting plus throat swelling grapefruit [Grapefruit] Allergy Rash/Hives Verified 12/31/18 11:26 peas Allergy Rash/Hives Verified 12/31/18 11:26 Poultry [[place]] Allergy Rash/Hives Verified 12/31/18 11:26 soy Allergy Rash/Hives Verified 12/31/18 11:26 spinach Allergy Rash/Hives Verified 12/31/18 11:26 yeast, dried [yeast] Allergy Rash/Hives Verified 12/31/18 11:26 orange AdvReac Rash/Hives Verified 12/31/18 11:26 DECONGESTANTS Allergy Rash/Hives Uncoded 12/31/18 11:26 salmon Allergy Rash/Hives Uncoded 12/31/18 11:26 solumedrol IV only Allergy Rash/Hives Uncoded 12/31/18 11:26 Physical Exam Vitals: Vital Signs Temp Pulse Pulse Resp BP BP Pulse Ox 01/01/19 03:28 98.5 F 67 16 101/61 95 01/01/19 03:22 64 16 12/31/18 23:16 64 16 12/31/18 23:15 98.0 F 64 16 103/65 98 12/31/18 19:41 98.3 F 76 16 100/62 98 12/31/18 15:48 68 18 12/31/18 14:25 98.4 F 68 18 104/63 94 L 12/31/18 14:00 98.0 F 73 18 118/60 97 12/31/18 13:00 79 19 111/68 95 12/31/18 11:24 98.7 F 93 20 114/71 97 Intake and Output 12/31/18 01/01/19 01/01/19 22:59 06:59 14:59 Intake Total 73.667 89.05 Balance 73.667 89.05 Intake: Intake, IV Titration 73.667 89.05 Amount Heparin Sod,Pork in 0.45% 73.667 89.05 NaCl 25,000 unit In 0.45 % NaCl 1 250ml.bag @ 10. 65 UNITS/KG/HR 10 mls/hr IV .Q24H [facility] Rx#: [id number] Other: Voiding Method Toilet Toilet # Voids 1 1 Results 12/31/18 12:00 12/31/18 12:00 Cardiac Enzymes 12/31/18 12/31/18 12/31/18 Range/Units 12:00 12:00 18:30 AST 18 (14-36) U/L Troponin I <0.012 <0.012 (0.000-0.034) ng/mL 12/31/18 Range/Units 23:35 AST (14-36) U/L Troponin I <0.012 (0.000-0.034) ng/mL Coagulation 12/31/18 12/31/18 01/01/19 Range/Units 12:00 20:39 03:15 PT 9.7 (9.0-12.0) sec APTT 22.9 30.2 H 46.2 H (22.0-30.0) sec Lipids 01/01/19 Range/Units 03:15 Triglycerides 154 H (<150) mg/dL Cholesterol 232 H (<200) mg/dL HDL Cholesterol 64 H (40-60) mg/dL CBC 12/31/18 Range/Units 12:00 WBC 11.7 H (3.8-10.6) k/uL RBC 4.76 (3.80-5.40) m/uL Hgb 13.8 (11.4-16.0) gm/dL Hct 44.2 (34.0-46.0) % Plt Count 280 (150-450) k/uL Comprehensive Metabolic Panel 12/31/18 Range/Units 12:00 Sodium 136 L (137-145) mmol/L Potassium 4.6 (3.5-5.1) mmol/L Chloride 104 (98-107) mmol/L Carbon Dioxide 24 (22-30) mmol/L BUN 20 H (7-17) mg/dL Creatinine 0.56 (0.52-1.04) mg/dL Glucose 129 H (74-99) mg/dL Calcium 9.0 (8.4-10.2) mg/dL AST 18 (14-36) U/L ALT 21 (9-52) U/L Alkaline Phosphatase 72 (38-126) U/L Total Protein 6.4 (6.3-8.2) g/dL Albumin 3.7 (3.5-5.0) g/dL Current Medications Generic Name Dose Route Start Last Admin Trade Name Freq PRN Reason Stop Dose Admin Albuterol Sulfate 2.5 mg 12/31/18 17:14 Ventolin Nebulized INHALATION RT-BID PRN Shortness Of Breath Amitriptyline HCl 10 mg 12/31/18 21:00 12/31/18 20:33 Elavil PO 10 mg HS SANDI Administration Diphenhydramine HCl 25 mg 12/31/18 17:14 Benadryl PO DAILY PRN Allergic Reaction Famotidine 20 mg 12/31/18 21:00 12/31/18 20:33 Pepcid PO 20 mg BID SANDI Administration Gabapentin 900 mg 12/31/18 22:00 12/31/18 20:33 Neurontin PO 900 mg TID SANDI Administration Heparin Sodium/Sodium Chloride 250 mls @ 10 mls/hr 12/31/18 13:45 01/01/19 04:20 25,000 unit/ Sodium Chloride IV 15.98 units/kg/hr .Q24H SANDI 15 mls/hr Titration Protocol 10.65 UNITS/KG/HR Insulin Aspart 0 unit 12/31/18 21:00 12/31/18 20:33 Novolog SQ 3 unit ACHS SANDI Administration Protocol Nitroglycerin 1 inch 12/31/18 18:00 01/01/19 00:51 Nitro-Bid Oint TOPICAL Not Given Q6HR [facility] Nitroglycerin 0.4 mg 12/31/18 13:36 Nitrostat SUBLINGUAL Q5M PRN Chest Pain Prednisone 60 mg 01/01/19 09:00 PO DAILY SANDI Intake and Output 12/31/18 01/01/19 01/01/19 22:59 06:59 14:59 Intake Total 73.667 89.05 Balance 73.667 89.05 Intake: Intake, IV Titration 73.667 89.05 Amount Heparin Sod,Pork in 0.45% 73.667 89.05 NaCl 25,000 unit In 0.45 % NaCl 1 250ml.bag @ 10. 65 UNITS/KG/HR 10 mls/hr IV .Q24H [facility] Rx#: [id number] Other: Voiding Method Toilet Toilet # Voids 1 1 12/31/18 12:00 12/31/18 12:00
[2019-01-01] MEDS: INSULIN ASPART (NovoLOG) 100 UNIT/ML VIAL SQ SCH (11:53)
[2019-01-01] MEDS: FAMOTIDINE 20 MG TAB PO SCH (11:54)
[2019-01-01] MEDS: GABAPENTIN 300 MG CAP PO SCH (11:54)
[2019-01-01 12:00] LABS: Glucose,Whole Blood 109 mg/dL (75-99)
[2019-01-01] MEDS ORDERED: VERAPAMIL SR 120 MG TABLET.ER PO SCH (12:30)
--- NOTE | 2019-01-01 12:45 | ECHOS ---
STRESS ECHOCARDIOGRAM DATE OF SERVICE: 01/01/2019 INDICATIONS: Chest pain. MEDICATIONS: BASELINE HEART RATE: 72 BASELINE BLOOD PRESSURE: 109/64 MAXIMUM HEART RATE: 152 MAXIMUM BLOOD PRESSURE: 159/33 85% MPHR: 145 100% MPHR: 171 METS: MAXIMUM STAGE REACHED: TOTAL EXERCISE TIME: CLINICAL INFORMATION: Baseline rhythm sinus mechanism, rate 72, normal axis, intervals normal. Normal electrocardiogram. Baseline blood pressure 109/64 mmHg. Patient received infusion of dobutamine per protocol. Peak rate 152 beats per minute which is equal to 89% maximum predicted heart rate. After receiving atropine, peak blood pressure 159/33 mmHg. Electrocardiograph monitoring revealed no evidence of diagnostic ischemic ST deviation. Baseline echocardiogram revealed normal wall thickening and motion. At peak infusion, there was normal wall motion augmentation with no hypokinesis or dyskinesis. CONCLUSION: 1. Normal electrocardiographic response to dobutamine infusion. 2. Normal stress echocardiogram with no evidence of stress induced ischemia. MMODL / IJN: [id number] /
[2019-01-01 13:17] VITALS: BP 106/58; PULSE 71; TEMP 98
--- NOTE | 2019-01-01 15:40 | P.HPIM ---
History of Present Illness H&P Date: 01/01/19 Chief Complaint: Chest tightness Patient is a 48-year-old female with a known history of diabetes type 2 [id number], history of stomach ulcer and IBS, bilateral peripheral neuropathy and Raynauds disease and chronic nicotine dependence came to ER with complaints of swelling of fingers on both hands. Patient says that her pain goes up to the arms and felt pressure-like sensation in the chest. Patient otherwise denied any complaints of dizziness or lightheadedness. No complains of shortness of breath or palpitations. No diaphoresis. No nausea vomiting or diarrhea. No aggravating or relieving factors. Patient also says that she does have subjective fevers, low-grade at home. Patient was admitted to the hospital with similar complaints about a week ago. She was seen by ID and rheumatology at the time. Patient was suspected to have inflammatory arthritis possibly due to acute viral infection and also infectious etiology for vasculitis was ruled out. ESR and CRP is not elevated. Hepatitis C negative. [place] negative. Rheumatoid factor and CCP negative as well. The patient was given tapering dose of steroids and recommended to follow with rhe umatology as an outpatient in the clinic. Patient is supposed to follow with rheumatology at 2 PM today. Patient was seen by cardiology that this time and underwent stress echocardiogram. Currently patient does not have any fever or chills. Chest x-ray showed no acute cardiopulmonary process. EKG showed normal sinus rhythm. Echocardiogram obtained last week reveals preserved LV systolic function with EF 55-60%, mild aortic valve sclerosis, mild MR and mild TR. WBC 11.7. Troponin 3 negative and LDL 137 Review of Systems Constitutional: Patient denies any fever or chills . No generalized weakness or weight loss. Abdomen: Patient denied nausea vomiting and diarrhea and abdominal pain. Cardiovascular patient complains of chest tightness. No short of breath no palpitations. Respiratory: patient denied any cough is from production. No shortness of breath Neurologic: Patient denied any numbness or tingling headache. Musculoskeletal: Patient does complain of pain and swelling of fingers. Fatigue. Skin: Negative Psychiatric: Negative Endocrine: No heat or cold intolerance. No recent weight gain. Genitourinary: No dysuria or hematuria. All other 14 point ROS negative except the above Past Medical History Past Medical History: Diabetes Mellitus, Eye Disorder, Musculoskeletal Disorder, Neurologic Disorder, Osteoarthritis (OA), Pneumonia Additional Past Medical History / Comment(s): NATHALIA Glaucoma. Irregular heart beat. Raynauds. STOMACH Ulcers. IBS. VARICOSE VEINS, EDEMA NATHALIA LEGS W/ PAIN, NEUROPATHY IN FEET History of Any Multi-Drug Resistant Organisms: None Reported Past Surgical History: Appendectomy, Back Surgery, Section, Cholecystectomy, Heart Catheterization, Hysterectomy, Joint Replacement, Orthopedic Surgery Additional Past Surgical History / Comment(s): RADIO FREQUENCY ABLATION to C3-5, laparoscopies to drain ovarian cyst, bilat feet sx, rt trigger thumb sx, colonoscopy. RT KNEE SCOPE 06/09/16, LAPAROSCOPY 09/23/17 LYSIS OF ADHESIONS, rt knee replacement 10/2016, fusion L4-5 S-1 Past Anesthesia/Blood Transfusion Reactions: Motion Sickness, Postoperative Nausea & Vomiting (PONV) Past Psychological History: Anxiety Smoking Status: Current every day smoker Past Alcohol Use History: None Reported Additional Past Alcohol Use History / Comment(s): smokes 1/2 ppd, off and on since age 13. Patient denies any marijuana, street drug use or alcohol use. She denies any recent travel. 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 She does have birds, fish and a dog in the home. Past Drug Use History: None Reported - Past Family History Mother Family Medical History: Deep Vein Thrombosis (DVT) Father Family Medical History: Cancer Additional Family Medical History / Comment(s): Bladder Medications and Allergies Home Medications Medication Instructions Recorded Confirmed Type Albuterol Inhaler [Ventolin Hfa 1 puff INHALATION RT-BID PRN 02/26/14 12/31/18 History Inhaler] Diclofenac Sodium [Voltaren] 75 mg PO DAILY 06/04/16 12/31/18 History Gabapentin [Neurontin] 900 mg PO TID 06/04/16 12/31/18 History Verapamil HCl [Verapamil ER] 120 mg PO QAM 06/04/16 12/31/18 History metFORMIN HCL [Glucophage] 500 mg PO BID 06/04/16 12/31/18 History Ascorbic Acid [Vitamin C] 500 mg PO DAILY 09/21/17 12/31/18 History Famotidine 20 mg PO BID 09/21/17 12/31/18 History DULoxetine HCL [Cymbalta] 90 mg PO DAILY 01/19/18 12/31/18 History Amitriptyline HCl 10 mg PO HS 10/04/18 12/31/18 History Hyoscyamine Sulfate [Levsin] 0.125 mg PO DAILY PRN 10/04/18 12/31/18 History Multivitamins, Thera [Multivitamin 1 tab PO DAILY 10/04/18 12/31/18 History (formulary)] diphenhydrAMINE [Benadryl] 25 mg PO DAILY PRN 12/31/18 12/31/18 History predniSONE See Taper PO DAILY 12/31/18 12/31/18 History Allergies Allergy/AdvReac Type Severity Reaction Status Date / Time apple [Apple] Allergy Rash/Hives Verified 12/31/18 11:26 aspirin Allergy Rash/Hives Verified 12/31/18 11:26 Beef Containing Products Allergy Rash/Hives Verified 12/31/18 11:26 cinnamon [Cinnamon] Allergy Rash/Hives Verified 12/31/18 11:26 cocoa [[place]] Allergy Rash/Hives Verified 12/31/18 11:26 dill oil Allergy Rash/Hives Verified 12/31/18 11:26 egg Allergy Rash/Hives Verified 12/31/18 11:26 frovatriptan succinate Allergy Nausea & Verified 12/31/18 11:26 [From Frova] Vomiting plus throat swelling grapefruit [Grapefruit] Allergy Rash/Hives Verified 12/31/18 11:26 peas Allergy Rash/Hives Verified 12/31/18 11:26 Poultry [[place]] Allergy Rash/Hives Verified 12/31/18 11:26 soy Allergy Rash/Hives Verified 12/31/18 11:26 spinach Allergy Rash/Hives Verified 12/31/18 11:26 yeast, dried [yeast] Allergy Rash/Hives Verified 12/31/18 11:26 orange AdvReac Rash/Hives Verified 12/31/18 11:26 DECONGESTANTS Allergy Rash/Hives Uncoded 12/31/18 11:26 salmon Allergy Rash/Hives Uncoded 12/31/18 11:26 solumedrol IV only Allergy Rash/Hives Uncoded 12/31/18 11:26 Physical Exam Vitals: Vital Signs Temp Pulse Pulse Resp BP BP Pulse Ox 01/01/19 12:00 66 16 01/01/19 08:00 98.3 F 66 16 107/59 98 03/11/19 03:28 98.5 F 67 16 101/61 95 01/01/19 03:22 64 16 12/31/18 23:16 64 16 12/31/18 23:15 98.0 F 64 16 103/65 98 12/31/18 19:41 98.3 F 76 16 100/62 98 12/31/18 15:48 68 18 12/31/18 14:25 98.4 F 68 18 104/63 94 L 12/31/18 14:00 98.0 F 73 18 118/60 97 12/31/18 13:00 79 19 111/68 95 Intake and Output 12/31/18 01/01/19 01/01/19 22:59 06:59 14:59 Intake Total 73.667 89.05 Balance 73.667 89.05 Intake: Intake, IV Titration 73.667 89.05 Amount Heparin Sod,Pork in 0.45% 73.667 89.05 NaCl 25,000 unit In 0.45 % NaCl 1 250ml.bag @ 10. 65 UNITS/KG/HR 10 mls/hr IV .Q24H [facility] Rx#: [id number] Other: Voiding Method Toilet Toilet Toilet # Voids 1 1 PHYSICAL EXAMINATION: Patient is lying in the bed comfortably, no acute distress, awake alert and oriented.. HEENT: Normocephalic. Neck is supple. Pupils reactive. Nostrils clear. Oral cavity is moist. Ears reveal no drainage. Neck reveals no JVD, carotid bruits, or thyromegaly. CHEST EXAMINATION: Trachea is central. Symmetrical expansion. Lung nunez clear to auscultation and percussion. CARDIAC: Normal S1, S2 with no gallops. No murmurs ABDOMEN: Soft. Bowel sounds normal. No organomegaly. No abdominal bruits. Extremities: reveal no edema. No clubbing or cyanosis. Neurologically awake, alert, oriented x3 with well-coordinated movements. No focal deficits noted Skin: No rash or skin lesions. Psychiatric: Coperative. Nonsuicidal Musculoskeletal: Patient does have minimal tenderness over the interphalangeal joints both hands. No significant swelling. Mild tenderness.. Results CBC & Chem 7: 12/31/18 12:00 12/31/18 12:00 Labs: Abnormal Lab Results - Last 24 Hours (Table) 12/31/18 12/31/18 12/31/18 Range/Units 16:46 20:18 20:39 APTT 30.2 H (22.0-30.0) sec POC Glucose (mg/dL) 175 H 160 H (75-99) mg/dL Triglycerides (<150) mg/dL Cholesterol (<200) mg/dL LDL Cholesterol, Calc (0-99) mg/dL HDL Cholesterol (40-60) mg/dL 01/01/19 01/01/19 01/01/19 Range/Units 03:15 03:15 06:40 APTT 46.2 H (22.0-30.0) sec POC Glucose (mg/dL) 100 H (75-99) mg/dL Triglycerides 154 H (<150) mg/dL Cholesterol 232 H (<200) mg/dL LDL Cholesterol, Calc 137 H (0-99) mg/dL HDL Cholesterol 64 H (40-60) mg/dL 01/01/19 Range/Units 11:52 APTT (22.0-30.0) sec POC Glucose (mg/dL) 109 H (75-99) mg/dL Triglycerides (<150) mg/dL Cholesterol (<200) mg/dL LDL Cholesterol, Calc (0-99) mg/dL HDL Cholesterol (40-60) mg/dL Thrombosis Risk Factor Assmnt - DVT/VTE Prophylaxis DVT/VTE Prophylaxis: Pharmacologic Prophylaxis ordered - Choose All That Apply Any of the Below Risk Factors Present?: Yes Each Factor Represents 1 point: Age 41-60 years Thrombosis Risk Factor Assessment Total Risk Factor Score: 1 Thrombosis Risk Factor Assessment Level: Low Risk Assessment and Plan Assessment: Tenderness and mild swelling of bilateral interphalangeal joints possible inflammatory arthritis. Recent rheumatological workup is negative. Chest tightness/atypical chest pain. Ruled out ACS Diabetes type 2 [id number] Hyperlipidemia Nicotine addiction Morbid obesity BMI 36.7 History of IBS Bilateral peripheral neuropathy diabetic Primary osteoarthritis of multiple joints Bilateral glaucoma Bilateral varicose veins and edema of bilateral legs History of cardiac catheterization 2011 with normal coronaries Anxiety Nicotine addiction DVT prophylaxis Plan: Patient was started on prednisone 60 mg daily. Continue with home medications and pain management. Patient has been afebrile. Cardiology recommends dobutamine stress echocardiogram which she was done this morning. Further recommendations based on the clinical course. Time with Patient: Greater than 30
== END 2019-01-01 14:00 | disposition home or self-care (01) ==
LOC: EC 11:22 → 1SOBS 13:36
PROVIDERS: ADMIT Internal Medicine; ATTEND Internal Medicine
DX: R07.89 Other chest pain (principal); R22.33 Localized swelling, mass and lump, upper limb, bilateral; M25.542 Pain in joints of left hand; M25.541 Pain in joints of right hand; H40.9 Unspecified glaucoma; E11.42 Type 2 diabetes mellitus with diabetic polyneuropathy; R42 Dizziness and giddiness; I83.90 Asymptomatic varicose veins of unspecified lower extremity; M15.9 Polyosteoarthritis, unspecified; I49.9 Cardiac arrhythmia, unspecified; I73.00 Raynaud's syndrome without gangrene; I83.93 Asymptomatic varicose veins of bilateral lower extremities; K58.9 Irritable bowel syndrome, unspecified; F41.9 Anxiety disorder, unspecified; E78.5 Hyperlipidemia, unspecified; I08.3 Combined rheumatic disorders of mitral, aortic and tricuspid valves; F17.210 Nicotine dependence, cigarettes, uncomplicated; E66.01 Morbid (severe) obesity due to excess calories; Z68.36 Body mass index [BMI] 36.0-36.9, adult; Z79.84 Long term (current) use of oral hypoglycemic drugs; Z79.1 Long term (current) use of non-steroidal anti-inflammatories (NSAID); Z79.899 Other long term (current) drug therapy; Z88.6 Allergy status to analgesic agent; Z91.012 Allergy to eggs; Z88.8 Allergy status to other drugs, medicaments and biological substances; Z91.018 Allergy to other foods; Z87.11 Personal history of peptic ulcer disease; Z90.49 Acquired absence of other specified parts of digestive tract; Z90.710 Acquired absence of both cervix and uterus; Z96.651 Presence of right artificial knee joint; Z87.01 Personal history of pneumonia (recurrent); Z98.1 Arthrodesis status; Z83.2 Family history of diseases of the blood and blood-forming organs and certain disorders involving the immune mechanism; Z80.52 Family history of malignant neoplasm of bladder
CPT/HCPCS: 96366 ×2; 96376; 96365; 96375; 99291; 36415; 93005; 93351; 80061; 80053; 83735; 84484; 85025; 85610; 85730 ×2; 71046; G0378 ×2; J1250; J1644 ×2; J2930; J0461; J2270; J7512; Q9950

== ENCOUNTER 2019-01-05 12:02 | Emergency (ER) | payer BC ==
[2019-01-05] MEDS ORDERED: diphenhydrAMINE 50 MG/ML 1 ML VIAL IVP STA (12:58)
--- NOTE | 2019-01-05 13:13 | ED ---
General Adult HPI - General Chief complaint: Recheck/Abnormal Lab/Rx Stated complaint: Seizure Time Seen by Provider: 01/05/19 12:42 Source: patient, RN notes reviewed Mode of arrival: wheelchair Limitations: no limitations - History of Present Illness Initial comments: This a 48-year-old female presents emergency Department with multiple complaints. His complaints are ongoing and chronic in nature. She has had 2 hospitalizations for reported extremity swelling, pain, chest discomfort. Patient denies any current chest pain or shortness of breath. Patient states that she saw her primary care physician Dr. Reina yesterday in which they believe this is related to ALLERGIES. Patient denies any new medications. Patient states that she's been having shaking episodes in which they usually resolve on their own. Patient states this one has been going on for 1 hour. Patient denies any focal weakness. Denies any current headache or dizziness. - Related Data Home Medications Medication Instructions Recorded Confirmed Albuterol Inhaler [Ventolin Hfa 1 puff INHALATION RT-BID PRN 02/26/14 01/05/19 Inhaler] Diclofenac Sodium [Voltaren] 75 mg PO DAILY 06/04/16 01/05/19 Gabapentin [Neurontin] 900 mg PO TID 06/04/16 01/05/19 Verapamil HCl [Verapamil ER] 120 mg PO QAM 06/04/16 01/05/19 metFORMIN HCL [Glucophage] 500 mg PO BID 06/04/16 01/05/19 Ascorbic Acid [Vitamin C] 500 mg PO DAILY 09/21/17 01/05/19 Famotidine 20 mg PO BID 09/21/17 01/05/19 DULoxetine HCL [Cymbalta] 90 mg PO DAILY 01/19/18 01/05/19 Amitriptyline HCl 10 mg PO HS 10/04/18 01/05/19 Hyoscyamine Sulfate [Levsin] 0.125 mg PO QID 10/04/18 01/05/19 Multivitamins, Thera [Multivitamin 1 tab PO DAILY 10/04/18 01/05/19 (formulary)] diphenhydrAMINE [Benadryl] 25 mg PO DAILY PRN 12/31/18 01/05/19 Allergies Allergy/AdvReac Type Severity Reaction Status Date / Time apple [Apple] Allergy Rash/Hives Verified 01/05/19 12:30 aspirin Allergy Rash/Hives Verified 01/05/19 12:30 Beef Containing Products Allergy Rash/Hives Verified 01/05/19 12:30 cinnamon [Cinnamon] Allergy Rash/Hives Verified 01/05/19 12:30 cocoa [[place]] Allergy Rash/Hives Verified 01/05/19 12:30 dill oil Allergy Rash/Hives Verified 01/05/19 12:30 egg Allergy Rash/Hives Verified 01/05/19 12:30 frovatriptan succinate Allergy Nausea & Verified 01/05/19 12:30 [From Frova] Vomiting plus throat swelling grapefruit [Grapefruit] Allergy Rash/Hives Verified 01/05/19 12:30 peas Allergy Rash/Hives Verified 01/05/19 12:30 Poultry [[place]] Allergy Rash/Hives Verified 01/05/19 12:30 soy Allergy Rash/Hives Verified 01/05/19 12:30 spinach Allergy Rash/Hives Verified 01/05/19 12:30 yeast, dried [yeast] Allergy Rash/Hives Verified 01/05/19 12:30 orange AdvReac Rash/Hives Verified 01/05/19 12:30 DECONGESTANTS Allergy Rash/Hives Uncoded 01/05/19 12:06 salmon Allergy Rash/Hives Uncoded 01/05/19 12:06 solumedrol IV only Allergy Rash/Hives Uncoded 01/05/19 12:06 Review of Systems ROS Statement: Those systems with pertinent positive or pertinent negative responses have been documented in the HPI. ROS Other: All systems not noted in ROS Statement are negative. Past Medical History Past Medical History: Diabetes Mellitus, Eye Disorder, Musculoskeletal Disorder, Neurologic Disorder, Osteoarthritis (OA), Pneumonia Additional Past Medical History / Comment(s): NATHALIA Glaucoma. Irregular heart beat. Raynauds. STOMACH Ulcers. IBS. VARICOSE VEINS, EDEMA NATHALIA LEGS W/ PAIN, NEUROPATHY IN FEET History of Any Multi-Drug Resistant Organisms: None Reported Past Surgical History: Appendectomy, Back Surgery, Section, Cholecystectomy, Heart Catheterization, Hysterectomy, Joint Replacement, Orthopedic Surgery Additional Past Surgical History / Comment(s): RADIO FREQUENCY ABLATION to C3-5, laparoscopies to drain ovarian cyst, bilat feet sx, rt trigger thumb sx, colonoscopy. RT KNEE SCOPE 06/09/16, LAPAROSCOPY 09/23/17 LYSIS OF ADHESIONS, rt knee replacement 10/2016, fusion L4-5 S-1 Past Anesthesia/Blood Transfusion Reactions: Motion Sickness, Postoperative Nausea & Vomiting (PONV) Past Psychological History: Anxiety Smoking Status: Current every day smoker Past Alcohol Use History: None Reported Past Drug Use History: None Reported - Past Family History Mother Family Medical History: Deep Vein Thrombosis (DVT) Father Family Medical History: Cancer Additional Family Medical History / Comment(s): Bladder General Exam Limitations: no limitations General appearance: alert, in no apparent distress Head exam: Present: atraumatic, normocephalic, normal inspection Eye exam: Present: normal appearance, PERRL, EOMI. Absent: scleral icterus, conjunctival injection, periorbital swelling ENT exam: Present: normal exam, normal oropharynx, mucous membranes moist, TM's normal bilaterally, normal external ear exam Neck exam: Present: normal inspection, full ROM. Absent: tenderness, meningismus, lymphadenopathy Respiratory exam: Present: normal lung sounds bilaterally. Absent: respiratory distress, wheezes, rales, rhonchi, stridor Cardiovascular Exam: Present: regular rate, normal rhythm, normal heart sounds. Absent: systolic murmur, diastolic murmur, rubs, gallop, clicks Extremities exam: Present: other (No noted joint swelling, erythema, pulses are equal bilaterally) Neurological exam: Present: alert, oriented X3, CN II-XII intact, reflexes normal. Absent: motor sensory deficit Skin exam: Present: warm, dry, intact, normal color. Absent: rash Course Vital Signs 01/05/19 12:04 Temperature 98.0 F Pulse Rate 85 Respiratory 18 Rate Blood Pressure 127/80 O2 Sat by Pulse 99 Oximetry - Reevaluation(s) Reevaluation #1: 01/05/19 13:28 I did contact her PCP Dr. Reina who stated that this is been ongoing issues and they have referred to an salt refiner as her IgG has been elevated even while on steroids. He stated that she has had a very extensive lengthy workup with no acute findings. He did recommend basic labs and if within normal limits that the patient can follow-up on Tuesday. Medical Decision Making - Medical Decision Making 48-year-old female presented for ongoing issues with reported swelling with no obvious findings, shaking, not feeling well. I did discuss this with her PCP who stated this is found to be ALLERGIC. He does recommend basic labs and follow-up on Tuesday. Patient will be discharged after labs are essentially unremarkable. Patient is stable. Patient updated on plan of care. - Lab Data Result diagrams: 01/05/19 13:59 01/05/19 14:52 Lab Results 01/05/19 01/05/19 Range/Units 13:59 14:52 WBC 14.4 H (3.8-10.6) k/uL RBC 4.67 (3.80-5.40) m/uL Hgb 13.8 (11.4-16.0) gm/dL Hct 43.5 (34.0-46.0) % MCV 93.2 (80.0-100.0) fL MCH 29.6 (25.0-35.0) pg MCHC 31.8 (31.0-37.0) g/dL RDW 14.3 (11.5-15.5) % Plt Count 302 (150-450) k/uL Neutrophils % 79 % Lymphocytes % 15 % Monocytes % 4 % Eosinophils % 1 % Basophils % 0 % Neutrophils # 11.4 H (1.3-7.7) k/uL Lymphocytes # 2.1 (1.0-4.8) k/uL Monocytes # 0.5 (0-1.0) k/uL Eosinophils # 0.2 (0-0.7) k/uL Basophils # 0.0 (0-0.2) k/uL Sodium 138 (137-145) mmol/L Potassium 4.8 (3.5-5.1) mmol/L Chloride 107 (98-107) mmol/L Carbon Dioxide 25 (22-30) mmol/L Anion Gap 6 mmol/L BUN 18 H (7-17) mg/dL Creatinine 0.49 L (0.52-1.04) mg/dL Est GFR (CKD-EPI)AfAm >90 (>60 ml/min/1.73 sqM) Est GFR (CKD-EPI)NonAf >90 (>60 ml/min/1.73 sqM) Glucose 81 (74-99) mg/dL Calcium 9.1 (8.4-10.2) mg/dL Total Bilirubin 0.5 (0.2-1.3) mg/dL AST 18 (14-36) U/L ALT 24 (9-52) U/L Alkaline Phosphatase 58 (38-126) U/L Total Protein 6.3 (6.3-8.2) g/dL Albumin 3.7 (3.5-5.0) g/dL Disposition Clinical Impression: Tremor, Arthralgia Disposition: HOME SELF-CARE Condition: Stable Instructions (If sedation given, give patient instructions): Tremors (ED) Additional Instructions: Please return to the Emergency Department if symptoms worsen or any other concerns. Is patient prescribed a controlled substance at d/c from ED?: No Referrals: Ezekiel Reina MD [Primary Care Provider] - 1-2 days Time of Disposition: 15:16
[2019-01-05 14:22] LABS: Basophils % (A) 0 %; Eosinophils # (A) 0.2 k/uL (0-0.7); Eosinophils % (A) 1 %; HCT 43.5 % (34.0-46.0); HGB 13.8 gm/dL (11.4-16.0); Lymphocytes # (A) 2.1 k/uL (1.0-4.8); Lymphocytes % (A) 15 %; MCH 29.6 pg (25.0-35.0); MCHC 31.8 g/dL (31.0-37.0); MCV 93.2 fL (80.0-100.0); Mean Platelet Volume 6.5; Monocytes # (A) 0.5 k/uL (0-1.0); Monocytes % (A) 4 %; Neutrophils # (A) 11.4 k/uL (1.3-7.7); Neutrophils % (A) 79 %; Platelet Count 302 k/uL (150-450); RBC 4.67 m/uL (3.80-5.40); RDW 14.3 % (11.5-15.5); WBC 14.4 k/uL (3.8-10.6)
[2019-01-05 15:14] LABS: ALT 24 U/L (9-52); AST 18 U/L (14-36); Albumin 3.7 g/dL (3.5-5.0); Alkaline Phosphatase 58 U/L (38-126); Anion Gap 6 mmol/L; Blood Urea Nitrogen 18 mg/dL (7-17); Calcium 9.1 mg/dL (8.4-10.2); Carbon Dioxide 25 mmol/L (22-30); Chloride 107 mmol/L (98-107); Glucose 81 mg/dL (74-99); Potassium 4.8 mmol/L (3.5-5.1); Sodium 138 mmol/L (137-145); Total Bilirubin 0.5 mg/dL (0.2-1.3); Total Protein 6.3 g/dL (6.3-8.2)
[2019-01-05 16:03] VITALS: BP 132/68; PULSE 69; RESP 17; TEMP 98.1
== END 2019-01-05 16:03 | disposition home or self-care (01) ==
LOC: EC 12:02
DX: M25.50 Pain in unspecified joint (principal); R25.1 Tremor, unspecified; T78.40XA Allergy, unspecified, initial encounter; E11.42 Type 2 diabetes mellitus with diabetic polyneuropathy; K58.9 Irritable bowel syndrome, unspecified; M19.90 Unspecified osteoarthritis, unspecified site; F41.9 Anxiety disorder, unspecified; F17.200 Nicotine dependence, unspecified, uncomplicated; Z88.8 Allergy status to other drugs, medicaments and biological substances; Z91.013 Allergy to seafood; Z91.018 Allergy to other foods; Z91.02 Food additives allergy status; Z91.012 Allergy to eggs; Z88.6 Allergy status to analgesic agent; Z79.1 Long term (current) use of non-steroidal anti-inflammatories (NSAID); Z79.84 Long term (current) use of oral hypoglycemic drugs; Z79.899 Other long term (current) drug therapy; Z87.19 Personal history of other diseases of the digestive system; Z86.79 Personal history of other diseases of the circulatory system; Z95.818 Presence of other cardiac implants and grafts; Z96.651 Presence of right artificial knee joint
CPT/HCPCS: 36415; 80053; 85025; 99284; 96374; J1200

== ENCOUNTER → 2019-01-18 | Outpatient (CLI) | payer BC ==
[2019-01-18 17:00] LABS: Cyclic Citrullinated Pep IgG NEGATIVE (NEGATIVE); RNP <0.2 AI
[2019-01-18 17:11] LABS: Rheumatoid Factor 9 IU/mL (0-15)
== END | disposition home or self-care (01) ==
LOC: LABWHC1 09:56
PROVIDERS: ATTEND Internal Medicine
DX: M25.50 Pain in unspecified joint (principal)
CPT/HCPCS: 36415; 85652; 86038; 86140; 86200; 86235; 86431

== ENCOUNTER → 2019-02-23 | Outpatient (CLI) | payer BC ==
[2019-02-23 20:32] LABS: Gliadin AB IgA, Unit <0.2 U/mL
[2019-02-23 22:18] LABS: Egg White IgE <0.10 kU/L; Peanut IgE <0.10 kU/L
[2019-02-23 22:19] LABS: Soybean IgE <0.10 kU/L
[2019-02-26 01:48] LABS: Salmon IgE <0.35 kU/L (<0.35); Salmon IgE Class CLASS 0
[2019-02-26 02:17] LABS: White-Faced Hornet IgE <0.35 kU/L (<0.35); Yellow Jacket IgE Class CLASS 0
[2019-02-26 02:18] LABS: Paper Wasp IgE <0.35 kU/L (<0.35); Paper Wasp IgE Class CLASS 0; Yellow Hornet IgE <0.35 kU/L (<0.35)
[2019-02-26 11:57] LABS: Anti-Endomysial IgA Antibody <1:10 Titer (<1:10)
== END | disposition home or self-care (01) ==
LOC: LABWHC1 10:42
PROVIDERS: ATTEND Allergy & Immunology
DX: T78.3XXA Angioneurotic edema, initial encounter (principal); R10.9 Unspecified abdominal pain; R11.0 Nausea
CPT/HCPCS: 36415; 82784; 83516; 83520; 86003; 86160; 86255

== ENCOUNTER 2019-04-27 12:24 | Emergency (ER) | payer BC ==
[2019-04-27 12:36] VITALS: BP 127/89; PULSE 91; RESP 18; TEMP 98.1
[2019-04-27] MEDS ORDERED: MORPHINE SULFATE 4 MG/ML SYRINGE IVP STA (12:40)
--- NOTE | 2019-04-27 12:59 | ED ---
Fall HPI - General Chief Complaint: Fall Stated Complaint: Fall Time Seen by Provider: 04/27/19 12:37 Source: patient, EMS, RN notes reviewed Mode of arrival: EMS Limitations: physical limitation - History of Present Illness Initial Comments: 49-year-old female presents emergency Department via EMS chief complaint of fall. Patient states she walked on to her back porch/deck states that she fell through this onto her right side. Patient has complaints of head, neck, right shoulder pain, right hip pain, right knee pain right ankle pain. Patient had to be removed with the use of the fire department by cutting the deck. Patient is in c-collar. Patient states that her right shoulder is a worst pain. Patient was given 50 g a by EMS which mildly helped her pain. She denies any chest pain or shortness of breath. There is no loss conscious. - Related Data Home Medications Medication Instructions Recorded Confirmed Albuterol Inhaler [Ventolin Hfa 1 puff INHALATION RT-BID PRN 02/26/14 01/05/19 Inhaler] Diclofenac Sodium [Voltaren] 75 mg PO DAILY 06/04/16 01/05/19 Gabapentin [Neurontin] 900 mg PO TID 06/04/16 01/05/19 Verapamil HCl [Verapamil ER] 120 mg PO QAM 06/04/16 01/05/19 metFORMIN HCL [Glucophage] 500 mg PO BID 06/04/16 01/05/19 Ascorbic Acid [Vitamin C] 500 mg PO DAILY 09/21/17 01/05/19 Famotidine 20 mg PO BID 09/21/17 01/05/19 DULoxetine HCL [Cymbalta] 90 mg PO DAILY 01/19/18 01/05/19 Amitriptyline HCl 10 mg PO HS 10/04/18 01/05/19 Hyoscyamine Sulfate [Levsin] 0.125 mg PO QID 10/04/18 01/05/19 Multivitamins, Thera [Multivitamin 1 tab PO DAILY 10/04/18 01/05/19 (formulary)] diphenhydrAMINE [Benadryl] 25 mg PO DAILY PRN 12/31/18 01/05/19 Allergies Allergy/AdvReac Type Severity Reaction Status Date / Time apple [Apple] Allergy Rash/Hives Verified 01/05/19 12:30 aspirin Allergy Rash/Hives Verified 01/05/19 12:30 Beef Containing Products Allergy Rash/Hives Verified 01/05/19 12:30 cinnamon [Cinnamon] Allergy Rash/Hives Verified 01/05/19 12:30 cocoa [[place]] Allergy Rash/Hives Verified 01/05/19 12:30 dill oil Allergy Rash/Hives Verified 01/05/19 12:30 egg Allergy Rash/Hives Verified 01/05/19 12:30 frovatriptan succinate Allergy Nausea & Verified 01/05/19 12:30 [From Frova] Vomiting plus throat swelling grapefruit [Grapefruit] Allergy Rash/Hives Verified 01/05/19 12:30 peas Allergy Rash/Hives Verified 01/05/19 12:30 Poultry [Dix] Allergy Rash/Hives Verified 01/05/19 12:30 soy Allergy Rash/Hives Verified 01/05/19 12:30 spinach Allergy Rash/Hives Verified 01/05/19 12:30 yeast, dried [yeast] Allergy Rash/Hives Verified 01/05/19 12:30 orange AdvReac Rash/Hives Verified 01/05/19 12:30 DECONGESTANTS Allergy Rash/Hives Uncoded 01/05/19 12:06 salmon Allergy Rash/Hives Uncoded 01/05/19 12:06 solumedrol IV only Allergy Rash/Hives Uncoded 01/05/19 12:06 Review of Systems ROS Statement: Those systems with pertinent positive or pertinent negative responses have been documented in the HPI. ROS Other: All systems not noted in ROS Statement are negative. Past Medical History Past Medical History: Diabetes Mellitus, Eye Disorder, Musculoskeletal Disorder, Neurologic Disorder, Osteoarthritis (OA), Pneumonia Additional Past Medical History / Comment(s): NATHALIA Glaucoma. Irregular heart beat. Raynauds. STOMACH Ulcers. IBS. VARICOSE VEINS, EDEMA NATHALIA LEGS W/ PAIN, NEUROPATHY IN FEET History of Any Multi-Drug Resistant Organisms: None Reported Past Surgical History: Appendectomy, Back Surgery, Section, Cholecystectomy, Heart Catheterization, Hysterectomy, Joint Replacement, Orthopedic Surgery Additional Past Surgical History / Comment(s): RADIO FREQUENCY ABLATION to C3-5, laparoscopies to drain ovarian cyst, bilat feet sx, rt trigger thumb sx, colonoscopy. RT KNEE SCOPE 06/09/16, LAPAROSCOPY 09/23/17 LYSIS OF ADHESIONS, rt knee replacement 10/2016, fusion L4-5 S-1 Past Anesthesia/Blood Transfusion Reactions: Motion Sickness, Postoperative Nausea & Vomiting (PONV) Past Psychological History: Anxiety Smoking Status: Current every day smoker Past Alcohol Use History: None Reported Past Drug Use History: None Reported - Past Family History Mother Family Medical History: Deep Vein Thrombosis (DVT) Father Family Medical History: Cancer Additional Family Medical History / Comment(s): Bladder General Exam Limitations: no limitations General appearance: alert, in no apparent distress Head exam: Present: atraumatic, normocephalic, normal inspection Eye exam: Present: normal appearance, PERRL, EOMI. Absent: scleral icterus, conjunctival injection, periorbital swelling ENT exam: Present: normal exam, normal oropharynx, mucous membranes moist Neck exam: Present: normal inspection, tenderness. Absent: meningismus, full ROM (Patient in c-collar), lymphadenopathy Respiratory exam: Present: normal lung sounds bilaterally. Absent: respiratory distress, wheezes, rales, rhonchi, stridor, chest wall tenderness Cardiovascular Exam: Present: regular rate, normal rhythm, normal heart sounds. Absent: systolic murmur, diastolic murmur, rubs, gallop, clicks GI/Abdominal exam: Present: soft, normal bowel sounds. Absent: distended, tend erness, guarding, rebound, rigid Extremities exam: Present: other (Right knee there is old surgical scar noted, and with palpation to the lateral portion, mild discomfort with range of motion neurovascular intact right leg no obvious deformity or laceration, right ankle mildly tender to lateral portion, right hip tenderness with palpation no shortening or rotation right shoulder severe times with palpation mild swelling no ecchymosis no lacerations no obvious deformity remaining upper extremity within normal limits) Neurological exam: Present: alert, oriented X3, CN II-XII intact, reflexes normal. Absent: motor sensory deficit Skin exam: Present: warm, dry, intact, normal color. Absent: rash Course Vital Signs 04/27/19 12:32 Temperature 98.1 F Pulse Rate 91 Respiratory 18 Rate Blood Pressure 127/89 O2 Sat by Pulse 96 Oximetry Medical Decision Making - Medical Decision Making 49-year-old female presented for a fall. X-ray, CT is were obtained no acute fracture no intracranial hemorrhage. Patient has right shoulder strain, contusions. Patient will be discharged return parameters were discussed. Disposition Clinical Impression: Fall, Sprain of right shoulder, Head injury, Knee sprain, Ankle sprain Disposition: HOME SELF-CARE Condition: Stable Instructions (If sedation given, give patient instructions): Shoulder Sprain (ED) Additional Instructions: Please return to the Emergency Department if symptoms worsen or any other concerns. Is patient prescribed a controlled substance at d/c from ED?: No Referrals: Ezekiel Reina MD [Primary Care Provider] - 1-2 days Time of Disposition: 14:12
--- NOTE | 2019-04-27 13:27 | CT ---
EXAMINATION TYPE: CT brain simran coleman DATE OF EXAM: 04/27/2019 COMPARISON: 02/07/2014 HISTORY: Fall 4-5 foot through porch. Patient had to be extricated. CT DLP: 1858.[address] Brain: Unenhanced CT of the brain was performed. The ventricles, basal cisterns and sulci overlying the cerebral convexities demonstrate a normal appe arance. There is no evidence for intracranial hemorrhage or sulcal effacement. No mass effects are seen. If symptoms persist consider MRI. Osseous calvarium is intact. IMPRESSION: No acute intracranial process CT Cervical Spine: Unenhanced CT of the cervical spine was performed with bone and soft tissue window settings submitted . Coronal and sagittal reconstruction is obtained. There is normal alignment and prevertebral soft tissues. I do not see evidence for fracture or sublu xation. No significant degenerative changes are present. The lung apices are clear. IMPRESSION: No evidence for acute fracture or subluxation of the cervical spine.
--- NOTE | 2019-04-27 14:09 | XR ---
EXAMINATION TYPE: XR knee complete RT, XR shoulder complete RT, XR ankle complete RT, XR pelvis AP vi ew DATE OF EXAM: 04/27/2019 COMPARISON: NONE HISTORY: Pain TECHNIQUE: Frontal, lateral and oblique images of the right ankle are obtained. COMPARISON: None. FINDINGS: There is no acute fracture/dislocation evident. The joint spaces appear within normal rivas its. The overlying soft tissue appears unremarkable. IMPRESSION: There is no acute fracture or dislocation seen. EXAMINATION TYPE: XR knee complete RT, XR shoulder complete RT, XR ankle complete RT, XR pelvis AP vi ew DATE OF EXAM: 04/27/2019 CLINICAL HISTORY: pain TECHNIQUE: Three views of the right knee are obtained. COMPARISON: None. FINDINGS: There is no acute fracture/dislocation. Total knee arthroplasty changes are intact. The ov erlying soft tissue appears unremarkable. IMPRESSION: There is no acute fracture or dislocation.ICD 10 NO FRACTURE, INITIAL EVALUATION EXAMINATION TYPE: XR knee complete RT, XR shoulder complete RT, XR ankle complete RT, XR pelvis AP vi ew DATE OF EXAM: 04/27/2019 CLINICAL HISTORY: pain TECHNIQUE: Three views of the right shoulder are obtained. COMPARISON: None FINDINGS: There is no acute fracture/dislocation evident. The acromioclavicular and glenohumeral yancy int spaces appear narrowed. The visualized ribs are intact and unremarkable. IMPRESSION: 1. There is no acute fracture or dislocation. ICD 10 NO FRACTURE, INITIAL EVALUATION EXAMINATION TYPE: XR knee complete RT, XR shoulder complete RT, XR ankle complete RT, XR pelvis AP vi ew DATE OF EXAM: 04/27/2019 CLINICAL HISTORY: pain TECHNIQUE: Single view the pelvis is submitted. FINDINGS: No evidence for fracture, dislocation or bony lesion. Joint spaces are well-preserved. S I joints appear symmetric. IMPRESSION: 1. No acute fracture or dislocation seen. ICD 10 NO FRACTURE, INITIAL EVALUATION
[2019-04-27] MEDS ORDERED: ACET/COD 300 MG/30 MG STARTER PACK 6 TAB BTL PO STA (14:12)
== END 2019-04-27 15:26 | disposition home or self-care (01) ==
LOC: EC 12:24
DX: S43.401A Unspecified sprain of right shoulder joint, initial encounter (principal); S83.91XA Sprain of unspecified site of right knee, initial encounter; S93.401A Sprain of unspecified ligament of right ankle, initial encounter; S09.90XA Unspecified injury of head, initial encounter; L90.5 Scar conditions and fibrosis of skin; M25.551 Pain in right hip; M54.2 Cervicalgia; E11.42 Type 2 diabetes mellitus with diabetic polyneuropathy; M19.90 Unspecified osteoarthritis, unspecified site; F41.9 Anxiety disorder, unspecified; F17.200 Nicotine dependence, unspecified, uncomplicated; Z96.651 Presence of right artificial knee joint; Z98.1 Arthrodesis status; Z88.6 Allergy status to analgesic agent; Z88.8 Allergy status to other drugs, medicaments and biological substances; Z91.012 Allergy to eggs; Z91.018 Allergy to other foods; Z91.048 Other nonmedicinal substance allergy status; Z79.1 Long term (current) use of non-steroidal anti-inflammatories (NSAID); Z79.84 Long term (current) use of oral hypoglycemic drugs; Z79.899 Other long term (current) drug therapy; Z87.19 Personal history of other diseases of the digestive system; W22.03XA Walked into furniture, initial encounter
CPT/HCPCS: 72170; 73030; 73562; 73610; 72125; 70450; 99284; 96374; J2270

== ENCOUNTER → 2019-06-11 | Outpatient (CLI) | payer BC ==
--- NOTE | 2019-06-11 13:10 | MR ---
EXAMINATION TYPE: MR shoulder RT wo con DATE OF EXAM: 06/11/2019 COMPARISON: Plain film 05/29/2019 HISTORY: Right shoulder pain TECHNIQUE: Multiplanar, multisequence imaging of the right shoulder is performed without contrast. FINDINGS: Rotator Cuff: Abnormal thickening of the rotator cuff is present, there is associated increased signa l. At the anterior margin there is a partial full-thickness tear at the insertion of the supraspinatu s tendon Acromioclavicular Joint: Arthropathy is present causing mass effect on the musculotendinous junction of supraspinatus. There is a distal acromial spur. Fluid is present in the subacromial subdeltoid bur sa Glenohumeral Joint: Maintained Labrum: The labrum appears grossly intact given limitation of non-arthrogram study. Biceps Tendon: The long head of biceps is in normal location within bicipital groove. Bone marrow signal: Probable pseudocysts present in the humeral head. Other: No additional significant abnormality is appreciated. IMPRESSION: Partial rotator cuff tear as described, there is tendinosis, correlate for impingement. Additional fi ndings above.
== END | disposition home or self-care (01) ==
LOC: RADMRIMAIN 10:12
PROVIDERS: ATTEND Orthopaedic Surgery
DX: M75.110 Incomplete rotator cuff tear or rupture of unspecified shoulder, not specified as traumatic (principal); M19.011 Primary osteoarthritis, right shoulder

== ENCOUNTER 2019-07-19 05:53 | Day surgery (SDC) | payer BC ==
[2019-07-17 14:34] VITALS: BMI 36.8
--- NOTE | 2019-07-18 20:47 | HP ---
HISTORY AND PHYSICAL DATE OF SURGERY: 07/19/2019 Radha Triana is a 49-year-old patient seen with progressive right shoulder pain. We discussed treatment options with her. She elected to proceed with arthroscopy. Consent was obtained. PAST MEDICAL HISTORY: 1. Asthma. 2. Byy-ehotjkp-ujltilpai diabetes. 3. Gastroesophageal reflux disease. PAST SURGICAL HISTORY: 1. Cardiac catheterization. 2. Bilateral knee arthroscopy. 3. Cholecystectomy. 4. Hysterectomy. DAILY MEDICATIONS: 1. Albuterol. 2. Cymbalta. 3. Glucophage. 4. Verapamil. 5. Amitriptyline. 6. Meloxicam. 7. Methotrexate. ALLERGIES: 1. ASPIRIN. 2. SOLU-MEDROL. SOCIAL HISTORY: She smokes 3/4 pack of cigarettes daily. PHYSICAL EVALUATION OF THE RIGHT SHOULDER: Flexion 100 degrees, abduction 80 degrees. External rotation is 30 degrees with pain and weakness. There is tenderness along the anterolateral acromion and rotator cuff insertion site. Impingement sign is positive at 90 degrees. Drop-arm sign positive. Distal neurovascular exam intact. RADIOGRAPHS: Right shoulder radiographs revealed a type 2 anterior acromion, acromioclavicular joint osteoarthritis and cystic changes of the greater tuberosity. Right shoulder MRI revealed rotator cuff tear. IMPRESSION: 1. Right shoulder impingement with rotator cuff tear. 2. Asthma. 3. Ycd-waicxpy-ywyrjpurl diabetes. 4. Tobacco use. PLAN: Right shoulder arthroscopy with subacromial decompression, possible arthroscopic rotator cuff repair and debridement. MMODL / IJN: [id number] /
[~2019-07-19 05:53] MED LIST changes: -ACETAMINOPHEN IV (For NPO) 1,000 MG in EMPTY BAG 1 BAG IVPB ONE; -HEPARIN SODIUM,PORCINE 5,000 UNIT/ML 1 ML VIAL SQ ONE; +HYDROmorphone 0.5 MG/0.5 ML SYRINGE IVP PRN; -Pre Op ABX Message 1 EACH MISC MISCELLANE ONE; -ceFAZolin IN SWFI 2 GM/20 ML SYRINGE IVP ONE
[2019-07-19 06:28] LABS: Glucose,Whole Blood 97 mg/dL (75-99)
[2019-07-19] MEDS ORDERED: diphenhydrAMINE 50 MG/ML 1 ML VIAL IVP ONE (06:30)
[2019-07-19] MEDS ORDERED: fentaNYL (PF) 50 MCG/ML 2 ML AMP IV ONE (06:45)
[2019-07-19] MEDS ORDERED: SCOPOLAMINE 1.5MG/72HR PATCH TRANSDERM ONE (07:16)
[2019-07-19] MEDS ORDERED: DEXAMETHASONE SOD PHOSPHATE 4 MG/ML 1 ML VIAL ONE (07:25)
[2019-07-19] MEDS ORDERED: NEOSTIGMINE 1 MG/ML 10 ML VIAL ONE (07:25)
[2019-07-19] MEDS ORDERED: fentaNYL (PF) 50 MCG/ML 2 ML AMP ONE (07:25)
[2019-07-19] MEDS ORDERED: MIDAZOLAM 2 MG/2 ML VIAL ONE (07:25)
[2019-07-19] MEDS ORDERED: ROPIVACAINE 5 MG/ML 30 ML VIAL ONE (07:25)
[2019-07-19] MEDS ORDERED: LIDOCAINE 1% INJ 10MG/ML (20 ML MDV) ONE (07:25)
[2019-07-19] MEDS ORDERED: SUCCINYLCHOLINE CHLORIDE 100 MG/5 ML SYR IV ONE (07:25)
[2019-07-19] MEDS ORDERED: PROPOFOL 10 MG/ML 20 ML VIAL IV ONE (07:25)
[2019-07-19] MEDS ORDERED: GLYCOPYRROLATE 0.2 MG/ML 2 ML VIAL ONE (07:25)
[2019-07-19] MEDS ORDERED: ROCURONIUM BROMIDE 10 MG/ML 10 ML VIAL IV ONE (07:25)
[2019-07-19] MEDS ORDERED: LACTATED RINGERS 1,000 ML IV ONE (08:00)
--- NOTE | 2019-07-19 09:06 | P.OP ---
Date of Procedure: 07/19/19 Preoperative Diagnosis: Right shoulder impingement Postoperative Diagnosis: 1. Right shoulder rotator cuff tear 2. Right shoulder impingement 3. Right shoulder acromioclavicular joint osteoarthritis 4. Right shoulder partial long head biceps tendon tear Procedure(s) Performed: 1. Right shoulder arthroscopic rotator cuff repair 2. Right shoulder arthroscopic subacromial decompression 3. Right shoulder arthroscopic Antonieta procedure 4. Right shoulder arthroscopic biceps tenotomy Implants: 15.5 Arthrex swivel lock anchor Anesthesia: GETA, regional (Interscalene block) Surgeon: David Ojeda Shell Assembler #1: Akshat Avitia Estimated Blood Loss (ml): 8 Pathology: none sent Condition: stable Disposition: PACU Indications for Procedure: 49-year-old patient seen with progressive right shoulder pain. After treatment options were discussed, she elected to proceed with arthroscopy. Operative Findings: See description of procedure Description of Procedure: Patient underwent an interscalene block by department of anesthesia for postoperative pain management. The patient was then taken to the operative suite. The patient underwent a general anesthetic by the department of anesthesia. The patient was placed into a lateral position and secured. There was appropriate padding of the bony prominence. Right shoulder was then prepped and draped in normal sterile orthopedic fashion. We placed the extremity in 10 pounds of longitudinal traction. A posterior incision was now made for a posterior working portal site. The trocar and cannula were inserted into the glenohumeral joint. Arthroscopy was initiated. Spinal needle was now inserted anteriorly, to ascertain the anterior working portal site. An incision was now made in that area, a trocar was inserted followed by a probe. There was some superficial tearing and hyperemia of the long head biceps tendon. The labrum was probed and found to be stable. There was some mild grade 1 chondromalacia of the glenoid fossa. There was a rotator cuff tear I could visualize from the glenohumeral side. I performed an arthroscopic biceps tenotomy. I again probed the superior labrum and it was noted to be stable. Instruments were now removed from glenohumeral joint. Utilizing the posterior working portal site, the trocar and cannula were inserted into the subacromial space. Arthroscopy initiated. I made an incision 2 fingerbreadths lateral to the acromion. I introduced my trocar followed by my ArthroCare ablator. I now began ablating thick subacromial bursal tissue, which exposed the undersurface of the anterior acromion. There was diminished subacromial space. There was a very prominent anterior acromion. A motorized bur was introduced and a subacromial decompression was performed. I also excised some osteophytes off the inferior aspect of the distal clavicle. The AC joint was visualized and noted to be fairly arthritic. The motorized bur was introduced in the anterior portal site and a Antonieta procedure was performed without difficulty, decompressing the AC joint nicely. I turned my attention to the rotator cuff. There was a 1.5 cm rotator cuff tear. I debrided the margins getting down to stable tendon tissue. I introduced my motorized bur and abraded the footprint area, getting some petechial bleeding. I now with the assistance of Eliu CALDERON passed 3 everted mattress sutures through good bites of rotator cuff tendon which seemed to be in the entire tear nicely. I then punched the hole in the center of the footprint for insertion of an anchor. We passed all 6 limbs of suture through the eyelet of a 5.5 Arthrex swivel lock anchor. The eyelet was now placed into a pre-punch hole. I held the eyelet in position while Eliu CALDERON tension the sutures and then deployed the anchor with good compression and fixation noted. All residual suture limbs were now clipped. We had good compression of the tendon along the entire footprint. I injected 1 mL Renyte intra-articular. Instruments now removed from the portal sites. All portal sites were approximated with nylon suture. Sterile dressings were applied followed by a shoulder immobilizer. Akshat CALDERON assisted in this complex case. The patient was awakened, transferred to a bed, and taken to recovery in stable condition.
[2019-07-19 09:15] VITALS: TEMP 96.1
[2019-07-19 10:38] VITALS: BP 105/70; PULSE 73; RESP 16
--- NOTE | 2019-07-19 11:10 | P.ANPRN ---
Procedure Note - Anesthesia - Nerve Block Performed Right Interscalene Single Time Out Performed: Yes Date of Procedure: 07/19/19 Procedure Start Time: 06:44 Location of Patient Procedure: PreOp Indication: Acute Post-Operative Pain Specifically requested for management of pain by DrJanette: David Ojeda Sedation Type: Sedate with meaningful contact maintained Preparation: Sterile Prep Position: Supine Catheter: None Needle Types: Pajunk Needle Gauge: 21 Ultrasound used to visualize needle placement: Yes Ultrasound used to observe medication spread: Yes Injectate: 0.5% Ropivacaine (see comment for volume) (20cc) Blood Aspirated: No Pain Paresthesia on Injection Noted: No Resistance on Injection: Normal Image Stored and Saved: Yes Events: Uneventful and Well Tolerated
== END 2019-07-19 11:11 | disposition home or self-care (01) ==
LOC: OR 05:53
PROVIDERS: ATTEND Orthopaedic Surgery
DX: M75.101 Unspecified rotator cuff tear or rupture of right shoulder, not specified as traumatic (principal); M19.011 Primary osteoarthritis, right shoulder; M75.41 Impingement syndrome of right shoulder; M94.211 Chondromalacia, right shoulder; S46.111A Strain of muscle, fascia and tendon of long head of biceps, right arm, initial encounter; M25.711 Osteophyte, right shoulder; J45.909 Unspecified asthma, uncomplicated; F39 Unspecified mood [affective] disorder; E11.42 Type 2 diabetes mellitus with diabetic polyneuropathy; H40.9 Unspecified glaucoma; K21.9 Gastro-esophageal reflux disease without esophagitis; F17.210 Nicotine dependence, cigarettes, uncomplicated; Z79.84 Long term (current) use of oral hypoglycemic drugs; Z79.899 Other long term (current) drug therapy; Z90.710 Acquired absence of both cervix and uterus; Z88.6 Allergy status to analgesic agent; Z88.8 Allergy status to other drugs, medicaments and biological substances; Z90.49 Acquired absence of other specified parts of digestive tract; Z98.890 Other specified postprocedural states; X58.XXXA Exposure to other specified factors, initial encounter
CPT/HCPCS: 64415; 76942; 29824; 29826; 29827; C1713 ×2; C1765; J2250; J1200; J1100; J2710; J0690; J2405; J2001; J3010; J2795; J0330; J2704

== ENCOUNTER → 2020-04-09 | Outpatient (CLI) | payer BC ==
[2020-04-09 11:26] LABS: African American GFR (CKD) >90 (>60 ml/min/1.73 sqM); Blood Urea Nitrogen 12 mg/dL (7-17); Non-African American GFR(CKD) >90 (>60 ml/min/1.73 sqM)
--- NOTE | 2020-04-09 12:38 | CT ---
EXAMINATION TYPE: CT abdomen wo/w con DATE OF EXAM: 04/09/2020 HISTORY: left side renal mass, prior abnormal CT CT DLP: 1722mGycm Automated Exposure Control for Dose Reduction was Utilized. CONTRAST: CT scan of the abdomen is performed with oral and without and with IV Contrast, patient injected with 100 mL of Isovue 300. COMPARISON: CT abdomen and pelvis July 30, 2018 and older CTs through FINDINGS: LUNG BASES: No significant abnormality is appreciated. LIVER/GB: Cholecystectomy clips are redemonstrated. PANCREAS: No significant abnormality is seen. SPLEEN: No significant abnormality is seen. ADRENALS: No significant abnormality is seen. KIDNEYS: No renal calculi seen bilaterally. Postcontrast images show symmetric cortical medullary upt robin and excretion without hydronephrosis seen bilaterally. There is redemonstration of roughly 1.0 cm partially exophytic round lesion medially upper pole left kidney with suggestion of some heterogeneo us enhancement and washout in both coronal series 13 image 99 with some interval growth from 2018 CT where it was punctate in size at roughly 2 to 3 mm. No concerning solid or cystic mass in the right k idney. BOWEL: Oral contrast only reaches jejunal loops in the left abdomen. No suspicious small or large bow el dilatation. LYMPH NODES: No greater than 1cm abdominal lymph nodes are appreciated. OSSEOUS STRUCTURES: Postsurgical change with artificial disc material and anterior fusion device at L 4-L5 and L5-S1 levels redemonstrated. OTHER: No significant additional abnormality is seen. IMPRESSION: Suspicious round 1.0 cm heterogeneous partially exophytic enhancing mass medially upper p ole left kidney is worrisome for focal renal cell carcinoma. Patient may be candidate for ablation tr eatment. Referral advised.
== END | disposition home or self-care (01) ==
LOC: RADCTMAIN 10:37
PROVIDERS: ATTEND Urology
DX: C64.2 Malignant neoplasm of left kidney, except renal pelvis (principal); Z88.2 Allergy status to sulfonamides; Z88.8 Allergy status to other drugs, medicaments and biological substances; Z88.6 Allergy status to analgesic agent
CPT/HCPCS: 82565; 84520; 74170; 36415; Q9967

== ENCOUNTER → 2020-07-14 | Outpatient (CLI) | payer BC ==
--- NOTE | 2020-07-15 08:59 | MM ---
Reason for exam: clinical finding. Last mammogram was performed 1 year and 9 months ago. History: Family history of breast cancer in maternal cousin at age 53. Taking tamoxifen for 1 year. Indicated problem(s): lump or thickening in the left breast. Physical Findings: Nurse did not find any significant physical abnormalities on exam. MG 3D Diag Mammo W/Cad NATHALIA Bilateral CC and MLO view(s) were taken. Prior study comparison: October 18, 2018, bilateral MG 3d screening mammo w/cad. April 03, 2012, bilateral digital screening mammo w/CAD. There are scattered fibroglandular densities. There is chronic nodularity in the left breast. No significant new findings when compared with previous films. These results were verbally communicated with the patient and result sheet given to the patient on 07/14/20. ASSESSMENT: Incomplete: need additional imaging evaluation, BI-RAD 0 RECOMMENDATION: Ultrasound of the left breast. (for 12 o'clock palpable as ordered)
--- NOTE | 2020-07-15 09:01 | USB ---
Reason for exam: additional evaluation requested from abnormal screening. History: Family history of breast cancer in maternal cousin at age 53. Taking tamoxifen for 1 year. US Breast Limited LT Left limited breast ultrasound including focal area of concern, retroareolar and axilla demonstrates no cystic or solid lesion seen. 8mm benign lymph node at the axilla tail. No abnormality at the 12 o'clock palpable. Currently patient is unable to feel the area. Scanned 12-3 o'clock. These results were verbally communicated with the patient and result sheet given to the patient on 07/14/20. ASSESSMENT: Benign, BI-RAD 2 RECOMMENDATION: Routine screening mammogram of both breasts in 1 year. Manage on a clinical basis with regard to any suspicious palpable. If the palpable area recurs/persists the patient can be rescanned.
== END | disposition home or self-care (01) ==
LOC: RADMAMWWP 15:05
PROVIDERS: ATTEND Family Medicine
DX: N60.12 Diffuse cystic mastopathy of left breast (principal); R92.8 Other abnormal and inconclusive findings on diagnostic imaging of breast
CPT/HCPCS: 77062; 77066

== ENCOUNTER → 2020-07-16 | Outpatient (CLI) | payer BC ==
[2020-07-16 08:03] LABS: Basophils % (A) 1 %; Eosinophils # (A) 0.2 k/uL (0-0.7); Eosinophils % (A) 3 %; HGB 14.2 gm/dL (11.4-16.0); Lymphocytes # (A) 2.2 k/uL (1.0-4.8); Lymphocytes % (A) 41 %; MCH 29.5 pg (25.0-35.0); MCHC 31.7 g/dL (31.0-37.0); MCV 93.1 fL (80.0-100.0); Monocytes # (A) 0.4 k/uL (0-1.0); Monocytes % (A) 7 %; Neutrophils # (A) 2.4 k/uL (1.3-7.7); Neutrophils % (A) 44 %; Platelet Count 307 k/uL (150-450); RBC 4.83 m/uL (3.80-5.40); RDW 13.3 % (11.5-15.5); WBC 5.4 k/uL (3.8-10.6)
[2020-07-16 12:05] LABS: African American GFR (CKD) 116.3 (60.0-200.0); Albumin 4.6 g/dL (3.80-4.90); Albumin/Globulin Ratio 2.56 (1.60-3.17); Anion Gap 8.9 mmol/L (4.00-12.00); BUN/Creat Ratio 18.57 Ratio (12.00-20.00); Calcium 9.2 mg/dL (8.7-10.3); Carbon Dioxide 28.1 mmol/L (21.6-31.8); Chol/HDL Ratio 4.38; Globulin 1.8 g/dL (1.6-3.3); Non-African American GFR(CKD) 100.3 (60.0-200.0); Potassium 4.7 mmol/L (3.5-5.5); Total Bilirubin 0.5 mg/dL (0.3-1.2); Total Protein 6.4 g/dL (6.2-8.2)
[2020-07-16 12:12] LABS: T4, Free (Free Thyroxine) 1.2 ng/dL (0.80-1.80)
[2020-07-16 16:11] LABS: Hemoglobin A1C 5.7 % (4.0-6.0)
== END | disposition home or self-care (01) ==
LOC: LABWHC1 07:11
PROVIDERS: ATTEND Nurse Practitioner Adult Health
DX: L40.50 Arthropathic psoriasis, unspecified (principal); I10 Essential (primary) hypertension; E66.9 Obesity, unspecified; N95.1 Menopausal and female climacteric states; Z68.39 Body mass index [BMI] 39.0-39.9, adult; Z11.59 Encounter for screening for other viral diseases
CPT/HCPCS: 36415; 80053; 80061; 82626; 82672; 83036; 84402; 84403; 84439; 84443; 85025; 86803

== ENCOUNTER → 2020-09-03 | Outpatient (CLI) | payer BC ==
[2020-09-03 11:56] LABS: African American GFR (CKD) >90 (>60 ml/min/1.73 sqM); Blood Urea Nitrogen 12 mg/dL (7-17); Non-African American GFR(CKD) >90 (>60 ml/min/1.73 sqM)
[2020-09-03 12:13] LABS: Basophils % (A) 1 %; Eosinophils # (A) 0.1 k/uL (0-0.7); Eosinophils % (A) 2 %; HCT 43.3 % (34.0-46.0); HGB 14.3 gm/dL (11.4-16.0); Lymphocytes # (A) 2.2 k/uL (1.0-4.8); Lymphocytes % (A) 37 %; MCH 31.4 pg (25.0-35.0); MCHC 33.1 g/dL (31.0-37.0); MCV 94.8 fL (80.0-100.0); Mean Platelet Volume 7.1; Monocytes # (A) 0.5 k/uL (0-1.0); Monocytes % (A) 8 %; Neutrophils # (A) 2.9 k/uL (1.3-7.7); Neutrophils % (A) 49 %; Platelet Count 299 k/uL (150-450); RBC 4.57 m/uL (3.80-5.40); RDW 13.4 % (11.5-15.5); WBC 5.9 k/uL (3.8-10.6)
[2020-09-03 12:25] LABS: ALT 13 U/L (4-34); AST 31 U/L (14-36); African American GFR (CKD) >90 (>60 ml/min/1.73 sqM); Albumin 4.5 g/dL (3.5-5.0); Alkaline Phosphatase 83 U/L (38-126); Anion Gap 7 mmol/L; Blood Urea Nitrogen 12 mg/dL (7-17); Calcium 9.6 mg/dL (8.4-10.2); Carbon Dioxide 27 mmol/L (22-30); Chloride 104 mmol/L (98-107); Glucose 83 mg/dL (74-99); Non-African American GFR(CKD) >90 (>60 ml/min/1.73 sqM); Potassium 4.7 mmol/L (3.5-5.1); Sodium 138 mmol/L (137-145); Total Bilirubin 0.4 mg/dL (0.2-1.3); Total Protein 7.4 g/dL (6.3-8.2)
--- NOTE | 2020-09-03 13:05 | CT ---
EXAMINATION TYPE: CT abdomen wo/w con DATE OF EXAM: 09/03/2020 COMPARISON: 04/09/2020 HISTORY: Renal Mass CT DLP: 1862.3 mGycm CONTRAST: CT scan of the abdomen and pelvis is performed with Oral Contrast and without and with IV Contrast, p atient injected with 100 mL of Isovue 300. FINDINGS: LUNG BASES-: No visible nodule. No infiltrate. LIVER/GB: Cholecystectomy clips are in place. No space occupying hepatic lesion. Biliary tree is o f normal caliber. PANCREAS: No inflammation. No distinct mass. SPLEEN: No splenic enlargement. No lesion seen. ADRENALS: No nodule. No thickening. KIDNEYS/BLADDER: No hydronephrosis. No nephrolithiasis. There is a stable 1 cm partially exophytic lesion upper pole left kidney which appears to be solid in nature. Underlying neoplasm is not exclude d. No additional renal lesions are detected. Urinary bladder grossly unremarkable. BOWEL: Normal appendix. Normal bowel caliber. No inflammation. LYMPH NODES: No greater than 1cm abdominal or pelvic lymph nodes are appreciated. AORTA: No significant abnormality. OSSEOUS STRUCTURES: No significant abnormality is seen. OTHER: No significant additional abnormality is seen. IMPRESSION: 1. There is a stable 1 cm partially exophytic lesion upper pole left kidney which appears to be solid in nature. Underlying neoplasm is not excluded. No additional renal lesions are detected.
[2020-09-03 14:41] LABS: Erythrocyte Sedimentation Rate 9 mm/hr (0-20)
[2020-09-03 18:31] LABS: Protein, Total 6.8 g/dL (6.2-8.2)
[2020-09-03 20:23] LABS: Luteinizing Hormone 31.6 mIU/mL
[2020-09-04 13:52] LABS: Albumin 4.41 g/dL (3.80-4.90); Gamma Globulin 0.74 g/dL (0.70-1.50)
== END | disposition home or self-care (01) ==
LOC: RADCTMAIN 10:43
PROVIDERS: ATTEND Urology
DX: D41.02 Neoplasm of uncertain behavior of left kidney (principal); Z88.0 Allergy status to penicillin; Z88.2 Allergy status to sulfonamides; Z88.8 Allergy status to other drugs, medicaments and biological substances
CPT/HCPCS: 80053; 85652; 83001; 83002; 82565; 82672; 84520; 85025; 84402; 84403; 84165; 82306; 86038; 83970; 74170; 36415; Q9967

== ENCOUNTER → 2020-09-05 | Outpatient (CLI) | payer BC ==
--- NOTE | 2020-09-06 02:57 | MR ---
EXAMINATION TYPE: MR knee LT wo con DATE OF EXAM: 09/05/2020 COMPARISON: None HISTORY: Left knee pain Multiplanar multiecho imaging of the left knee was performed without contrast. There is knee joint effusion. The anterior and posterior cruciate ligaments are intact. There is incr eased signal at the base of the tibial spines. There is also small areas of increased signal in the s ubchondral patella. There is mild degenerative thinning of the medial and lateral menisci. There is small horizontal tear of the posterior horn of the medial meniscus extending to the inferior surface. The collateral ligam ents are intact. There is no evidence of a fracture. There are small areas of subchondral increased s ignal on the T2 images in the medial femoral condyle. The collateral ligaments are intact. IMPRESSION: There is small degenerative cyst formation in the patella and the medial femoral condyle and at the b ase of the tibial spines. no evidence of ligamentous tear. There is a small horizontal tear of the posterior horn of the medial meniscus. Knee joint effusion. No fracture seen. Hypertrophic osteoarthritis with spurring of the femoral and t ibial condyles and the patella.
== END | disposition home or self-care (01) ==
LOC: RADMRIMAIN 05:57
PROVIDERS: ATTEND Orthopaedic Surgery
DX: M17.12 Unilateral primary osteoarthritis, left knee (principal); S83.242A Other tear of medial meniscus, current injury, left knee, initial encounter

== ENCOUNTER → 2020-09-24 | Outpatient (CLI) | payer BC ==
[2020-09-24 10:59] LABS: ALT 12 U/L (4-34); AST 21 U/L (14-36); African American GFR (CKD) >90 (>60 ml/min/1.73 sqM); Alkaline Phosphatase 69 U/L (38-126); Anion Gap 5 mmol/L; Blood Urea Nitrogen 18 mg/dL (7-17); Calcium 9.2 mg/dL (8.4-10.2); Carbon Dioxide 32 mmol/L (22-30); Chloride 102 mmol/L (98-107); Glucose 67 mg/dL (74-99); Non-African American GFR(CKD) >90 (>60 ml/min/1.73 sqM); Potassium 4.9 mmol/L (3.5-5.1); Sodium 139 mmol/L (137-145); Total Bilirubin 0.5 mg/dL (0.2-1.3); Total Protein 6.7 g/dL (6.3-8.2)
--- NOTE | 2020-09-24 11:45 | CT ---
EXAMINATION TYPE: CT angio chest DATE OF EXAM: 09/24/2020 COMPARISON: 03/23/2018 HISTORY: 50-year-old female with shortness of breath, PE; COVID positive TECHNIQUE: Contiguous axial scanning of the chest performed with IV Contrast, patient injected with 1 00 ml mL of Isovue 370. Coronal/sagittal MIP reconstructions performed. CT DLP: 567 mGycm Automated exposure control for dose reduction was used. FINDINGS: Heart normal size without pericardial effusion. No flattening of the interventricular septum or reflu x of contrast into the hepatic veins. Aorta normal caliber with conventional arch vessel branching anatomy. No thoracic lymphadenopathy by CT size criteria. Suboptimal contrast bolus with a attenuation of the main pulmonary artery at 215 Hounsfield units. No large central lobar branch pulmonary embolus. No definite pulmonary embolus elsewhere within the jennifer gs. No consolidation or pleural effusion. No suspicious groundglass densities. Visualized upper abdomen shows mild fatty infiltration of the liver and cholecystectomy clips. Bones: Mild degenerative disc disease midthoracic spine. No osseous destructive process. IMPRESSION: 1. SOMEWHAT SUBOPTIMAL CONTRAST BOLUS. NO DEFINITE PULMONARY EMBOLUS. 2. NO ACUTE PULMONARY PROCESS. NO SUSPICIOUS GROUNDGLASS TO SUGGEST COVID PNEUMONIA.
== END | disposition home or self-care (01) ==
LOC: RADCTMAIN 10:23
PROVIDERS: ATTEND Family Medicine
DX: R06.00 Dyspnea, unspecified (principal)
CPT/HCPCS: 80053; 71275; 36415; Q9967

== ENCOUNTER → 2020-12-17 | Outpatient (CLI) | payer BC ==
[2020-12-17 12:25] LABS: Potassium 4.7 mmol/L (3.5-5.1)
[2020-12-17 14:37] LABS: Basophils % (A) 1 %; Eosinophils # (A) 0.2 k/uL (0-0.7); Eosinophils % (A) 3 %; HCT 43.9 % (34.0-46.0); HGB 14.7 gm/dL (11.4-16.0); Lymphocytes # (A) 2.2 k/uL (1.0-4.8); Lymphocytes % (A) 32 %; MCH 31.2 pg (25.0-35.0); MCHC 33.5 g/dL (31.0-37.0); MCV 93.3 fL (80.0-100.0); Mean Platelet Volume 7.3; Monocytes # (A) 0.6 k/uL (0-1.0); Monocytes % (A) 8 %; Neutrophils # (A) 3.8 k/uL (1.3-7.7); Neutrophils % (A) 55 %; Platelet Count 301 k/uL (150-450); RBC 4.71 m/uL (3.80-5.40); RDW 13.4 % (11.5-15.5)
== END | disposition home or self-care (01) ==
LOC: LABPAT 10:50
PROVIDERS: ATTEND Orthopaedic Surgery
DX: Z01.812 Encounter for preprocedural laboratory examination (principal); M23.92 Unspecified internal derangement of left knee
CPT/HCPCS: 36415; 80051; 85025; 93005

== ENCOUNTER 2020-12-31 11:13 | Day surgery (SDC) | payer BC ==
[2020-12-25 13:13] VITALS: BMI 38.9
--- NOTE | 2020-12-30 17:27 | HP ---
HISTORY AND PHYSICAL DATE OF SURGERY: 12/31/2020 Radha Triana is a 50-year-old patient seen with progressive left knee pain. We discussed options for treatment. She elected to proceed with arthroscopy. Consent was obtained. PAST MEDICAL HISTORY: Asthma, depression, gastroesophageal reflux disease. PAST SURGICAL HISTORY: Knee arthroscopy, spinal surgery, cardiac catheterization, cholecystectomy. DAILY MEDICATIONS: Albuterol, Cymbalta, Glucophage, hydrochlorothiazide, omeprazole, verapamil. ALLERGIES: ASPIRIN, SOLU-MEDROL. SOCIAL HISTORY: She smokes 3/4 pack of cigarettes a day. PHYSICAL EVALUATION OF THE LEFT KNEE: Range of motion is negative 3 to 115. Mild effusion. Tenderness, medial joint line. Positive medial Paige's. Ligaments are stable. Hip rotation is without pain. Distal neurovascular exam is intact. RADIOGRAPHS: Radiographs of the left knee revealed moderate osteoarthritic changes. MRI of the left knee revealed medial meniscal tear and intraarticular effusion. IMPRESSION: 1. Internal derangement of left knee with medial meniscal tear. 2. Asthma. 3. Hypertension. 4. Gastroesophageal reflux disease. PLAN: Left knee arthroscopy with partial meniscectomy, partial synovectomy and debridement. MMODL / IJN: [id number] /
[~2020-12-31 11:13] MED LIST changes: -DEXAMETHASONE SOD PHOSPHATE 10 MG/ML 1 ML VIAL IV ONE; -HYDROmorphone 0.5 MG/0.5 ML SYRINGE IVP PRN; +LIDOCAINE 1% (10MG/ML) FOR IV START INTRADERMA PRN; -LIDOCAINE 1% 20 ML VIAL (10MG/ML) FOR IV START INTRADERMA PRN; -MIDAZOLAM 2 MG/2 ML VIAL IV PRN; -ONDANSETRON 4 MG/2 ML VIAL IVP ONE; +ONDANSETRON 4 MG/2 ML VIAL IVP PRN; -fentaNYL (PF) 50 MCG/ML 2 ML AMP IV PRN
[2020-12-31 12:02] LABS: Glucose,Whole Blood 85 mg/dL (75-99)
[2020-12-31] MEDS ORDERED: SCOPOLAMINE 1.5MG/72HR PATCH TRANSDERM ONE (12:02)
[2020-12-31] MEDS ORDERED: DEXAMETHASONE SOD PHOSPHATE 4 MG/ML 1 ML VIAL IVP ONE (12:03)
[2020-12-31] MEDS ORDERED: MIDAZOLAM 2 MG/2 ML VIAL ONE (12:17)
[2020-12-31] MEDS ORDERED: SUCCINYLCHOLINE CHLORIDE 100 MG/5 ML SYR IV ONE (12:17)
[2020-12-31] MEDS ORDERED: DEXAMETHASONE SOD PHOSPHATE 10 MG/ML 1 ML VIAL ONE (12:17)
[2020-12-31] MEDS ORDERED: fentaNYL (PF) 50 MCG/ML 2 ML AMP ONE (12:17)
[2020-12-31] MEDS ORDERED: PROPOFOL 10 MG/ML 20 ML VIAL IV ONE (12:17)
[2020-12-31] MEDS ORDERED: LIDOCAINE 1% INJ 10MG/ML (20 ML MDV) ONE (12:17)
[2020-12-31] MEDS ORDERED: BUPIVACAINE (PF) 0.25% 30 ML VIAL SQ ONE ×2 (12:51→13:05)
--- NOTE | 2020-12-31 13:18 | P.OP ---
Date of Procedure: 12/31/20 Preoperative Diagnosis: Internal derangement left knee Postoperative Diagnosis: 1. Tear medial meniscus left knee 2. Grade 3 chondromalacia medial femoral condyle left knee 3. Grade 3 chondromalacia patella left knee 4. Reactive synovitis medial, lateral and suprapatellar compartments left knee Procedure(s) Performed: 1. Arthroscopic partial medial meniscectomy left knee 2. Arthroscopic chondroplasty medial femoral condyle left knee 3. Arthroscopic chondroplasty patella left knee 4. Arthroscopic partial synovectomy medial, lateral and suprapatellar compartments left knee Anesthesia: CYNTHIAA, local Surgeon: David Ojeda Estimated Blood Loss (ml): 7 Pathology: none sent Condition: stable Disposition: PACU Indications for Procedure: 50-year-old patient seen with progressive left knee pain. I discussed treatment options, she elected to proceed with arthroscopy. Operative Findings: See description of procedure Description of Procedure: Patient was taken to the operative suite. Patient underwent a general anesthetic by the department of anesthesia. Patient was given preoperative antibiotics. The left lower extremity was placed in a well-padded arthroscopic leg dyer. The left leg was prepped and draped in the normal sterile orthopedic fashion. A lateral parapatellar and suprapatellar incision was made. Trochars were inserted. Arthroscopy was initiated. Suprapatellar pouch revealed diffuse thick reactive synovitis. The patellofemoral joint appeared to articulate congruently. There 3 chondral malacia of the patella and grade 3/4 chondromalacia changes of the femoral sulcus. There were diffuse osteochondral tears of the patella present. The scope was guided into the medial gutter. No loose bodies or plica were identified. The scope was then guided into the medial compartment. A medial parapatellar incision was made. Trocar inserted followed by probe. There was a radial tear involving the posterior horn medial meniscus. There were grade 3 chondromalacia changes of the medial femoral condyle with diffuse osteochondral flap tears present. There was an area of grade 4 chondromalacia medial tibial plateau with an area of exposed bone. There was thick reactive synovitis anteriorly. I performed a partial medial meniscectomy getting down to stable meniscal tissue. I performed a chondroplasty of the medial femoral condyle getting down to stable osteochondral tissue. I performed a partial synovectomy decompressing the thick reactive synovitis. The shaver was removed. The residual meniscus was probed and found to be stable. The residual osteochondral surface of the medial femoral condyle was stable. There was good decompression of synovitis. Scope and probe were then guided into the intercondylar notch. Cruciates were identified, probed and found to be stable. The scope and probe were then guided into lateral compartment. The lateral meniscus was probed and found to be stable. There were grade 1 chondromalacia changes lateral compartment. There was thick reactive synovitis anteriorly. I introduced a motorized shaver and performed a partial synovectomy decompressing the thick reactive synovitis. The shaver was removed. There was good decompression of the synovitis. The scope was in guided back into the suprapatellar compartment. I introduced a motorized shaver into the suprapatellar compartment. I debrided some piecemeal fragments of meniscus I encountered. I performed a chondroplasty of the patella getting down to stable tissue. I performed a partial synovectomy compressing the thick reactive synovitis. Shaver was removed. The residual osteochondral surface of the patella was stable. There was good decompression of synovitis. Instruments were now removed from the joint. The joint was infiltrated with .25% Marcaine. Steri-Strips were applied to the portal sites. Sterile dressings were applied. The patient was placed into a EZEQUIEL hose. No tourniquet was utilized. The patient was awakened, transferred to a bed and taken to recovery stable satisfactory condition.
[2020-12-31] MEDS: HYDROmorphone 0.5 MG/0.5 ML SYRINGE IVP PRN ×2 (13:30→13:35)
[2020-12-31 13:32] VITALS: TEMP 97.2
[2020-12-31 13:40] LABS: Glucose,Whole Blood 93 mg/dL (75-99)
[2020-12-31] MEDS ORDERED: LACTATED RINGERS 1,000 ML IV ONE ×2 (13:50)
[2020-12-31 14:11] VITALS: RESP 18
[2020-12-31 14:50] VITALS: BP 146/83; PULSE 79
== END 2020-12-31 15:00 | disposition home or self-care (01) ==
LOC: OR 11:13
PROVIDERS: ATTEND Orthopaedic Surgery
DX: S83.242A Other tear of medial meniscus, current injury, left knee, initial encounter (principal); M22.42 Chondromalacia patellae, left knee; M65.862 Other synovitis and tenosynovitis, left lower leg; I10 Essential (primary) hypertension; F32.9 Major depressive disorder, single episode, unspecified; K21.9 Gastro-esophageal reflux disease without esophagitis; J45.909 Unspecified asthma, uncomplicated; Z79.84 Long term (current) use of oral hypoglycemic drugs; Z79.899 Other long term (current) drug therapy; Z88.6 Allergy status to analgesic agent; Z88.8 Allergy status to other drugs, medicaments and biological substances; X58.XXXA Exposure to other specified factors, initial encounter
CPT/HCPCS: 29881; 29876; J2250; J1100 ×2; J0690; J2405; J2001; J3010; J0330; J2704; J1170

== ENCOUNTER → 2021-03-05 | Outpatient (CLI) | payer BC ==
[2021-03-05 16:45] LABS: African American GFR (CKD) >90 (>60 ml/min/1.73 sqM); Blood Urea Nitrogen 15 mg/dL (7-17); Non-African American GFR(CKD) >90 (>60 ml/min/1.73 sqM)
--- NOTE | 2021-03-05 23:35 | CT ---
EXAMINATION TYPE: CT abdomen wo/w con DATE OF EXAM: 03/05/2021 COMPARISON: 09/03/2020 HISTORY: Renal mass F/U CT DLP: 1875.7 mGycm Automated exposure control for dose reduction was used. CONTRAST: Performed without and with IV Contrast, patient injected with 100 mL of Isovue 300. Images were obtained from the diaphragm to the iliac crests without and with IV contrast. There is or al contrast. The lung bases are clear. There is no pleural effusion. Heart size is normal. There is no pericardial effusion. Liver spleen stomach appear intact. There is no pancreatic mass. There are clips from cholecystectomy . There is no adrenal mass. Kidneys show normal size. There is 11 mm hypodense rounded area in the m edial upper pole left kidney. This has intermediate attenuation and it is not clear if this enhances. There is normal contrast opacification of the kidneys. There is no hydronephrosis. Delayed images sh ow normal renal excretion. There is no retroperitoneal adenopathy. There is no sign of mesenteric edema. There is no ascites or free air. There is no bowel obstruction. The lumbar vertebra have normal alignment. There is patent from anterior fusion surgery at L4-5 and L5-S1 with disc space narrowing. There is no compression fracture. The posterior elements are intact. IMPRESSION: Hypodense slightly exophytic left renal mass is not changed in size compared to old exam of 0. This is not a simple cyst and warrants some continued surveillance.
== END | disposition home or self-care (01) ==
LOC: RADCTMAIN 15:32
PROVIDERS: ATTEND Urology
DX: N28.89 Other specified disorders of kidney and ureter (principal)
CPT/HCPCS: 82565; 84520; 74170; 36415; Q9967

== ENCOUNTER → 2021-05-18 | Outpatient (CLI) | payer BC ==
[2021-05-18 08:14] LABS: Basophils % (A) 1 %; Eosinophils # (A) 0.2 k/uL (0-0.7); Eosinophils % (A) 3 %; HCT 43.7 % (34.0-46.0); HGB 14.6 gm/dL (11.4-16.0); Lymphocytes # (A) 2.2 k/uL (1.0-4.8); Lymphocytes % (A) 36 %; MCH 31.4 pg (25.0-35.0); MCHC 33.4 g/dL (31.0-37.0); MCV 93.9 fL (80.0-100.0); Mean Platelet Volume 7.7; Monocytes # (A) 0.5 k/uL (0-1.0); Monocytes % (A) 7 %; Neutrophils # (A) 3.1 k/uL (1.3-7.7); Neutrophils % (A) 51 %; Platelet Count 313 k/uL (150-450); RBC 4.66 m/uL (3.80-5.40); RDW 13.4 % (11.5-15.5); WBC 6.1 k/uL (3.8-10.6)
[2021-05-18 08:24] LABS: INR 0.9 (<1.2); Prothrombin Time 10.2 sec (9.0-12.0)
[2021-05-18 08:37] LABS: Potassium 4.3 mmol/L (3.5-5.1)
== END | disposition home or self-care (01) ==
LOC: LABPAT 07:42
PROVIDERS: ATTEND Orthopaedic Surgery
DX: Z01.812 Encounter for preprocedural laboratory examination (principal); M17.12 Unilateral primary osteoarthritis, left knee
CPT/HCPCS: 36415; 80051; 85025; 85610

== ENCOUNTER → 2021-05-21 | Outpatient (CLI) | payer BC | END | disposition home or self-care (01) | LOC: LABPAT 15:01 | PROVIDERS: ATTEND Orthopaedic Surgery | DX: Z01.812 Encounter for preprocedural laboratory examination (principal); Z22.322 Carrier or suspected carrier of Methicillin resistant Staphylococcus aureus; M17.12 Unilateral primary osteoarthritis, left knee | CPT/HCPCS: 87070 ==

== ENCOUNTER 2021-05-25 10:28 | Day surgery (SDC) | payer BC ==
[2021-05-21 11:43] VITALS: BMI 36.8
--- NOTE | 2021-05-24 12:57 | HP ---
HISTORY AND PHYSICAL HISTORY: Radha Pang is a 51-year-old patient seen with symptomatic left knee osteoarthritis. We discussed options for treatment. She elected to undergo left total knee arthroplasty. Consent was obtained. PAST MEDICAL HISTORY: Asthma, osteoarthritis, depression, gastroesophageal reflux disease. PAST SURGICAL HISTORY: Knee arthroscopy, total knee arthroplasty, cholecystectomy and hand surgery. MEDICATIONS: Albuterol, Cymbalta, Humira, methotrexate. ALLERGIES: Aspirin, Solu-Medrol. SOCIAL HISTORY: She denies current tobacco use. PHYSICAL EXAMINATION: Evaluation of the left knee, range of motion is -6 to 100. Mild effusion. Tenderness medial joint line. Crepitus medial patellofemoral compartments range of motion. Pain with patellofemoral compression. Ligaments stable. Hip rotation without pain. Distal neurovascular exam intact. RADIOGRAPHS: Radiographs of left knee reveal severe osteoarthritic changes. IMPRESSION: 1. Left knee osteoarthritis. 2. Rheumatoid arthritis. 3. Hypertension. 4. Asthma. PLAN: Left total knee arthroplasty. MMODL / IJN: [id number] /
[~2021-05-25 10:28] MED LIST changes: +ACETAMINOPHEN TAB 500 MG TAB PO PRN; +DEXAMETHASONE SOD PHOSPHATE 4 MG/ML 1 ML VIAL IV ONE; +HYDROmorphone 0.5 MG/0.5 ML SYRINGE IVP PRN; -LACTATED RINGERS 1,000 ML IV SCH; -LIDOCAINE 1% (10MG/ML) FOR IV START INTRADERMA PRN; +MELOXICAM 7.5 MG TAB PO PRN; +MIDAZOLAM 2 MG/2 ML VIAL IV PRN; +ONDANSETRON 4 MG/2 ML VIAL IVP ONE; -ONDANSETRON 4 MG/2 ML VIAL IVP PRN; +ROPIVACAINE/EPI/CLONIDINE/KET 50 ML SYRINGE MISCELLANE PRN; +SCOPOLAMINE 1.5MG/72HR PATCH TRANSDERM ONE; +TRANEXAMIC ACID 1,000 MG in SODIUM CHLORIDE 0.9% 100 ML IVPB PRN
[2021-05-25 11:07] LABS: Glucose,Whole Blood 90 mg/dL (75-99)
[2021-05-25] MEDS: LACTATED RINGERS 1,000 ML IV SCH ×2 (11:28→19:54)
[2021-05-25] MEDS ORDERED: fentaNYL (PF) 50 MCG/ML 2 ML AMP IVP ONE (11:30)
[2021-05-25] MEDS ORDERED: MIDAZOLAM 2 MG/2 ML VIAL IVP ONE (11:30)
[2021-05-25] MEDS ORDERED: SODIUM CHLORIDE 0.9% (PF) 10 ML VIAL ONE (12:58)
[2021-05-25] MEDS ORDERED: MIDAZOLAM 2 MG/2 ML VIAL ONE (12:58)
[2021-05-25] MEDS ORDERED: SODIUM CHLORIDE 0.9% 100 ML BAG ONE (12:58)
[2021-05-25] MEDS ORDERED: TRANEXAMIC ACID 1,000 MG/10 ML VIAL ONE (12:58)
[2021-05-25] MEDS ORDERED: ROPIVACAINE 5 MG/ML 30 ML VIAL ONE (12:58)
[2021-05-25] MEDS ORDERED: LIDOCAINE 1% INJ 10MG/ML (20 ML MDV) ONE (12:58)
[2021-05-25] MEDS ORDERED: fentaNYL (PF) 50 MCG/ML 2 ML AMP ONE (12:58)
[2021-05-25] MEDS ORDERED: PROPOFOL 10 MG/ML 20 ML VIAL IV ONE (12:58)
[2021-05-25] MEDS ORDERED: ceFAZolin 1,000 MG in SODIUM CHLORIDE 0.9% 1,000 ML IRRIGATION ONE (13:35)
--- NOTE | 2021-05-25 13:35 | P.ANPRN ---
Procedure Note - Anesthesia - Nerve Block Performed Left Adductor Canal Infusion Time Out Performed: Yes (1128) Date of Procedure: 05/25/21 Procedure Start Time: 11:30 Procedure Stop Time: 11:36 Location of Patient: PreOp Indication: Acute Post-Operative Pain, Requested by Surgeon Specifically requested for management of pain by DrJanette: David Ojeda Sedation Type: Sedate with meaningful contact maintained Preparation: Sterile Prep, Sterile Dressing Position: Supine Catheter: Indwelling Needle Types: Pajunk Needle Gauge: 21 Ultrasound used to visualize needle placement: Yes Ultrasound used to observe medication spread: Yes Injectate: 0.5% Ropivacaine (see comment for volume) (15cc + 5cc NACL) Blood Aspirated: No Pain Paresthesia on Injection Noted: No Resistance on Injection: Normal Image Stored and Saved: Yes Events: Uneventful and Well Tolerated Left iPack Single Time Out Performed: Yes (1128) Date of Procedure: 05/25/21 Procedure Start Time: 11:37 Procedure Stop Time: 11:42 Location of Patient: PreOp Indication: Acute Post-Operative Pain, Requested by Surgeon Specifically requested for management of pain by DrJanette: David Ojeda Sedation Type: Sedate with meaningful contact maintained Preparation: Sterile Prep Position: Supine Catheter: None Needle Gauge: 21 Ultrasound used to visualize needle placement: Yes Ultrasound used to observe medication spread: Yes Injectate: 0.5% Ropivacaine (see comment for volume) (15cc + 5cc NACL) Blood Aspirated: No Pain Paresthesia on Injection Noted: No Resistance on Injection: Normal Image Stored and Saved: Yes Events: Uneventful and Well Tolerated
[2021-05-25] MEDS ORDERED: NALOXONE 0.4 MG/ML 1 ML VIAL IV PRN (14:52)
[2021-05-25] MEDS ORDERED: ONDANSETRON 4 MG/2 ML VIAL IVP PRN (14:52)
[2021-05-25] MEDS ORDERED: HYDROcodone/APAP 5-325MG 1 EACH TAB PO PRN (14:52)
[2021-05-25] MEDS ORDERED: HYDROmorphone 0.2 MG/1 ML SYRINGE IVP PRN (14:52)
[2021-05-25] MEDS ORDERED: HYDROmorphone 0.5 MG/0.5 ML SYRINGE IVP PRN (14:52)
--- NOTE | 2021-05-25 14:52 | P.OP ---
Date of Procedure: 05/25/21 Preoperative Diagnosis: Left knee osteoarthritis Postoperative Diagnosis: Left knee osteoarthritis Procedure(s) Performed: Left total knee arthroplasty Implants: 1. Depuy attune size 6 narrow left cruciate retaining cemented femur 2. Depuy attune size 5 fixed bearing cemented tibial baseplate 3. Depuy attune size 6 fixed-bearing cruciate retaining 5 mm polyethylene tibial insert 4. Depuy attune 5 mm all polyethylene cemented patella Anesthesia: regional (Adductor canal catheter, Ipack block), spinal Surgeon: David Ojeda Carpet Mechanic #1: Alexys Martinez Estimated Blood Loss (ml): 45 Pathology: other (Bone) Condition: stable Disposition: PACU Indications for Procedure: 51-year-old patient seen with symptomatic left knee osteoarthritis. After treatment options were discussed, she elected to proceed with total knee a rthroplasty. Operative Findings: See description of procedure Description of Procedure: Patient was taken to the operative suite after having an adductor canal catheter placed by the department of anesthesia as well as an Ipack block for postoperative pain management. Patient underwent a spinal anesthetic by the department of anesthesia. Patient was given preoperative IV intake antibiotics and TXA. A well-padded tourniquet was placed about the left lower extremity. The lower extremity was then prepped and draped in the normal sterile orthopedic fashion. The extremity was elevated, a tourniquet was insufflated to 300. A standard anterior incision was made sharply through skin. Dissection was taken down through the subcutaneous soft tissues down to the extensor mechanism. A medial arthrotomy was performed, patella was everted and knee was flexed. There was advanced osteoarthritis noted. I introduced my distal intramedullary fe moral drill. I then introduced the distal femoral cutting jig. Eliu CALDERON secured the cutting jig with 2 pins. I held retractors in position while Alexys CALDERON performed the distal femoral resection through the guide area we now removed her distal femoral cutting guide. We now placed our 4-in-1 femoral cutting block and positioned and it was secured with 2 pins by Alexys CALDERON while I held the block in position. The distal femoral finishing was now completed. A proximal tibial cutting guide was positioned. I held the guide in the appropriate position with both hands well Alexys CALDERON inserted stabilizing pins into the guide. Proximal tibial cut was made. We now placed a trial femoral component into position, along with an appropriate size tibial tray and insert. We now took the knee through range of motion and had full extension good flexion and good overall soft tissue balance noted. The patella was everted and stabilized with 2 towel clips held by Alexys CALDERON while I performed a flush with patellar quad tendon utilizing a fresh sawblade. We templated the patella, appropriate drill holes were made. An appropriate trial patella was positioned, knee was taken through full range of motion with the patella tracking very nicely. The trial patella was removed. Drill holes were made through the femoral component. All trial components were removed after mar rani off the appropriate rotation of the tibia. Retractors were now positioned along the proximal tibia. An appropriate keel punch was made with the appropriate size tibial guide by myself while Alexys CALDERON assisted by holding retractors. At this point appropriate size implants were chosen and opened. The joint was irrigated copiously with pulse lavage mechanical irrigation. The posterior capsule was infiltrated with local analgesic. The wound was irrigated with pulse lavage mechanical irrigation. We mixed antibiotic methylmethacrylate. We placed the knee into flexion. We placed multiple retractors assisted by Alexys CALDERON to expose the proximal tibia. Once the methyl methacrylate was ready, the tibial component was cemented into place removing any excess methylmethacrylate form by both myself and Alexys CALDERON. The femoral component was cemented into place removing the removing any excess methylmethacrylate performed by both myself and Alexys CALDERON. We then inserte d the appropriate size polyethylene tibial insert. We made sure that it was locked into position. We took the knee into full extension, and then back in a flexion making sure we had removed any excess methylmethacrylate. The patellar component was then cemented down and secured with clamp. Excess methylmethacrylate removed. We kept the knee in full extension, patellar clamp in position until methylmethacrylate had hardened. Once it had hardened the patellar clamp was removed. The knee was taken through full range of motion. The patella tracked nicely. There was good soft tissue balancing. The tourniquet was now released. Additional hemostasis was achieved via electrocautery. A second gram of TXA was given. The wound again was irrigated with pulse lavage mechanical irrigation. The superficial soft tissues were infiltrated local analgesic. The extensor mechanism was repaired with Vicryl. We checked the repair with range of motion and it was stable. The subcutaneous soft tissues were repaired with Vicryl in layers. The skin was approximated with pernio/Dermabond. Sterile dressings were applied followed by loose web roll and Merlin bandage. The patient was transferred to a bed, and taken to recovery in stable and satisfactory condition. Alexys CALDERON assisted with this complex procedure.
[2021-05-25] MEDS ORDERED: ROPIVACAINE 0.2%-NS ON-Q PUMP 1,090 MG, EMPTY PAIN BALL 1 EACH MISCELLANE PRN (15:12)
--- NOTE | 2021-05-25 16:01 | XR ---
EXAMINATION TYPE: XR knee limited LT DATE OF EXAM: 05/25/2021 COMPARISON: NONE HISTORY: 51-year-old female evaluation for postoperative abnormality in alignment TECHNIQUE: 2 views, Portable AP and crosstable lateral views FINDINGS: Images show placement of left total knee arthroplasty. Both distal femoral and proximal tibial compon ents of the prosthesis are well seated without periprosthetic fracture. Alignment grossly anatomic. A nterior soft tissue swelling with scattered soft tissue air as well as intra-articular air related to recent operation. IMPRESSION: Uncomplicated postoperative appearance left total knee arthroplasty.
[2021-05-25] MEDS ORDERED: LACTATED RINGERS 1,000 ML IV ONE (16:24)
[2021-05-25 17:22] LABS: Glucose,Whole Blood 109 mg/dL (75-99)
[2021-05-25 18:30] LABS: Glucose,Whole Blood 120 mg/dL (75-99)
[2021-05-25] MEDS: HYDROmorphone 1 MG/ML 1 ML SYRINGE IVP PRN ×2 (18:58→22:11)
[2021-05-25] MEDS: HYDROcodone/APAP 5-325MG 1 EACH TAB PO PRN (19:52)
[2021-05-25] MEDS: ENOXAPARIN 30 MG/0.3 ML SYRINGE SQ SCH (19:55)
[2021-05-25] MEDS ORDERED: SENNOSIDES-DOCUSATE SODIUM 1 EACH TAB PO SCH (21:00)
[2021-05-25 21:10] LABS: Glucose,Whole Blood 172 mg/dL (75-99)
--- NOTE | 2021-05-25 21:52 | P.CONS ---
History of Present Illness - Reason for Consult Consult date: 05/25/21 - History of Present Illness The patient is a 51-year-old female with a PMH of asthma, rheumatoid arthritis, osteoarthritis, irritable bowel syndrome, type II DM who was admitted for an elective left total knee replacement. The patient underwent the procedure earlier today with no immediate postoperative complications and was seen on the surgical unit. She reported ongoing 6 out of 10 left knee pain. She reports not having gotten out of bed as of yet and has not had a bowel movement. She denied numbness or tingling of any extremities. She further denied sore throat, chest pain, shortness of breath, fever. Denied abdominal pain, nausea, vomiting. She reports compliance with all her medications at home. Review of systems: Pertinent positives and negatives as discussed in HPI, a complete review of systems was performed and all other systems are negative. Physical examination: General: non toxic, no distress, appears at stated age, morbidly obese Derm: no unusual rashes/lesions no unusual ecchymoses, warm, dry Head: atraumatic, normocephalic, symmetric Eyes: EOMI, no lid lag, anicteric sclera, pupils equal round reactive to light ENT: Nose and ears atraumatic, no thrush, no pharyngeal erythema Neck: No thyromegaly, no cervical lymphadenopathy, trachea midline, supple Mouth: no lip lesion, mucus membranes moist Cardiovascular: S1S2 reg, no murmur, positive posterior tibial pulse bilateral, no edema, capillary refill less than 2 seconds Lungs: CTA bilateral, no rhonchi, no rales , no accessory muscle use Abdominal: soft, nontender to palpation, no guarding, no appreciable organomegaly, normal bowel sounds Ext: no gross muscle atrophy, muscle strength 5 out of 5 in all extremities grossly except left lower extremity due to postoperative pain, left knee Merlin bandage in place, no contractures, distal left lower extremity strength 5 out of 5 Neuro: CN II-XI grossly intact, light touch intact all 4 extremities, finger to nose within normal limits, Psych: Alert, oriented, appropriate affect Assessment/plan Chronic conditions: Rheumatoid arthritis, asthma, type II DM -Lispro insulin sliding scale and blood glucose monitoring -Check A1c -Continue the remaining home medications Status post left total knee replacement -Defer management including pain control and DVT prophylaxis to the surgery service We appreciate this opportunity to be involved in this patient's care. We will follow the patient with you. For any further questions, please not hesitate to contact the [facility] emergency department inpatient team. Past Medical History Past Medical History: Diabetes Mellitus, Eye Disorder, Musculoskeletal Disorder, Neurologic Disorder, Osteoarthritis (OA) Additional Past Medical History / Comment(s): NATHALIA Glaucoma. Irregular heart beat. Raynauds. STOMACH Ulcers. IBS. VARICOSE VEINS, EDEMA NATHALIA LEGS W/ PAIN, NEUROPATHY IN FEET, hx tremors-better with methotrexate,. AUTO IMMUNE DISORDER History of Any Multi-Drug Resistant Organisms: None Reported Past Surgical History: Appendectomy, Back Surgery, Section, Cholecystectomy, Heart Catheterization, Hysterectomy, Joint Replacement, Orthopedic Surgery Additional Past Surgical History / Comment(s): RADIO FREQUENCY ABLATION to C3-5, laparoscopies to drain ovarian cyst, bilat feet sx, rt trigger thumb sx, colonoscopy. RT KNEE SCOPE 06/09/16, LAPAROSCOPY 09/23/17 LYSIS OF ADHESIONS, rt knee replacement 10/2016, fusion L4-5 S-1 Past Anesthesia/Blood Transfusion Reactions: Motion Sickness, Postoperative Nausea & Vomiting (PONV) Additional Past Anesthesia/Blood Transfusion Reaction / Comm: hasn't had any recent problems w/PONV-was years ago as teen Smoking Status: Current every day smoker - Past Family History Mother Family Medical History: Deep Vein Thrombosis (DVT) Father Family Medical History: Cancer Additional Family Medical History / Comment(s): Bladder Medications and Allergies Home Medications Medication Instructions Recorded Confirmed Type Albuterol Inhaler (Mhu) [Ventolin 1 puff INHALATION RT-BID PRN 02/26/14 05/21/21 History Hfa Inhaler (Mhu)] Gabapentin [Neurontin] 900 mg PO BID 06/04/16 05/21/21 History Verapamil HCl [Verapamil ER] 120 mg PO QAM 06/04/16 05/21/21 History metFORMIN HCL [Glucophage] 500 mg PO BID 06/04/16 05/21/21 History Ascorbic Acid [Vitamin C] 1,000 mg PO DAILY 09/21/17 05/21/21 History DULoxetine HCL [Cymbalta] 90 mg PO DAILY 01/19/18 05/21/21 History Amitriptyline HCl 10 mg PO HS 10/04/18 05/21/21 History Multivitamins, Thera [Multivitamin 1 tab PO DAILY 10/04/18 05/21/21 History (formulary)] diphenhydrAMINE [Benadryl] 25 mg PO DAILY PRN 12/31/18 05/21/21 History Folic Acid 1 mg PO DAILY 07/17/19 05/21/21 History Meloxicam 15 mg PO DAILY 07/17/19 05/21/21 History Adalimumab [Humira Crohn's] 40 mg SQ [id number] 12/25/20 05/21/21 History Cranberry Fruit Extract [Cranberry] 4,200 mg PO DAILY 05/21/21 05/21/21 History Diclofenac Sodium Gel [Voltaren 4 gm TOPICAL QID PRN 05/21/21 05/21/21 History Gel] Hydroxychloroquine Sulfate 200 mg PO HS 05/21/21 05/21/21 History [Plaquenil] Methotrexate/Pf [Rasuvo 10 mg/0.2 2 ml SQ ESPINOSA 05/21/21 05/21/21 History ml Autoinj] Omeprazole [PriLOSEC] 20 mg PO AC-BID 05/21/21 05/21/21 History Testosterone Cypionate 0.25 ml IM Q21D 05/21/21 05/21/21 History [Depo-Testosterone] Allergies Allergy/AdvReac Type Severity Reaction Status Date / Time apple [Apple] Allergy Rash/Hives Verified 05/25/21 10:39 aspirin Allergy Rash/Hives Verified 05/25/21 10:39 Beef Containing Products Allergy Rash/Hives Verified 05/25/21 10:39 cinnamon [Cinnamon] Allergy Rash/Hives Verified 05/25/21 10:39 cocoa [[place]] Allergy Rash/Hives Verified 05/25/21 10:39 dill oil Allergy Rash/Hives Verified 05/25/21 10:39 egg Allergy Rash/Hives Verified 05/25/21 10:39 frovatriptan succinate Allergy Nausea & Verified 05/25/21 10:39 [From Frova] Vomiting plus throat swelling grapefruit [Grapefruit] Allergy Rash/Hives Verified 05/25/21 10:39 peas Allergy Rash/Hives Verified 05/25/21 10:39 Poultry [[place]] Allergy Rash/Hives Verified 05/25/21 10:39 shrimp Allergy throat Verified 05/25/21 10:39 swelling soy Allergy Rash/Hives Verified 05/25/21 10:39 spinach Allergy Rash/Hives Verified 05/25/21 10:39 yeast, dried [yeast] Allergy Rash/Hives Verified 05/25/21 10:39 orange AdvReac Rash/Hives Verified 05/25/21 10:39 DECONGESTANTS Allergy Rash/Hives Uncoded 05/25/21 10:39 salmon Allergy Rash/Hives Uncoded 05/25/21 10:39 solumedrol IV only Allergy Rash/Hives Uncoded 05/25/21 10:39 Physical Exam Vitals: Vital Signs Temp Pulse Resp BP BP Pulse Ox 05/25/21 19:53 97.9 F 93 18 136/79 95 05/25/21 18:08 98.3 F 61 18 117/74 98 05/25/21 17:46 97.9 F 93 16 136/79 95 05/25/21 17:15 76 14 107/56 97 05/25/21 17:00 59 L 16 106/59 97 05/25/21 16:30 60 14 102/55 94 L 05/25/21 16:15 79 16 101/49 94 L 05/25/21 15:45 70 18 94/55 96 05/25/21 15:30 75 16 110/63 98 05/25/21 15:15 58 L 14 119/59 100 05/25/21 15:10 96.9 F L 77 16 110/63 100 05/25/21 11:48 81 16 125/59 100 05/25/21 10:49 98.1 F 90 16 129/91 98 Intake and Output 05/25/21 05/25/21 05/25/21 06:59 14:59 22:59 Intake Total 751 910 Output Total 45 Balance 706 910 Intake: IV 751 550 Oral 360 Output: Estimated Blood Loss 45 Other: # Voids 2 Weight 99 kg Results Labs: Abnormal Lab Results - Last 24 Hours (Table) 05/25/21 05/25/21 05/25/21 Range/Units 17:20 18:09 21:09 POC Glucose (mg/dL) 109 H 120 H 172 H (75-99) mg/dL
[2021-05-25] MEDS ORDERED: diphenhydrAMINE 25 MG CAP PO STA (23:43)
[2021-05-26] MEDS: LACTATED RINGERS 1,000 ML IV SCH ×3 (00:05→12:21)
[2021-05-26] MEDS: HYDROcodone/APAP 5-325MG 1 EACH TAB PO PRN ×2 (02:07→08:18)
[2021-05-26 05:31] VITALS: BP 106/69; PULSE 88; RESP 16; TEMP 98.4
[2021-05-26 05:56] LABS: Basophils % (A) 0 %; Eosinophils # (A) 0.1 k/uL (0-0.7); Eosinophils % (A) 1 %; HCT 40.3 % (34.0-46.0); HGB 13.2 gm/dL (11.4-16.0); Lymphocytes # (A) 2.5 k/uL (1.0-4.8); Lymphocytes % (A) 24 %; MCH 31.5 pg (25.0-35.0); MCHC 32.8 g/dL (31.0-37.0); MCV 96.1 fL (80.0-100.0); Mean Platelet Volume 8.1; Monocytes # (A) 0.7 k/uL (0-1.0); Monocytes % (A) 7 %; Neutrophils # (A) 6.8 k/uL (1.3-7.7); Neutrophils % (A) 66 %; RDW 13.2 % (11.5-15.5); WBC 10.4 k/uL (3.8-10.6)
[2021-05-26 06:02] LABS: Platelet Count 126 k/uL (150-450)
[2021-05-26 07:06] LABS: Glucose,Whole Blood 101 mg/dL (75-99)
[2021-05-26] MEDS: HYDROmorphone 1 MG/ML 1 ML SYRINGE IVP PRN (07:09)
[2021-05-26] MEDS ORDERED: INSULIN ASPART (NovoLOG) 100 UNIT/ML VIAL SQ SCH (07:30)
[2021-05-26] MEDS: ENOXAPARIN 30 MG/0.3 ML SYRINGE SQ SCH (08:16)
[2021-05-26] MEDS ORDERED: FOLIC ACID 1 MG TAB PO SCH (09:00)
[2021-05-26] MEDS ORDERED: GABAPENTIN 300 MG CAP PO SCH (09:00)
[2021-05-26] MEDS ORDERED: VERAPAMIL SR 120 MG TABLET.ER PO SCH (09:00)
[2021-05-26] MEDS ORDERED: diphenhydrAMINE 25 MG CAP PO PRN (09:00)
[2021-05-26] MEDS ORDERED: MELOXICAM 7.5 MG TAB PO SCH (09:00)
[2021-05-26] MEDS ORDERED: MULTIVITAMINS, THERA 1 EACH TAB PO SCH (09:00)
[2021-05-26] MEDS ORDERED: DULoxetine HCL 30 MG CAPSULE.DR PO SCH (09:00)
--- NOTE | 2021-05-26 09:44 | P.DS ---
Providers Date of admission: 05/25/2021 Expected date of discharge: 05/26/21 Attending physician: David Ojeda Consults: 05/25/21 21:13 Consult Physician Routine Consulting Provider: Naz Gregorio Consult Reason/Comments: medical management Do you want consulting provider notified?: Yes Primary care physician: Ezekiel Pate [facility] Hospital Course: Date of admission: 05/25/2021 Date of discharge: 05/26/2021 Admission diagnosis: left knee osteoarthritis Discharge diagnosis: same Attending physician: Dr. Ojeda Surgical procedures: left total knee arthroplasty Brief history: Patient is a 51-year-old female with a history of progressive primary left knee osteoarthritis. At this point patient has failed conservative treatment measures and has opted to proceed with a elective left total knee arthroplasty. Hospital course: Details of patient's surgery can be found in operative report. Patient tolerated the procedure well and was subsequently transported to orthopedic floor. Patient's orthopeidc and medical care was provided daily. Patient had daily laboratory tests performed for evaluation of overall blood counts. Patient had daily physical therapy to include strengthening range of motion as well as education with walker ambulation. Patient was treated with Lovenox for their postoperative DVT prophylaxis during their inpatient stay. Patient was noted to have a relatively uneventful postoperative course. Patient reported satisfactory pain control with oral pain medications by postoperative day 1. Patient showed satisfactory progress with physical therapy. Patient moved steadily through the program and had no difficulty meeting the goals by postoperative day 1. Given patient's otherwise satisfactory course and having met physical therapy goals, plan is to discharge patient home on postoperative day 1. Discharge condition/disposition: Patient will be discharged home in stable condition. Discharge medications: Instructions are given on resumption of patient's normal daily medications per primary care recommendation, in addition patient will be prescribed Lyrica 75 mg; aspirin 81 mg twice a day 3 days. Discharge instructions: 1. Wound care and infection precautions, keep incision dry and covered while showering, no lotions, creams, moisturizers. No soaking, tubs, pools, hottubs. Do not scrub over the incision. 2. Weight-bear [as tolerated] with walker / cane until follow-up. 3. Ice and elevate when necessary. Do not exceed 20 minutes per hour with ice pack. 4. Utilize compression sleeve until seen at first follow up appointment. 5. Visiting nursing care. 6. Home physical therapy including home CPM. 7. Pain meds and anticoagulants per prescription. 8. Pain medication has potential to cause constipation. Increase oral fluid and fiber intake. Contact primary care provider if you have not had a bowel movement within 48 hours after discharge 9. No anti-inflammatory medication until discussed at first post operative visit, this including Motrin, Aleve, Mobic, Diclofenac. 10. Follow up in office at 2 weeks postop with Eliu Avitia PA-C / Alexys Martinez PA-C 11. Follow up with your primary care doctor 7-10 days after discharge. 12. Contact [facility] with any questions, . Assessment: left knee osteoarthritis Procedures: left total knee arthroplasty Patient Condition at Discharge: Good Plan - Discharge Summary Discharge Rx Participant: Yes New Discharge Prescriptions: New Pregabalin [Lyrica] 75 mg PO BID #21 cap Aspirin [Adult Low Dose Aspirin EC] 81 mg PO BID #60 tablet.dr Valentine Action Albuterol Inhaler (Mhu) [Ventolin Hfa Inhaler (Mhu)] 1 puff INHALATION RT-BID PRN PRN Reason: Shortness Of Breath Gabapentin [Neurontin] 900 mg PO BID metFORMIN HCL [Glucophage] 500 mg PO BID Verapamil HCl [Verapamil ER] 120 mg PO QAM Ascorbic Acid [Vitamin C] 1,000 mg PO DAILY DULoxetine HCL [Cymbalta] 90 mg PO DAILY Multivitamins, Thera [Multivitamin (formulary)] 1 tab PO DAILY Amitriptyline HCl 10 mg PO HS diphenhydrAMINE [Benadryl] 25 mg PO DAILY PRN PRN Reason: Allergic Reaction Meloxicam 15 mg PO DAILY Folic Acid 1 mg PO DAILY Adalimumab [Humira Crohn's] 40 mg SQ [id number] Hydroxychloroquine Sulfate [Plaquenil] 200 mg PO HS Diclofenac Sodium Gel [Voltaren Gel] 4 gm TOPICAL QID PRN PRN Reason: Pain Methotrexate/Pf [Rasuvo 10 mg/0.2 ml Autoinj] 2 ml SQ ESPINOSA Cranberry Fruit Extract [Cranberry] 4,200 mg PO DAILY Omeprazole [PriLOSEC] 20 mg PO AC-BID Testosterone Cypionate [Depo-Testosterone] 0.25 ml IM Q21D Discharge Medication List Albuterol Inhaler (Mhu) [Ventolin Hfa Inhaler (Mhu)] 1 puff INHALATION RT-BID PRN 02/26/14 [History] Gabapentin [Neurontin] 900 mg PO BID 06/04/16 [History] Verapamil HCl [Verapamil ER] 120 mg PO QAM 06/04/16 [History] metFORMIN HCL [Glucophage] 500 mg PO BID 06/04/16 [History] Ascorbic Acid [Vitamin C] 1,000 mg PO DAILY 09/21/17 [History] DULoxetine HCL [Cymbalta] 90 mg PO DAILY 01/19/18 [History] Amitriptyline HCl 10 mg PO HS 10/04/18 [History] Multivitamins, Thera [Multivitamin (formulary)] 1 tab PO DAILY 10/04/18 [History ] diphenhydrAMINE [Benadryl] 25 mg PO DAILY PRN 12/31/18 [History] Folic Acid 1 mg PO DAILY 07/17/19 [History] Meloxicam 15 mg PO DAILY 07/17/19 [History] Adalimumab [Humira Crohn's] 40 mg SQ [id number] 12/25/20 [History] Cranberry Fruit Extract [Cranberry] 4,200 mg PO DAILY 05/21/21 [History] Diclofenac Sodium Gel [Voltaren Gel] 4 gm TOPICAL QID PRN 05/21/21 [History] Hydroxychloroquine Sulfate [Plaquenil] 200 mg PO HS 05/21/21 [History] Methotrexate/Pf [Rasuvo 10 mg/0.2 ml Autoinj] 2 ml SQ ESPINOSA 05/21/21 [History] Omeprazole [PriLOSEC] 20 mg PO AC-BID 05/21/21 [History] Testosterone Cypionate [Depo-Testosterone] 0.25 ml IM Q21D 05/21/21 [History] Aspirin [Adult Low Dose Aspirin EC] 81 mg PO BID #60 tablet. 05/26/21 [Rx] Pregabalin [Lyrica] 75 mg PO BID #21 cap 05/26/21 [Rx] Follow up Appointment(s)/Referral(s): Akshat Avitia PAC [PHYSICIAN FUSING MACHINE OPERATOR] - 2 Weeks Activity/Diet/Wound Care/Special Instructions: Orthopedic Discharge Instructions: 1. Wound care and infection precautions, keep incision dry and covered while showering, no lotions, creams, moisturizers. No soaking, pools, hot tubs. Do not scrub over incision. 2. Weight-bear as tolerated with walker / cane until follow-up. 3. Ice and elevate when necessary. Do not exceed 20 minutes per hour with ice pack. 4. Utilize compression sleeve until seen at first follow up appointment. 5. Pain meds and anticoagulants per prescription. 6. Pain medication has potential to cause constipation. Increase oral fluid and fiber intake. Contact primary care provider if you have not had a bowel movement within 48 hours after discharge. 7. No anti-inflammatory medication until discussed at first post operative visit, this including Motrin, Aleve, Mobic, Diclofenac. 8. Follow up in office at 2 weeks postop with Eliu Avitia PA-C / Alexys Martinez PA-C 9. Follow up with your primary care doctor 7-10 days after discharge. 10. Contact [facility] with any questions, . Discharge Disposition: HOME WITH HOME HEALTH SERVICES
--- NOTE | 2021-05-26 10:46 | P.PN ---
Progress Note - Text 05/26/21 640am 50-year-old female status post total knee replacement by Dr. Ojeda. Patient has an On-Q pump for postop pain control with the solution running at 8 mL an hour with a VAS of 3. Dressing clean dry and intact. Plan to continue On-Q pump infusion
[2021-05-26 11:24] LABS: Glucose,Whole Blood 93 mg/dL (75-99)
--- NOTE | 2021-05-26 12:44 | P.PN ---
Subjective Progress Note Date: 05/26/21 Patient is doing well today. Her pain is well-controlled. She was ambulating with no difficulty. Objective - Vital Signs Vital signs: Vital Signs Temp 98.4 F 05/26/21 05:00 Pulse 88 05/26/21 05:00 Resp 16 05/26/21 05:00 BP 106/69 05/26/21 05:00 Pulse Ox 94 L 05/26/21 05:00 Intake & Output 05/25/21 05/26/21 05/26/21 18:59 06:59 18:59 Intake Total 1301 2260 Output Total 45 Balance 1256 2260 Weight 99 kg 99 kg Intake: IV 1301 Intake, IV Titration 1300 Amount Lactated Ringers 1,000 ml 1200 @ 100 mls/hr IV .Q10H SANDI Rx#:[id number] ceFAZolin 2 gm In Sodium 100 Chloride 0.9% 50 ml @ 100 mls/hr IVPB Q8H SANDI Rx#: [id number] Oral 960 Output: Estimated Blood Loss 45 Other: Voiding Method Toilet Bedside Commode # Voids 1 3 - Exam General: The patient is awake and alert, in no distress Eye: there is normal conjunctiva bilaterally. Neck: The neck is supple, there is no JVD. Cardiovascular: Normal S1-S2, no S3-S4, no murmurs. Respiratory: Lungs clear to auscultation bilaterally Gastrointestinal: Abdomen is soft, nontender Musculoskeletal: There is no pedal edema. Neurological:. Speech is normal. Skin: Skin is warm and dry - Labs CBC & Chem 7: 05/26/21 05:09 Labs: Abnormal Lab Results - Last 24 Hours (Table) 05/25/21 05/25/21 05/25/21 Range/Units 17:20 18:09 21:09 Plt Count (150-450) k/uL POC Glucose (mg/dL) 109 H 120 H 172 H (75-99) mg/dL 05/26/21 05/26/21 Range/Units 05:09 07:05 Plt Count 126 L D (150-450) k/uL POC Glucose (mg/dL) 101 H (75-99) mg/dL Assessment and Plan Assessment: 1. Postoperative day #1 status post total left knee arthroplasty. Postoperative care, pain control, and DVT prophylaxis per orthopedic protocol. 2. DVT prophylaxis currently on subcu heparin twice daily 3. Chronic medical problems: Rheumatoid arthritis, asthma, type 2 diabetes, Patient is doing well postoperatively. Plan for discharge home tomorrow. She is medically cleared for discharge. Thank you very much for the consultation.
--- NOTE | 2021-05-26 12:46 | P.PN ---
Subjective Progress Note Date: 05/26/21 Principal diagnosis: left knee osteoarthritis patient seen at bedside this morning. Patient says she is doing well. She said she has some pain at the backside of the knee, however, she says she is ready to go home. She said she is previously had a right total knee arthroplasty so she knows what to expect for this one. Patient says physical therapy went well this morning. She says she walked out into the hallway and went up-and-down a couple steps. patient says she's not had a bowel movement yet, however, patient says she has passed gas. Patient denies chest pain, fever, shortness breath, nausea, vomiting, change in vision, loss of bowel/bladder control, saddle anesthesia. Objective - Vital Signs Vital signs: Vital Signs Temp 98.4 F 05/26/21 05:00 Pulse 88 05/26/21 05:00 Resp 16 05/26/21 05:00 BP 106/69 05/26/21 05:00 Pulse Ox 94 L 05/26/21 05:00 Intake & Output 05/25/21 05/26/21 05/26/21 18:59 06:59 18:59 Intake Total 1301 2260 Output Total 45 Balance 1256 2260 Weight 99 kg 99 kg Intake: IV 1301 Intake, IV Titration 1300 Amount Lactated Ringers 1,000 ml 1200 @ 100 mls/hr IV .Q10H SANDI Rx#:[id number] ceFAZolin 2 gm In Sodium 100 Chloride 0.9% 50 ml @ 100 mls/hr IVPB Q8H SANDI Rx#: [id number] Oral 960 Output: Estimated Blood Loss 45 Other: Voiding Method Toilet Bedside Commode # Voids 1 3 - Exam left knee: Incision is clean, dry, and intact. The silver foam tape is in good condition. There is minimal soft tissue swelling and ecchymosis surrounding the medial and lateral aspects of the incision. Calf is soft, no tenderness with palpation. Plantar flexion, dorsiflexion, EHL, FHL are intact. Sensory exam to light touch throughout the extremity is intact, dorsal pedis pulses 2+. - Labs CBC & Chem 7: 05/26/21 05:09 Labs: Abnormal Lab Results - Last 24 Hours (Table) 05/25/21 05/25/21 05/25/21 Range/Units 17:20 18:09 21:09 Plt Count (150-450) k/uL POC Glucose (mg/dL) 109 H 120 H 172 H (75-99) mg/dL 05/26/21 05/26/21 Range/Units 05:09 07:05 Plt Count 126 L D (150-450) k/uL POC Glucose (mg/dL) 101 H (75-99) mg/dL Assessment and Plan Assessment: left knee osteoarthritis Plan: 1. left knee osteoarthritis - left total knee arthroplasty performed yesterday, 05/25/2021. Patient doing well today. Planning to discharge home today 2. Pain management - stable at this time 3. DVT prophylaxis - Lovenox in hospital; going home with aspirin 81 mg twice a day 30 days 4. GI ppx 5. Encourage incentive spirometer use 6. PT/OT - weightbearing as tolerated with walker for assistance 7. Discharge planning - discharge home today Time with Patient: Less than 30
[2021-05-26 13:34] LABS: Hemoglobin A1C 5.5 % (4.0-6.0)
[2021-05-26] MEDS ORDERED: AMITRIPTYLINE HCL 10 MG TAB PO SCH (21:00)
== END 2021-05-26 12:50 | disposition home health service (06) ==
LOC: OR 10:28 → 5NMEDONC 15:10 → OR 05-26 12:50
PROVIDERS: ATTEND Orthopaedic Surgery
DX: M17.12 Unilateral primary osteoarthritis, left knee (principal); J45.909 Unspecified asthma, uncomplicated; M19.90 Unspecified osteoarthritis, unspecified site; K21.9 Gastro-esophageal reflux disease without esophagitis; F32.9 Major depressive disorder, single episode, unspecified; Z90.49 Acquired absence of other specified parts of digestive tract; Z98.890 Other specified postprocedural states; I49.9 Cardiac arrhythmia, unspecified; F17.200 Nicotine dependence, unspecified, uncomplicated; G62.9 Polyneuropathy, unspecified; K58.9 Irritable bowel syndrome, unspecified; Z87.11 Personal history of peptic ulcer disease; Z79.1 Long term (current) use of non-steroidal anti-inflammatories (NSAID); Z79.899 Other long term (current) drug therapy; Z88.6 Allergy status to analgesic agent; Z88.8 Allergy status to other drugs, medicaments and biological substances; M06.9 Rheumatoid arthritis, unspecified; Z79.84 Long term (current) use of oral hypoglycemic drugs; Z91.018 Allergy to other foods
CPT/HCPCS: 97162; 64999; 64448; 76942; 85025; 83036; 73560; 27447; C1776; C1713 ×2; J2250; J1100; J0690 ×3; J2405; J3010; J1650 ×2; J1170 ×2; J2795; 88300

== ENCOUNTER 2021-07-08 11:10 | Day surgery (SDC) | payer BC ==
[2021-07-06 10:18] VITALS: BMI 36.8
--- NOTE | 2021-07-07 19:38 | HP ---
HISTORY AND PHYSICAL REASON FOR ADMISSION: Surgery 07/08/2021 HISTORY OF PRESENT ILLNESS: Radha Triana is a 51-year-old patient who had previously undergone left total knee arthroplasty. She was seen with a residual probable sterile suture abscess along the incision area, treated conservatively with persistence. I recommended incision with debridement and secondary closure. She was agreeable. Consent was obtained. PAST MEDICAL HISTORY: Asthma, gastroesophageal reflux disease, hypertension. PAST SURGICAL HISTORY: Total knee arthroplasty. MEDICATIONS: Verapamil, omeprazole, methotrexate, Humira, meloxicam, amitriptyline, Cymbalta. ALLERGIES: ARE ASPIRIN, SINUS MEDICATIONS. SOCIAL HISTORY: She denies tobacco use. PHYSICAL EXAMINATION: Evaluation of the left knee: Her incision is well healed with some area of fluctuance along the mid septum midline area. There is scabbing in that area. There is no active drainage in the area. There is very mild erythema in that area. Range of motion of the knee is negative 3 to 110 without pain. There is no intra-articular effusion present. Distal neurovascular exam is intact. RADIOGRAPHS: Radiographs of the left knee reveal stable appearing total knee arthroplasty. IMPRESSION: 1. Left knee sterile suture abscess. 2. History of left total knee arthroplasty. 3. Hypertension. 4. Hyperlipidemia. PLAN: Incision with irrigation debridement and secondary closure, left knee incision. Surgery 07/08/2021. MMODL / IJN: [id number] /
[~2021-07-08 11:10] MED LIST changes: -ACETAMINOPHEN TAB 500 MG TAB PO PRN; -HYDROmorphone 0.5 MG/0.5 ML SYRINGE IVP PRN; +LIDOCAINE 1% (10MG/ML) FOR IV START INTRADERMA PRN; -MELOXICAM 7.5 MG TAB PO PRN; -MIDAZOLAM 2 MG/2 ML VIAL IV PRN; -ROPIVACAINE/EPI/CLONIDINE/KET 50 ML SYRINGE MISCELLANE PRN; -TRANEXAMIC ACID 1,000 MG in SODIUM CHLORIDE 0.9% 100 ML IVPB PRN
[2021-07-08] MEDS: LACTATED RINGERS 1,000 ML IV SCH ×2 (11:49→13:58)
[2021-07-08 11:50] LABS: Glucose,Whole Blood 88 mg/dL (75-99)
[2021-07-08] MEDS ORDERED: fentaNYL (PF) 50 MCG/ML 2 ML AMP ONE (11:56)
[2021-07-08] MEDS ORDERED: PROPOFOL 10 MG/ML 20 ML VIAL IV ONE (11:56)
[2021-07-08] MEDS ORDERED: HYDROmorphone (PF) 1 MG/ML ONE (11:56)
[2021-07-08] MEDS ORDERED: MIDAZOLAM 2 MG/2 ML VIAL ONE (11:56)
[2021-07-08] MEDS ORDERED: LIDOCAINE 1% INJ 10MG/ML (20 ML MDV) ONE (11:56)
[2021-07-08] MEDS ORDERED: ceFAZolin 1,000 MG in SODIUM CHLORIDE 0.9% 1,000 ML IRRIGATION ONE (12:01)
[2021-07-08] MEDS ORDERED: FAMOTIDINE 20 MG/2 ML VIAL IV ONE (12:14)
--- NOTE | 2021-07-08 12:34 | P.OP ---
Date of Procedure: 07/08/21 Preoperative Diagnosis: Left knee sterile suture abscess with history of recent total knee arthroplasty Postoperative Diagnosis: Same Procedure(s) Performed: Incision with irrigation and secondary closure left knee incision(4 cm) Anesthesia: RAHUL Surgeon: David Ojeda Cathodic Protection Technician #1: Akshat Avitia Estimated Blood Loss (ml): 5 Pathology: none sent Condition: stable Disposition: PACU Indications for Procedure: 51-year-old patient who had recently undergone left total knee arthroplasty. She was seen in the office with persistent fluctuance and discomfort along the proximal one third/half of the incision that was not resolving despite conserva tive treatment measures. At this point I recommend incision with exploration of the area and secondary closure. She was agreeable. Consent was obtained. Operative Findings: see description of procedure Description of Procedure: The patient was taken to the operative suite. She received preoperative IV antibiotics. She underwent a general anesthetic by the department of anesthesia. The left lower extremity was prepped and draped in the normal sterile orthopedic fashion. I made an incision along the proximal aspect of the incision measuring approximately 4 cm. I dissected down to the subcutaneous soft tissues. I did remove some residual Vicryl sutures I encountered. I explored the area. There was no evidence for any abnormal-appearing tissue. There was no necrotic tissue. There was no evidence for any infective process. The extensor mechanism was intact. I now irrigated the wound out copiously with 1000 mL of antibiotic irrigant. I again explored the wound and found no abnormality. The subcutaneous soft tissues were repaired with Vicryl. The skin was approximate with nylon suture. We applied sterile dressings. The patient was awakened, transferred to a bed and recovery stable condition. She tolerated the procedure well. Eliu CALDERON assisted with this procedure.
[2021-07-08 12:57] VITALS: TEMP 97.1
[2021-07-08] MEDS: HYDROmorphone 0.5 MG/0.5 ML SYRINGE IVP PRN ×3 (13:02→13:17)
[2021-07-08] MEDS ORDERED: HYDROmorphone 0.5 MG/0.5 ML SYRINGE IVP ONE (13:24)
[2021-07-08] MEDS ORDERED: diphenhydrAMINE 50 MG/ML 1 ML VIAL ONE (13:36)
[2021-07-08] MEDS ORDERED: diphenhydrAMINE 50 MG/ML 1 ML VIAL IVP ONE (13:40)
[2021-07-08 14:14] VITALS: BP 112/59; PULSE 98; RESP 20
== END 2021-07-08 14:46 | disposition home or self-care (01) ==
LOC: OR 11:10
PROVIDERS: ATTEND Orthopaedic Surgery
DX: T81.31XA Disruption of external operation (surgical) wound, not elsewhere classified, initial encounter (principal); Y83.8 Other surgical procedures as the cause of abnormal reaction of the patient, or of later complication, without mention of misadventure at the time of the procedure; J45.909 Unspecified asthma, uncomplicated; K21.9 Gastro-esophageal reflux disease without esophagitis; I10 Essential (primary) hypertension; Z79.899 Other long term (current) drug therapy; Z88.6 Allergy status to analgesic agent; M06.9 Rheumatoid arthritis, unspecified; M19.90 Unspecified osteoarthritis, unspecified site
CPT/HCPCS: 17999; J2250; J1200; J1100; J0690 ×2; J2405; J2001; J3010; J1170 ×2; J2704

== ENCOUNTER → 2021-08-28 | Outpatient (CLI) | payer BC ==
[2021-08-28 12:43] LABS: Basophils # (A) 0.1 k/uL (0-0.2); Basophils % (A) 1 %; Eosinophils # (A) 0.3 k/uL (0-0.7); Eosinophils % (A) 4 %; HCT 41.7 % (34.0-46.0); HGB 14.2 gm/dL (11.4-16.0); Lymphocytes # (A) 2.5 k/uL (1.0-4.8); Lymphocytes % (A) 39 %; MCH 30.8 pg (25.0-35.0); MCV 90.7 fL (80.0-100.0); Mean Platelet Volume 7.3; Monocytes # (A) 0.6 k/uL (0-1.0); Monocytes % (A) 9 %; Neutrophils # (A) 2.9 k/uL (1.3-7.7); Neutrophils % (A) 44 %; Platelet Count 357 k/uL (150-450); RDW 13.8 % (11.5-15.5); WBC 6.5 k/uL (3.8-10.6)
== END | disposition home or self-care (01) ==
LOC: LABWHC1 11:42
PROVIDERS: ATTEND Orthopaedic Surgery
DX: Z01.812 Encounter for preprocedural laboratory examination (principal)
CPT/HCPCS: 36415; 85025

== ENCOUNTER 2021-08-31 15:16 | Day surgery (SDC) | payer BC ==
[2021-08-26 13:59] VITALS: BMI 36.8
--- NOTE | 2021-08-30 10:22 | HP ---
HISTORY AND PHYSICAL DATE OF SURGERY: 08/31/2021 Radha Triana is a 51-year-old patient who has previously undergone left total knee arthroplasty. She had a residual area of incision that remained irritated, probable sterile suture abscess, not responding to conservative treatment measures. I discussed incision with irrigation and debridement and revision closure of the left knee. I discussed the procedure, risks, complications, benefits, recovery. She was agreeable. Consent was obtained. PAST MEDICAL HISTORY: Hypertension, gastroesophageal reflux disease. PAST SURGICAL HISTORY: Bilateral total knee arthroplasty. DAILY MEDICATIONS: Albuterol, Cymbalta, gabapentin, hydrochloroquine, methotrexate, verapamil. ALLERGIES: ASPIRIN, SOLU-MEDROL, SINUS MEDICATIONS. SOCIAL HISTORY: She denies tobacco use. PHYSICAL EVALUATION OF THE LEFT KNEE: There is an area of the incision along the proximal aspect that appears to be irritated, consistent with a stress suture abscess, somewhat tender to palpation. No clear evidence of any infective process going on without evidence for erythema or drainage at this point. Her range of motion is zero to 125 without any pain. Ligaments remain stable. Distal neurovascular exam is intact. RADIOGRAPHS: Radiographs of the left knee revealed a stable-appearing total knee arthroplasty. IMPRESSION: 1. Left knee sterile suture abscess. 2. History of left total knee arthroplasty. 3. Multiple medical comorbidities. PLAN: Incision with irrigation, debridement and revision closure, left knee incision. MMODL / IJN: [id number] /
[~2021-08-31 15:16] MED LIST changes: +LACTATED RINGERS 1,000 ML IV SCH; -LIDOCAINE 1% (10MG/ML) FOR IV START INTRADERMA PRN; -SCOPOLAMINE 1.5MG/72HR PATCH TRANSDERM ONE
[2021-08-31 15:44] VITALS: RESP 16; TEMP 97.7
[2021-08-31] MEDS ORDERED: ONDANSETRON 4 MG/2 ML VIAL ONE (16:07)
[2021-08-31 16:08] LABS: Glucose,Whole Blood 92 mg/dL (75-99)
[2021-08-31] MEDS ORDERED: MIDAZOLAM 2 MG/2 ML VIAL IVP ONE (16:38)
[2021-08-31] MEDS ORDERED: fentaNYL (PF) 50 MCG/ML 2 ML AMP IVP ONE (16:39)
[2021-08-31] MEDS ORDERED: MIDAZOLAM 2 MG/2 ML VIAL ONE (17:18)
[2021-08-31] MEDS ORDERED: SUCCINYLCHOLINE CHLORIDE 100 MG/5 ML SYR IV ONE (17:18)
[2021-08-31] MEDS ORDERED: GLYCOPYRROLATE 0.2 MG/ML 2 ML VIAL ONE (17:18)
[2021-08-31] MEDS ORDERED: DEXAMETHASONE SOD PHOSPHATE 10 MG/ML 1 ML VIAL ONE (17:18)
[2021-08-31] MEDS ORDERED: ROCURONIUM 10 MG/ML (5 ML VIAL) IV ONE (17:18)
[2021-08-31] MEDS ORDERED: PROPOFOL 10 MG/ML 20 ML VIAL IV ONE (17:18)
[2021-08-31] MEDS ORDERED: fentaNYL (PF) 50 MCG/ML 2 ML AMP ONE (17:18)
[2021-08-31] MEDS ORDERED: NEOSTIGMINE 1 MG/ML 10 ML VIAL ONE (17:18)
[2021-08-31] MEDS ORDERED: LIDOCAINE 1% INJ 10MG/ML (20 ML MDV) ONE (17:18)
[2021-08-31] MEDS ORDERED: LACTATED RINGERS 1,000 ML IV ONE (17:54)
[2021-08-31] MEDS ORDERED: BUPIVACAINE (PF) 0.25% 30 ML VIAL SQ ONE (18:08)
--- NOTE | 2021-08-31 18:20 | P.OP ---
Date of Procedure: 08/31/21 Preoperative Diagnosis: Left knee incisional sterile suture abscess Postoperative Diagnosis: Same Procedure(s) Performed: Excisional debridement left knee sterile suture abscess Anesthesia: RAHUL, local Surgeon: David Ojeda Social Worker Clinical #1: Akshat Avitia Estimated Blood Loss (ml): 4 Pathology: none sent Condition: stable Disposition: PACU Indications for Procedure: 51-year-old patient seen with a left knee sterile suture abscess. We discussed excisional debridement of that area. Patient was agreeable. Operative Findings: See description of procedure Description of Procedure: Patient was taken to the operative suite. She underwent a general anesthetic by the department of anesthesia. She received preoperative IV antibiotics. The left lower extremity was prepped and draped in the normal sterile orthopedic fashion. We now noted to areas of probable sterile suture abscess involving the proximal incision. Each area measuring approximately 1-1.5 cm. Utilizing a 15 blade I performed an excisional debridement via an elliptical technique of both the areas involving the skin and very a superficial subcutaneous tissue. The subcu serial was probed and found to be without any evidence for any infective process. The areas were both irrigated. The skin margins of both the excisional debridement areas were repaired with 3-0 nylon suture. The subcutaneous areas around the area were infiltrated with quarter percent plain Marcaine. I applied sterile dressings followed by loose webril and Merlin bandage. Patient was awakened and transferred to recovery in stable condition. Eliu CALDERON assisted procedure.
[2021-08-31] MEDS: HYDROmorphone 0.5 MG/0.5 ML SYRINGE IVP PRN ×3 (18:39→19:05)
[2021-08-31 18:56] LABS: Glucose,Whole Blood 113 mg/dL (75-99)
[2021-08-31 19:36] VITALS: BP 108/71; PULSE 88
== END 2021-08-31 19:50 | disposition home or self-care (01) ==
LOC: OR 15:16
PROVIDERS: ATTEND Orthopaedic Surgery
DX: T81.41XA Infection following a procedure, superficial incisional surgical site, initial encounter (principal); I10 Essential (primary) hypertension; K21.9 Gastro-esophageal reflux disease without esophagitis; E11.9 Type 2 diabetes mellitus without complications; F17.210 Nicotine dependence, cigarettes, uncomplicated; Z90.49 Acquired absence of other specified parts of digestive tract; Z98.891 History of uterine scar from previous surgery; Z96.653 Presence of artificial knee joint, bilateral; Z79.84 Long term (current) use of oral hypoglycemic drugs; Z79.899 Other long term (current) drug therapy; Z88.6 Allergy status to analgesic agent; Z88.8 Allergy status to other drugs, medicaments and biological substances
CPT/HCPCS: 13160; J2250; J1100 ×2; J2710; J0690; J2405; J2001; J3010; J0330; J2704; J1170

== ENCOUNTER → 2021-12-18 | Outpatient (CLI) | payer BC ==
[2021-12-18 22:55] LABS: Basophils # (A) 0.06 X 10*3/uL (0.00-0.10); Basophils % (A) 0.7 %; Eosinophils # (A) 0.24 X 10*3/uL (0.04-0.35); Eosinophils % (A) 2.9 %; HGB 13.7 g/dL (12.0-15.0); Immature Grans, Automated 0.4 %; Lymphocytes # (A) 2.98 X 10*3/uL (0.90-5.00); Lymphocytes % (A) 35.4 %; MCH 29.3 pg (27.0-32.0); MCHC 31.9 g/dL (32.0-37.0); MCV 92.1 fL (80.0-97.0); Mean Platelet Volume 10.8 fL (9.5-12.2); Monocytes # (A) 0.75 X 10*3/uL (0.20-1.00); Monocytes % (A) 8.9 %; NRBC Per 100 WBC 0 /100 WBCS (0.0-0.0); Neutrophils # (A) 4.36 X 10*3/uL (1.80-7.70); Neutrophils % (A) 51.7 %; Platelet Count 332 X 10*3/uL (140-440); RBC 4.67 X 10*6/uL (4.10-5.20); RDW 13.2 % (11.5-14.5); WBC 8.42 X 10*3/uL (4.50-10.00)
[2021-12-18 23:17] LABS: African American GFR (CKD) 96.6 (60.0-200.0); Blood Urea Nitrogen 13.1 mg/dL (9.0-27.0); C Reactive Protein 0.4 mg/dL (0.00-0.80); Non-African American GFR(CKD) 83.4 (60.0-200.0)
[2021-12-18 23:19] LABS: Erythrocyte Sedimentation Rate 12 mm/Hr (0-30)
== END | disposition home or self-care (01) ==
LOC: LABWHC1 15:25
PROVIDERS: ATTEND Internal Medicine
DX: Z51.81 Encounter for therapeutic drug level monitoring (principal)
CPT/HCPCS: 36415; 82565; 84450; 84460; 84520; 85025; 85652; 86140

== ENCOUNTER → 2021-12-18 | Outpatient (CLI) | payer BC ==
--- NOTE | 2021-12-18 17:02 | XR ---
Thoracic spine HISTORY: Back pain 3 views of the thoracic spine There is a slight spinal curvature. Thoracic vertebral bodies show preserved height. There is multile phu spondylosis. Some loss of disc height is present at intervertebral levels of the upper thoracic s pine. No paraspinal mass. Surgical clips are present in the right upper quadrant. IMPRESSION: Degenerative disc disease. Mild spinal curvature.
--- NOTE | 2021-12-18 17:04 | XR ---
Lumbar spine HISTORY: Pain 3 views of the lumbar spine Lumbar vertebral bodies show preserved height. Postop changes are noted status post fusion at L4-5, L 5-S1, intervertebral spacing blocks are present, there is loss of disc height with associated vacuum phenomenon. Multilevel spondylosis is present. Vacuum phenomenon also present L3-4. There is an anter olisthesis grade 1 L3-4. Sclerosis in the posterior elements is consistent with facet arthropathy. Peoples rgical clip present right upper quadrant. IMPRESSION: Postop changes, degenerative disc disease and facet arthropathy. Spondylolisthesis L3-4.
--- NOTE | 2021-12-18 17:05 | XR ---
Cervical spine HISTORY: Neck pain 6 views of the cervical spine, correlation thoracic spine same date Cervical vertebral bodies show preserved height, alignment, bone mineralization. Disc spaces and prev ertebral soft tissues are normal with exception of some disc height loss at C4-5. No significant fora lamin encroachment. There is mild spondylosis. IMPRESSION: Suspect degenerative disc disease
== END | disposition home or self-care (01) ==
LOC: RADXRMAIN 16:03
PROVIDERS: ATTEND Internal Medicine
DX: M54.2 Cervicalgia (principal); M51.34 Other intervertebral disc degeneration, thoracic region; M43.9 Deforming dorsopathy, unspecified; M47.896 Other spondylosis, lumbar region; M43.16 Spondylolisthesis, lumbar region
CPT/HCPCS: 72050; 72072; 72100

== ENCOUNTER → 2022-03-04 | Outpatient (CLI) | payer SELFPAY ==
--- NOTE | 2022-03-04 09:24 | MM ---
Reason for exam: additional evaluation requested from abnormal screening. Last mammogram was performed less than 1 month ago. History: Patient is postmenopausal. Family history of breast cancer in maternal cousin at age 53. Took tamoxifen for 1 year. Physical Findings: A clinical breast exam by your physician is recommended on an annual basis and results should be correlated with mammographic findings. MG 3D Work Up W/Cad RT Spot compression CC and ML view(s) were taken of the right breast. Prior study comparison: March 02, 2022, bilateral MG 3d screening mammo w/cad. July 14, 2020, bilateral MG 3d diag mammo w/cad [facility]. October 18, 2018, bilateral MG 3d screening mammo w/cad. There are scattered fibroglandular densities. Bilobed 7mm focal asymmetry 5 o'clock right breast middle depth persists. Ultrasound recommended. Results were given to the patient verbally at the time of the exam. ASSESSMENT: Incomplete: need additional imaging evaluation, BI-RAD 0 RECOMMENDATION: Ultrasound of the right breast. (5 o'clock)
--- NOTE | 2022-03-04 09:31 | USB ---
Reason for exam: additional evaluation requested from abnormal screening. History: Patient is postmenopausal. Family history of breast cancer in maternal cousin at age 53. Took tamoxifen for 1 year. Physical Findings: A clinical breast exam by your physician is recommended on an annual basis and results should be correlated with mammographic findings. US Breast Workup Limited RT Technologist: Tabatha Rivera Right limited breast ultrasound including focal area of concern, retroareolar and axilla demonstrates no cystic or solid lesion seen. Scanned 4-6 o'clock. Results were given to the patient verbally at the time of the exam. ASSESSMENT: Probably benign, BI-RAD 3 RECOMMENDATION: Follow-up diagnostic mammogram of the right breast in 6 months.
== END | disposition home or self-care (01) ==
LOC: RADMAMWWP 07:33
PROVIDERS: ATTEND Family Medicine
DX: R92.8 Other abnormal and inconclusive findings on diagnostic imaging of breast (principal)
CPT/HCPCS: 77061; 77065

== ENCOUNTER → 2022-04-13 | Outpatient (CLI) | payer BC ==
[2022-04-13 13:56] LABS: Basophils # (A) 0.1 k/uL (0-0.2); Basophils % (A) 2 %; Eosinophils # (A) 0.3 k/uL (0-0.7); Eosinophils % (A) 3 %; HCT 43.5 % (34.0-46.0); HGB 14.3 gm/dL (11.4-16.0); Lymphocytes # (A) 2.6 k/uL (1.0-4.8); Lymphocytes % (A) 31 %; MCH 30.9 pg (25.0-35.0); MCHC 32.9 g/dL (31.0-37.0); MCV 94.1 fL (80.0-100.0); Mean Platelet Volume 7.3; Monocytes # (A) 0.6 k/uL (0-1.0); Monocytes % (A) 8 %; Neutrophils # (A) 4.6 k/uL (1.3-7.7); Neutrophils % (A) 54 %; Platelet Count 328 k/uL (150-450); RBC 4.63 m/uL (3.80-5.40); RDW 13.7 % (11.5-15.5); WBC 8.4 k/uL (3.8-10.6)
[2022-04-13 14:07] LABS: ALT 12 U/L (4-34); AST 26 U/L (14-36); African American GFR (CKD) >90 (>60 ml/min/1.73 sqM); Blood Urea Nitrogen 15 mg/dL (7-17); Non-African American GFR(CKD) >90 (>60 ml/min/1.73 sqM)
--- NOTE | 2022-04-13 15:11 | CT ---
EXAMINATION TYPE: CT abdomen wo/w con DATE OF EXAM: 04/13/2022 COMPARISON: CT dated 03/05/2021 HISTORY: renal mass CT DLP: 1829 mGycm Automated exposure control for dose reduction was used. TECHNIQUE: Helical acquisition of images was performed from the lung bases through the top of iliac crest to include entire abdomen. CONTRAST: Performed with Oral Contrast and with IV Contrast, patient injected with 100 mL of Isovue 300. FINDINGS: LUNG BASES: No significant abnormality is appreciated. LIVER/GB: Previous hysterectomy. No definite hepatic focal lesion. PANCREAS: No significant abnormality is seen. SPLEEN: No significant abnormality is seen. ADRENALS: No significant abnormality is seen. KIDNEYS: Stable left upper renal pole medial exophytic enhancing lesion measuring 10 mm. No other def inite renal lesion identified. BOWEL: No significant abnormality is seen. LYMPH NODES: No significant abnormality is seen. OSSEOUS STRUCTURES: L4, L5 and S1 fixation with disc prosthesis. Mild anterolisthesis of L3 over L4. FREE AIR: No free air is visualized. OTHER: Mild arterial atherosclerotic calcifications. IMPRESSION: Grossly stable known enhancing left renal lesion as described above.
== END | disposition home or self-care (01) ==
LOC: RADCTMAIN 13:25
PROVIDERS: ATTEND Urology
DX: D41.02 Neoplasm of uncertain behavior of left kidney (principal)
CPT/HCPCS: 82565; 84450; 84460; 84520; 85025; 74170; 36415; Q9967

== ENCOUNTER → 2022-09-28 | Outpatient (CLI) | payer BC ==
[2022-09-28 18:45] LABS: Basophils # (A) 0.05 X 10*3/uL (0.00-0.10); Basophils % (A) 0.8 %; Eosinophils # (A) 0.23 X 10*3/uL (0.04-0.35); Eosinophils % (A) 3.6 %; HCT 43.3 % (37.2-46.3); HGB 14.3 g/dL (12.0-15.0); Immature Grans, Automated 0.2 %; Lymphocytes # (A) 2.47 X 10*3/uL (0.90-5.00); MCH 30.4 pg (27.0-32.0); MCV 91.9 fL (80.0-97.0); Mean Platelet Volume 10.6 fL (9.5-12.2); Monocytes # (A) 0.54 X 10*3/uL (0.20-1.00); Monocytes % (A) 8.5 %; NRBC Per 100 WBC 0 /100 WBCS (0.0-0.0); Neutrophils # (A) 3.03 X 10*3/uL (1.80-7.70); Neutrophils % (A) 47.9 %; Platelet Count 331 X 10*3/uL (140-440); RBC 4.71 X 10*6/uL (4.10-5.20); RDW 13.6 % (11.5-14.5); WBC 6.33 X 10*3/uL (4.50-10.00)
[2022-09-28 19:40] LABS: ALT 13 U/L (8-44); AST 19 U/L (13-35); African American GFR (CKD) 114.6 (60.0-200.0); Albumin 4.5 g/dL (3.8-4.9); Albumin/Globulin Ratio 2.05 (1.60-3.17); Alkaline Phosphatase 93 U/L (41-126); BUN/Creat Ratio 18.29 Ratio (12.00-20.00); Bilirubin, Conjugated <0.20 mg/dL (0.20-0.40); Blood Urea Nitrogen 12.8 mg/dL (9.0-27.0); Calcium 9.8 mg/dL (8.7-10.3); Carbon Dioxide 25.9 mmol/L (20.0-27.5); Chloride 103 mmol/L (96-109); Globulin 2.2 g/dL (1.6-3.3); Glucose 123 mg/dL (70-110); Non-African American GFR(CKD) 98.9 (60.0-200.0); Potassium 4.4 mmol/L (3.5-5.5); Sodium 141 mmol/L (135-145); Total Protein 6.7 g/dL (6.2-8.2)
== END | disposition home or self-care (01) ==
LOC: LABWHC1 11:13
PROVIDERS: ATTEND Internal Medicine
DX: Z00.00 Encounter for general adult medical examination without abnormal findings (principal); N95.1 Menopausal and female climacteric states
CPT/HCPCS: 36415; 80048; 80076; 82672; 84144; 84402; 84403; 85025

== ENCOUNTER → 2022-12-28 | Outpatient (CLI) | payer BC ==
[2022-12-28 15:02] LABS: Basophils # (A) 0.04 X 10*3/uL (0.00-0.10); Basophils % (A) 0.7 %; Eosinophils # (A) 0.19 X 10*3/uL (0.04-0.35); Eosinophils % (A) 3.3 %; HCT 45.6 % (37.2-46.3); HGB 14.9 g/dL (12.0-15.0); Immature Grans, Automated 0.2 %; Lymphocytes % (A) 40.2 %; MCH 30.2 pg (27.0-32.0); MCHC 32.7 g/dL (32.0-37.0); MCV 92.3 fL (80.0-97.0); Mean Platelet Volume 10.1 fL (9.5-12.2); Monocytes # (A) 0.53 X 10*3/uL (0.20-1.00); Monocytes % (A) 9.3 %; NRBC Per 100 WBC 0 /100 WBCS (0.0-0.0); Neutrophils # (A) 2.65 X 10*3/uL (1.80-7.70); Neutrophils % (A) 46.3 %; Platelet Count 307 X 10*3/uL (140-440); RBC 4.94 X 10*6/uL (4.10-5.20); RDW 13.2 % (11.5-14.5); WBC 5.72 X 10*3/uL (4.50-10.00)
[2022-12-28 16:50] LABS: African American GFR (CKD) 120.6 (60.0-200.0); Non-African American GFR(CKD) 104.1 (60.0-200.0)
== END | disposition home or self-care (01) ==
LOC: LABWHC1 09:14
PROVIDERS: ATTEND Internal Medicine
DX: Z51.81 Encounter for therapeutic drug level monitoring (principal)
CPT/HCPCS: 36415; 82565; 84450; 84460; 84520; 85025

== ENCOUNTER → 2023-02-24 | Outpatient (CLI) | payer BC ==
--- NOTE | 2023-02-24 15:31 | US ---
EXAMINATION TYPE: US kidneys/renal and bladder DATE OF EXAM: 02/24/2023 COMPARISON: CT 04/13/22 CLINICAL INDICATION: Female, 53 years old with history of D41.02; Left renal mass. EXAM MEASUREMENTS: Right Kidney: 12.0 x 6.2 x 4.7 cm Left Kidney: 11.6 x 5.4 x 5.4 cm Right Kidney: No hydronephrosis or masses seen Left Kidney: Complex lesion seen medial left kidney: 2.8 x 2.9 x 2.5 cm. Bladder: Appears anechoic Bilateral Jets seen: Yes IMPRESSION: Complex left renal lesion which is indeterminate. Further evaluation with renal mass protocol CT or M RI is recommended
== END | disposition home or self-care (01) ==
LOC: RADUSWWP 14:10
PROVIDERS: ATTEND Urology
DX: D41.02 Neoplasm of uncertain behavior of left kidney (principal); N28.89 Other specified disorders of kidney and ureter
CPT/HCPCS: 76770

== ENCOUNTER → 2023-03-11 | Outpatient (CLI) | payer BC ==
[2023-03-11 10:49] LABS: African American GFR (CKD) >90 (>60 ml/min/1.73 sqM); Blood Urea Nitrogen 9 mg/dL (7-17); Non-African American GFR(CKD) >90 (>60 ml/min/1.73 sqM)
--- NOTE | 2023-03-11 12:32 | CT ---
EXAMINATION TYPE: CT abdomen wo/w con DATE OF EXAM: 03/11/2023 COMPARISON: 04/13/2022 HISTORY: 53-year-old female D41.02, Left sided renal mass. TECHNIQUE: Contiguous axial scanning of the abdomen before and after administration of 100 ml Isovue 300 IV contrast. Delayed images through the kidneys and coronal/sagittal reconstructions performed. CT DLP: 1928.3 mGycm Automated exposure control for dose reduction was used. FINDINGS: Heart normal size without pericardial effusion. Lung bases clear without pleural effusion. Liver enlarged at 18.3 cm with mild fatty infiltration. No focal lesions seen. Portal venous system i s patent. No biliary ductal dilatation. Cholecystectomy clips. Right adrenal gland, right kidney, spleen with tiny hilar splenule, and pancreas within normal limits . No nephrolithiasis or hydronephrosis. There is a 1.1 cm cortical lesion medial upper pole left kidney versus 1.0 cm on 04/13/2022. Too small for accurate CT characterization, there seems to be an internal enhancing septation or nodularity an d ongoing follow-up is recommended. No dilated small bowel, free fluid, or free air. No mesenteric or retroperitoneal lymphadenopathy. Mi nimal scattered stool. No pericolic inflammatory change. Unchanged slight thickening of the left adrenal gland. Bones: Previous anterior and interbody fusion L4-L5 and L5-S1. Hypertrophic facet arthropathy mid lum bar spine with grade 1 anterolisthesis above the fusion L3-L4. Associated moderate degenerative disc disease. IMPRESSION: A 1.1 CM INDETERMINATE LESION MEDIAL UPPER POLE LEFT KIDNEY PREVIOUSLY MEASURED 1.0 CM ON 04/13/2022. SUSPECT A COMPLEX CYST WITH SOME INTERNAL ENHANCING SEPTATION OR NODULARITY. ONGOING SURVEILLANCE FOL LOW-UP AN EARLY CYSTIC RCC IS NOT EXCLUDED AT THIS TIME.
== END | disposition home or self-care (01) ==
LOC: RADCTMAIN 09:51
PROVIDERS: ATTEND Urology
DX: D41.02 Neoplasm of uncertain behavior of left kidney (principal); N28.89 Other specified disorders of kidney and ureter
CPT/HCPCS: 82565; 84520; 74170; 36415; Q9967

== ENCOUNTER → 2023-08-05 | Outpatient (CLI) | payer BC ==
[2023-08-05 16:31] LABS: Basophils # (A) 0.04 X 10*3/uL (0.00-0.10); Basophils % (A) 0.7 %; Eosinophils # (A) 0.11 X 10*3/uL (0.04-0.35); HCT 46.2 % (37.2-46.3); HGB 14.9 d/dL (12.0-15.0); Lymphocytes # (A) 1.67 X 10*3/uL (0.90-5.00); Lymphocytes % (A) 30.6 %; MCH 29.7 pg (27.0-32.0); MCHC 32.3 d/dL (32.0-37.0); Mean Platelet Volume 10.2 FL (9.5-12.2); Monocytes # (A) 0.49 X 10*3/uL (0.20-1.00); NRBC Per 100 WBC 0 X 10*3/uL (0.00-0.01); Neutrophils # (A) 3.13 X 10*3/uL (1.80-7.70); Neutrophils % (A) 57.5 %; Platelet Count 322 X 10*3/uL (140-440); RBC 5.02 X 10*6/uL (4.10-5.20); RDW 13.2 % (11.5-14.5); WBC 5.45 X 10*3/uL (4.50-10.00)
[2023-08-05 16:46] LABS: ALT 17 U/L (8-44); AST 24 U/L (13-35); Albumin 4.6 d/dL (3.8-4.9); Albumin/Globulin Ratio 1.92 Ratio (1.60-3.17); Alkaline Phosphatase 93 U/L (41-126); BUN/Creat Ratio 12.29 Ratio (12.00-20.00); Blood Urea Nitrogen 8.6 mg/dL (9.0-27.0); Calcium 9.7 mg/dL (8.7-10.3); Carbon Dioxide 26.5 mmol/L (21.6-31.8); Chloride 103 mmol/L (96-109); Chol/HDL Ratio 5.66 Ratio; Globulin 2.4 d/dL (1.6-3.3); Glucose 93 mg/dL (70-110); LDL Cholesterol,Calculated 194.6 mg/dL (0.0-131.0); Potassium 4.7 mmol/L (3.5-5.5); Sodium 141 mmol/L (135-145); Total Bilirubin 0.3 mg/dL (0.3-1.2)
== END | disposition home or self-care (01) ==
LOC: LABWHC1 09:34
PROVIDERS: ATTEND Family Medicine
DX: Z00.00 Encounter for general adult medical examination without abnormal findings (principal); E89.41 Symptomatic postprocedural ovarian failure
CPT/HCPCS: 36415; 80053; 80061; 82040; 82672; 84270; 84403; 84443; 85025

== ENCOUNTER → 2023-09-06 | Outpatient (CLI) | payer BC ==
[2023-09-06 10:47] LABS: African American GFR (CKD) >90 (>60 ml/min/1.73 sqM); Blood Urea Nitrogen 13 mg/dL (7-17); Non-African American GFR(CKD) >90 (>60 ml/min/1.73 sqM)
--- NOTE | 2023-09-06 11:35 | CT ---
EXAMINATION TYPE: CT abdomen wo/w con DATE OF EXAM: 09/06/2023 COMPARISON: 03/11/2023 HISTORY: Follow up for left renal mass. CT DLP: 1965.9 mGycm CONTRAST: CT scan of the abdomen is performed with Oral Contrast and without and with IV Contrast, patient inje cted with 100ml mL of Isovue 300. FINDINGS: LUNG BASES-: No visible nodule. No infiltrate. LIVER/GB: Gallbladder surgically absent. No space occupying hepatic lesion. Biliary tree is of nor mal caliber. PANCREAS: No inflammation. No distinct mass. SPLEEN: No splenic enlargement. No lesion seen. ADRENALS: No nodule. No thickening. KIDNEYS/BLADDER: Noted is a 1.0 cm cortical lesion medial aspect upper pole left kidney versus prior measurement of 1.1 cm. This lesion is too small to appropriately characterize. There appears to be mi ld septal enhancement. Overall appearance is unchanged. Continued follow-up is recommended as a small cystic RCC is difficult to exclude BOWEL: Normal appendix. Normal bowel caliber. No inflammation. LYMPH NODES: No greater than 1cm abdominal or pelvic lymph nodes are appreciated. AORTA: No significant abnormality. OSSEOUS STRUCTURES: Previous anterior and interbody fusion L4-L5 and L5-S1. Hypertrophic facet arthr opathy mid lumbar spine with grade 1 anterolisthesis above the fusion L3-L4. Associated moderate dege nerative disc disease. OTHER: No significant additional abnormality is seen. IMPRESSION: 1. Stable indeterminant lesion upper pole right kidney. Continued follow-up is recommended as noted addis dennis.
== END | disposition home or self-care (01) ==
LOC: RADCTMAIN 09:57
PROVIDERS: ATTEND Urology
DX: D41.02 Neoplasm of uncertain behavior of left kidney (principal); N28.9 Disorder of kidney and ureter, unspecified
CPT/HCPCS: 82565; 84520; 74170; 36415; Q9967

== ENCOUNTER → 2024-02-14 | Outpatient (CLI) | payer BC ==
[2024-02-14 15:46] LABS: Basophils # (A) 0.03 X 10*3/uL (0.00-0.10); Basophils % (A) 0.6 %; Eosinophils # (A) 0.08 X 10*3/uL (0.04-0.35); Eosinophils % (A) 1.6 %; HCT 41.6 % (37.2-46.3); HGB 13.5 g/dL (12.0-15.0); Lymphocytes # (A) 1.35 X 10*3/uL (0.90-5.00); Lymphocytes % (A) 27.1 %; MCH 29.5 pg (27.0-32.0); MCHC 32.5 g/dL (32.0-37.0); NRBC Per 100 WBC 0 X 10*3/uL (0.00-0.01); Neutrophils # (A) 3.01 X 10*3/uL (1.80-7.70); Neutrophils % (A) 60.3 %; Platelet Count 281 X 10*3/uL (140-440); RBC 4.57 X 10*6/uL (4.10-5.20); RDW 13.6 % (11.5-14.5); WBC 4.99 X 10*3/uL (4.50-10.00)
[2024-02-14 16:30] LABS: ALT 19 U/L (8-44); AST 27 U/L (13-35); Albumin 4.3 g/dL (3.8-4.9); Albumin/Globulin Ratio 1.95 Ratio (1.60-3.17); Alkaline Phosphatase 84 U/L (41-126); BUN/Creat Ratio 16.14 Ratio (12.00-20.00); Blood Urea Nitrogen 11.3 mg/dL (9.0-27.0); Calcium 9.3 mg/dL (8.7-10.3); Carbon Dioxide 25.6 mmol/L (21.6-31.8); Chloride 103 mmol/L (96-109); Globulin 2.2 g/dL (1.6-3.3); Glucose 93 mg/dL (70-110); Potassium 4.6 mmol/L (3.5-5.5); Sodium 139 mmol/L (135-145); Total Bilirubin 0.3 mg/dL (0.3-1.2); Total Protein 6.5 g/dL (6.2-8.2)
[2024-02-14 16:37] LABS: Erythrocyte Sedimentation Rate 23 mm/Hr (0-30)
[2024-02-14 16:42] LABS: Follicle Stimulating Hormone 58.1 mIU/mL; Luteinizing Hormone 27.1 mIU/mL
[2024-02-15 17:01] LABS: Estrogens Total 31 pg/mL
== END | disposition home or self-care (01) ==
LOC: LABWHC1 08:34
PROVIDERS: ATTEND Internal Medicine
DX: N95.1 Menopausal and female climacteric states (principal); L40.50 Arthropathic psoriasis, unspecified
CPT/HCPCS: 36415; 80053; 82040; 82672; 83001; 83002; 84144; 84270; 84403; 85025; 85652; 86140

== ENCOUNTER → 2024-09-11 | Outpatient (CLI) | payer BC ==
[2024-09-11 15:32] LABS: African American GFR (CKD) >90 (>60 ml/min/1.73 sqM); Blood Urea Nitrogen 14 mg/dL (7-17); Non-African American GFR(CKD) >90 (>60 ml/min/1.73 sqM)
--- NOTE | 2024-09-11 17:30 | CT ---
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 TECHNIQUE: Axial CT abdomen wo/w con;Sagittal and coronal reformats were created on a separate works tation. Contrast used:100ml mL of Isovue 300 with IV Contrast, (none if empty) Oral contrast used: with Oral Contrast (none if empty) CT DLP: 1931 mGycm, Automated exposure control for dose reduction was used. FINDINGS: LOWER CHEST: Suspected posterior left lower lung atelectasis along the pleura.e ABDOMEN LIVER: Diffusely hypoattenuating parenchyma. GALLBLADDER AND BILE DUCTS: The gallbladder is surgically absent. PANCREAS: Unremarkable. SPLEEN: Unremarkable. ADRENAL GLANDS: Unremarkable. KIDNEYS AND URETERS: Left renal cyst without enhancement measuring 12 Hounsfield units on noncontrast imaging, 16 Hounsfie ld units Delayed imaging and 14 Hounsfield units on corticomedullary phase imaging. No evidence of hy dronephrosis or renal calculus. The ureters are unremarkable. PELVIS BLADDER: No evidence for wall thickening or mass given limitations of exam. REPRODUCTIVE: Unremarkable. ABDOMEN & PELVIS STOMACH AND BOWEL: No evidence of bowel obstruction. PERITONEUM/RETROPERITONEUM: No evidence of pneumoperitoneum or free fluid. VASCULATURE: No evidence of aortic aneurysm. MUSCULOSKELETAL: No acute osseous abnormalities LYMPH NODES: No gross evidence for lymphadenopathy. SOFT TISSUE/ABDOMINAL WALL: Fat-containing umbilical hernia. IMPRESSION: 1. Left renal cyst is not significantly changed from 09/06/2023. No suspicious solid renal neoplasms . No solid neoplasms. 2. Borderline Hepatic steatosis. 3. No evidence for acute abdominal process. [facility], , 09/11/2024 5:28 PM
== END | disposition home or self-care (01) ==
LOC: RADCTMAIN 14:27
PROVIDERS: ATTEND Urology
DX: D41.02 Neoplasm of uncertain behavior of left kidney (principal); K76.0 Fatty (change of) liver, not elsewhere classified; N28.1 Cyst of kidney, acquired
CPT/HCPCS: 82565; 84520; 74170; 36415; Q9967

== ENCOUNTER → 2024-11-08 | Outpatient (CLI) | payer BC ==
--- NOTE | 2024-11-08 16:41 | US ---
EXAMINATION TYPE: US pelvic complete DATE OF EXAM: 11/08/2024 COMPARISON: 12/26/16, CT: 09/11/24 CLINICAL INDICATION: Female, 54 years old with history of R10.2 PELVIC AND PERINEAL PAIN; pelvic pain on right side. Pt states hx of endometriosis. Partial hysterectomy TECHNIQUE: Transabdominal (TA). FINDINGS: Date of LMP: unknown EXAM MEASUREMENTS: Uterus: Surgically absent Right Ovary: Not visualized due to bowel gas. Left Ovary: Not visualized due to bowel gas. Urinary bladder appears sonolucent 1. Uterus: Surgically absent 2. Endometrium: Surgically absent 3. Right Ovary: Obscured by overlying bowel gas 4. Left Ovary: Obscured by overlying bowel gas 5. Bilateral Adnexa: wnl 6. Posterior cul-de-sac: wnl No obvious abnormalities seen on today's study IMPRESSION: 1. No acute ABNORMALITY OF THE PELVIS [facility], , 11/08/2024 4:39 PM
== END | disposition home or self-care (01) ==
LOC: RADUSWWP 15:37
PROVIDERS: ATTEND Family Medicine
DX: R10.2 Pelvic and perineal pain (principal)
CPT/HCPCS: 76856

== ENCOUNTER 2025-01-24 05:54 | Inpatient (IN) | payer BC ==
[2025-01-21 16:16] VITALS: BMI 40.4
--- NOTE | 2025-01-23 13:37 | P.HPOR ---
History of Present Illness H&P Date: 01/23/25 .D:Date: 01/23/25 : 01:31pm .T:Title: Spine Surgery H&P Clinical and Risk Review Radha is a 54 YO FEMALE presenting for evaluation of LOW BACK PAIN, . It was my pleasure to have seen and examined Radha. In our visit today we have had a chance to go over subjective complaints, physical examination findings and treatments including the natural course history without intervention and various interventional options. The patients imaging demonstrates : * POST SURGICAL CHANGES L3-4 AND L5-S1 WITH SKIP FUSION AND SPONDYLOSIS PSEUDOARTHROSIS AT THESE LEVELS WITH STENOSIS NO FRACTURES OR LESIONS On physical exam, Radha demonstrates * PAIN WITH ANY MOTION OF THE SPINE, PAIN WITH AMBULATION, DIFFICUTLY WITH ADLS DUE TO PAIN WELL WEAKNESS IN LEGS B/L, NUMBNESS/TINGLING, CLAUDICANT BACK SX. I have explained to the patient that as their condition progresses it will cause further neurological deficits and eventual paralysis. Based on the patients imaging, physical exam, and the rapid progression and disabling nature of their symptoms, at this time I recommend surgery in the form or a: REVISION L3-PELVIS DECOMPRESSION AND FUSION I discussed the risk and benefits of this procedure at length with Radha. The patient agreed to considered pursuing the procedure abovementioned. Prior to surgery, she should follow up with her PCP (Cardio, ID, IM etc) for clearance. Questions were invited and answered, and the patient wishes to proceed as outli iesha below. Currently, I am recommendin.L3-PEVIS REVISION DECOMPRESSION AND FUSION 2.Follow up with PCP for surgical clearance 3.Review of surgical risks and benefits as well as an educational packet on the proposed surgical procedure. Risks: All surgical procedures come with inherent risks, including those related to positioning, anesthesia, intraoperative findings, and postoperative complications. It is important to understand that surgery does not come with any guarantee of a successful outcome as complications and adverse events are always possible. The patient was given a handout in office today discussing the surgical procedure and risks associated with the intervention, both of which were discussed with the patient. These risks include but are not limited to the following: * Experiencing same, different or even worse symptoms in back, neck, arms, or legs compared to before surgery. Requiring further surgery or other forms of treatment presently or at some time in the future at same or other levels of the intended spine surgery. On an extreme but fortunately relatively rare basis severe complication such as blindness, stroke, heart attack, temporary and/or permanent nerve injury, paralysis, coma, or may occur, sometimes without known explanation. Surgical complications may include but are not limited to risk of infection, fluid accumulation in the surgical dissection site, including a seroma or hematoma, that requires additional surgery, wound drainage, bleeding, new numbness or weakness, vision changes/loss, spinal fluid leakage, non-healing and/or infected incision, headaches, difficulty or inability to swallow, hoarseness, hemopneumothorax, pneumothorax, impotence, retrograde ejaculation, vaginal dryness; injury to nerves, spinal cord, blood vessels, lymphatics or other vital organs (i.e., bowel injury, injury to the great vessels); heterotopic bone formation; complications related to the hardware such as screws, rods, cages including misplaced hardware, device failure, instrumentation at the wrong spine level, hardware fracture/breakage, or hardware loosening; vertebral failure of the spinal column above or below the newly placed hardware; retained surgical instrumentations or devices and the need for further surgery. * Medical risks of the planned spine surgery include but are not limited to generalized Infections to the whole body or local areas outside of the surgical site (sepsis), heart attack, bleeding, anaphylaxis, meningitis, seizure, epilepsy, hearing loss, burn baker, laceration of the head or other areas of the body, bruising, hypersensitivity of the skin, bladder over distension; allergic reaction; shoulder injury related to positioning; fat, blood and air clots to other areas of the body like heart, lungs, brain; failure of internal organs such as lungs, kidneys, liver and excessive ble eding. If blood transfusions are necessary, note that transfusions may cause intolerance reactions such as anaphylaxis or other complex reactions. Despite best efforts, the results of spine surgery might not heal in terms of bone, soft tissues such as skin, fascia, ligaments, and joints. Additionally, in order to achieve best possible results, spine surgery may be carried out beyond the initially planned levels and involve decompression, fusion including insertion of hardware at levels other than the original intended area of surgical interest change some portions of the procedure in order to ensure the best possible outcomes. With spine surgery and spinal fusion, there are different off label uses of instrumentation (devices, implants and hardware) as well as biological substances (bone morphogenic proteins, demineralized bone matrix) as well as using extra bone from allograft sources (i.e. cadaver bone) or autograft (iliac crest bone, ribs, or the spine itself). The patient has been given information about these practices and their inherent risks and benefits. We have discussed at length the impact of tobacco, smoking and nicotiene has on healing, specifically in spine surgery and fusion surgery. This can increase you risks of non-healing up to 300% some studies show. We have discussed that the patient has been tobacco/smoke/nicotiene free for the past 6 weeks and will commit to at least 6 weeks after surgery of cessation of smoking and or any tobacco or nicotiene use. They have agreed to this and contest that they have been tobacco/nicotiene free for the past 6 weeks. The patient has had a chance to review all the listed information, has been given print outs detailing this information, and has had all his/her questions answered to their satisfaction. It was my pleasure to have seen and examined Radha. In our visit today we have had a chance to go over my understanding of our patient's current condition, the natural course history without intervention and various interventional options. Questions were invited and answered, and the patient wishes to proceed as outlined above. I have seen and examined the patient for 25 minutes and we have spent more than 50% of the time in repeat and detailed counseling about the patient's condition, its natural course history with out and as much as can be predicted with surgery and re-review of various surgical treatment options. In conclusion, Radha requested we proceed with the above suggested surgery and are willing to accept risks and limitations of the suggested surgery as nature of the disease process and our best attempts at treatment for the condition. Thank you again for allowing us to be part of your patient's care. Please don't hesitate to contact me if you have any further questions. # SIGNED BY Puneet Valverde (VERÓNICA)01/23/2025 01:36PM Past Medical History Past Medical History: Asthma, Diabetes Mellitus, Eye Disorder, Musculoskeletal Disorder, Neurologic Disorder, Osteoarthritis (OA), Rheumatoid Arthritis (RA) Additional Past Medical History / Comment(s): Asthma - no problems recently. "5 different forms of arthritis, including psoriatic and degenerative. 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 Irregular heart beat "since I was a kid." Raynauds. Stomach Ulcers X3. IBS. VARICOSE VEINS, EDEMA BILATERAL LEGS W/ PAIN, NEUROPATHY IN FEET, hx tremors all over body, "AUTO IMMUNE DISORDER". Heels spurs. History of Any Multi-Drug Resistant Organisms: None Reported Past Surgical History: Appendectomy, Back Surgery, Section, Cholecystectomy, Heart Catheterization, Hysterectomy, Joint Replacement, Orthopedic Surgery Additional Past Surgical History / Comment(s): Section X2, RADIO FREQUENCY ABLATION to C3-5, laparoscopies to drain ovarian cyst, bilateral foot surgery, bilateral trigger thumb surgery, bilateral thumb tendon repair, colonoscopy, right knee arthroscopy X3, right knee surgery, LYSIS OF ADHESIONS X3, left knee arthroscopy, right knee replacement 10/2016, fusion L4-5 S-1, left knee replacement 05/25/21, multiple procedures after left knee replacement due to infection and allergic reaction, partial hysterectomy, right shoulder repair. Past Anesthesia/Blood Transfusion Reactions: Motion Sickness Smoking Status: Current some day smoker - Past Family History Mother Family Medical History: Deep Vein Thrombosis (DVT), Pulmonary Embolus Father Family Medical History: Cancer Additional Family Medical History / Comment(s): Alcoholic. Bladder cancer. Sister(s) Family Medical History: Cancer Additional Family Medical History / Comment(s): Melanoma. Medications and Allergies Home Medications Medication Instructions Recorded Confirmed Type Albuterol Inhaler [Ventolin Hfa 1 puff INHALATION RT-BID PRN 02/26/14 01/22/25 History Inhaler] Gabapentin [Neurontin] 900 mg PO BID 06/04/16 01/22/25 History Verapamil HCl [Verapamil ER] 120 mg PO QAM 06/04/16 01/22/25 History Ascorbic Acid [Vitamin C] 1,000 mg PO DAILY 09/21/17 01/22/25 History DULoxetine HCL [Cymbalta] 90 mg PO QAM 01/19/18 01/22/25 History Amitriptyline HCl 10 mg PO HS 10/04/18 01/22/25 History Multivitamins, Thera [Multivitamin 1 tab PO DAILY 10/04/18 01/22/25 History (formulary)] diphenhydrAMINE [Benadryl] 25 mg PO DAILY PRN 12/31/18 01/22/25 History Cranberry Fruit Extract [Cranberry] 4,200 mg PO DAILY 05/21/21 01/22/25 History Hydroxychloroquine Sulfate 200 mg PO HS 05/21/21 01/22/25 History [Plaquenil] Omeprazole [PriLOSEC] 20 mg PO AC-BID 05/21/21 01/22/25 History Acetaminophen Tab [Tylenol Tab] 500 - 1,000 mg PO Q4-6H PRN 01/21/25 01/22/25 History Cyclobenzaprine [Flexeril] 10 mg PO TID 01/21/25 01/22/25 History HYDROcodone/APAP 10-325MG [[place] 1 tab PO QID 01/21/25 01/22/25 History 10-325] Meloxicam [Mobic] 15 mg PO DAILY 01/21/25 01/22/25 History Tofacitinib Citrate [Xeljanz] 11 mg PO DAILY 01/21/25 01/22/25 History Vitamin B Complex 1 each PO DAILY 01/21/25 01/22/25 History Vitamin D3 (Unknown Dose) 1 tab PO DAILY 01/21/25 01/22/25 History metFORMIN HCL [Glucophage] 500 mg PO BID 01/22/25 01/22/25 History Allergies Allergy/AdvReac Type Severity Reaction Status Date / Time apple [Apple] Allergy Rash/Hives Verified 01/21/25 15:35 aspirin Allergy Rash/Hives Verified 01/21/25 15:35 Beef Containing Products Allergy Rash/Hives Verified 01/21/25 15:35 cinnamon [Cinnamon] Allergy Rash/Hives Verified 01/21/25 15:35 cocoa [[place]] Allergy Rash/Hives Verified 01/21/25 15:35 dill oil Allergy Rash/Hives Verified 01/21/25 15:35 egg Allergy Rash/Hives Verified 01/21/25 15:35 frovatriptan succinate Allergy Nausea & Verified 01/21/25 15:35 [From Frova] Vomiting plus throat swelling grapefruit [Grapefruit] Allergy Rash/Hives Verified 01/21/25 15:35 peas Allergy Rash/Hives Verified 01/21/25 15:35 Poultry [[place]] Allergy Rash/Hives Verified 01/21/25 15:35 shrimp Allergy throat Verified 01/21/25 15:35 swelling soy Allergy Rash/Hives Verified 01/21/25 15:35 spinach Allergy Rash/Hives Verified 01/21/25 15:35 yeast, dried [yeast] Allergy Rash/Hives Verified 01/21/25 15:35 orange AdvReac Rash/Hives Verified 01/21/25 15:35 DECONGESTANTS Allergy Rash/Hives Uncoded 01/21/25 15:35 salmon Allergy Rash/Hives Uncoded 01/21/25 15:35 solumedrol IV only Allergy Rash/Hives Uncoded 01/21/25 15:35 Physical Examination Osteopathic Statement: *. No significant issues noted on an osteopathic structural exam other than those noted in the History and Physical/Consult.
[~2025-01-24 05:54] MED LIST changes: -DEXAMETHASONE SOD PHOSPHATE 4 MG/ML 1 ML VIAL IV ONE; +GLYCOPYRROLATE 0.2 MG/ML 2 ML VIAL ONE; +HYDROmorphone (PF) 1 MG/ML ONE; +KETAMINE HCL IN 0.9 % NACL 50 MG/5 ML SYRINGE ONE; -LACTATED RINGERS 1,000 ML IV SCH; +LIDOCAINE 1% (10MG/ML) FOR IV START INTRADERMA PRN; +LIDOCAINE 1% INJ 10MG/ML (20 ML MDV) ONE; +MIDAZOLAM 2 MG/2 ML VIAL ONE; +NEOSTIGMINE 1 MG/ML 10 ML VIAL ONE; -ONDANSETRON 4 MG/2 ML VIAL IVP ONE; +ONDANSETRON 4 MG/2 ML VIAL IVP PRN; +PHENYLEPHRINE 10 MG/ML VIAL ONE; +PROPOFOL 10 MG/ML 20 ML VIAL IV ONE; +ROCURONIUM 10 MG/ML (5 ML VIAL) IV ONE; +SUCCINYLCHOLINE CHLORIDE 200 MG/10 ML VIAL IV ONE; +TRANEXAMIC 1,000 MG/100ML-NACL 1,000 MG in SALINE 1 100ML.BAG IVPB PRN; +TRANEXAMIC 1,000 MG/100ML-NACL PREMIX BAG ONE; +fentaNYL (PF) 50 MCG/ML 2 ML AMP ONE
[2025-01-24] MEDS: GABAPENTIN 300 MG CAP PO PRN (06:40)
[2025-01-24] MEDS: ACETAMINOPHEN TAB 500 MG TAB PO PRN (06:41)
[2025-01-24 06:52] LABS: Glucose,Whole Blood 99 mg/dL (70-110)
[2025-01-24] MEDS: ONDANSETRON 4 MG/2 ML VIAL IVP ONE (07:00)
[2025-01-24] MEDS: LACTATED RINGERS 1,000 ML IV SCH (07:00)
[2025-01-24] MEDS: IV FLUID CONTINUATION 1,000 ML IV ONE ×2 (07:01)
[2025-01-24] MEDS: LACTATED RINGERS 1,000 ML IV ONE (10:35)
[2025-01-24] MEDS: THROMBIN (BOVINE) 5,000 UNIT VIAL TOPICAL ONE (10:35)
[2025-01-24] MEDS: GENTAMICIN 80 MG in SODIUM CHLORIDE 0.9% IRRIGATIO 3,000 ML IRRIGATION ONE (10:36)
[2025-01-24] MEDS: ceFAZolin 3,000 MG in SODIUM CHLORIDE 0.9% IRRIGATIO 3,000 ML IRRIGATION ONE (10:36)
[2025-01-24] MEDS: VANCOMYCIN 1,000 MG VIAL MISCELLANE ONE (11:03)
[2025-01-24] MEDS: LIDOCAINE 2%-EPI 1:100,000 20 ML VIAL SQ ONE (11:11)
[2025-01-24] MEDS: BUPIVACAINE (PF) 0.5% 30 ML VIAL SQ ONE (11:12)
--- NOTE | 2025-01-24 11:40 | XR ---
EXAMINATION TYPE: XR lumbar spine 2 or 3V, FL guidance operating room DATE OF EXAM: 01/24/2025 FLUOROSCOPY L3-Pelvis Fusion Dr. Valverde 16 images submitted. [facility], Workstation: [id number], 01/24/2025 11:38 AM
--- NOTE | 2025-01-24 11:58 | P.OP ---
Date of Procedure: 01/24/25 Preoperative Diagnosis: 1. L4-5, L5-S1 PSEUDOARTHROSIS 2. L3-4 UNSTABLE SPONDYLOLISTHESIS, GRADE I 3. LUMBAR STENOSIS WITH RADICULOPATHY 4. LUMBAR SPONDYLOSIS WITH STENOSIS AND RADICULOPATHY 5. LOW BACK PAIN 6. OBESITY BMI > 35 Postoperative Diagnosis: 1. L4-5, L5-S1 PSEUDOARTHROSIS 2. L3-4 UNSTABLE SPONDYLOLISTHESIS, GRADE I 3. LUMBAR STENOSIS WITH RADICULOPATHY 4. LUMBAR SPONDYLOSIS WITH STENOSIS AND RADICULOPATHY 5. LOW BACK PAIN 6. OBESITY BMI > 35 Procedure(s) Performed: 1. L3-4 INTRADISCAL OSTEOTOMY, 3 COLUMN FOR DEFORMITY CORRECTION 2. L3-4 POSTEROLATERAL AND INTERBODY FUSION 3. L4-5, L5-S1 POSTEROLATERAL INSTRUMENTED FUSION 4. BILATERAL OPEN SACROILIAC JOINT FUSION FOR LONG CONSTRUCT STABILITY 5. SEGMENTAL INSTRUMENTATION L3-PELVIS 6. ATTACHMENT OF THE CAUDAL END OF THE CONSTRUCT TO THE BONY PELVIS NOT SACRUM 7. L3-4, L4-5, L5-S1 BILATERAL LAMINECTOMY, COMPLETE FACETECTOMY AND FORAMINOTOMY FOR COMPLETE NEURAL DECOMPRESSION, DEFORMITY CORRECTION AND CAGE PLACEMENT 8. INSERTION OF BIOMECHANICAL DEVICE CAGE X1 L3-4 USE OF IONM ALL SCREWS TESTING > 15 mA MOD22: THIS CASE TOOK 75% LONGER THAN EXPECTED DUE TO COMORBID CONDITIONS, BMI > 35, REVISION NATURE OF THE CASE, COMPLEXITY OF THE CASE AND EXTENT OF LUMBAR PATHOLOGY. Implants: -HILARY EVEREST RODS AND SCREWS -SI BONE GRANIT PELVIC SCREWS X2 -SI BONE TORQUE SI FUSION SCREWS X2 -GLOBUS SABLE CAGE 8 DEG, LONG 7-12, 10MM -CONTOUR, ARTHROCELL, ALLOCELL, DBM, AUTOGRAFT Anesthesia: RAHUL Surgeon: Puneet Valverde Subway Train Driver #1: Alexys Martinez (WAS PRESENT AND ASSISTED WITH ALL ASPECTS OF THE CASE FROM POSITION TO DRESSING PLACEMENT) Estimated Blood Loss (ml): 500 IV fluids (ml): 2,000 Urine output (ml): 400 Pathology: none sent Condition: stable Disposition: PACU Indications for Procedure: Radha is a 54 YO FEMALE presenting for evaluation of LOW BACK PAIN, . It was my pleasure to have seen and examined Radha. In our visit today we have had a chance to go over subjective complaints, physical examination findings and treatments including the natural course history without intervention and various interventional options. The patients imaging demonstrates : * POST SURGICAL CHANGES L3-4 AND L5-S1 WITH SKIP FUSION AND SPONDYLOSIS PSEUDOARTHROSIS AT THESE LEVELS WITH STENOSIS NO FRACTURES OR LESIONS On physical exam, Radha demonstrates * PAIN WITH ANY MOTION OF THE SPINE, PAIN WITH AMBULATION, DIFFICUTLY WITH ADLS DUE TO PAIN WELL WEAKNESS IN LEGS B/L, NUMBNESS/TINGLING, CLAUDICANT BACK SX. I have explained to the patient that as their condition progresses it will cause further neurological deficits and eventual paralysis. Based on the patients imaging, physical exam, and the rapid progression and disabling nature of their symptoms, at this time I recommend surgery in the form or a: REVISION L3-PELVIS DECOMPRESSION AND FUSION I discussed the risk and benefits of this procedure at length with Radha. The patient agreed to considered pursuing the procedure abovementioned. Prior to surgery, she should follow up with her PCP (Cardio, ID, IM etc) for clearance. Questions were invited and answered, and the patient wishes to proceed as outlined below. Currently, I am recommendin.L3-PEVIS REVISION DECOMPRESSION AND FUSION Description of Procedure: L3-PELVIS REVISION DECOMPRESSION AND FUSION, JENA (FREE HAND) The patient was seen and examined in the preoperative area. All preoperative protocols were followed. Informed consent was obtained, risks and benefits of the procedure were discussed at length. Risks including bleeding infection damage to the surrounding tissue and risk of reoperation were discussed with the patient. Risk of anesthesia up to and including was discussed with the patient. These are outlined in the risk review. They were willing to accept these risks and all the risks of surgery. The patient was given a weight-based dose of antibiotics in the form of 3 g Ancef. The patient was seen and evaluated by the anesthesia team who deemed them fit for surgery. The site was marked, the patient was willing to proceed with the procedure. The patient was transferred to the operative suite by the Department of anesthesia. They were then drifted off to sleep by the department anesthesia and GETA was performed. The patient tolerated this well. Vazquez catheter was placed by nursing staff, a-traumatically. Once confirmation of lines and ventilation the patient was transferred to a prone Trios spine table very carefully. The head was secured and stable. X Ray confirmed alignment. All bony prominences including wrists, elbows, axilla, chest, hips, and thighs, and feet were padded very well. Special attention was paid to the genitalia, and these were padded accordingly. SCDs were placed on bilateral lower extremities and were connected. Arms were well padded and placed at 90/90 up and out and well padded. Safety strap and tape placed on the patient. Once in position, again we confirmed good ventilation capabilities and that lines were running appropriately. The patient's lumbosacral pelvic was then exposed. Hair was removed for incision. 1010s were placed outlining the incision site. Standard alcohol was used to clean the incision site and allowed to dry. C-arm was used to bio-edison the patient and confirm level for incision which was marked with a skin marker. Operative briefing was performed with all teams and everyone in agreement to proceed. The patient was then prepped and draped in a normal sterile fashion. Timeout was then performed, and all parties agreed with the procedure to be performed. Midline skin incision was then made over the previously bookmarked area and dissection taken down to the lumbosacral fascia which was identified and cleaned with a garcia. There was excessive sub-q adipose that was obtrusive and needed to be retracted. Once midline was identified, fasciotomy was made over the SP of L2-S1 and pelvis. Subperiosteal dissection was then taken down over the lamina and facet joints and TPs were exposed and trough made posterolateral. TPs were then decorticated with a high speed maura for lateral fusion. Dissection was taken out over the sacrum to the pelvis. SI joint identified and modified [place] starting point for pelvic screws identified as well. Retractors placed. Wound was irrigated and lateral image with penfield 4 placed at the pars of L4 confirmed levels for operation. Screws were then placed from L3-Pelvis using a free hand technique with fluoroscopic guidance. Under Lateral guidance, a high speed maura was used to make a fuel pilot engineer hole followed by a pedicle finder that was passed through the pedicle into the body. A ball tip probe then confirmed wi thin the pedicle. The screw was then measured and placed under lateral fluoroscopic guidance. After screws were placed from L3-S1, AP image confirmed safe placement of screws. Lateral images as well as Judet views were then used to place bilateral SI bone Granit pelvic screws. Starting point selected just lateral to the SI joint and S2 pseudo facet. Lateral image taken and maura used to make the fuel pilot engineer hole. Gearshift then used to pass into the pelvis under lateral imaging just above the sciatic notch. 30 deg/30deg iliac oblique then taken to confirm within the teardrop and ball tip probe used to probe good bone. The screw was then measured and selected and placed under lateral imaging. This was repeated on the contralateral side. Screws were then visualized and appeared safe. Screws were then tested, and reliably tested screws tested above 20 mA. SI Bone Torque screws were then proceeded to be placed bilaterally for SIJ fusion. This was done in an S2Ai approach with lateral image, high speed maura and gear shift. Ball tip probe then used to measure screw and palpate and confirm safety. Judet views confirmed trajectory and SIJ stabilization. Screws were then placed after decortication of the SIJ bilaterally in these positions. They were confirmed to be in good position on AP, Inlet and Outlet views. We then proceeded to decompression and interbody placement. Starting at L3-4, bilateral laminectomy, complete facetectomy and foraminotomies were performed using high speed bur, Kerrison rongeur. There was exuberant bone formation throughout the entire lumbar spine, making the case very meticulous and difficult. Severe stenosis with dural scarring was noted at L3-S1. There was significant scar tissue surrounding these joints as well as the dura. Once expos ed the neural elements were protected and an intradiscal osteotomy, 3 column, was performed for deformity correction at L3-4. Osteotome was used to make osteotomy in L3 and L4 and for complete disc removal. A box osteotome was then used to widen this bilaterally. This was passed into the anterior 1/3 of L3. This allowed for loosening of this level and correction. A cage was then selected based on shaving and trials. Bleeding endplates were encountered and cartilage removed. Autograft, allograft were then placed anterior to the cage. The cage was then impacted into place under lateral imaging while protecting neural elements. The cage was then expanded into position and showed good lift and correction. Tenriism of lordosis and height achieved. Meticulous hemostasis then performed. Cage was backfilled with DBM and the area irrigated. At L4-5 AND L5-S1, bilateral laminectomy, complete facetectomy and foraminotomy were performed as described above. Again, exuberant bone formation was encountered and at this level. There was also a large disc osteophyte complex that was identified once disc space was found. The dura was carefully dissected off this anteriorly and b/l. The wound was irrigated. Meticulous hemostasis then performed. Attention was then drawn to abdiel placement. Rods were selected, measured, cut and bent to appropriate lordosis. They were then secured into pelvic screws b/l. Sequential reduction then done into each screw and set screw placed. Set screws were then final tightened and lateral image showed good lordosis reduction and sagittal alignment. The wound was then irrigated with 3L Ancef irrigation, 3L gentamicin irrigation, 3L Irricept through the case and 1L Betadine at the end of the case and 3L NSS. Surgicel was then placed on the dura, which was inspected and had no injury. Then, in the posterolateral gutter was placed, MagnatOs, Autograft and allograft. This was impacted into position and surgical placed over it. 2g Vanco powder was then placed deep in the wound. A deep, subfascial drain was placed and a superficial facial drain placed. We then proceeded with layered closure. #1 PDS placed in the deep fascia. 0 Vicryl placed in the deep subq, 2-0 placed in the superficial subq and bridgette placed in the skin. The wound edges approximated very well. The wound was then cleaned with ETOH and dressed with adaptic, 4x4, ABD and tape. Drains sewed into position. IONM confirmed no changes. The patient was then transferred off the [facility] spine table to their hospital bed a-traumatically. Drains continued to hold suction. The patient was then extubated and transferred to the PACU/ICU in stable condition having tolerated the procedure with no complications.
[2025-01-24] MEDS ORDERED: MAGNESIUM HYDROXIDE 2,400 MG/30 ML CUP PO PRN (12:20)
[2025-01-24] MEDS ORDERED: SENNOSIDES-DOCUSATE SODIUM 1 EACH TAB PO PRN (12:20)
[2025-01-24] MEDS ORDERED: MAG HYDROX/AL HYDROX/SIMETH 30 ML CUP PO PRN (12:20)
[2025-01-24] MEDS: HYDROmorphone 0.5 MG/0.5 ML SYRINGE IVP PRN ×2 (12:33→23:20)
[2025-01-24 12:50] LABS: Glucose,Whole Blood 158 mg/dL (70-110)
[2025-01-24] MEDS: droPERidol 2.5 MG/ML VIAL IVP ONE (12:54)
[2025-01-24] MEDS: fentaNYL (PF) 50 MCG/ML 2 ML AMP IVP PRN (13:11)
[2025-01-24] MEDS: HYDROcodone/APAP 10-325MG 1 EACH TAB PO PRN (14:42)
[2025-01-24] MEDS: CYCLOBENZAPRINE 10 MG TAB PO PRN (14:42)
[2025-01-24] MEDS ORDERED: diphenhydrAMINE 25 MG CAP PO PRN (15:19)
[2025-01-24] MEDS ORDERED: ALBUTEROL NEBULIZED 2.5 MG/3 ML INHALATION PRN (15:19)
[2025-01-24] MEDS ORDERED: DEXTROSE 50% SYRINGE 50 ML IVP PRN ×2 (15:28)
--- NOTE | 2025-01-24 16:28 | P.CONS ---
History of Present Illness - Reason for Consult Consult date: 01/24/25 Medical Management Requesting physician: Puneet Valverde - History of Present Illness History of Presenting Illness: Patient is a very pleasant 54-year-old female with a past medical history of rheumatoid arthritis, Raynaud's disease, GERD with previous gastric ulcers, neuropathy/fibromyalgia, qqw-xsezzan-sywdamxbq diabetes mellitus, irregular heartbeat on verapamil, lumbar stenosis with radiculopathy. She is currently admitted under orthospine surgery team status post lumbar through sacral osteotomy facetectomy, foraminotomy, neural decompression, with interbody fusion and instrumentation with insertion of biomechanical cage device and bilateral open sacroiliac joint fusions. Surgical procedure was completed by Dr. Valverde. We were consulted for medical management throughout hospitalization. Patient was seen and fully evaluated in room 474 shortly after returning from postop. Patient still slightly drowsy from anesthesia/pain medications received. She was easily awoken via verbal stimuli and currently reports moderate postoperative pain. She denies having any numbness or tingling in her extremities and moving upper and lower extremities without any difficulties. Vazquez catheter is in place with clear straw-colored urine in collection bag and tubing. Patient denies having any headache, lightheadedness, dizziness, chest pain, palpitations, or shortness of breath. She denies having any postoperative nausea or vomiting and at this time is tolerating clear fluid oral intake.. Review of systems: Pertinent positives and negatives as discussed in HPI, a complete review of systems was performed and all other systems are negative. Physical exam: Vital signs reviewed and stable. General: Nontoxic, no distress and appears stated age. Obese. Derm: Skin warm and dry, normal coloration for ethnicity. Head: Atraumatic, normocephalic and symmetric. Eyes: EOM's intact, no lid lag, and anicteric sclera. Vazquez catheter in place Mouth: no lip lesions, mucus membranes moist Cardiovascular: regular rate and rhythm with normal S1S2, no murmur noted, positive posterior tibial pulses bilaterally, and cap refill < 2 seconds. Lungs: Respirations even, regular, and unlabored on room air. Lungs CTA bilaterally, no rhonchi, no rales, no wheezing, and no accessory muscle usage. Abdominal: soft, nontender to palpation, no guarding, no appreciable organomegaly Ext: ROM intact. No gross muscle atrophy, scant lower extremity edema, no con tractures Neuro: Speech clear, face symmetrical and CN II-XII grossly intact with no noted focal neuro deficits Psych: Alert and oriented to person, place, time, and situation. Appropriate and pleasant affect. Assessment and Plan of Care: Status post extensive lumbar surgery Lumbar stenosis with radiculopathy Management per primary admitting orthospine surgery team including DVT prophylaxis, pain management, wound/dressing/drain management, and advancement of activity with PT/OT. Currently DVT prophylaxis with EZEQUIEL hose and SCDs. Type II bwu-oclyvfh-dgokallkc diabetes mellitus with hyperglycemia Hold metformin and placed patient on glycemic protocol with NovoLog sliding scale. Follow-up on hemoglobin A1c. Irregular heartbeat Continue verapamil 120 mg daily. Rheumatoid arthritis Neuropathy/fibromyalgia Continue Plaquenil 200 mg nightly amitriptyline 10 mg nightly, gabapentin 900 mg twice daily, and duloxetine 90 mg daily. Mild persistent asthma Supplement Ventolin inhaler with nebulizer twice daily as needed for shortness of breath and/or wheezing. Encourage use of incentive spirometry 10-15 times hourly while awake. Data reviewed: Vital signs reviewed. Blood pressure 109/75, heart rate 98, respiratory rate 18, temp 97.7 F, and SpO2 of 99% on 2 L. Blood glucose 158. Reviewed operative report patient had estimated blood loss of 500 cc. Thank you for allowing us to participate in the care of this pleasant patient. Do not hesitate to contact us with questions. Someone can be reached from the [facility] group all hours of the day at [phone] or via [employer]. Patient was seen independently by Nurse Practitioner. This document was prepared using Setgo dictation software. Please allow for errors in coil winding supervisor while rare they do occur. Ankit Durham NP rendered care for this patient independently, reviewed the findings and plan as documented in the note above and agree with plan. I did not physically speak with or examine the patient on this date. Past Medical History Past Medical History: Asthma, Diabetes Mellitus, Eye Disorder, Musculoskeletal Disorder, Neurologic Disorder, Osteoarthritis (OA), Rheumatoid Arthritis (RA) Additional Past Medical History / Comment(s): Asthma - no problems recently. "5 different forms of arthritis, including psoriatic and degenerative. 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 Irregular heart beat "since I was a kid." Raynauds. Stomach Ulcers X3. IBS. VARICOSE VEINS, EDEMA BILATERAL LEGS W/ PAIN, NEUROPATHY IN FEET, hx tremors all over body, "AUTO IMMUNE DISORDER". Heels spurs. History of Any Multi-Drug Resistant Organisms: None Reported Past Surgical History: Appendectomy, Back Surgery, Section, Cholecystectomy, Heart Catheterization, Hysterectomy, Joint Replacement, Orthopedic Surgery Additional Past Surgical History / Comment(s): Section X2, RADIO FREQUENCY ABLATION to C3-5, laparoscopies to drain ovarian cyst, bilateral foot surgery, bilateral trigger thumb surgery, bilateral thumb tendon repair, colonoscopy, right knee arthroscopy X3, right knee surgery, LYSIS OF ADHESIONS X3, left knee arthroscopy, right knee replacement 10/2016, fusion L4-5 S-1, left knee replacement 05/25/21, multiple procedures after left knee replacement due to infection and allergic reaction, partial hysterectomy, right shoulder repair. Past Anesthesia/Blood Transfusion Reactions: Motion Sickness Smoking Status: Current some day smoker - Past Family History Mother Family Medical History: Deep Vein Thrombosis (DVT), Pulmonary Embolus Father Family Medical History: Cancer Additional Family Medical History / Comment(s): Alcoholic. Bladder cancer. Sister(s) Family Medical History: Cancer Additional Family Medical History / Comment(s): Melanoma. Medications and Allergies Home Medications Medication Instructions Recorded Confirmed Type Albuterol Inhaler [Ventolin Hfa 1 puff INHALATION RT-BID PRN 02/26/14 01/24/25 History Inhaler] Gabapentin [Neurontin] 900 mg PO BID 06/04/16 01/24/25 History Verapamil HCl [Verapamil ER] 120 mg PO QAM 06/04/16 01/24/25 History Ascorbic Acid [Vitamin C] 1,000 mg PO DAILY 09/21/17 01/24/25 History DULoxetine HCL [Cymbalta] 90 mg PO QAM 01/19/18 01/24/25 History Amitriptyline HCl 10 mg PO HS 10/04/18 01/24/25 History Multivitamins, Thera [Multivitamin 1 tab PO DAILY 10/04/18 01/24/25 History (formulary)] diphenhydrAMINE [Benadryl] 25 mg PO DAILY PRN 12/31/18 01/24/25 History Cranberry Fruit Extract [Cranberry] 4,200 mg PO DAILY 05/21/21 01/24/25 History Hydroxychloroquine Sulfate 200 mg PO HS 05/21/21 01/24/25 History [Plaquenil] Omeprazole [PriLOSEC] 20 mg PO AC-BID 05/21/21 01/24/25 History Acetaminophen Tab [Tylenol Tab] 500 - 1,000 mg PO Q4-6H PRN 01/21/25 01/24/25 History Cyclobenzaprine [Flexeril] 10 mg PO TID 01/21/25 01/24/25 History HYDROcodone/APAP 10-325MG [[place] 1 tab PO QID 01/21/25 01/24/25 History 10-325] Meloxicam [Mobic] 15 mg PO DAILY 01/21/25 01/24/25 History Tofacitinib Citrate [Xeljanz] 11 mg PO DAILY 01/21/25 01/24/25 History Vitamin B Complex 1 each PO DAILY 01/21/25 01/24/25 History Vitamin D3 (Unknown Dose) 1 tab PO DAILY 01/21/25 01/24/25 History metFORMIN HCL [Glucophage] 500 mg PO BID 01/22/25 01/24/25 History Allergies Allergy/AdvReac Type Severity Reaction Status Date / Time apple [Apple] Allergy Rash/Hives Verified 01/24/25 06:17 aspirin Allergy Rash/Hives Verified 01/24/25 06:17 Beef Containing Products Allergy Rash/Hives Verified 01/24/25 06:17 cinnamon [Cinnamon] Allergy Rash/Hives Verified 01/24/25 06:17 cocoa [[place]] Allergy Rash/Hives Verified 01/24/25 06:17 dill oil Allergy Rash/Hives Verified 01/24/25 06:17 egg Allergy Rash/Hives Verified 01/24/25 06:17 frovatriptan succinate Allergy Nausea & Verified 01/24/25 06:17 [From Frova] Vomiting plus throat swelling grapefruit [Grapefruit] Allergy Rash/Hives Verified 01/24/25 06:17 peas Allergy Rash/Hives Verified 01/24/25 06:17 Poultry [[place]] Allergy Rash/Hives Verified 01/24/25 06:17 shrimp Allergy throat Verified 01/24/25 06:17 swelling soy Allergy Rash/Hives Verified 01/24/25 06:17 spinach Allergy Rash/Hives Verified 01/24/25 06:17 yeast, dried [yeast] Allergy Rash/Hives Verified 01/24/25 06:17 orange AdvReac Rash/Hives Verified 01/24/25 06:17 DECONGESTANTS Allergy Rash/Hives Uncoded 01/24/25 06:17 salmon Allergy Rash/Hives Uncoded 01/24/25 06:17 solumedrol IV only Allergy Rash/Hives Uncoded 01/24/25 06:17 Physical Exam Vitals: Vital Signs Temp Pulse Pulse Resp BP BP Pulse Ox 01/24/25 14:31 97.7 F 98 18 109/75 99 01/24/25 13:50 100 16 120/68 94 L 01/24/25 13:35 101 H 16 130/68 96 01/24/25 13:20 98 18 119/72 96 01/24/25 13:05 97 20 108/62 94 L 01/24/25 12:50 88 18 100/54 94 L 01/24/25 12:34 83 18 95/58 100 01/24/25 12:19 88 16 111/56 100 01/24/25 12:04 97.3 F L 104 H 16 136/77 100 01/24/25 06:37 98.6 F 90 18 140/76 97 Intake and Output 01/24/25 01/24/25 01/24/25 06:59 14:59 22:59 Intake Total 2502 Output Total 975 Balance 1527 Intake: IV 2502 Output: Urine 475 Estimated Blood Loss 500 Other: Weight 105 kg Results Labs: Abnormal Lab Results - Last 24 Hours (Table) 01/24/25 Range/Units 12:48 POC Glucose (mg/dL) 158 H (70-110) mg/dL
[2025-01-24 16:35] LABS: Glucose,Whole Blood 122 mg/dL (70-110)
[2025-01-24] MEDS: INSULIN LISPRO (HumaLOG) 100 UNIT/ML 10 mL VL SQ SCH (16:47)
[2025-01-24] MEDS: ACETAMINOPHEN TAB 325 MG TAB PO SCH (18:11)
[2025-01-24] MEDS: oxyCODONE-APAP 7.5-325MG 1 EACH TAB PO PRN (18:16)
[2025-01-24] MEDS: HYDROmorphone 1 MG/ML 1 ML SYRINGE IVP PRN (18:17)
[2025-01-24 20:27] LABS: Glucose,Whole Blood 142 mg/dL (70-110)
[2025-01-24] MEDS: GABAPENTIN 300 MG CAP PO SCH (21:38)
[2025-01-24] MEDS: HYDROXYCHLOROQUINE SULFATE 200 MG TAB PO SCH (21:38)
[2025-01-24] MEDS: AMITRIPTYLINE HCL 10 MG TAB PO SCH (21:38)
[2025-01-25 06:13] LABS: Glucose,Whole Blood 134 mg/dL (70-110)
[2025-01-25] MEDS: PANTOPRAZOLE 40 MG TABLET PO SCH (06:22)
--- NOTE | 2025-01-25 08:18 | CT ---
EXAMINATION TYPE: CT lumbar spine wo con DATE OF EXAM: 01/25/2025 7:51 AM COMPARISON: 12/17/2024. CLINICAL INDICATION: Female, 54 years old with history of s/p revision L3-pelvis decompr fusion; PHH, back pain TECHNIQUE: CT of the lumbar spine without contrast. Coronal and sagittal reconstructions performed. CT DLP: 8.8 mGycm, Automated exposure control for dose reduction was used. FINDINGS: Cholecystectomy clips. Tiny 9 mm cortical lesion medial upper left kidney likely a tiny cortical cyst . Suspect partial visualization of a Vazquez catheter. Interval placement of posterior and interbody lumbar fusion from L3 into both sides of the pelvis. Ad ditional old anterior lumbar fusion changes L4-S1 levels. Laminectomies L3-L5 levels decompressing the spinal canal. No fixed grade 1 anterolisthesis L3-L4. Vertebral body heights are preserved. Postsurgical changes with surgical drain in place and scattered foci of soft tissue and epidural air and additional small foci of air within the laminectomy bed relating to the patient's surgery. Latera l osseous bone graft material also noted. There appear to have been bilateral foraminotomies at L3-L4 and on the left at L4-L5. IMPRESSION : 1. Old L4-S1 anterior lumbar fusion changes with new placement of L3 through pelvic posterior and int erbody lumbar fusion. Corresponding laminectomies decompressing the spinal canal. 2. Fixed grade 1 anterolisthesis L3-L4. 3. Scattered foci of air and a surgical drain relating to recent postoperative changes. [facility], , 01/25/2025 8:16 AM
[2025-01-25 08:36] LABS: BUN/Creat Ratio 16.17 Ratio (12.00-20.00); Blood Urea Nitrogen 9.7 mg/dL (9.0-27.0); Calcium 8.4 mg/dL (8.7-10.3); Carbon Dioxide 25.9 mmol/L (21.6-31.8); Chloride 103 mmol/L (96-109); Glucose 121 mg/dL (70-110); Potassium 4.2 mmol/L (3.5-5.5); Sodium 139 mmol/L (135-145)
[2025-01-25 08:45] LABS: Basophils # (A) 0.01 X 10*3/uL (0.00-0.10); Basophils % (A) 0.1 %; Eosinophils # (A) 0.01 X 10*3/uL (0.04-0.35); Eosinophils % (A) 0.1 %; HCT 31.5 % (37.2-46.3); HGB 10.3 g/dL (12.0-15.0); Lymphocytes # (A) 0.89 X 10*3/uL (0.90-5.00); Lymphocytes % (A) 11.8 %; MCH 30.3 pg (27.0-32.0); MCHC 32.7 g/dL (32.0-37.0); MCV 92.6 FL (80.0-97.0); Monocytes # (A) 1.07 X 10*3/uL (0.20-1.00); Monocytes % (A) 14.2 %; NRBC Per 100 WBC 0 X 10*3/uL (0.00-0.01); Neutrophils # (A) 5.54 X 10*3/uL (1.80-7.70); Neutrophils % (A) 73.4 %; Platelet Count 245 X 10*3/uL (140-440); RDW 13.9 % (11.5-14.5); WBC 7.55 X 10*3/uL (4.50-10.00)
[2025-01-25] MEDS ORDERED: NON FORMULARY DRUG (Cranberry Fruit Extract [Cranberry] 500 MG Tablet) PO SCH (09:00)
[2025-01-25] MEDS: MULTIVITAMINS, THERA 1 EACH TAB PO SCH (09:13)
[2025-01-25] MEDS: DULoxetine HCL 30 MG CAPSULE.DR PO SCH (09:13)
[2025-01-25] MEDS: VERAPAMIL SR 120 MG TABLET.ER PO SCH (09:14)
[2025-01-25] MEDS: TOFACITINIB CITRATE 11 MG PO SCH (09:29)
[2025-01-25] MEDS: ASCORBIC ACID 500 MG TAB PO SCH (09:32)
[2025-01-25] MEDS: NICOTINE 21MG/24HR PATCH TRANSDERM SCH (10:52)
--- NOTE | 2025-01-25 11:16 | P.PN ---
Subjective Progress Note Date: 01/25/25 Principal diagnosis: 1. L4-5, L5-S1 PSEUDOARTHROSIS 2. L3-4 UNSTABLE SPONDYLOLISTHESIS, GRADE I 3. LUMBAR STENOSIS WITH RADICULOPATHY 4. LUMBAR SPONDYLOSIS WITH STENOSIS AND RADICULOPATHY 5. LOW BACK PAIN Patient was seen at bedside this morning sitting up in chair with drain in place Vazquez/catheter in place and dressing present over lumbar spine. Dressing appears to be clean, dry, intact. Patient says she just finished working with therapy, however, patient says she did have a difficult time getting up out of bed and only managed to get to the chair and did not walk around the room yet. Patient says oral medication is helping control pain somewhat however she is s till having a decent pain in the back at this time. Patient also says she is having pain down the legs. Patient denies any fever/chills/nausea/vomiting or change in vision. Objective - Vital Signs Vital signs: Vital Signs Temp 99.4 F 01/25/25 06:44 Pulse 107 H 01/25/25 06:44 Resp 17 01/25/25 06:44 BP 109/59 01/25/25 06:44 Pulse Ox 95 01/25/25 06:44 FiO2 Intake & Output 01/24/25 01/25/25 01/25/25 18:59 06:59 18:59 Intake Total 2672 Output Total 1065 815 Balance 1607 -815 Weight 105 kg Intake: IV 2502 Intake, IV Titration 50 Amount ceFAZolin 2 gm In Sodium 50 Chloride 0.9% 50 ml @ 100 mls/hr IVPB Q8HR [facility] Rx# :[id number] Oral 120 Output: Drainage 90 140 Medial Back 90 140 Urine 475 675 Estimated Blood Loss 500 Other: Voiding Method Indwelling Catheter Indwelling Catheter - Exam Postop dressing on lumbar spine appears to be clean, dry, intact. Plan for possible dressing change tomorrow. Vazquez/catheter in place. Hemovac drain in place with 140 cc serosanguineous output at night. Maintain drain to full suction at this time. There is a dermatomal deficit from L3-S1 exam. Sensation equal, symmetric, bilateral intact throughout the rest of extremities on exam. There is moderate tenderness to palp near incision on lumbar spine exam and in the paravertebral region. Nontender on rest of exam. Patient does have some limited range of motion in the bilateral hips knees and ankles secondary referred stiffness and pain in the low back. Good range of motion throughout bilateral upper extremities on exam. 4-/5 in all major motor groups in bilateral lower extremities. 4/5 in all major motor groups in bilateral upper extremities. Radial pulse intact, 2+ bilaterally. Cap refill under 3 seconds in digits of upper extremities. Negative Homans bilaterally. Negative [place] bilaterally. Negative clonus bilaterally. - Labs CBC & Chem 7: 01/25/25 05:01/25/25 05: Labs: Abnormal Lab Results - Last 24 Hours (Table) 01/24/25 01/24/25 01/24/25 Range/Units 12:48 16:33 20:26 RBC (4.10-5.20) X 10*6/uL Hgb (12.0-15.0) g/dL Hct (37.2-46.3) % Lymphocytes # (0.90-5.00) X 10*3/uL Monocytes # (0.20-1.00) X 10*3/uL Eosinophils # (0.04-0.35) X 10*3/uL Glucose (70-110) mg/dL POC Glucose (mg/dL) 158 H 122 H 142 H (70-110) mg/dL Calcium (8.7-10.3) mg/dL 01/25/25 01/25/25 01/25/25 Range/Units 05:26 05:26 06:12 RBC 3.40 L (4.10-5.20) X 10*6/uL Hgb 10.3 L (12.0-15.0) g/dL Hct 31.5 L (37.2-46.3) % Lymphocytes # 0.89 L (0.90-5.00) X 10*3/uL Monocytes # 1.07 H (0.20-1.00) X 10*3/uL Eosinophils # 0.01 L (0.04-0.35) X 10*3/uL Glucose 121 H (70-110) mg/dL POC Glucose (mg/dL) 134 H (70-110) mg/dL Calcium 8.4 L (8.7-10.3) mg/dL Assessment and Plan Assessment: 1. L4-5, L5-S1 PSEUDOARTHROSIS 2. L3-4 UNSTABLE SPONDYLOLISTHESIS, GRADE I 3. LUMBAR STENOSIS WITH RADICULOPATHY 4. LUMBAR SPONDYLOSIS WITH STENOSIS AND RADICULOPATHY 5. LOW BACK PAIN -Postop day 1 status post revision L3 to pelvis decompression and fusion Plan: 1. L4-5, L5-S1 PSEUDOARTHROSIS; L3-4 UNSTABLE SPONDYLOLISTHESIS, GRADE I; LUMBAR STENOSIS WITH RADICULOPATHY; LUMBAR SPONDYLOSIS WITH STENOSIS AND RADICULOPATHY; LOW BACK PAIN -surgery form yesterday, , 01/24/2025 revision L3 to pelvis decompression and fusion. Patient appears to be clean, dry, intact at this time. Plan for dressing change tomorrow. 140 cc serosanguineous output in drain overnight. Maintain drain to full suction at this time. Maintain Vazquez/catheter at this time. Plan for possible removal tomorrow. Continue working with PT/OT daily. Pain medication as needed. We will continue to follow patient during stay in hospital. Discharge planning pending 2. Appreciate medical management 3. Pain management -Flexeril; gabapentin; Wolver[place] or Percocet 4. DVT prophylaxis -mechanical 5. GI prophylaxis -senna; milk of mag; Protonix 6. PT/OT -weightbearing as tolerated with walker 7. Encourage incentive spirometer use 8. Discharge planning -pending Time with Patient: Less than 30
[2025-01-25 12:01] LABS: Glucose,Whole Blood 138 mg/dL (70-110)
--- NOTE | 2025-01-25 13:27 | P.PN ---
Subjective Progress Note Date: 01/25/25 Hospital Course: Patient is a very pleasant 54-year-old female with a past medical history of rheumatoid arthritis, Raynaud's disease, GERD with previous gastric ulcers, neuropathy/fibromyalgia, jzs-lhjoihk-hwzjgrhvg diabetes mellitus, irregular heartbeat on verapamil, lumbar stenosis with radiculopathy. She is currently admitted under orthospine surgery team status post lumbar through sacral osteotomy facetectomy, foraminotomy, neural decompression, with interbody fusion and instrumentation with insertion of biomechanical cage device and bilateral open sacroiliac joint fusions on 01/24/25. Surgical procedure was completed by Dr. Valverde. We were consulted for medical management throughout hospitalization. Physical exam: Patient seen and fully evaluated at bedside this morning. She is postoperative day 1. She was sitting up in the chair. Hemovac drain remains in place. Patient reports moderate postoperative pain and reports having a difficult time ambulating to chair this morning. She denies having any nausea, vomiting, or any other complaints at this time. Vazquez catheter remains in place. Vital signs reviewed and stable. General: Nontoxic, no distress and appears stated age. Obese. Derm: Skin warm and dry, normal coloration for ethnicity. Postsurgical dressing clean, dry, and intact. Hemovac drain remains in place. Head: Atraumatic, normocephalic and symmetric. Eyes: EOM's intact, no lid lag, and anicteric sclera. Vazquez catheter in place Mouth: no lip lesions, mucus membranes moist Cardiovascular: regular rate and rhythm with normal S1S2, no murmur noted, positive posterior tibial pulses bilaterally, and cap refill < 2 seconds. Lungs: Respirations even, regular, and unlabored on room air. Lungs CTA bilaterally, no rhonchi, no rales, no wheezing, and no accessory muscle usage. Abdominal: soft, nontender to palpation, no guarding, no appreciable organomegaly Ext: ROM intact. No gross muscle atrophy, scant lower extremity edema, no contractures Neuro: Speech clear, face symmetrical and CN II-XII grossly intact with no noted focal neuro deficits Psych: Alert and oriented to person, place, time, and situation. Appropriate and pleasant affect. Assessment and Plan of Care: Status post extensive lumbar surgery Lumbar stenosis with radiculopathy Management per primary admitting orthospine surgery team including DVT pro phylaxis, pain management, wound/dressing/drain management, and advancement of activity with PT/OT. Currently DVT prophylaxis with EZEQUIEL hose and SCDs. Type II obt-fssxsmk-sxzlyzzdz diabetes mellitus with hyperglycemia Hold metformin and continue glycemic protocol with NovoLog sliding scale. Hemoglobin A1c 5.4%. Irregular heartbeat Continue verapamil 120 mg daily. Rheumatoid arthritis Neuropathy/fibromyalgia Continue Plaquenil 200 mg nightly amitriptyline 10 mg nightly, gabapentin 900 mg twice daily, and duloxetine 90 mg daily. Mild persistent asthma Supplement Ventolin inhaler with nebulizer twice daily as needed for shortness of breath and/or wheezing. Encourage use of incentive spirometry 10-15 times hourly while awake. Data reviewed: Vital signs reviewed. Blood pressure 109/59, heart rate 107, respiratory rate 17, temp 99.4 F, and SpO2 of 95% on 2 L. Reviewed postoperative labs. CBC showing acute postoperative blood loss anemia with hemoglobin of 10.3 preoperative hemoglobin from 10/09/2024 was 14.1. BMP unremarkable. Blood glucose 121. Hemoglobin A1c 5.4%. Thank you for allowing us to participate in the care of this pleasant patient. Do not hesitate to contact us with questions. Someone can be reached from the [facility] group all hours of the day at [phone] or via [employer]. Patient was seen independently by Nurse Practitioner. This document was prepared using [employer] dictation software. Please allow for errors in mva still operator while rare they do occur. Ankit Durham NP rendered care for this patient independently, reviewed the findings and plan as documented in the note above and agree with plan. I did not physically speak with or examine the patient on this date. Objective - Vital Signs Vital signs: Vital Signs Temp 99.4 F 01/25/25 06:44 Pulse 107 H 01/25/25 06:44 Resp 17 01/25/25 06:44 BP 109/59 01/25/25 06:44 Pulse Ox 95 01/25/25 06:44 FiO2 Intake & Output 01/24/25 01/25/25 01/25/25 18:59 06:59 18:59 Intake Total 2672 Output Total 1065 815 Balance 1607 -815 Weight 105 kg Intake: IV 2502 Intake, IV Titration 50 Amount ceFAZolin 2 gm In Sodium 50 Chloride 0.9% 50 ml @ 100 mls/hr IVPB Q8HR [facility] Rx# :[id number] Oral 120 Output: Drainage 90 140 Medial Back 90 140 Urine 475 675 Estimated Blood Loss 500 Other: Voiding Method Indwelling Catheter Indwelling Catheter - Labs CBC & Chem 7: 01/25/25 05:26 01/25/25 05:26 Labs: Abnormal Lab Results - Last 24 Hours (Table) 01/24/25 01/24/25 01/24/25 Range/Units 12:48 16:33 20:26 RBC (4.10-5.20) X 10*6/uL Hgb (12.0-15.0) g/dL Hct (37.2-46.3) % Lymphocytes # (0.90-5.00) X 10*3/uL Monocytes # (0.20-1.00) X 10*3/uL Eosinophils # (0.04-0.35) X 10*3/uL Glucose (70-110) mg/dL POC Glucose (mg/dL) 158 H 122 H 142 H (70-110) mg/dL Calcium (8.7-10.3) mg/dL 01/25/25 01/25/25 01/25/25 Range/Units 05:26 05:26 06:12 RBC 3.40 L (4.10-5.20) X 10*6/uL Hgb 10.3 L (12.0-15.0) g/dL Hct 31.5 L (37.2-46.3) % Lymphocytes # 0.89 L (0.90-5.00) X 10*3/uL Monocytes # 1.07 H (0.20-1.00) X 10*3/uL Eosinophils # 0.01 L (0.04-0.35) X 10*3/uL Glucose 121 H (70-110) mg/dL POC Glucose (mg/dL) 134 H (70-110) mg/dL Calcium 8.4 L (8.7-10.3) mg/dL
[2025-01-25 15:49] LABS: Glucose,Whole Blood 165 mg/dL (70-110)
[2025-01-25] MEDS: ONDANSETRON 4 MG/2 ML VIAL IVP PRN (17:48)
[2025-01-25] MEDS: HYDROmorphone 2 MG/ML 1 ML SYRINGE IVP PRN (20:09)
[2025-01-25 20:57] LABS: Glucose,Whole Blood 153 mg/dL (70-110)
[2025-01-25] MEDS: polyethylene glycoL 3350 17 GM POWD.PACK PO SCH (21:39)
[2025-01-26 06:48] LABS: Glucose,Whole Blood 136 mg/dL (70-110)
--- NOTE | 2025-01-26 11:16 | P.PN ---
Subjective Progress Note Date: 01/26/25 Principal diagnosis: Status post revision [id number] decompression and fusion, bilateral open SI joint fusion Patient was evaluated at bedside, she is noticed resting in her hospital bed. Patient appears to be progressing well at this time. The urinary catheter was removed earlier this morning. She has been passing gas. Her drain seems to be slowing with output. She is noticing some spasms on the posterior aspects of the legs, left worse than right at this time. She has no headaches, lightheadedness, chest pain or shortness of breath Objective - Vital Signs Vital signs: Vital Signs Temp 98.9 F 01/26/25 07:02 Pulse 112 H 01/26/25 07:02 Resp 18 01/26/25 07:02 BP 135/71 01/26/25 07:02 Pulse Ox 95 01/26/25 07:02 FiO2 Intake & Output 01/25/25 01/26/25 01/26/25 18:59 06:59 18:59 Intake Total 540 Output Total 1340 80 Balance -1340 460 Intake: Oral 540 Output: Drainage 70 80 Medial Back 70 80 Urine 1270 Other: Voiding Method Indwelling Catheter Indwelling Catheter # Voids 1 - Exam Gen: AOx3, NAD VSS stable at this time Integument: Postop dressing was removed today at bedside, stitches are all in good position and condition. Drain site remains adequate, Hemovac is still putting out bloody serosanguineous fluid Palpation: Tenderness with palpation of the lower lumbar spine ROM: Full range of motion in all major muscle groups of the bilateral upper and lower extremities no focal deficits appreciated Sensory Exam: Senory exam to light touch is intact C5-T1 Senosry exam to light touch is intact L2-S1 Motor: 4+/5 strength appreciated the bilateral lower extremities with hip flexion, knee extension, knee flexion, plantarflexion, dorsiflexion, EHL, FHL Reflexes: 2/4 in all UE and LE Negative clonus bilaterally Negative Babinski bilaterally - Labs CBC & Chem 7: 01/25/25 05:26 01/25/25 05: Labs: Abnormal Lab Results - Last 24 Hours (Table) 01/25/25 01/25/25 01/25/25 Range/Units 11:59 15:48 20:55 POC Glucose (mg/dL) 138 H 165 H 153 H (70-110) mg/dL 01/26/25 Range/Units 06:46 POC Glucose (mg/dL) 136 H (70-110) mg/dL Assessment and Plan Assessment: Postoperative day #2 status post revision [id number] decompression and fusion, bilateral open SI joint fusion Plan: Pain control, discussed with patient we would either utilize the [place] or the Percocet, we will hold off on [place] at this time due to current pain level. I did add Valium 5 mg twice daily to use as needed for muscle spasms. She has been on Flexeril for quite some time which she can continue at this time. She is also on gabapentin 900 mg twice a day. She has utilized some Dilaudid since surgery DVT prophylaxis, aspirin 81 mg daily New Optifoam dressing was placed, monitor surgical site and drain output. Possible removal of drain on 01/27/2025 Weight-bear as tolerated with walker, LSO brace when up and walking longer distances., No bending, lifting or twisting Monitor for urinary retention Encourage incentive spirometer Medical recommendations appreciated PT/OT recommendations appreciated Discharge planning: Plan for discharge home with home health care in the next 24-48 hours Time with Patient: Less than 30
[2025-01-26] MEDS: diazePAM 5 MG TAB PO PRN (11:22)
[2025-01-26 12:15] LABS: Glucose,Whole Blood 155 mg/dL (70-110)
--- NOTE | 2025-01-26 13:30 | P.PN ---
Subjective Progress Note Date: 01/26/25 Hospital Course: Patient is a very pleasant 54-year-old female with a past medical history of rheumatoid arthritis, Raynaud's disease, GERD with previous gastric ulcers, neuropathy/fibromyalgia, nyt-ryvufww-eoauozcsi diabetes mellitus, irregular heartbeat on verapamil, lumbar stenosis with radiculopathy. She is currently admitted under orthospine surgery team status post lumbar through sacral osteotomy facetectomy, foraminotomy, neural decompression, with interbody fusion and instrumentation with insertion of biomechanical cage device and bilateral open sacroiliac joint fusions on 01/24/25. Surgical procedure was completed by Dr. Valverde. We were consulted for medical management throughout hospitalization. Physical exam: Patient seen and fully evaluated at bedside this morning. She is postoperative day 2. She was resting in bed and currently reports pain is moderate and states a little stinging since having her dressing changed this morning. She also report muscle spasms in left leg tody and is being started on Valium by orthopedic PA. Pt denies any other complaints. Vital signs reviewed and stable. General: Nontoxic, no distress and appears stated age. Obese. Derm: Skin warm and dry, normal coloration for ethnicity. Postsurgical dressing clean, dry, and intact. Hemovac drain remains in place. Head: Atraumatic, normocephalic and symmetric. Eyes: EOM's intact, no lid lag, and anicteric sclera. Vazquez catheter in place Mouth: no lip lesions, mucus membranes moist Cardiovascular: regular rate and rhythm with normal S1S2, no murmur noted, positive posterior tibial pulses bilaterally, and cap refill < 2 seconds. Lungs: Respirations even, regular, and unlabored on room air. Lungs CTA bilaterally, no rhonchi, no rales, no wheezing, and no accessory muscle usage. Abdominal: soft, nontender to palpation, no guarding, no appreciable organomegaly Ext: ROM intact. No gross muscle atrophy, scant lower extremity edema, no contractures Neuro: Speech clear, face symmetrical and CN II-XII grossly intact with no noted focal neuro deficits Psych: Alert and oriented to person, place, time, and situation. Appropriate and pleasant affect. Assessment and Plan of Care: Status post extensive lumbar surgery Lumbar stenosis with radiculopathy Management per primary admitting orthospine surgery team including DVT prophylaxis, pain management, wound/dressing/drain management, and advancement of activity with PT/OT. Currently DVT prophylaxis with EZEQUIEL rodriguez and SCDs. Type II yna-[id number]-ecoierghp diabetes mellitus with hyperglycemia Hold metformin and continue glycemic protocol with NovoLog sliding scale. Hemoglobin A1c 5.4%. Irregular heartbeat Continue verapamil 120 mg daily. Rheumatoid arthritis Neuropathy/fibromyalgia Continue Plaquenil 200 mg nightly amitriptyline 10 mg nightly, gabapentin 900 mg twice daily, and duloxetine 90 mg daily. Mild persistent asthma Supplement Ventolin inhaler with nebulizer twice daily as needed for shortness of breath and/or wheezing. Encourage use of incentive spirometry 10-15 times hourly while awake. Data reviewed: Vital signs reviewed. Blood pressure 135/71, heart rate 112, respiratory rate 18, temp 98.9 F, and SpO2 of 95% on room air Reviewed postoperative labs. CBC showing acute postoperative blood loss anemia with hemoglobin of 10.3 preoperative hemoglobin from 10/09/2024 was 14.1. BMP unremarkable. Blood glucose 121. Hemoglobin A1c 5.4%. Thank you for allowing us to participate in the care of this pleasant patient. Do not hesitate to contact us with questions. Someone can be reached from the [facility] hospitalist group all hours of the day at [phone] or via [employer]. Patient was seen independently by Nurse Practitioner. This document was prepared using Spinel[employer] dictation software. Please allow for errors in contracts specialist while rare they do occur. Ankit Durham NP rendered care for this patient independently, reviewed the findings and plan as documented in the note above and agree with plan. I did not physically speak with or examine the patient on this date. Objective - Vital Signs Vital signs: Vital Signs Temp 98.9 F 01/26/25 07:02 Pulse 112 H 01/26/25 07:02 Resp 18 01/26/25 07:02 BP 135/71 01/26/25 07:02 Pulse Ox 95 01/26/25 07:02 FiO2 Intake & Output 01/25/25 01/26/25 01/26/25 18:59 06:59 18:59 Intake Total 540 Output Total 1340 80 Balance -1340 460 Intake: Oral 540 Output: Drainage 70 80 Medial Back 70 80 Urine 1270 Other: Voiding Method Indwelling Catheter Indwelling Catheter # Voids 1 - Labs CBC & Chem 7: 01/25/25 05:26 01/25/25 05:26 Labs: Abnormal Lab Results - Last 24 Hours (Table) 01/25/25 01/25/25 01/25/25 Range/Units 11:59 15:48 20:55 POC Glucose (mg/dL) 138 H 165 H 153 H (70-110) mg/dL 01/26/25 Range/Units 06:46 POC Glucose (mg/dL) 136 H (70-110) mg/dL
[2025-01-26 17:18] LABS: Glucose,Whole Blood 120 mg/dL (70-110)
[2025-01-26 19:39] LABS: Glucose,Whole Blood 169 mg/dL (70-110)
[2025-01-27 06:07] LABS: Glucose,Whole Blood 119 mg/dL (70-110)
[2025-01-27] MEDS: SENNOSIDES-DOCUSATE SODIUM 1 EACH TAB PO SCH (10:25)
--- NOTE | 2025-01-27 10:41 | P.PN ---
Subjective Progress Note Date: 01/27/25 Principal diagnosis: Status post revision [id number] decompression and fusion, bilateral open SI joint fusion Patient was evaluated at bedside, she is noticed resting in her hospital bed. Patient appears to be progressing well at this time. She has been urinating with no issues. She is passing gas, no bowel movement at this time. Spasms in the left lower extremity seem improved since yesterday. Her drain continues to put out bloody serosanguineous fluid, it has slowed. She has no headaches, lightheadedness, chest pain or shortness of breath Objective - Vital Signs Vital signs: Vital Signs Temp 98.3 F 01/27/25 07:35 Pulse 93 01/27/25 07:35 Resp 17 01/27/25 07:35 BP 105/64 01/27/25 07:35 Pulse Ox 95 01/27/25 07:35 FiO2 Intake & Output 01/26/25 01/27/25 01/27/25 18:59 06:59 18:59 Output Total 90 Balance -90 Output: Drainage 90 Medial Back 90 Other: Voiding Method Toilet # Voids 1 - Exam Gen: AOx3, NAD VSS stable at this time Integument: Dressing was again removed today at bedside, sutures are all in good position and condition. No active drainage visualized. Hemovac drain remains in good position. Palpation: Tenderness with palpation of the lower lumbar spine ROM: Full range of motion in all major muscle groups of the bilateral upper and lower extremities no focal deficits appreciated Sensory Exam: Senory exam to light touch is intact C5-T1 Senosry exam to light touch is intact L2-S1 Motor: 4+/5 strength appreciated the bilateral lower extremities with hip flexion, knee extension, knee flexion, plantarflexion, dorsiflexion, EHL, FHL Reflexes: 2/4 in all UE and LE Negative clonus bilaterally Negative Babinski bilaterally - Labs CBC & Chem 7: 01/25/25 05:26 01/25/25 05:26 Labs: Abnormal Lab Results - Last 24 Hours (Table) 01/26/25 01/26/25 01/26/25 Range/Units 12:14 17:14 19:37 POC Glucose (mg/dL) 155 H 120 H 169 H (70-110) mg/dL 01/27/25 Range/Units 06:05 POC Glucose (mg/dL) 119 H (70-110) mg/dL Assessment and Plan Assessment: Postoperative day #3 status post revision [id number] decompression and fusion, bilateral open SI joint fusion Plan: Pain control, continue to decrease IV Dilaudid. She remains on Percocet 7.5 mg / 325 mg, gabapentin 900 mg twice daily, Flexeril 10 mg 3 times daily DVT prophylaxis, aspirin 81 mg daily Discussed with nursing patient would like to shower today, okay for them to place new bandage after shower. Maintain Hemovac drain at this time, plan for removal on 01/28/2025 Weight-bear as tolerated with walker, LSO brace when up and walking longer distances., No bending, lifting or twisting Encourage incentive spirometer Medical recommendations appreciated PT/OT recommendations appreciated Discharge planning: Planning for discharge to home with home health care on 01/28/2025 Time with Patient: Less than 30
--- NOTE | 2025-01-27 11:45 | P.PN ---
Subjective Progress Note Date: 01/27/25 Hospital Course: Patient is a very pleasant 54-year-old female with a past medical history of rheumatoid arthritis, Raynaud's disease, GERD with previous gastric ulcers, neuropathy/fibromyalgia, dwt-mzwimty-ensdzcrwz diabetes mellitus, irregular heartbeat on verapamil, lumbar stenosis with radiculopathy. She is currently admitted under orthospine surgery team status post lumbar through sacral osteotomy facetectomy, foraminotomy, neural decompression, with interbody fusion and instrumentation with insertion of biomechanical cage device and bilateral open sacroiliac joint fusions on 01/24/25. Surgical procedure was completed by Dr. Valverde. We were consulted for medical management throughout hospitalization. Physical exam: Patient seen and fully evaluated at bedside this morning. She is postoperative day 3. She was resting in bed and currently reports that she tried to get up to shower today but her plan failed as she began to again experience severe muscle spasms in her left hip and leg and RN gave her valium at this time. Pt reports pain is moderate but is hopeful valium will help as it seemed to control the spasm yesterday. She denies any other complaints, needs or concerns at this time. Pt's is at bedside and all questions answered. Vital signs reviewed and stable. General: Nontoxic, no distress and appears stated age. Obese. Derm: Skin warm and dry, normal coloration for ethnicity. Postsurgical dressing clean, dry, and intact. Hemovac drain remains in place. Head: Atraumatic, normocephalic and symmetric. Eyes: EOM's intact, no lid lag, and anicteric sclera. Vazquez catheter in place Mouth: no lip lesions, mucus membranes moist Cardiovascular: regular rate and rhythm with normal S1S2, no murmur noted, positive posterior tibial pulses bilaterally, and cap refill < 2 seconds. Lungs: Respirations even, regular, and unlabored on room air. Lungs CTA bilaterally, no rhonchi, no rales, no wheezing, and no accessory muscle usage. Abdominal: soft, nontender to palpation, no guarding, no appreciable organomegaly Ext: ROM intact. No gross muscle atrophy, scant lower extremity edema, no contractures Neuro: Speech clear, face symmetrical and CN II-XII grossly intact with no noted focal neuro deficits Psych: Alert and oriented to person, place, time, and situation. Appropriate and pleasant affect. Assessment and Plan of Care: Status post extensive lumbar surgery Lumbar stenosis with radiculopathy Management per primary admitting orthospine surgery team including DVT prophylaxis, pain management, wound/dressing/drain management, and advancement of activity with PT/OT. Currently DVT prophylaxis with EZEQUIEL rodriguez and SCDs. Type II hsf-vdiuufo-gckjwzuyv diabetes mellitus with hyperglycemia Hold metformin and continue glycemic protocol with NovoLog sliding scale. May resume metformin on discharge. Hemoglobin A1c 5.4%. Irregular heartbeat Continue verapamil 120 mg daily. Rheumatoid arthritis Neuropathy/fibromyalgia Continue Plaquenil 200 mg nightly, amitriptyline 10 mg nightly, gabapentin 900 mg twice daily, and duloxetine 90 mg daily. Mild persistent asthma Supplement Ventolin inhaler with nebulizer twice daily as needed for shortness of breath and/or wheezing. Encourage use of incentive spirometry 10-15 times hourly while awake. Data reviewed: Vital signs reviewed. Blood pressure 105/64, heart rate 93, respiratory rate 17, temp 98.3 F, and SpO2 of 95% on 2 L. Reviewed postoperative labs. CBC showing acute postoperative blood loss anemia with hemoglobin of 10.3 preoperative hemoglobin from 10/09/2024 was 14.1. BMP unremarkable. Blood glucose 121. Hemoglobin A1c 5.4%. Morning labs reviewed there are retimed for 2 PM, unclear reasoning. Thank you for allowing us to participate in the care of this pleasant patient. Do not hesitate to contact us with questions. Someone can be reached from the [facility] hospitalist group all hours of the day at [phone] or via [employer]. Patient was seen independently by Nurse Practitioner. This document was prepared using FanChatter dictation software. Please allow for errors in choker setter while rare they do occur. Ankit Durham NP rendered care for this patient independently, reviewed the findings and plan as documented in the note above and agree with plan. I did not physically speak with or examine the patient on this date. Objective - Vital Signs Vital signs: Vital Signs Temp 98.3 F 01/27/25 02:10 Pulse 94 01/27/25 02:10 Resp 15 01/27/25 02:10 BP 120/65 01/27/25 02:10 Pulse Ox 93 L 01/27/25 02:10 FiO2 Intake & Output 01/26/25 01/27/25 01/27/25 18:59 06:59 18:59 Output Total 90 Balance -90 Output: Drainage 90 Medial Back 90 Other: Voiding Method Toilet # Voids 1 - Labs CBC & Chem 7: 01/25/25 05:26 01/25/25 05:26 Labs: Abnormal Lab Results - Last 24 Hours (Table) 01/26/25 01/26/25 01/26/25 Range/Units 12:14 17:14 19:37 POC Glucose (mg/dL) 155 H 120 H 169 H (70-110) mg/dL 01/27/25 Range/Units 06:05 POC Glucose (mg/dL) 119 H (70-110) mg/dL
[2025-01-27 11:52] LABS: Glucose,Whole Blood 124 mg/dL (70-110)
[2025-01-27 15:09] LABS: HCT 28.6 % (34.0-46.0); HGB 8.9 gm/dL (11.4-16.0); MCH 29.3 pg (25.0-35.0); MCHC 31.1 g/dL (31.0-37.0); MCV 94.2 fL (80.0-100.0); Mean Platelet Volume 8.5; Platelet Count 229 k/uL (150-450); RBC 3.03 m/uL (3.80-5.40); RDW 13.7 % (11.5-15.5); WBC 7.6 k/uL (3.8-10.6)
[2025-01-27 15:21] LABS: African American GFR (CKD) >90 (>60 ml/min/1.73 sqM); Anion Gap 2 mmol/L; Blood Urea Nitrogen 10 mg/dL (7-17); Calcium 8.3 mg/dL (8.4-10.2); Carbon Dioxide 33 mmol/L (22-30); Chloride 97 mmol/L (98-107); Glucose 126 mg/dL (74-99); Magnesium 1.8 mg/dL (1.6-2.3); Non-African American GFR(CKD) >90 (>60 ml/min/1.73 sqM); Potassium 3.9 mmol/L (3.5-5.1); Sodium 132 mmol/L (137-145)
[2025-01-27 17:08] LABS: Glucose,Whole Blood 119 mg/dL (70-110)
[2025-01-27 20:46] LABS: Glucose,Whole Blood 117 mg/dL (70-110)
[2025-01-28 06:20] LABS: Glucose,Whole Blood 118 mg/dL (70-110)
[2025-01-28 08:57] VITALS: BP 99/67; PULSE 88; RESP 15; TEMP 98.6
[2025-01-28 12:09] LABS: Glucose,Whole Blood 118 mg/dL (70-110)
--- NOTE | 2025-01-28 12:24 | P.PN ---
Subjective Progress Note Date: 01/28/25 Principal diagnosis: Status post revision [id number] decompression and fusion, bilateral open SI joint fusion Patient was evaluated at bedside, she is noticed resting in her hospital bed. Patient appears to be progressing well at this time. She has been urinating with no issues. She is passing gas, no bowel movement at this time. Spasms continue in her left lower extremity. She has no headaches, lightheadedness, chest pain or shortness of breath Objective - Vital Signs Vital signs: Vital Signs Temp 98.6 F 01/28/25 07:40 Pulse 88 01/28/25 07:40 Resp 15 01/28/25 07:40 BP 99/67 01/28/25 07:40 Pulse Ox 93 L 01/28/25 07:40 FiO2 Intake & Output 01/27/25 01/28/25 01/28/25 18:59 06:59 18:59 Other: Voiding Method Toilet # Voids 4 - Exam Gen: AOx3, NAD VSS stable at this time Integument: Hemovac removed at bedside, dressing changed Palpation: Tenderness with palpation of the lower lumbar spine ROM: Full range of motion in all major muscle groups of the bilateral upper and lower extremities no focal deficits appreciated Sensory Exam: Senory exam to light touch is intact C5-T1 Senosry exam to light touch is intact L2-S1 Motor: 4+/5 strength appreciated the bilateral lower extremities with hip flexion, knee extension, knee flexion, plantarflexion, dorsiflexion, EHL, FHL Reflexes: 2/4 in all UE and LE Negative clonus bilaterally Negative Babinski bilaterally - Labs CBC & Chem 7: 01/27/25 14:46 01/27/25 14:46 Labs: Abnormal Lab Results - Last 24 Hours (Table) 01/27/25 01/27/25 01/27/25 Range/Units 14:46 14:46 17:06 RBC 3.03 L (3.80-5.40) m/uL Hgb 8.9 L (11.4-16.0) gm/dL Hct 28.6 L (34.0-46.0) % Sodium 132 L (137-145) mmol/L Chloride 97 L (98-107) mmol/L Carbon Dioxide 33 H (22-30) mmol/L Glucose 126 H (74-99) mg/dL POC Glucose (mg/dL) 119 H (70-110) mg/dL Calcium 8.3 L (8.4-10.2) mg/dL 01/27/25 01/28/25 01/28/25 Range/Units 20:44 06:19 12:08 RBC (3.80-5.40) m/uL Hgb (11.4-16.0) gm/dL Hct (34.0-46.0) % Sodium (137-145) mmol/L Chloride (98-107) mmol/L Carbon Dioxide (22-30) mmol/L Glucose (74-99) mg/dL POC Glucose (mg/dL) 117 H 118 H 118 H (70-110) mg/dL Calcium (8.4-10.2) mg/dL Assessment and Plan Assessment: Postoperative day #4 status post revision [id number] decompression and fusion, bilateral open SI joint fusion Plan: Pain control, Percocet 7.5 mg / 325 mg, gabapentin 900 mg twice daily, Flexeril 10 mg 3 times daily. Adding medrol pack for discharge DVT prophylaxis, aspirin 81 mg daily Discussed with nursing patient would like to shower today, okay for them to place new bandage after shower. Weight-bear as tolerated with walker, LSO brace when up and walking longer distances. No bending, lifting or twisting Encourage incentive spirometer Medical recommendations appreciated PT/OT recommendations appreciated Discharge planning: Planning for discharge home today Time with Patient: Less than 30
--- NOTE | 2025-01-28 12:31 | P.DS ---
Providers Date of admission: 01/24/25 05:54 Expected date of discharge: 01/28/25 Attending physician: Puneet Valverde DO Consults: 01/24/25 12:20 Consult Physician Routine Consulting Provider: Cali Saunders Consult Reason/Comments: medical management s/p revision L3-pelvis decompr fusion Do you want consulting provider notified?: Yes Primary care physician: [facility] Course: Date of admission: 01/24/2025 Date of discharge: 01/28/2025 Admission diagnosis: s/p revision L3-pelvis decompression and fusion, bilateral open SI joint fusion Discharge diagnosis: same Attending physician: Dr. Valverde Surgical procedures: Revision L3-Pelvis decompression and fusion, bilateral open SI joint fusion Brief history: Patient is a 54-year-old female with a history of progressive low back pain, bilateral lower extremity weakness and radiculopathy. Patient has a history of a previous anterior lumbar interbody fusion of L4-L5, L5-S1. At this point patient has failed conservative treatment measures and has opted to proceed with a elective revision [id number] decompression and fusion and open bilateral SI joint fusion. Hospital course: Details of patient's surgery can be found in operative report. Patient tolerated the procedure well and was subsequently transported to orthopedic floor. Patient's orthopeidc and medical care was provided daily. Geno scott had daily laboratory tests performed for evaluation of overall blood counts. Patient had daily physical therapy to include strengthening range of motion as well as education with walker ambulation. Patient was treated with aspirin for their postoperative DVT prophylaxis during their inpatient stay. Patient was noted to have a relatively uneventful postoperative course. Patient reported satisfactory pain control with oral pain medications by postoperative day 2. Patient showed satisfactory progress with physical therapy. Patient moved steadily through the program and had no difficulty meeting the goals by postoperative day 4. Given patient's otherwise satisfactory course and having met physical therapy goals, plan is to discharge patient home on postoperative day 4. Discharge condition/disposition: Patient will be discharged home in stable condition. Discharge medications: Instructions are given on resumption of patient's normal daily medications per primary care recommendation, in addition patient will be prescribed Percocet 7.5 mg / 325 mg, senna S, MiraLAX 17 g, Duricef 500 mg, Medrol Dosepak. Spine Discharge and Recovery Instructions Medications: See medication list All medication refills should be obtained through your primary care doctor or your clinic spine surgeon. Please discuss prescription refills at your follow up appointment. Do not call the hospital for medication refills. Dressing: Leave your dressing in place for a total of 5 days post operatively. Then you may remove your dressing and leave open to air. Keep the area clean and if not able to keep area clean, then cover with sterile gauze and tape. Showering: You may shower 3 days after your procedure allowing soap and water to run over incision. Do not scrub. Do not soak. Blot dry. Follow up: Please confirm a follow up appointment with your surgeon 3 weeks post operatively. Please make an appointment to follow up with your PCP in 1-2 weeks after surgery for evaluation '3 phase, 3-week plan' POST OP WEEKS 1-3 1. Lifting/carrying/pushing/pulling limited to less than 5 pounds. 2. Do not sit for longer than 15 minutes at one time. Get up and walk around. Prolonged sitting is NOT advised. If you lay down, see if you can tolerate laying down on you front (belly side) 3. Walk for periods of 15 minutes = 1 mile but no longer; do it multiple times times each day. 4. Ice your low back after activity. POST OP WEEKS 3-6 1. Lifting limited to less than 20 pounds. 2. Do not sit for longer than 30 minutes at a time. Frequently change positions. Use a sit-to stand workstation or take frequent breaks from sitting if you have returned to work. 3. Walk for 30 minutes each day. If possible, do these three or more times a day POST OP WEEKS 6+ At your 6-week appointment we will give you a physical therapy referral to focus on a core stabilization and strengthening program. You should also work on leg & buttock strengthening, hamstring & quadriceps stretching, and continue a low impact aerobic activity program such as swimming, walking, or riding a stationary bicycle. During the initial 6 weeks after your surgery, you are at the highest risk of re-injuring your spine. You should generally avoid BLT's (bending, lifting and twisting combination motions) and follow the above guidelines to reduce the chance of reinjury. You can anticipate post op appointments in our office at approximately 3 weeks and 6 weeks after your surgery. INCISION CARE: If your incision is not draining you do NOT need to cover it with a dressing. Keep your incision clean, dry and intact. In most cases, we apply skin glue, bridgette or sutures to the incision at the time of surgery. This will be like a crust or have the appearance of a scab and will fall off in time on its own. The stitches or brdigette need to be removed at 3 weeks post op appointment. You may begin to shower 3 days after surgery (this allows the glue to blunt well). However, please avoid scrubbing the incision site or peeling off any of the skin glue. This will ensure optimal healing of your incision. Also, during this time avoid soaking the incision area in water - this includes swimming pools, hot tubs or baths. No ointments, lotions or oils on the incision until your surgeon allows. Leave bridgette, sutures or glue in place. Neurological dysfunction that comes on suddenly can also be a sign of a stroke. Below some common symptoms of a stroke are listed: B - balance difficulty such as sudden onset walking or leaning to one side - NEW E - eye problem such as sudden double vision or trouble seeing on one side - NEW F - Facial weakness or numbness on one side - NEW A - Arm or leg weakness or numbness on one side - NEW S - Slurred speech or difficulty with word finding - NEW T - Time is BRAIN! Call 911 as soon as you recognize these symptoms Diet: Consume a regular diet rich in vegetables and lean protein such as chicken or fish. You should consume in a ratio of approximately 20% fats|40% carbohydrates|40%protein. Vegetables, sweet potatoes, brown rice or quinoa are examples of good carbohydrates. Chips, white bread, cookies and sweets/sugar are examples of bad carbohydrates. Limit your bad carbs, go wild with good carbs. "Life's Simple 7" Guidelines as per [place] [employer] These will help you reclaim your life after surgery and printer slotter helper in your recovery, keeping in mind your restrictions. (1) Get Active. Physical activity can help people lose weight, control high blood pressure and cholesterol, feel emotionally better, and sleep better. (2) Control Cholesterol. Avoid a diet high in saturated fat, trans fat, & cholesterol. Limit whole milk & cream, ice cream, butter, egg yolks, processed meats (like sausage and hot dogs), and fatty meats. Choose healthy foods that are low in saturated fat, trans fat and cholesterol which include: Fruits and vegetables, fiber rich grain products (like whole grain pasta and brown rice), lean meat such as chicken, fish, nuts, seeds, and legumes. (3) Eat Better. Eat small portions. Shop at the grocery with a list and do not stray from it. Tips for a healthy diet include: Limit sodium intake to less than 1500mg daily, avoid prepackaged, processed, and fast foods, choose a diet rich in fruits, vegetables, and whole grain, high fiber foods, and limit saturated & cholesterol in your diet. (4) Manage Blood Pressure. If you have high blood pressure, you should have a cuff at home so that you can check your blood pressure regularly. Be sure you have a good cuff. An arm one is generally better than a wrist one. Bring the cuff to a doctor's appointment to validate that the measurements that your cuff are taking are accurate. Take your blood pressure twice daily when you are sitting down and relaxing. Record the numbers in a log and bring this log with you to your doctors' appointments. (5) Lose Weight if your BMI is above 25. A healthy BMI is between 19-25. To calculate Your BMI, you may use a Standard BMI Calculator on the NIH BMI website: <www.nhlbi.nih.gov/guidelines/obesity/BMI/bmicalc.htm>. Weigh oneself daily. If you are overweight, set a goal to lose weight. A pound a week loss if needed is a good target. (6) Reduce Blood Sugar. Limit foods and liquids with "added sugars." (Added sugars include sucrose, fructose, glucose, maltose, dextrose, high fructose corn syrup, corn syrup, concentrated fruit juice and honey). (7) Stop Smoking. If you smoke, quitting smoking is one of the best things that you can do for your health. Smoking increases your risk of heart attack, stroke, and peripheral vascular disease, which is a build-up of plaque in your arteries. Please discard all the cigarettes and lighters in your house. Have a plan for what you will do when you have the urge to smoke. Direct and second- hand smoke shortens your life as well as the lives of your family, friends and others around you. For your health and the health of those around you, please consider quitting! Proper Bending Body Mechanics: Maintain a wide stance with one foot slightly in front of the other. Keep your back straight. Bend utilizing the strength in your hips and knees. Do not bend at the waist. Maintain the lifted object at your waist-level close to your body. Avoid lifting weight that causes immediately pain or pain anywhere in the body afterwards. Smoking/Nicotine If there was ever one thing that you could do to increase your overall health, decrease your risk of cardiovascular problems by about 39% the second you make the choice, it is to STOP SMOKING. Your body's most instant gratification is the second you stop smoking. We have all heard the studies, read the articles but it is true, smoking is extremely bad for your overall health, and moreover it is detrimental to your bone health. Nicotine, IN ANY FORM, kills bone cells, prevents your body from healing fractures, and significantly prolongs healing after surgery. In spine surgery specifically, it increases your risk of not healing your bones to create a fusion and increases your risk of having a revision surgery due to this up to 60%. I know it is hard. I know it feels impossible. But there are ways. Take control of your life. We are here to help you through it. And when you are ready, ask us and we can direct you to help if you desire. Use the START Plan to Quit Smoking (please visit the Helpguide.org website listed below for more information): S = Set a quit date. Choose a date within the next 2 weeks, so you have enough time to prepare without losing your motivation to quit. If you mainly smoke at work, quit on the weekend, so you have a few days to adjust to the change. T = Tell family, friends, and co-workers that you plan to quit. Let your friends and family in on your plan to quit smoking and tell them you need their support and encouragement to stop. Look for a quit ella who wants to stop smoking as well. You can help each other get through the rough times. A = Anticipate and plan for the challenges you'll face while quitting. Most people who begin smoking again do so within the first 3 months. You can help yourself make it through by preparing ahead for common challenges, such as nicotine withdrawal and cigarette cravings. R = Remove cigarettes and other tobacco products from your home, car, and work. Throw away all your cigarettes (no emergency pack!), lighters, ashtrays, and matches. Wash your clothes and freshen up anything that smells like smoke. Shampoo your car, clean your drapes and carpet, and steam your furniture. T = Talk to your doctor about getting help to quit. Your doctor can prescribe medication to help with withdrawal and suggest other alternatives. If you can't see a doctor, you can get many products over the counter at your local pharmacy or grocery store, including the nicotine patch, nicotine lozenges, and nicotine gum. Resources for Quitting Smoking: <https://www.[place].gov/documents/[facility]/Quit_Tobacco_Resources_for_patients_313 480_7.pdf> Supplementation: Take recommended dosages of Vitamin D and Calcium to help fortify your bones and help them to heal. See your health maintenance packet for dosages and recommended levels. DVT/VTE prophylaxis: You will be given compression stockings from the hospital. Wear these daily for the first two weeks after surgery. You may take them off at night. You may be prescribed a medication to help thin your blood. Take this as directed. If you are not prescribed this medication, early and frequent ambulation has been shown to be the best prophylaxis to deep vein thrombosis and sequelae related to this event. Procedures: Revision L3-Pelvis decompression and fusion, open bilateral SI joint fusion Patient Condition at Discharge: Good Plan - Discharge Summary Discharge Rx Participant: No New Discharge Prescriptions: New oxyCODONE HCL/ACETAMINOPHEN [Percocet 7.5-325 mg] 1 tab PO Q6HR PRN #28 tab PRN Reason: Pain Sennosides/Docusate Sodium [Senna-S 8.6-50 mg Tablet] 2 each PO DAILY PRN #30 tablet PRN Reason: Constipation polyethylene glycoL 3350 [Miralax] 17 gm PO HS 30 Days #30 packet cefaDROXiL [Duricef] 500 mg PO Q12HR 5 Days #10 cap methylPREDNISolone Dose Pack [Medrol Dose Pack] 4 mg PO DIRECTED #1 packet Continue Albuterol Inhaler [Ventolin Hfa Inhaler] 1 puff INHALATION RT-BID PRN PRN Reason: Shortness Of Breath Gabapentin [Neurontin] 900 mg PO BID Verapamil HCl [Verapamil ER] 120 mg PO QAM Ascorbic Acid [Vitamin C] 1,000 mg PO DAILY DULoxetine HCL [Cymbalta] 90 mg PO QAM Multivitamins, Thera [Multivitamin (formulary)] 1 tab PO DAILY Amitriptyline HCl 10 mg PO HS diphenhydrAMINE [Benadryl] 25 mg PO DAILY PRN PRN Reason: Allergic Reaction Hydroxychloroquine Sulfate [Plaquenil] 200 mg PO HS Cranberry Fruit Extract [Cranberry] 4,200 mg PO DAILY Omeprazole [PriLOSEC] 20 mg PO AC-BID Cyclobenzaprine [Flexeril] 10 mg PO TID Vitamin B Complex 1 each PO DAILY Vitamin D3 (Unknown Dose) 1 tab PO DAILY Meloxicam [Mobic] 15 mg PO DAILY Acetaminophen Tab [Tylenol] 500 - 1,000 mg PO Q4-6H PRN PRN Reason: Pain metFORMIN HCL [Glucophage] 500 mg PO BID No Action HYDROcodone/APAP 10-325MG [[place] 10-325] 1 tab PO QID Tofacitinib Citrate [Xeljanz] 11 mg PO DAILY Discharge Medication List Albuterol Inhaler [Ventolin Hfa Inhaler] 1 puff INHALATION RT-BID PRN 02/26/14 [History] Gabapentin [Neurontin] 900 mg PO BID 06/04/16 [History] Verapamil HCl [Verapamil ER] 120 mg PO QAM 06/04/16 [History] Ascorbic Acid [Vitamin C] 1,000 mg PO DAILY 09/21/17 [History] DULoxetine HCL [Cymbalta] 90 mg PO QAM 01/19/18 [History] Amitriptyline HCl 10 mg PO HS 10/04/18 [History] Multivitamins, Thera [Multivitamin (formulary)] 1 tab PO DAILY 10/04/18 [History] diphenhydrAMINE [Benadryl] 25 mg PO DAILY PRN 12/31/18 [History] Cranberry Fruit Extract [Cranberry] 4,200 mg PO DAILY 05/21/21 [History] Hydroxychloroquine Sulfate [Plaquenil] 200 mg PO HS 05/21/21 [History] Omeprazole [PriLOSEC] 20 mg PO AC-BID 05/21/21 [History] Acetaminophen Tab [Tylenol] 500 - 1,000 mg PO Q4-6H PRN 01/21/25 [History] Cyclobenzaprine [Flexeril] 10 mg PO TID 01/21/25 [History] HYDROcodone/APAP 10-325MG [[place] 10-325] 1 tab PO QID 01/21/25 [History] Meloxicam [Mobic] 15 mg PO DAILY 01/21/25 [History] Tofacitinib Citrate [Xeljanz] 11 mg PO DAILY 01/21/25 [History] Vitamin B Complex 1 each PO DAILY 01/21/25 [History] Vitamin D3 (Unknown Dose) 1 tab PO DAILY 01/21/25 [History] metFORMIN HCL [Glucophage] 500 mg PO BID 01/22/25 [History] polyethylene glycoL 3350 [Miralax] 17 gm PO HS 30 Days #30 packet 01/26/25 [Rx] Sennosides/Docusate Sodium [Senna-S 8.6-50 mg Tablet] 2 each PO DAILY PRN #30 tablet 01/28/25 [Rx] cefaDROXiL [Duricef] 500 mg PO Q12HR 5 Days #10 cap 01/28/25 [Rx] methylPREDNISolone Dose Pack [Medrol Dose Pack] 4 mg PO DIRECTED #1 packet 01/28/25 [Rx] oxyCODONE HCL/ACETAMINOPHEN [Percocet 7.5-325 mg] 1 tab PO Q6HR PRN #28 tab 01/28/25 [Rx] Follow up Appointment(s)/Referral(s): Ezekiel Reina MD [Primary Care Provider] - 1 Week Puneet Valverde DO [Doctor of Osteopathic Medicine] - 2 Weeks [facility] Visiting Nurse, [NON-STAFF] - As Needed Activity/Diet/Wound Care/Special Instructions: Spine Discharge and Recovery Instructions Date of Surgery: 01/24/2025 Diagnosis: 1. L4-5, L5-S1 PSEUDOARTHROSIS 2. L3-4 UNSTABLE SPONDYLOLISTHESIS, GRADE I 3. LUMBAR STENOSIS WITH RADICULOPATHY 4. LUMBAR SPONDYLOSIS WITH STENOSIS AND RADICULOPATHY 5. LOW BACK PAIN Procedure: Revision L3 to pelvis decompression and fusion Medications: See medication list All medication refills should be obtained through your primary care doctor or your clinic spine surgeon. Please discuss prescription refills at your follow up appointment. Do not call the hospital for medication refills. Dressing: Leave your dressing in place for a total of 5 days post operatively. Then you may remove your dressing and leave open to air. Keep the area clean and if not able to keep area clean, then cover with sterile gauze and tape. Showering: You may shower 3 days after your procedure allowing soap and water to run over incision. Do not scrub. Do not soak. Blot dry. Follow up: Please confirm a follow up appointment with your surgeon 3 weeks post operatively. Please make an appointment to follow up with your PCP in 1-2 weeks after surgery for evaluation '3 phase, 3-week plan' POST OP WEEKS 1-3 1. Lifting/carrying/pushing/pulling limited to less than 5 pounds. 2. Do not sit for longer than 15 minutes at one time. Get up and walk around. Prolonged sitting is NOT advised. If you lay down, see if you can tolerate laying down on you front (belly side) 3. Walk for periods of 15 minutes = 1 mile but no longer; do it multiple times times each day. 4. Ice your low back after activity. POST OP WEEKS 3-6 1. Lifting limited to less than 20 pounds. 2. Do not sit for longer than 30 minutes at a time. Frequently change positions. Use a sit-to stand workstation or take frequent breaks from sitting if you have returned to work. 3. Walk for 30 minutes each day. If possible, do these three or more times a day POST OP WEEKS 6+ At your 6-week appointment we will give you a physical therapy referral to focus on a core stabilization and strengthening program. You should also work on leg & buttock strengthening, hamstring & quadriceps stretching, and continue a low impact aerobic activity program such as swimming, walking, or riding a stationary bicycle. During the initial 6 weeks after your surgery, you are at the highest risk of re-injuring your spine. You should generally avoid BLT's (bending, lifting and twisting combination motions) and follow the above guidelines to reduce the chance of reinjury. You can anticipate post op appointments in our office at approximately 3 weeks and 6 weeks after your surgery. INCISION CARE: If your incision is not draining you do NOT need to cover it with a dressing. Keep your incision clean, dry and intact. In most cases, we apply skin glue, bridgette or sutures to the incision at the time of surgery. This will be like a crust or have the appearance of a scab and will fall off in time on its own. The stitches or bridgette need to be removed at 3 weeks post op appointment. You may begin to shower 3 days after surgery (this allows the glue to blunt well). However, please avoid scrubbing the incision site or peeling off any of the skin glue. This will ensure optimal healing of your incision. Also, during this time avoid soaking the incision area in water - this includes swimming pools, hot tubs or baths. No ointments, lotions or oils on the incision until your surgeon allows. Leave bridgette, sutures or glue in place. Neurological dysfunction that comes on suddenly can also be a sign of a stroke. Below some common symptoms of a stroke are listed: B - balance difficulty such as sudden onset walking or leaning to one side - NEW E - eye problem such as sudden double vision or trouble seeing on one side - NEW F - Facial weakness or numbness on one side - NEW A - Arm or leg weakness or numbness on one side - NEW S - Slurred speech or difficulty with word finding - NEW T - Time is BRAIN! Call 911 as soon as you recognize these symptoms Diet: Consume a regular diet rich in vegetables and lean protein such as chicken or fish. You should consume in a ratio of approximately 20% fats|40% carbohydrates|40%protein. Vegetables, sweet potatoes, brown rice or quinoa are examples of good carbohydrates. Chips, white bread, cookies and sweets/sugar are examples of bad carbohydrates. Limit your bad carbs, go wild with good carbs. "Life's Simple 7" Guidelines as per [place] [employer] These will help you reclaim your life after surgery and printer slotter helper in your recovery, keeping in mind your restrictions. (1) Get Active. Physical activity can help people lose weight, control high blood pressure and cholesterol, feel emotionally better, and sleep better. (2) Control Cholesterol. Avoid a diet high in saturated fat, trans fat, & cholesterol. Limit whole milk & cream, ice cream, butter, egg yolks, processed meats (like sausage and hot dogs), and fatty meats. Choose healthy foods that are low in saturated fat, trans fat and cholesterol which include: Fruits and vegetables, fiber rich grain products (like whole grain pasta and brown rice), lean meat such as chicken, fish, nuts, seeds, and legumes. (3) Eat Better. Eat small portions. Shop at the grocery with a list and do not stray from it. Tips for a healthy diet include: Limit sodium intake to less than 1500mg daily, avoid prepackaged, processed, and fast foods, choose a diet rich in fruits, vegetables, and whole grain, high fiber foods, and limit saturated & cholesterol in your diet. (4) Manage Blood Pressure. If you have high blood pressure, you should have a cuff at home so that you can check your blood pressure regularly. Be sure you have a good cuff. An arm one is generally better than a wrist one. Bring the cuff to a doctor's appointment to validate that the measurements that your cuff are taking are accurate. Take your blood pressure twice daily when you are sitting down and relaxing. Record the numbers in a log and bring this log with you to your doctors' appointments. (5) Lose Weight if your BMI is above 25. A healthy BMI is between 19-25. To calculate Your BMI, you may use a Standard BMI Calculator on the NIH BMI website: <www.nhlbi.nih.gov/guidelines/obesity/BMI/bmicalc.htm>. Weigh oneself daily. If you are overweight, set a goal to lose weight. A pound a week loss if needed is a good target. (6) Reduce Blood Sugar. Limit foods and liquids with "added sugars." (Added sugars include sucrose, fructose, glucose, maltose, dextrose, high fructose corn syrup, corn syrup, concentrated fruit juice and honey). (7) Stop Smoking. If you smoke, quitting smoking is one of the best things that you can do for your health. Smoking increases your risk of heart attack, stroke, and peripheral vascular disease, which is a build-up of plaque in your arteries. Please discard all the cigarettes and lighters in your house. Have a plan for what you will do when you have the urge to smoke. Direct and second- hand smoke shortens your life as well as the lives of your family, friends and others around you. For your health and the health of those around you, please consider quitting! Proper Bending Body Mechanics: Maintain a wide stance with one foot slightly in front of the other. Keep your back straight. Bend utilizing the strength in your hips and knees. Do not bend at the waist. Maintain the lifted object at your waist-level close to your body. Avoid lifting weight that causes immediately pain or pain anywhere in the body afterwards. Smoking/Nicotine If there was ever one thing that you could do to increase your overall health, decrease your risk of cardiovascular problems by about 39% the second you make the choice, it is to STOP SMOKING. Your body's most instant gratification is the second you stop smoking. We have all heard the studies, read the articles but it is true, smoking is extremely bad for your overall health, and moreover it is detrimental to your bone health. Nicotine, IN ANY FORM, kills bone cells, prevents your body from healing fractures, and significantly prolongs healing after surgery. In spine surgery specifically, it increases your risk of not healing your bones to create a fusion and increases your risk of having a revision surgery due to this up to 60%. I know it is hard. I know it feels impossible. But there are ways. Take control of your life. We are here to help you through it. And when you are ready, ask us and we can direct you to help if you desire. Use the START Plan to Quit Smoking (please visit the Helpguide.org website listed below for more information): S = Set a quit date. Choose a date within the next 2 weeks, so you have enough time to prepare without losing your motivation to quit. If you mainly smoke at work, quit on the weekend, so you have a few days to adjust to the change. T = Tell family, friends, and co-workers that you plan to quit. Let your friends and family in on your plan to quit smoking and tell them you need their support and encouragement to stop. Look for a quit ella who wants to stop smoking as well. You can help each other get through the rough times. A = Anticipate and plan for the challenges you'll face while quitting. Most people who begin smoking again do so within the first 3 months. You can help yourself make it through by preparing ahead for common challenges, such as nicotine withdrawal and cigarette cravings. R = Remove cigarettes and other tobacco products from your home, car, and work. Throw away all your cigarettes (no emergency pack!), lighters, ashtrays, and matches. Wash your clothes and freshen up anything that smells like smoke. Shampoo your car, clean your drapes and carpet, and steam your furniture. T = Talk to your doctor about getting help to quit. Your doctor can prescribe medication to help with withdrawal and suggest other alternatives. If you can't see a doctor, you can get many products over the counter at your local pharmacy or grocery store, including the nicotine patch, nicotine lozenges, and nicotine gum. Resources for Quitting Smoking: <https://www.[place].gov/documents/[facility]/Quit_Tobacco_Resources_for_patients_313 480_7.pdf> Supplementation: Take recommended dosages of Vitamin D and Calcium to help fortify your bones and help them to heal. See your health maintenance packet for dosages and recommended levels. DVT/VTE prophylaxis: You will be given compression stockings from the hospital. Wear these daily for the first two weeks after surgery. You may take them off at night. You may be prescribed a medication to help thin your blood. Take this as directed. If you are not prescribed this medication, early and frequent ambulation has been shown to be the best prophylaxis to deep vein thrombosis and sequelae related to this event. Nahed treadwell Tofacitinib (Xeljanz) was cleared by orthospine surgery team to resume. . Discharge Disposition: HOME WITH HOME HEALTH SERVICES
--- NOTE | 2025-01-28 12:35 | P.PN ---
Subjective Progress Note Date: 01/28/25 Hospital Course: Patient is a very pleasant 54-year-old female with a past medical history of rheumatoid arthritis, Raynaud's disease, GERD with previous gastric ulcers, neuropathy/fibromyalgia, hww-cnghsdb-zoddemonk diabetes mellitus, irregular heartbeat on verapamil, lumbar stenosis with radiculopathy. She is currently admitted under orthospine surgery team status post lumbar through sacral osteotomy facetectomy, foraminotomy, neural decompression, with interbody fusion and instrumentation with insertion of biomechanical cage device and bilateral open sacroiliac joint fusions on 01/24/25. Surgical procedure was completed by Dr. Valverde. We were consulted for medical management throughout hospitalization. Physical exam: Patient seen and fully evaluated at bedside this morning. She is postoperative day 4 and reports that she is more than ready to go home. She reports she continues to have mild to moderate postsurgical pain, but reports her muscle spasms are improved and her pain is "tolerable" on current pain medication regimen. Patient denies any other complaints, questions, concerns, or needs at this time. General: Nontoxic, no distress and appears stated age. Obese. Derm: Skin warm and dry, normal coloration for ethnicity. Postsurgical dressing clean, dry, and intact. Head: Atraumatic, normocephalic and symmetric. Eyes: EOM's intact, no lid lag, and anicteric sclera. Vazquez catheter in place Mouth: no lip lesions, mucus membranes moist Cardiovascular: regular rate and rhythm with normal S1S2, no murmur noted, positive posterior tibial pulses bilaterally, and cap refill < 2 seconds. Lungs: Respirations even, regular, and unlabored on room air. Lungs CTA bilaterally, no rhonchi, no rales, no wheezing, and no accessory muscle usage. Abdominal: soft, nontender to palpation, no guarding, no appreciable organomegaly Ext: ROM intact. No gross muscle atrophy, scant lower extremity edema, no contractures Neuro: Speech clear, face symmetrical and CN II-XII grossly intact with no noted focal neuro deficits Psych: Alert and oriented to person, place, time, and situation. Appropriate and pleasant affect. Assessment and Plan of Care: Status post extensive lumbar surgery Lumbar stenosis with radiculopathy Management per primary admitting orthospine surgery team including DVT prophylaxis, pain management, wound/dressing/drain management, and advancement of activity with PT/OT. Currently DVT prophylaxis with EZEQUIEL rodriguez and SCDs. Type II bkz-jkerxlr-tfzvqzxxu diabetes mellitus with hyperglycemia Hold metformin and continue glycemic protocol with NovoLog sliding scale. May resume metformin on discharge. Hemoglobin A1c 5.4%. Irregular heartbeat Continue verapamil 120 mg daily. Rheumatoid arthritis Neuropathy/fibromyalgia Continue Plaquenil 200 mg nightly, amitriptyline 10 mg nightly, gabapentin 900 mg twice daily, and duloxetine 90 mg daily. Mild persistent asthma Supplement Ventolin inhaler with nebulizer twice daily as needed for shortness of breath and/or wheezing. Encourage use of incentive spirometry 10-15 times hourly while awake. Data reviewed: Vital signs reviewed. Blood pressure soft this morning at 99/67, heart rate 88, respiratory rate 15, temp 98.6 F, and SpO2 of 93% on room air. Reviewed postoperative labs. CBC showing acute postoperative blood loss anemia with hemoglobin of 8.9. BMP showing sodium 132, chloride 97, bicarb 33, and anion gap of 2. Blood glucose was 126. Magnesium 1.8. Thank you for allowing us to participate in the care of this pleasant patient. Do not hesitate to contact us with questions. Someone can be reached from the [facility] hospitalist group all hours of the day at [phone] or via [employer]. Patient was seen independently by Nurse Practitioner. This document was prepared using Ent[employer] dictation software. Please allow for errors in facility attendant while rare they do occur. Ankit Durham NP rendered care for this patient independently, reviewed the findings and plan as documented in the note above and agree with plan. I did not physically speak with or examine the patient on this date. Objective - Vital Signs Vital signs: Vital Signs Temp 99 F 01/28/25 02:00 Pulse 94 01/28/25 02:00 Resp 16 01/28/25 02:00 BP 93/51 01/28/25 02:00 Pulse Ox 91 L 01/28/25 02:00 FiO2 Intake & Output 01/27/25 01/28/25 01/28/25 18:59 06:59 18:59 Other: Voiding Method Toilet # Voids 4 - Labs CBC & Chem 7: 01/27/25 14:46 01/27/25 14:46 Labs: Abnormal Lab Results - Last 24 Hours (Table) 01/27/25 01/27/2525 Range/Units 11:50 14:46 14:46 RBC 3.03 L (3.80-5.40) m/uL Hgb 8.9 L (11.4-16.0) gm/dL Hct 28.6 L (34.0-46.0) % Sodium 132 L (137-145) mmol/L Chloride 97 L (98-107) mmol/L Carbon Dioxide 33 H (22-30) mmol/L Glucose 126 H (74-99) mg/dL POC Glucose (mg/dL) 124 H (70-110) mg/dL Calcium 8.3 L (8.4-10.2) mg/dL 01/27/25 01/27/25 01/28/25 Range/Units 17:06 20:44 06:19 RBC (3.80-5.40) m/uL Hgb (11.4-16.0) gm/dL Hct (34.0-46.0) % Sodium (137-145) mmol/L Chloride (98-107) mmol/L Carbon Dioxide (22-30) mmol/L Glucose (74-99) mg/dL POC Glucose (mg/dL) 119 H 117 H 118 H (70-110) mg/dL Calcium (8.4-10.2) mg/dL
== END 2025-01-28 14:06 | disposition home health service (06) | DRG 427 ==
LOC: 2ORMAIN 05:54 → 4SSUR 13:03
PROVIDERS: ADMIT Orthopaedic Surgery; ATTEND Orthopaedic Surgery
PROC: 0SG1071 Fusion of 2 or more Lumbar Vertebral Joints with Autologous Tissue Substitute, Posterior Approach, Posterior Column, Open Approach (ICD-10-PCS; 2025-01-24)
PROC: 0SG30AJ Fusion of Lumbosacral Joint with Interbody Fusion Device, Posterior Approach, Anterior Column, Open Approach (ICD-10-PCS; 2025-01-24)
PROC: 0SG3071 Fusion of Lumbosacral Joint with Autologous Tissue Substitute, Posterior Approach, Posterior Column, Open Approach (ICD-10-PCS; 2025-01-24)
PROC: 01NB0ZZ Release Lumbar Nerve, Open Approach (ICD-10-PCS; 2025-01-24)
PROC: 01NR0ZZ Release Sacral Nerve, Open Approach (ICD-10-PCS; 2025-01-24)
PROC: 0ST20ZZ Resection of Lumbar Vertebral Disc, Open Approach (ICD-10-PCS; 2025-01-24)
PROC: 0QH304Z Insertion of Internal Fixation Device into Left Pelvic Bone, Open Approach (ICD-10-PCS; 2025-01-24)
PROC: 0QH204Z Insertion of Internal Fixation Device into Right Pelvic Bone, Open Approach (ICD-10-PCS; 2025-01-24)
PROC: 0QS00ZZ Reposition Lumbar Vertebra, Open Approach (ICD-10-PCS; 2025-01-24)
PROC: 0SG10AJ Fusion of 2 or more Lumbar Vertebral Joints with Interbody Fusion Device, Posterior Approach, Anterior Column, Open Approach (ICD-10-PCS; principal; 2025-01-24 07:30)
DX: M47.26 Other spondylosis with radiculopathy, lumbar region (principal); D62 Acute posthemorrhagic anemia; Z68.41 Body mass index [BMI] 40.0-44.9, adult; E11.65 Type 2 diabetes mellitus with hyperglycemia; M06.9 Rheumatoid arthritis, unspecified; J45.30 Mild persistent asthma, uncomplicated; M96.0 Pseudarthrosis after fusion or arthrodesis; E11.42 Type 2 diabetes mellitus with diabetic polyneuropathy; E66.9 Obesity, unspecified; M43.16 Spondylolisthesis, lumbar region; M48.061 Spinal stenosis, lumbar region without neurogenic claudication; M51.26 Other intervertebral disc displacement, lumbar region; I49.9 Cardiac arrhythmia, unspecified; M79.7 Fibromyalgia; Z96.653 Presence of artificial knee joint, bilateral; Z79.899 Other long term (current) drug therapy; Z79.1 Long term (current) use of non-steroidal anti-inflammatories (NSAID); Z79.84 Long term (current) use of oral hypoglycemic drugs; Z79.891 Long term (current) use of opiate analgesic; Z88.6 Allergy status to analgesic agent
CPT/HCPCS: 72100; 72131; 80048; 83036; 83735; 85025; 85027; 86850; 86900; 86901; 94760